=== PATIENT | male | born 1960 | race Caucasian/White ===

== ENCOUNTER → 2019-12-23 08:20 | Outpatient (BNVA) | payer MEDICARE, MEDICAID, SELFPAY | PROVIDERS: PCP Internal Medicine; Referring Provider Internal Medicine; Visit Provider Surgery | DX: R19.05 Periumbilic swelling, mass or lump (principal); Z87.19 Personal history of other diseases of the digestive system | CPT/HCPCS: 99213 ==

== ENCOUNTER 2020-01-06 08:27 | Outpatient (REF) | payer MEDICARE, MEDICAID, SELFPAY ==
--- NOTE | 2020-01-06 08:31 | CT_ITS ---
EXAMINATION: CT ABDOMEN AND PELVIS WITHOUT CONTRAST CLINICAL INFORMATION: Ventral hernia, follow-up. COMPARISON: CT abdomen and pelvis noncontrast 12/27/2018 TECHNIQUE: Multidetector volumetric imaging was performed from the superior aspect of the liver through the pubic symphysis. Sagittal and coronal reformatted images were obtained on the technologist's workstation. No oral or intravenous contrast. This CT examination was performed using dose optimization techniques as appropriate, variously including the following: *Automated exposure control *Adjustment of mA and/or kV according to patient size (this includes techniques or standardized protocols for targeted exams where dose is matched to indication/reason for exam; i.e. extremities or head) *Use of iterative reconstruction technique DLP: 667 mGy-cm FINDINGS: LUNG BASES: The visualized lung bases are unremarkable. LIVER, GALLBLADDER, AND BILIARY TREE: The liver is within normal size and smooth in contour and uniform in attenuation. There is no focal hepatic parenchymal lesion or intrahepatic ductal dilatation. The gallbladder is unremarkable with no evidence of radiopaque gallstones, gallbladder wall thickening, or obvious pericholecystic inflammatory changes. PANCREAS: Unremarkable. SPLEEN: Unremarkable. ADRENAL GLANDS: Unremarkable. KIDNEYS AND URETERS: The kidneys are normal in size, shape, and attenuation. No hydronephrosis, hydroureter, or calculi seen. No perinephric stranding. BLADDER: Unremarkable. GASTROINTESTINAL TRACT/ABDOMINAL WALL: There is a umbilical hernia containing mesenteric fat and small bowel again noted. The abdominal wall defect measures 6.4 x 6.5 cm. The hernia sac measures 5.9 x 10.6 x across by 9.7 cm vertical. There is now semisolid small bowel contents just proximal to the hernia and within the hernia sac. The bowel is within normal caliber under 3 cm and there is no bowel wall thickening and pneumatosis. The efferent loop from the hernia is collapsed. Again, there is some subtle stranding in the fat within the hernia. No fluid. The remainder of the bowel is unremarkable. The appendix is normal. There is no ascites or fluid collection. LYMPH NODES: No lymphadenopathy. VASCULAR: Unremarkable. PELVIC VISCERA: Mild prostatic enlargement again seen. Seminal vesicles unremarkable. OSSEOUS STRUCTURES: Unremarkable. CT/CT abdomen pelvis wo con IMPRESSION: Chronic umbilical hernia containing mesenteric fat and small bowel. There is now small bowel feces within and proximal to the hernia consistent with slow transit. No bowel wall thickening or proximal obstruction.
== END 2020-01-06 08:28 | disposition home or self-care (01) ==
LOC: HO.CT 08:27
PROVIDERS: PCP Physician Assistant; Visit Provider Surgery
DX: Z87.19 Personal history of other diseases of the digestive system (principal)
CPT/HCPCS: 74176

== ENCOUNTER → 2020-01-17 08:48 | Outpatient (BNVA) | payer MEDICARE, MEDICAID, SELFPAY | PROVIDERS: PCP Physician Assistant; Visit Provider Surgery | DX: K43.2 Incisional hernia without obstruction or gangrene (principal) | CPT/HCPCS: 99212 ==

== ENCOUNTER → 2020-01-31 08:32 | Outpatient (BNVA) | payer MEDICARE, MEDICAID, SELFPAY | PROVIDERS: PCP Physician Assistant; Referring Provider Physician Assistant; Visit Provider Nurse Practitioner Gerontology | DX: E11.9 Type 2 diabetes mellitus without complications (principal); Z79.84 Long term (current) use of oral hypoglycemic drugs; E66.01 Morbid (severe) obesity due to excess calories; Z68.36 Body mass index [BMI] 36.0-36.9, adult; E78.5 Hyperlipidemia, unspecified | CPT/HCPCS: 82947; 99212 ==

== ENCOUNTER 2020-02-15 12:20 | Inpatient (IN) | payer MEDICARE, MEDICAID, SELFPAY ==
[2020-02-10 11:15] VITALS: BMI 36.8
[2020-02-15] VITALS (14 sets, daily range): BP systolic 112–182; BP diastolic 53–96; PULSE 60–84; RESP 14–20; TEMP 36.3–37.2; O2SAT 92–98
--- NOTE | 2020-02-15 07:27 | P.HPSUR_ITS ---
Pre-Procedural Eval Section B Chief Complaint: Incisional hernia Details of Present Illness: for lap repair of recurrent ventral hernia, possible open Relevant Family History (Specify if Yes): No Relevant Social History: None Present Medications: see Short Stay Collaborative assessment Medical History: Significant History (DM. blindness, glaucoma, high BMI) History of Previous Operations: Relevant previous surgery/procedure and date(s) (hx of lap repair of hernia - 2018) Allergies: Allergies Allergy/AdvReac Type Severity Reaction Status Date / Time pollen/pine/sap Allergy Unknown Unknown Uncoded 01/31/20 09:08 Review of Systems Sugical H&P ROS: Negative: Constitution, Cardiovascular, Respiratory, Neurological, Psychiatric, Hem-Onc, Allergic/Immunologic, Gastrointestinal, Genitourinary, Musculoskeletal, Integumentary, Endocrine and Eyes/Ears/Nose/Thr oat Exam Surgical H&P Exam: Normal: HEENT, Normal: Heart, Normal: Lungs, Normal: Extremities, Normal: Abdomen, Normal: Skin and Normal: Neurological Plan Diagnosis/Plan: Unchanged Patient has been examined and remains a candidate for the planned procedure
[2020-02-15 07:42] LABS: Glucose, Whole Blood 147 mg/dL (60-115)
[2020-02-15] MEDS: ceFAZolin Sodium/Dextrose,Iso 2 GM/50 ML PIGGYBACK IV (07:53)
--- NOTE | 2020-02-15 07:55 | HO.ANESPROP2 ---
HPI - Anesthesia Eval Consult details Narrative: 59yo male patient here for laparoscopic incisional hernia repair, possible open. [facility] Past Medical History Medical History Blindness Controlled diabetes mellitus without complication, without long-term current use of insulin Diabetes mellitus Glaucoma High BMI History of umbilical hernia Hyperlipidemia LDL goal <100 Incisional hernia Obesity (BMI 30-39.9) Obesity due to excess calories YOLY (obstructive sleep apnea) Family History Family History Father History of bone cancer History of diabetes mellitus Mother History of pancreatic cancer Paternal Grandmother History of diabetes mellitus Paternal Uncle History of diabetes mellitus Paternal Aunt History of diabetes mellitus Family history of problems with anesthesia: No Surgical History Surgical History History of colonoscopy (~2009) History of local excision of skin lesion History of umbilical hernia repair History of Problems with Anesthesia: No Social History Social History Household Members: None Alcohol intake: never Smoking Status: Former smoker Advance Directives Information Provided: No Meds Allergies Allergy/AdvReac Type Severity Reaction Status Date / Time pollen/pine/sap Allergy Unknown Unknown Uncoded 01/31/20 09:08 Home Medications Medication Instructions Recorded Confirmed Type brimonidine 0.2 % eye drops 1 drp OPHTHALMIC (EYE) Q8H ml 12/23/19 02/10/20 History latanoprost 0.005 % eye drops 1 drp OPHTHALMIC (EYE) DAILY ml 12/23/19 02/15/20 History metformin 500 mg tablet,extended 500 mg PO BEDTIME 12/23/19 02/10/20 History release 24 hr simvastatin 10 mg tablet 10 mg PO DAILY 12/23/19 02/10/20 History Exam Exam Date and Time: February 15, 2020 8625 Height,Weight and Vital Signs: Height 5 ft 7 in Weight 106.594 kg Last Vital Signs Temp 98.9 F 02/15/20 07:35 Pulse 62 02/15/20 07:35 Resp 16 02/15/20 07:35 BP 117/58 L 02/15/20 07:35 Pulse Ox 97 02/15/20 07:35 Pertinent Lab Results Pertinent Lab Results: Laboratory Tests 02/15/20 07:33 POC Glucose 147 H Assessment and Plan Assessment Anesthesia Assessment: Anesthesia Plan Discussed and Chart Reviewed Final Anesthetic Review NPO: Yes ASA Class: III Final Preanesthetic Review: No Changes in Pt Med Stat, Meds/Allgs Chart Reviewed, Consent Obtained/Reviewed and Anes Risks/Benef Reviewed Patient Risk: Intermediate Procedure Risk: Intermediate Anesthetic Plan Anesthetic Plan: GA Disposition: Extended PACU
[2020-02-15] MEDS: Lactated Ringers 1,000 ML 100 ML IVCONT (07:59)
--- NOTE | 2020-02-15 11:44 | P.BOP_ITS ---
Brief Operative Note Date of Service: 02/15/20 Pre-op diagnosis: recurrent umbilical hernia Post-op diagnosis: same Procedure: Laparoscopic assisted repair of recurrent umbilical hernia with mesh, extensive lysis of adhesions, explantation of old mesh Implants: Phasix ST mesg [id number] Surgeon: CATIE AGUDELO MD Anesthesia: GETA Tanning Wheel Filler: Vanna Jeffries Estimated blood loss (mL): 30 Pathology: other (old mesh) Condition: stable Disposition: PACU
--- NOTE | 2020-02-15 13:50 | OP_ITS ---
SURGEON: Jason Ferguson MD INDICATIONS: The patient is a 59-year-old male, who has had previous history of recurrent hernia with laparoscopic repair in January 2019. He had noticed recurrence few months after and I had seen him in the office. A CAT scan showed what appeared to be a recurrent hernia at the level of umbilicus, measuring about 5 cm wide. In view of symptoms, he wanted to proceed with repair again. I explained the technique of the plan of repairing laparoscopically with possible conversion to open. I reviewed the risks including, but not limited to bleeding, infection, bowel injury, recurrence, as well as benefits and alternatives, and had given consent. PREOPERATIVE DIAGNOSIS: Recurrent umbilical hernia. POSTOPERATIVE DIAGNOSIS: Recurrent umbilical hernia with extensive adhesions. PROCEDURE PERFORMED: ESTIMATED BLOOD LOSS: COMPLICATIONS: ANESTHESIA: ASSISTANTS: SPECIMENS: PROCEDURES PERFORMED: Laparoscopic-assisted repair of a recurrent umbilical hernia with Phasix mesh with extensive lysis of adhesions and explantation of an old mesh. DEBURRING MACHINE OPERATOR: Vanna Jeffries PA-C. DESCRIPTION OF PROCEDURE: He was brought to the operating room, placed supine on table under general anesthesia via endotracheal tube. A Joseph catheter was inserted. Both arms were tucked on the side. The abdomen was prepped and draped in the usual sterile fashion. A surgical time-out was done and the patient received cefazolin 2 g IV preoperatively. I made an incision on the skin in the epigastric area just below the subcostal margin using a blade #15. This was carried down to full-thickness skin and subcutaneous fat down to the fascia. The fascia was incised. The peritoneum was entered through this incision, a Tami port was introduced. Pneumoperitoneum was introduced to a pressure of 15 mmHg. From here on, most of the procedure was done under vision of the laparoscope. We had used a 10 mm 30 degrees angle scope for most of the procedure. With laparoscopic visualization, we placed two 5 mm ports in the left side of the abdomen very laterally through small stab incisions. These 2 were then used as working ports. We proceeded to then examine the area of the hernia and there was note of very adherent omentum as well as bowel loops on the inferior edge of the hernia. There was extensive adherent omentum that we had to carefully lyse using the LigaSure. We made sure there were no bowel loops during the entire lysis of adhesions. Again, there were extensive adhesions in inferior aspect of the fascial defect. The fascial defect was seen and again this was wide-mouth and had a bowel loop that was markedly adherent into the lower edge. After we were able to achieve complete release of the omentum off the left edge of the fascial defect, proceeded to attempt to release the adherent small bowel loops from the inferior edge. We grasped this gently with grasper to allow counter retraction, and we used a combination of blunt dissection with the [place] dissector as well as the LigaSure itself. We were able to lyse some of the very dense adhesions. However, the bowel loops seemed to be more adherent past the fascia. In view of the high risk of injuring the bowel wall, I decided to convert to open because of the very dense and extensive adhesions. We desufflated through the port sites. I made an incision on the area of the umbilicus in the midline using blade #15. This was carried down to full-thickness skin and subcutaneous fat until we were able to enter the sac. I then extended the incision on the subcutaneous layer to optimize the length of the skin incision. We very able to see the bowel loops that were stuck on the fascia. I was able to release all of the rest of the adhesions superiorly to the right side. By doing so, we were able to clearly visualize the entire open sac with very markedly adherent bowel loops. Examination of this showed that this was also very adherent to the mesh on the middle aspect. This mesh was actually well incorporated on the left side, but the right side had been come off and was loose. We proceeded to gently next part of the procedure. Therefore required a long period of time because of the markedly adherent small bowel loops on the edge of the mesh. We had to do a prolonged dissection using the Metzenbaum scissors to carefully release the entire small bowel loop off the mesh with combination of sharp dissection, Metzenbaum scissors, and blunt dissection using countertraction and traction on the fascia itself as well as the small bowel loops. Again, in view of these extensive adhesions, this part of the procedure took a prolonged period of time, but we were eventually able to release the entire small bowel loop off the mesh. We proceeded to then explant the mesh by releasing this off the underside of the fascia. This was done using sharp dissection with Metzenbaum scissors as well as with electrocautery. We were eventually able to completely explant the mesh and was sent as specimen. We had Chuy clamps applied on the fascial edge. The north, south dimension was about 5 cm and the lateral edges seemed to come together well on the midline. Since there was a recurrence, I decided to use a wider mesh for greater overlap. I chose a 15 x 20 Phasix mesh and this was laid flat under the fascia with the fish in place to assist in positioning. I then proceeded to apply tacks on the skirt of the mesh circumferentially as wide as I could. I then proceeded to apply an inner row of tacks again using the same tacker. Once I felt that good application of the tacks was achieved, I proceeded to remove the fish part of the mesh. I then applied additional rows of tacks all around circumferentially on the skirt of the mesh. I then proceeded to close the fascia with Maxon 1 stitch incorporating the Prolene part of the mesh itself at the midline with some of the sutures. We therefore closed this with running Maxon 1 stitch in the midline. I then proceeded to inspect the placement of the mesh laparoscopically. I used the camera again in the epigastric port and examined this. The mesh actually appeared to be flat and well positioned except for an area on the left upper part of the mesh itself, which appeared to be folded and was hanging off the peritoneum. We attempted to apply additional tacks laparoscopically on this, but in view of the folding of the Prolene mesh, this did not achieve fixation as folded part was too thick for the tack be secured on the fascia. I therefore decided to use transfascial sutures on the lateral and upper part of the mesh. I used a Trey needle and was inserted through a small stab incision on the skin, passed to the fascia through the folded part of the mesh and back out again. This was then tied through a small incision on the skin. I used 2 of these transfascial sutures to flatten the mesh, which was hanging on this side. This 2 transfascial sutures using the Trey needle done laparoscopically appeared to achieve the purpose of flattening the mesh without any hanging edges. We examined the abdominal cavity laparoscopically. Again, the entire mesh appeared to be flat and was secured. I removed about 4 of the loose tacks laparoscopically as well as using the grasper. I examined the entire abdominal cavity and there was no evidence of any bowel injury. The bowel loop that had been earlier markedly adherent had been also examined well prior to closure of the mesh itself. There was good hemostasis inside the abdomen. We desufflated the port sites and removed all ports. I closed the epigastric port site with [id number] Dexon 0 stitch. I applied a RUCHI #7 drain at the large hernia sac and this was brought out through an exit site on the right side by a stab incision. This RUCHI drain was secured with a nylon 3-0 stitch to the skin. We then proceeded to close all incisions with skin lara. All incisions were infiltrated with Marcaine 0.5% for postop analgesia. Dressings were applied. The procedure was completed. The patient tolerated the procedure well. There were no complications noted. Initial and final counts of sponge and instruments were correct. Estimated blood loss was about 20 cc. The patient was extubated without difficulty and transferred to recovery room with stable vital signs. MD JUSTIN Sánchez/ABRIL / [id number] MTDJose
[2020-02-15 14:18] LABS: Glucose, Whole Blood 177 mg/dL (60-115)
--- NOTE | 2020-02-15 14:23 | PC.NURSE ---
Pt arrived to the floor, alert oriented, pt is legally blind, need to tell him an show him where things are. Has bandaids on upper stomach with slight staining, had an open choly mid abdominal dressing, no staining on dressing. Has a RUCHI drain less than 1 cc in drain. Instructed how to splint abdomen when moving. Call garcia with in reach.
[2020-02-15] MEDS: 0.9 % Sodium Chloride Flush 3 ML SYRINGE IVFLUSH ×2 (15:02→21:15)
[2020-02-15] MEDS: oxyCODONE HCl Immed Release 5 MG TABLET PO ×2 (15:55→23:36)
--- NOTE | 2020-02-15 15:58 | PM.EVENT ---
Event Note Date of Service: 02/15/20 Event Note: pt seen postop he underwent lap assisted repair of recurrent ventral hernia with mesh with extensive lysis of adhesions earlier today says he has good pain control looks well dressings dry RUCHI drain - very scanty abd soft stable VS continue pain mgt doing well postop
[2020-02-15 16:50] LABS: Glucose, Whole Blood 193 mg/dL (60-115)
[2020-02-15] MEDS: Insulin Lispro 100 UNIT/ML 3 ML VIAL SUBCUT ×2 (17:16→21:11)
[2020-02-15] MEDS: Brimonidine Tartrate 0.2% Oph 5 ML BOTTLE 1 DROP EYE-BOTH (20:08)
[2020-02-15] MEDS: Morphine Sulfate 4 MG/ML CARTRIDGE IVPUSH (20:12)
[2020-02-15 20:31] LABS: Glucose, Whole Blood 187 mg/dL (60-115)
[2020-02-15] MEDS: Latanoprost 0.005 % Ophth Sol 2.5 ML DROPS 1 DROP EYE-BOTH (21:11)
[2020-02-16] MEDS: Morphine Sulfate 4 MG/ML CARTRIDGE IVPUSH ×2 (03:16→07:23)
[2020-02-16 03:56] VITALS: BP 116/57; PULSE 69; RESP 16; TEMP 37.2; O2SAT 95
[2020-02-16] MEDS: Brimonidine Tartrate 0.2% Oph 5 ML BOTTLE 1 DROP EYE-BOTH ×2 (03:57→19:52)
[2020-02-16 07:17] VITALS: BP 123/65; PULSE 71; RESP 18; TEMP 36.9; O2SAT 93
[2020-02-16] MEDS: 0.9 % Sodium Chloride Flush 3 ML SYRINGE IVFLUSH ×3 (07:22→20:00)
[2020-02-16 08:02] LABS: Anion Gap 15 (12-20); Blood Urea Nitrogen 18 mg/dL (9-16); Carbon Dioxide 24 mmol/L (22-29); Chloride 104 mmol/L (96-108); Creatinine Clr Calc Pharmacy 90.7; Estimated Glomerular Filt Rate > 60; Glucose Fasting 144 mg/dL (60-99); Potassium 4.2 mmol/l (3.3-5.1); Sodium 139 mmol/L (135-145)
[2020-02-16 08:11] LABS: Glucose, Whole Blood 150 mg/dL (60-115)
--- NOTE | 2020-02-16 08:17 | P.PNGS_ITS ---
Subjective Subjective Date of Service: 02/16/20 Interval history: Complains of incisional pain Tolerating diet Able to get out of bed and ambulate in the room Physical Exam Vital Signs: Vital Signs: Last Vital Signs Temp 98.4 F 02/16/20 07:17 Pulse 71 02/16/20 07:17 Resp 18 02/16/20 07:17 BP 123/65 02/16/20 07:17 Pulse Ox 93 02/16/20 07:17 Body Mass Index 36.8 Chemistry 02/16/20 06:36 Sodium 139 Potassium 4.2 Carbon Dioxide 24 BUN 18 H Creatinine 1.02 Calcium 8.0 L Const: General: comfortable and no acute distress Resp: Effort & Inspection: normal respiratory effort Cardio: Rate: regular rate Rhythm: regular rhythm GI: Other: Soft, RUCHI drain in place, output scanty, dressings dry Palpation (GI): no guarding Progress Note: A&P Assessment and plan (1) History of umbilical hernia: Status: Acute Assessment and Plan: Status post laparoscopic assisted repair of recurrent umbilical hernia with mesh Looks well Abdomen soft RUCHI to the old hernia sac with minimal output He feels he is not ready to go home today - he lives alone, legally blind Will keep in the hospital for pain management Ambulate with assistance Overall, doing well Fall Risk Details Current Medications: Current Medications Generic Name Dose Route Start Last Admin Trade Name Freq PRN Reason Stop Dose Admin Acetaminophen 975 mg 02/15/20 11:54 Acetaminophen 325 Mg Tablet PO Q6H PRN Pain, Mild (Pain Scale 1-3) Atorvastatin Calcium 10 mg 02/16/20 09:00 Atorvastatin Calcium 10 Mg Tablet PO DAILY [facility] Brimonidine Tartrate 1 drop 02/15/20 12:00 02/16/20 03:57 Brimonidine Tartrate 0.2% Oph 5 Ml Bottle EYE-BOTH 1 drop Q8H [facility] Administration Docusate Sodium 100 mg 02/15/20 11:46 Docusate Sodium 100 Mg Capsule PO DAILY PRN Constipation Heparin Sodium (Porcine) 5,000 unit 02/16/20 12:00 Heparin Sodium,Porcine 5,000 Unit/Ml Vial SUBCUT Q8H [facility] Insulin Human Lispro 0 unit 02/15/20 16:30 02/16/20 07:22 Insulin Lispro 100 Unit/Ml 3 Ml Vial SUBCUT 02/16/20 11:51 Not Given QIDACHS [facility] Protocol Latanoprost 1 drop 02/15/20 21:00 02/15/20 21:11 Latanoprost 0.005 % Ophth Kaila 2.5 Ml Drops EYE-BOTH 1 drop BEDTIME TOMMY Administration Morphine Sulfate 4 mg 02/15/20 11:51 02/16/20 07:23 Morphine Sulfate 4 Mg/Ml Cartridge IVPUSH 4 mg Q4H PRN Administration Pain, Severe (Pain Scale 7-10) Ondansetron HCl 4 mg 02/15/20 11:46 Ondansetron Hcl 4 Mg/2 Ml Vial IVPUSH Q8H PRN Nausea and Vomiting Oxycodone HCl 5 mg 02/15/20 11:51 02/15/20 23:36 Oxycodone Hcl Immed Release 5 Mg Tablet PO 5 mg Q6H PRN Administration Pain, Severe (Pain Scale 7-10) Sodium Chloride 3 ml 02/15/20 16:00 02/16/20 07:22 0.9 % Sodium Chloride Flush 3 Ml Syringe IVFLUSH 3 ml QSHIFT [facility] Administration Time Spent With Patient Time: Total time spent is greater than 50% in coordination of care (as documented) at patient's floor/unit and/or counseling patient: Time with patient: 15 - 24 minutes
--- NOTE | 2020-02-16 08:22 | PM.PNGS ---
Subjective Subjective Date of Service: 02/16/20 Interval history: Very sore this morning and oxycodone not relieving pain. Morphine helping more. Having difficulty getting OOB. Nervous to go home. Tolerating diet. No flatus or BM. Physical Exam Vital Signs: Vital Signs: Last Vital Signs Temp 98.4 F 02/16/20 07:17 Pulse 71 02/16/20 07:17 Resp 18 02/16/20 07:17 BP 123/65 02/16/20 07:17 Pulse Ox 93 02/16/20 07:17 Body Mass Index 36.8 Const: General: healthy appearing, no acute distress and alert Orientation/consciousness: patient oriented x3 Resp: Effort & Inspection: normal respiratory effort GI: Other: RUCHI drain serous drainage Inspection: Yes incision (dressings C/D/I) Palpation (GI): Soft to palpation, Tenderness to palpation present (GI) (moderate, incisional), no guarding, not rigid and No Rebound tenderness present Skin: General skin exam: no rashes or lesions noted Neuro: General: patient oriented x3 Extrem: General: Yes no clubbing, cyanosis or edema Progress Note: A&P Assessment and plan (1) History of umbilical hernia: Status: Acute (2) Diabetes mellitus: Status: Acute Assessment and Plan: Diabetic diet. On ISS. Will resume home metformin. (3) YOLY (obstructive sleep apnea): Status: Acute (4) Blindness: Problem details: has 10-20% vision/walks with white cane Status: Acute (5) History of umbilical hernia repair: Status: Acute Assessment and Plan: POD #1 s/p laparoscopic assisted repair of umbilical hernia with mesh. Sore this morning with difficulty with pain control. VSS. Abd exam benign with dressings c/d/i, appropriate post op tenderness, RUCHI with serous drainage. Cont pain management- will add ofirmev. Encouraged OOB/ambulation. Home when pain controlled on PO analgesics. Fall Risk Details Current Medications: Current Medications Generic Name Dose Route Start Last Admin Trade Name Freq PRN Reason Stop Dose Admin Acetaminophen 975 mg 02/15/20 11:54 Acetaminophen 325 Mg Tablet PO Q6H PRN Pain, Mild (Pain Scale 1-3) Atorvastatin Calcium 10 mg 02/16/20 09:00 Atorvastatin Calcium 10 Mg Tablet PO DAILY TOMMY Brimonidine Tartrate 1 drop 02/15/20 12:00 02/16/20 03:57 Brimonidine Tartrate 0.2% Oph 5 Ml Bottle EYE-BOTH 1 drop Q8H TOMMY Administration Docusate Sodium 100 mg 02/15/20 11:46 Docusate Sodium 100 Mg Capsule PO DAILY PRN Constipation Heparin Sodium (Porcine) 5,000 unit 02/16/20 12:00 Heparin Sodium,Porcine 5,000 Unit/Ml Vial SUBCUT Q8H [facility] Insulin Human Lispro 0 unit 02/15/20 16:30 02/16/20 07:22 Insulin Lispro 100 Unit/Ml 3 Ml Vial SUBCUT 02/16/20 11:51 Not Given QIDACHS [facility] Protocol Latanoprost 1 drop 02/15/20 21:00 02/15/20 21:11 Latanoprost 0.005 % Ophth Kaila 2.5 Ml Drops EYE-BOTH 1 drop BEDTIME TOMMY Administration Morphine Sulfate 4 mg 02/15/20 11:51 02/16/20 07:23 Morphine Sulfate 4 Mg/Ml Cartridge IVPUSH 4 mg Q4H PRN Administration Pain, Severe (Pain Scale 7-10) Ondansetron HCl 4 mg 02/15/20 11:46 Ondansetron Hcl 4 Mg/2 Ml Vial IVPUSH Q8H PRN Nausea and Vomiting Oxycodone HCl 5 mg 02/15/20 11:51 02/15/20 23:36 Oxycodone Hcl Immed Release 5 Mg Tablet PO 5 mg Q6H PRN Administration Pain, Severe (Pain Scale 7-10) Sodium Chloride 3 ml 02/15/20 16:00 02/16/20 07:22 0.9 % Sodium Chloride Flush 3 Ml Syringe IVFLUSH 3 ml QSHIFT TOMMY Administration Time Spent With Patient Time: Total time spent is greater than 50% in coordination of care (as documented) at patient's floor/unit and/or counseling patient: Time with patient: 15 - 24 minutes No Severe Sepsis: No Severe Sepsis
[2020-02-16] MEDS: Docusate Sodium 100 MG CAPSULE PO ×2 (09:18→19:54)
[2020-02-16 11:29] VITALS: BP 113/59; PULSE 64; RESP 16; TEMP 36.1; O2SAT 96
[2020-02-16 11:46] LABS: Glucose, Whole Blood 191 mg/dL (60-115)
[2020-02-16] MEDS: Insulin Lispro 100 UNIT/ML 3 ML VIAL SUBCUT (11:58)
[2020-02-16] MEDS: Heparin Sodium,Porcine 5,000 UNIT/ML VIAL 5000 UNIT SUBCUT ×2 (11:59→19:52)
--- NOTE | 2020-02-16 12:33 | HO.POSTANES ---
Post Anesthesia Evaluation Post Anesthesia Evaluation Vital Signs: Vital Signs Temp Pulse Resp BP Pulse Ox 02/16/20 11:29 96.9 F 64 16 113/59 L 96 02/16/20 07:17 98.4 F 71 18 123/65 93 02/16/20 03:56 98.9 F 69 16 116/57 L 95 Anesthesia: General Endotracheal-GETA Mental Status: Awake Pain Control: Satisfactory Nausea/Vomiting: None Hydration: Adequate Anesthesia-Related Issues: No Anes. Related Issues
[2020-02-16] MEDS: oxyCODONE HCl Immed Release 5 MG TABLET 10 MG PO (12:47)
[2020-02-16 14:51] VITALS: BMI 36.8
[2020-02-16 15:39] VITALS: BP 117/57; PULSE 60; RESP 20; TEMP 36.1; O2SAT 95
--- NOTE | 2020-02-16 15:39 | MHC.CM.PN ---
PT ADMITTED S/P LAP UMBILICAL HERNIA REPAIR W/MESH, EMR REVIEWED, PT ALERT AND ORIENTED, PT ANXIOUS ABOUT DISCHARGE DUE TO ONGOING PAIN AND DIFFICULTY GETTING IN AND OUT OF BED, PT ALSO UNABLE TO VISUALIZE INCISION OR MEASURE DRAINAGE FROM RUCHI DRAIN D/T BLINDNESS, REFERRAL WILL BE MADE TO [facility] D/T PT NOT BEING INTERESTED IN OTHER OPTIONS, PT HAS RELATIVES HOWEVER THEY LIVE IN [place] AND REPORTS HE DOES NOT HAVE FRIENDS/FAMILY WHO CAN ASSIST HIM DAILY ONCE HE RETURNS HOME, IMM READ/REVIEWED W/PT AND COPY WAS SCANNED AND EMAILED AT HIS REQUEST D/T BLINDNESS. PT REPORTS HCP W/MYLENE TORREZ AND JOVAN YAN HIS AGENTS, COPY WAS REQUESTED SINCE IT IS NOT ON FILE. PT PREFERS [facility] ON [facility] IN [place] AND CONT'S TO SEE PCP FRANCESCA MAE. CURRENT DISCHARGE PLAN HOME W/[facility].
[2020-02-16 16:22] LABS: Glucose, Whole Blood 137 mg/dL (60-115)
[2020-02-16] MEDS: metFORMIN HCl ER 500 MG TAB.ER.24H PO (16:37)
[2020-02-16 19:23] VITALS: BP 134/72; PULSE 72; RESP 20; TEMP 37; O2SAT 95
[2020-02-16] MEDS: Latanoprost 0.005 % Ophth Sol 2.5 ML DROPS 1 DROP EYE-BOTH (20:05)
[2020-02-16 23:43] VITALS: BP 137/73; PULSE 83; RESP 20; TEMP 36.7; O2SAT 98
[2020-02-17 02:54] VITALS: BP 151/70; PULSE 79; RESP 19; TEMP 36.8; O2SAT 97
[2020-02-17] MEDS: Heparin Sodium,Porcine 5,000 UNIT/ML VIAL 5000 UNIT SUBCUT (03:28)
[2020-02-17] MEDS: Brimonidine Tartrate 0.2% Oph 5 ML BOTTLE 1 DROP EYE-BOTH (04:01)
[2020-02-17] MEDS: 0.9 % Sodium Chloride Flush 3 ML SYRINGE IVFLUSH (07:51)
[2020-02-17] MEDS: Docusate Sodium 100 MG CAPSULE PO (07:51)
[2020-02-17] MEDS: Atorvastatin Calcium 10 MG TABLET PO (07:51)
[2020-02-17 07:57] VITALS: BP 139/76; PULSE 72; RESP 20; TEMP 37; O2SAT 96
[2020-02-17 08:27] LABS: Glucose, Whole Blood 148 mg/dL (60-115)
--- NOTE | 2020-02-17 08:31 | PM.PNGS ---
Subjective Subjective Date of Service: 02/17/20 <Vanna Jeffries PA-C - Last Filed: 02/17/20 08:37> 02/17/20 <Jason Ferguson MD - Last Filed: 02/17/20 11:03> Interval history: Tolerating solid diet. Pain better but still requiring IV analgesics and was uncomfortable overnight. Reports difficulty getting OOB. Anxious about being discharge before he is ready. <Vanna Jeffries PA-C - Last Filed: 02/17/20 08:37> Physical Exam Vital Signs: Vital Signs: Last Vital Signs Temp 98.6 F 02/17/20 07:57 Pulse 72 02/17/20 07:57 Resp 20 02/17/20 07:57 BP 139/76 02/17/20 07:57 Pulse Ox 96 02/17/20 07:57 Body Mass Index 36.8 <Vanna Jeffries PA-C - Last Filed: 02/17/20 08:37> Const: General: comfortable, no acute distress and well developed <Vanna Jeffries PA-C - Last Filed: 02/17/20 08:37> Orientation/consciousness: patient oriented x3 <Vanna Jeffries PA-C - Last Filed: 02/17/20 08:37> Resp: Effort & Inspection: normal respiratory effort <Vanna Jeffries PA-C - Last Filed: 02/17/20 08:37> Cardio: Rate: regular rate <Vanna Jeffries PA-C - Last Filed: 02/17/20 08:37> GI: Inspection: Yes distended (mild) and Yes incision (clean) <Vanna Jeffries PA-C - Last Filed: 02/17/20 08:37> Palpation (GI): Soft to palpation, Tenderness to palpation present (GI) (mild incisional), no guarding, not rigid and No Rebound tenderness present <PENELOPE Altamirano Last Filed: 02/17/20 08:37> Auscultation: normal bowel sounds <PENELOPE Altamirano Last Filed: 02/17/20 08:37> Skin: General skin exam: no rashes or lesions noted <Vanna Jeffries PA-C - Last Filed: 02/17/20 08:37> Neuro: General: patient oriented x3 <Vanna Jeffries PA-C - Last Filed: 02/17/20 08:37> Extrem: General: Yes no clubbing, cyanosis or edema <Vanna Jeffries PA-C - Last Filed: 02/17/20 08:37> Progress Note: A&P Assessment and plan (1) History of umbilical hernia repair: Status: Acute <Vanna Jeffries PA-C - Last Filed: 02/17/20 08:37> Assessment and Plan: POD #2 s/p laparoscopic assisted repair of umbilical hernia with mesh. Doing well this morning but reports still having pain. VSS. Abd exam benign and incisions clean, appropriate post op tenderness, RUCHI with serous drainage. Encouraged OOB/ambulation, IS use. Anticipate home possibly later today or tomorrow. Will reassess later today. Will need VNA services for drain care- discussed with case management. <Vanna Jeffries PA-C - Last Filed: 02/17/20 08:37> Status post repair with mesh, laparoscopic assisted incisional pain appropriate to procedure He stated he may go home later on today Explained postop care to the patient RUCHI care will require VNA services Dry dressings to the wound No lifting Pain management Good GI function Seen and examined -agree with JOHN Jeffries <Jason Ferguson MD - Last Filed: 02/17/20 11:03> (2) Obesity (BMI 30-39.9): Status: Acute <Vanna Jeffries PA-C - Last Filed: 02/17/20 08:37> (3) History of umbilical hernia: Status: Acute <Vanna Jeffries PA-C - Last Filed: 02/17/20 08:37> (4) Diabetes mellitus: Status: Acute <Vanna Jeffries PA-C - Last Filed: 02/17/20 08:37> Assessment and Plan: ISS, on home Metformin. <Vanna Jeffries PA-C - Last Filed: 02/17/20 08:37> (5) YOLY (obstructive sleep apnea): Status: Acute <Vanna Jeffries PA-C - Last Filed: 02/17/20 08:37> (6) Blindness: Problem details: has 10-20% vision/walks with white cane <Vanna Jeffries PA-C - Last Filed: 02/17/20 08:37> Status: Acute <Vanna Jeffries PA-C - Last Filed: 02/17/20 08:37> Fall Risk Details Current Medications: Current Medications Generic Name Dose Route Start Last Admin Trade Name Freq PRN Reason Stop Dose Admin Atorvastatin Calcium 10 mg 02/16/20 09:00 02/17/20 07:51 Atorvastatin Calcium 10 Mg Tablet PO 10 mg DAILY TOMMY Administration Brimonidine Tartrate 1 drop 02/15/20 12:00 02/17/20 04:01 Brimonidine Tartrate 0.2% Oph 5 Ml Bottle EYE-BOTH 1 drop Q8H TOMMY Administration Docusate Sodium 100 mg 02/16/20 09:00 02/17/20 07:51 Docusate Sodium 100 Mg Capsule PO 100 mg BID TOMMY Administration Heparin Sodium (Porcine) 5,000 unit 02/16/20 12:00 02/17/20 03:28 Heparin Sodium,Porcine 5,000 Unit/Ml Vial SUBCUT 5,000 unit Q8H TOMMY Administration Latanoprost 1 drop 02/15/20 21:00 02/16/20 20:05 Latanoprost 0.005 % Ophth Kaila 2.5 Ml Drops EYE-BOTH 1 drop BEDTIME TOMMY Administration Metformin HCl 500 mg 02/16/20 17:00 02/16/20 16:37 Metformin Hcl Er 500 Mg Tab.Er.24h PO 500 mg DAILY@1700 TOMMY Administration Morphine Sulfate 4 mg 02/15/20 11:51 02/16/20 07:23 Morphine Sulfate 4 Mg/Ml Cartridge IVPUSH 4 mg Q4H PRN Administration Pain, Severe (Pain Scale 7-10) Ondansetron HCl 4 mg 02/15/20 11:46 Ondansetron Hcl 4 Mg/2 Ml Vial IVPUSH Q8H PRN Nausea and Vomiting Oxycodone HCl 5 mg 02/15/20 11:51 02/15/20 23:36 Oxycodone Hcl Immed Release 5 Mg Tablet PO 5 mg Q6H PRN Administration Pain, Severe (Pain Scale 7-10) Oxycodone HCl 10 mg 02/16/20 08:27 02/16/20 12:47 Oxycodone Hcl Immed Release 5 Mg Tablet PO 10 mg Q4H PRN Administration Pain, Severe (Pain Scale 7-10) Sodium Chloride 3 ml 02/15/20 16:00 02/17/20 07:51 0.9 % Sodium Chloride Flush 3 Ml Syringe IVFLUSH 3 ml QSHIFT TOMMY Administration <Vanna Jeffries PA-C - Last Filed: 02/17/20 08:37> Time Spent With Patient Time: Total time spent is greater than 50% in coordination of care (as documented) at patient's floor/unit and/or counseling patient: <Vanna Jeffries PA-C - Last Filed: 02/17/20 08:37> Time with patient: 15 - 24 minutes <Vanna Jeffries PA-C - Last Filed: 02/17/20 08:37>
--- NOTE | 2020-02-17 09:16 | MHC.CM.PN ---
DISCHARGE NOTE: PLAN TO DISCHARGE HOME TODAY W/[facility] FOR POST SURGICAL, RUCHI DRAIN AND MED RECONCILIATION DUE TO BLINDENESS. FRIEND TO TRANSPORT HOME, WILL PICK PT UP AT 11AM, CASE MANAGEMENT WILL MAKE FOLLOW-UP APPT W/PCP.
--- NOTE | 2020-02-17 09:45 | W.MHC.F2F ---
Service Date Service Date: 02/17/20 Encounter Date of encounter: 02/17/20 Reasons for Services Signs and symptoms assessed: Abdominal pain, tenderness, RUCHI drain output Reason for penitentiary: wound care and postoperative assessment and/or care MD Overseeing Care: Jason Ferguson Homebound: Leaving the home is medically contraindicated at this time without the asist of a device and/or another person due th the listed conditions above and below. Reason homebound: weakness related to hospital stay and unable to drive Homebound supporting statement: Mr. Alford is a 59 year old male with a PMH of diabetes, blindess, with recurrent umbilical hernia now s/p laparoscopic assisted repair with mesh. He is doing well post operatively but will need VNA upon discharge for post operative care and RUCHI drain care. Certification: Based on the above findings, I certify that this patient is confined to the home and needs intermittent penitentiary care, physical therapy and/or speech therapy, or continues to need occupational therapy. The patient is under my care, and I have initiated the establishment of the plan of care. The patient will be followed by a physician who will periodically review the plan of care.
--- NOTE | 2020-02-17 09:49 | P.DS_ITS ---
DS: Providers Provider Date of admission: 02/15/20 12:20 Primary care physician: Davion Sheth PA-C DS: Diagnosis Discharge Diagnosis (1) History of umbilical hernia repair: Status: Acute (2) Obesity (BMI 30-39.9): Status: Acute (3) History of umbilical hernia: Status: Acute (4) Diabetes mellitus: Status: Acute (5) YOLY (obstructive sleep apnea): Status: Acute (6) Blindness: Status: Acute Problem details: has 10-20% vision/walks with white cane DS: Medications Discharge Medications Home Medications: Home Medications Medication Instructions Recorded Confirmed brimonidine 0.2 % eye drops 1 drp OPHTHALMIC (EYE) Q8H ml 12/23/19 02/10/20 latanoprost 0.005 % eye drops 1 drp OPHTHALMIC (EYE) DAILY ml 12/23/19 02/15/20 simvastatin 10 mg tablet 10 mg PO DAILY 12/23/19 02/10/20 Previous Rx's Medication Instructions Recorded metformin 500 mg tablet,extended 500 mg PO BEDTIME #30 tab 02/15/20 release 24 hr dextromethorphan-guaifenesin 1 tab PO Q12H PRN #20 tab 02/17/20 [Mucinex DM] ibuprofen 600 mg PO TID PRN #30 tab 02/17/20 oxycodone-acetaminophen [Percocet] 1 - 2 tab PO Q4-6H PRN #24 tab 02/17/20 DS: Summary Hospital Course Hospital Course: Brief HPI:The patient is a 59-year-old male, who has had previous history of umbilical hernia with laparoscopic repair in January 2019. He had noticed a recurrence a few months after and he was seen in the office. A CAT scan was therefore performed which showed what appeared to be a recurrent hernia at the level of umbilicus, measuring about 5 cm wide. In view of symptoms, he wanted to proceed with repair again. Laparoscopic possible open repair technique was discussed with the patient. He now presents for repair. Hospital course: On 02/15/20, a laparoscopic assisted repair of umbilical hernia with mesh with extensive lysis of adhesions and explantation of old mesh was performed by Dr. Jason Ferguson. The patient tolerated the procedure well and was admitted post operatively for observation and pain control. The patient had an uncomplicated recovery course. On POD #1, he was doing well with some difficulty with pain control and additional analgesics were added with good effect. On POD #2 and the day of discharge, he was tolerating a solid diet, passing flatus and his pain was better controlled. He was OOB and ambulating. His abdominal exam remained benign with clean incisions. He had a RUCHI drain placed intraoperatively which was kept in place upon discharge. The patient was discharged to home on 02/17/20 in stable condition with VNA services. Status at Discharge Functional status at discharge: uses cane/walker Overall status at discharge: patient is progressing back to baseline Time Spent with Patient Time attestation: Total time spent providing and/or coordinating discharge services: Discharge coordination time: Greater than 30 minutes Physical Exam Vital Signs: Vital Signs: Last Vital Signs Temp 98.6 F 02/17/20 07:57 Pulse 72 02/17/20 07:57 Resp 20 02/17/20 07:57 BP 139/76 02/17/20 07:57 Pulse Ox 96 02/17/20 07:57 Body Mass Index 36.8 Const: General: comfortable, no acute distress and alert Orientation/consciousness: patient oriented x3 Resp: Effort & Inspection: normal respiratory effort GI: Other: RUCHI drain with serous drainage Inspection: Yes distended (mild) Palpation (GI): Soft to palpation, Tenderness to palpation present (GI) (mild, incisional), no guarding, not rigid and No Rebound tenderness present Skin: General skin exam: no rashes or lesions noted Neuro: General: patient oriented x3 Extrem: General: Yes no clubbing, cyanosis or edema DS: Data Data Completed and Pending Completed studies during hospitalization [Text1]: Pending at discharge 02/15/20 11:17 Surgical [PTH] Routine OLD MESH: Fragments of fibroadipose tissue with foreign body giant cell reaction, fibrosis and refractile material Labs on day of discharge: 02/14/20 09:23 ceFAZolin Sodium/Dextrose,Iso [Ancef] 2 gm in 50 ml IV PREOP 02/15/20 07:33 Glucose, Whole Blood Routine 02/15/20 07:49 ceFAZolin Sodium/Dextrose,Iso [Ancef] 2 gm in 50 ml .ROUTE As directed 02/15/20 08:00 Lactated Ringers [Lr] 1,000 ml IVCONT 100 mls/hr 02/15/20 08:15 Lidocaine HCl 2 % MPF [Xylocaine 2 % MPF] 5 ml .ROUTE .STK-MED ONE Midazolam HCl/PF [Versed] 2 mg .ROUTE .STK-MED ONE Rocuronium [place] [Zemuron] 100 mg IV .STK-MED ONE fentaNYL citrate/PF [Sublimaze] 50 mcg .ROUTE .STK-MED ONE propofoL [Diprivan] 200 mg IVPUSH .STK-MED ONE 02/15/20 08:16 Bupivacaine MPF 0.5 % [Sensorcaine MPF 0.5% 10 ML] 10 ml .ROUTE .STK-MED ONE Lidocaine HCl 1 % MPF [Xylocaine 1 % MPF] 5 ml .ROUTE .STK-MED ONE 02/15/20 09:08 fentaNYL citrate/PF [Sublimaze] 50 mcg .ROUTE .STK-MED ONE 02/15/20 09:16 Glycopyrrolate [Robinul] 0.2 mg .ROUTE .STK-MED ONE dexAMETHasone sod phosphate [Decadron] 4 mg .ROUTE .STK-MED ONE ondansetron HCL [Zofran] 4 mg .ROUTE .STK-MED ONE 02/15/20 09:17 Sugammadex Sodium [Bridion] 200 mg IVPUSH .STK-MED ONE 02/15/20 09:19 Acetaminophen [Tylenol] 975 mg PO ONCE PRN fentaNYL citrate/PF [Sublimaze] 25 mcg IVPUSH Q5M PRN ondansetron HCL [Zofran] 4 mg IVPUSH ONCE PRN oxyCODONE HCl Immed Release [Roxicodone] 5 mg PO ONCE PRN 02/15/20 09:34 HYDROmorphone HCl [Dilaudid] 2 mg .ROUTE .STK-MED ONE 02/15/20 10:19 Ketamine HCl/NS 50 mg IVPUSH .STK-MED ONE 02/15/20 10:59 Acetaminophen [Ofirmev] 1,000 mg in 100 ml IV As directed 02/15/20 11:17 Surgical [PTH] Routine 02/15/20 11:46 Docusate Sodium [Colace] 100 mg PO DAILY PRN 02/15/20 11:54 Acetaminophen [Tylenol] 975 mg PO Q6H PRN 02/15/20 12:06 Transfer Order Routine 02/15/20 14:10 Glucose, Whole Blood Routine 02/15/20 16:30 Insulin Lispro [Humalog] See Protocol SUBCUT QIDACHS 02/15/20 16:34 Glucose, Whole Blood Routine 02/15/20 19:56 Glucose, Whole Blood Routine 02/16/20 06:36 Basic Metabolic Panel Fasting Routine 02/16/20 07:15 Glucose, Whole Blood Routine 02/16/20 08:30 Acetaminophen [Ofirmev] 1,000 mg in 100 ml IV Q6H 02/16/20 09:00 Latanoprost 0.005 % Ophth Kaila [Xalatan 0.005 % Oph Kaila] 1 drop EYE-BOTH DAILY 02/16/20 11:28 Glucose, Whole Blood Routine 02/16/20 16:01 Glucose, Whole Blood Routine 02/17/20 07:54 Glucose, Whole Blood Routine Laboratory Last Values Sodium 139 mmol/L (135-145) 02/16/20 06:36 Potassium 4.2 mmol/l (3.3-5.1) 02/16/20 06:36 Chloride 104 mmol/L (96-108) 02/16/20 06:36 Carbon Dioxide 24 mmol/L (22-29) 02/16/20 06:36 Anion Gap 15 (12-20) 02/16/20 06:36 BUN 18 mg/dL (9-16) H 02/16/20 06:36 Creatinine 1.02 mg/dL (0.5-1.4) 02/16/20 06:36 Estim Creat Clear Calc 90.7 02/16/20 06:36 Estimated GFR > 60 02/16/20 06:36 POC Glucose 148 mg/dL (60-115) H 02/17/20 07:54 Fasting Glucose 144 mg/dL (60-99) H 02/16/20 06:36 Calcium 8.0 mg/dL (8.4-10.2) L 02/16/20 06:36 Discharge Plan Discharge Patient Disposition: Home Health Service Referrals: [facility] [Other] (New referral for [facility] for nursing. Nursing for home post surgical as sessment, RUCHI drain and medication reconciliation. PCP- Davion Sheth, case management office to make appt. Friend to transport home.) Domenic,Davion, PA-C [Primary Care Provider] - 1 Week (02/29/2020 9am. If you can't keep this appointment please call and reshedule.) Jason Ferguson MD [Physician] - 02/28/20 Discharge Medications: New oxycodone-acetaminophen [Percocet] 5-325 mg tablet 1 - 2 tab PO Q4-6H PRN (Reason: pain (scale score 7-10)) Qty: 24 RF: 0 Mucinex DM 30-600 mg tablet extended release 12 hr 1 tab PO Q12H PRN (Reason: cough) Qty: 20 RF: 0 ibuprofen 600 mg tablet 600 mg PO TID PRN (Reason: pain) Qty: 30 RF: 0 Continued metformin 500 mg tablet extended release 24 hr 500 mg PO BEDTIME Qty: 30 RF: 5 simvastatin 10 mg tablet 10 mg PO DAILY RF: 0 brimonidine 0.2 % drops 1 drp ophthalmic (eye) Q8H RF: 0 latanoprost 0.005 % drops 1 drp ophthalmic (eye) DAILY RF: 0 Discharge Orders: Discharge Order (Routine); Ordered 02/17/20 Ordered By: Vanna Jeffries Diet: diabetic diet Activity on Discharge: No heavy lifting Activity Restrictions/Additional Instructions: If the incision area is tender, you may apply an ice pack for short intervals (No more than 20 minutes on, followed by at least 20 minutes off). Do not apply heat. Do not use creams, lotions, or topical antibiotics unless instructed to do so by your surgeon. These can cause infection or allergic reaction. Ok to shower. You have lara closing your incision and these will be removed approximately 10-14 days after surgery. RUCHI drain care: change dressing q2d and PRN. Drain RUCHI bulb daily and as needed. Call Your Doctor If: -Your temperature exceeds 101.5? F -You experience excessive pain or swelling -You have an unexpected reaction to medication -You have excessive bleeding -You experience continued vomiting/nausea -Your incision begins to separate -Your incision shows signs of infection such as increased redness, swelling, excessive pain, drainage (light blood or clear fluid is normal) or heat Visit Report Forms: Patient Portal Discharge page Care Plan Goals: Return to baseline health and activity. Health Concerns: Diabetes mellitus, hyperlipidemia, recurrent umbilical hernia now s/p laparoscopic assisted repair of umbilical hernia with mesh Plan of Treatment: Pain control, observation, RUCHI drain care
[2020-02-17] MEDS: oxyCODONE HCl Immed Release 5 MG TABLET PO (09:53)
--- NOTE | 2020-02-19 08:55 | MHC.CM.PN ---
Pt called CM this morning reporting the VNA had contacted him night to schedule a time to see him Friday. He says when the nurse left his home she told him he would be contacted last night to schedule a time to be seen this morning. He reports no one contacted him last night and he has not heard from the nurse today. CM informed pt the VNA would be contacted for an ETA and then he would be called back at the number provided ([phone]).
--- NOTE | 2020-02-19 09:37 | MHC.CM.PN ---
VIKY received a return call from Phuong, clinical supervisor customer records division at [facility] who reported she would text the nurse that is seeing this pt today and ask her to call him directly with a time estimate. VIKY called pt back and informed him of above
== END 2020-02-17 11:00 | disposition home health service (06) | DRG 337 ==
LOC: HO.SSSA 12:21 → HO.S3 12:51
PROVIDERS: Physician Assistant Surgical; Admitting Provider Surgery; PCP Physician Assistant; Visit Provider Surgery
PROC: 0WUF0JZ Supplement Abdominal Wall with Synthetic Substitute, Open Approach (ICD-10-PCS; principal; 2020-02-15 08:30)
DX: K42.9 Umbilical hernia without obstruction or gangrene (principal); E11.9 Type 2 diabetes mellitus without complications; Z68.36 Body mass index [BMI] 36.0-36.9, adult; K66.0 Peritoneal adhesions (postprocedural) (postinfection); G47.33 Obstructive sleep apnea (adult) (pediatric); E66.9 Obesity, unspecified; Z79.84 Long term (current) use of oral hypoglycemic drugs; Z79.899 Other long term (current) drug therapy
CPT/HCPCS: 80048; 82947; 88300; 88304; 94660; 99024; C1781; J0131; J0690; J1100; J1170; J2250; J2270; J2405; J3010

== ENCOUNTER → 2020-02-21 13:58 | Outpatient (BNVA) | payer MEDICARE, MEDICAID, SELFPAY | PROVIDERS: PCP Physician Assistant; Visit Provider Surgery | DX: K42.9 Umbilical hernia without obstruction or gangrene (principal) | CPT/HCPCS: 99212 ==

== ENCOUNTER → 2020-02-28 08:22 | Outpatient (BNVA) | payer MEDICARE, MEDICAID, SELFPAY | PROVIDERS: PCP Physician Assistant; Visit Provider Surgery | DX: E11.9 Type 2 diabetes mellitus without complications (principal); E66.01 Morbid (severe) obesity due to excess calories; K42.9 Umbilical hernia without obstruction or gangrene; Z87.891 Personal history of nicotine dependence | CPT/HCPCS: 99212 ==

== ENCOUNTER 2020-03-20 08:38 | Outpatient (REF) | payer MEDICARE, MEDICAID, SELFPAY ==
[2020-03-20 10:47] LABS: Alanine Aminotransferase 25 U/L (0-40); Albumin Level 4.2 g/dL (3.5-5.0); Alkaline Phosphatase 52 U/L (39-117); Anion Gap 13 (12-20); Aspartate Amino Transferase 22 U/L (5-37); Bilirubin Total 0.7 mg/dL (0.0-1.0); Blood Urea Nitrogen 18 mg/dL (9-16); Calcium 8.4 mg/dL (8.4-10.2); Carbon Dioxide 26 mmol/L (22-29); Chloride 105 mmol/L (96-108); Cholesterol 221 mg/dL; Estimated Glomerular Filt Rate > 60; Glucose Fasting 130 mg/dL (60-99); HDL Cholesterol 34 mg/dL; LDL Cholesterol Calculated 153 mg/dl; Potassium 4.3 mmol/l (3.3-5.1); Sodium 140 mmol/L (135-145); Total Protein 6.6 g/dL (6.5-8.0); Triglycerides 173 mg/dL
[2020-03-20 10:54] LABS: Creatinine Urine 25.51 mg/dL; Microalbumin Urine < 5.0 mg/L
[2020-03-20 11:07] LABS: TSH reflex Free T4 3.14 mIU/mL (0.32-4.0)
== END 2020-03-20 08:39 | disposition home or self-care (01) ==
LOC: HO.10HDL 08:38
PROVIDERS: Visit Provider Physician Assistant
DX: Z09 Encounter for follow-up examination after completed treatment for conditions other than malignant neoplasm (principal); Z87.19 Personal history of other diseases of the digestive system; E11.9 Type 2 diabetes mellitus without complications; E78.5 Hyperlipidemia, unspecified; Z86.39 Personal history of other endocrine, nutritional and metabolic disease
CPT/HCPCS: 36415; 80053; 80061; 82043; 84443; 99212

== ENCOUNTER → 2020-03-21 10:24 | Outpatient (BNVA) | payer MEDICARE, MEDICAID, SELFPAY | PROVIDERS: PCP Physician Assistant; Visit Provider Dietitian, Registered | DX: Z76.89 Persons encountering health services in other specified circumstances (principal) ==

== ENCOUNTER 2020-06-14 07:54 | Day surgery (SDC) | payer MEDICARE, MEDICAID, SELFPAY ==
[2020-06-08 14:15] VITALS: BMI 36.0
--- NOTE | 2020-06-13 07:52 | HO.ANESPROP2 ---
Documented by User: Laurita Trammell 06/13/20 07:53 HPI - Anesthesia Eval Consult details Narrative: 60yo M for Colonoscopy *blind* [facility] Active Problems Active Problems: All Active Problems (Updated 06/08/20 @ 14:15 by Sierra Can) H/O: hypothyroidism (Acute) History of umbilical hernia repair (Acute) Recurrent umbilical hernia (Acute) Controlled diabetes mellitus without complication, without long-term current use of insulin (Acute) Hyperlipidemia LDL goal <100 (Acute) Obesity due to excess calories (Acute) Obesity (BMI 30-39.9) (Acute) Incisional hernia (Acute) History of umbilical hernia (Acute) Diabetes mellitus (Acute) High BMI (Acute) YOLY (obstructive sleep apnea) (Acute) Blindness (Acute) Glaucoma (Acute) Past Medical History Medical History Blindness Controlled diabetes mellitus without complication, without long-term current use of insulin Diabetes mellitus Glaucoma High BMI History of umbilical hernia Hyperlipidemia LDL goal <100 Incisional hernia Obesity (BMI 30-39.9) Obesity due to excess calories YOLY (obstructive sleep apnea) Recurrent umbilical hernia Seasonal allergies Family History Family History Father History of bone cancer History of diabetes mellitus Mother History of pancreatic cancer Paternal Grandmother History of diabetes mellitus Paternal Uncle History of diabetes mellitus Paternal Aunt History of diabetes mellitus Surgical History Surgical History History of colonoscopy (~2009) History of local excision of skin lesion History of umbilical hernia repair Social History Social History Household Members: None Are you a primary resident care provider to a significant other at home: No Do you presently have visiting nurse or other home services: No Alcohol intake: never Smoking Status: Former smoker Smoking Quit Date: 29 yrs ago Use of substances other than those prescribed or required for medical reasons: No Substance Use Type Other:: Hx ETOH and drug abuse- last 29 yrs ago Have you been hit, kicked, punched, or otherwise hurt by someone within the past year? If so, by whom?: No Advance Directives: No Advance Directives Information Provided: No Advance Directives on File: No Recently lost weight without trying: No service: No Current occupational status: disabled Meds Allergies Allergy/AdvReac Type Severity Reaction Status Date / Time pollen/pine/sap Allergy Unknown Unknown Uncoded 06/14/20 08:33 Home Medications Medication Instructions Recorded Confirmed Last Taken Type brimonidine 0.2 % eye drops 1 drp OPHTHALMIC (EYE) Q8H ml 12/23/19 06/14/20 06/14/20 07:00 History latanoprost 0.005 % eye drops 1 drp OPHTHALMIC (EYE) DAILY ml 12/23/19 06/08/20 02/15/20 History multivitamin 1 tab PO DAILY 06/08/20 06/08/20 Unknown History vitamin B complex [B Complex] 1 cap PO DAILY 06/08/20 06/08/20 Unknown History Exam Exam Date and Time: June 13, 2020 0752 Height,Weight and Vital Signs: Height 5 ft 7 in Weight 104.326 kg Assessment and Plan Assessment Anesthesia Assessment: Chart Reviewed Documented by User: Luli Mcqueen 06/14/20 09:55 [facility] Past Medical History Medical History Blindness Controlled diabetes mellitus without complication, without long-term current use of insulin Diabetes mellitus Glaucoma High BMI History of umbilical hernia Hyperlipidemia LDL goal <100 Incisional hernia Obesity (BMI 30-39.9) Obesity due to excess calories YOLY (obstructive sleep apnea) Recurrent umbilical hernia Seasonal allergies Family History Family History Father History of bone cancer History of diabetes mellitus Mother History of pancreatic cancer Paternal Grandmother History of diabetes mellitus Paternal Uncle History of diabetes mellitus Paternal Aunt History of diabetes mellitus Surgical History Surgical History History of colonoscopy (~2009) History of local excision of skin lesion History of umbilical hernia repair Social History Social History Household Members: None Are you a primary resident care provider to a significant other at home: No Do you presently have visiting nurse or other home services: No Alcohol intake: never Smoking Status: Former smoker Smoking Quit Date: 29 yrs ago Use of substances other than those prescribed or required for medical reasons: No Substance Use Type Other:: Hx ETOH and drug abuse- last 29 yrs ago Have you been hit, kicked, punched, or otherwise hurt by someone within the past year? If so, by whom?: No Advance Directives: No Advance Directives Information Provided: No Advance Directives on File: No Recently lost weight without trying: No service: No Current occupational status: disabled Meds Allergies Allergy/AdvReac Type Severity Reaction Status Date / Time pollen/pine/sap Allergy Unknown Unknown Uncoded 06/14/20 08:33 Home Medications Medication Instructions Recorded Confirmed Last Taken Type brimonidine 0.2 % eye drops 1 drp OPHTHALMIC (EYE) Q8H ml 12/23/19 06/14/20 06/14/20 07:00 History latanoprost 0.005 % eye drops 1 drp OPHTHALMIC (EYE) DAILY ml 12/23/19 06/08/20 02/15/20 History multivitamin 1 tab PO DAILY 06/08/20 06/08/20 Unknown History vitamin B complex [B Complex] 1 cap PO DAILY 06/08/20 06/08/20 Unknown History Exam Height,Weight and Vital Signs: Vital Signs Temp Pulse Resp BP Pulse Ox 06/14/20 08:27 97.4 F 67 20 137/75 97 Pertinent Lab Results Pertinent Lab Results: Lab Results 06/14/20 Range/Units 08:13 POC Glucose 139 H (60-115) mg/dL Airway Mallampati Class: III TM Dist: >3cm Neck ROM: Full Loose/Missing/Broken Teeth: No (Caps intact) Heart: RRR Lungs: CTAB Assessment and Plan Assessment Anesthesia Assessment: Anesthesia Plan Discussed and Chart Reviewed Final Anesthetic Review NPO: Yes ASA Class: III Final Preanesthetic Review: No Changes in Pt Med Stat, Meds/Allgs Chart Reviewed, Consent Obtained/Reviewed and Anes Risks/Benef Reviewed Patient Risk: Intermediate Procedure Risk: Low Assessment/Block/Sedation in : Assess/Block/Sedation- Anesthetic Plan Anesthetic Plan: MAC: Disposition: Standard PACU
[2020-06-14 08:23] LABS: Glucose, Whole Blood 139 mg/dL (60-115)
[2020-06-14 08:27] VITALS: BP 137/75; PULSE 67; RESP 20; TEMP 36.3; O2SAT 97
[2020-06-14] MEDS: Lactated Ringers 1,000 ML 100 ML IVCONT (08:50)
[2020-06-14 10:49] VITALS: BP 118/64; PULSE 70; RESP 14; TEMP 37.1; O2SAT 96
--- NOTE | 2020-06-14 10:50 | PM.OP ---
Brief Operative Note Date of Service: 06/14/20 Pre-op diagnosis: Screening Post-op diagnosis: other (Colon polyps) Procedure: Colonoscopy to cecum with snare polypectomy of cecal polyp with clipping x 3, and snare polypectomy at 60cm Surgeon: Long Jenkins Anesthesia: MAC Estimated blood loss (mL): 3.0 Pathology: other (A. Cecal polyp B. Polyp at 60cm) Condition: stable Disposition: PACU
[2020-06-14 11:03] VITALS: BP 148/87; PULSE 60; RESP 18; TEMP 37.1; O2SAT 96
--- NOTE | 2020-06-18 17:43 | OP_ITS ---
SURGEON: Long Jenkins MD INDICATIONS: The patient presents for evaluation of colorectal cancer screening. Full consent has been obtained from him for this, including risks of bleeding and perforation. PREOPERATIVE DIAGNOSIS: Colorectal cancer screening. POSTOPERATIVE DIAGNOSIS: PROCEDURE PERFORMED: Colonoscopy to the cecum and snare polypectomy of cecal polyp with placement of 3 resolution clips, and snare polypectomy at 60 cm. ESTIMATED BLOOD LOSS: COMPLICATIONS: ANESTHESIA: Monitored anesthesia care. ASSISTANTS: SPECIMENS: POSTOPERATIVE DIAGNOSES: Colorectal cancer screening, colon polyps, diverticulosis, small internal hemorrhoids. DESCRIPTION OF PROCEDURE: The patient was placed in the left lateral decubitus position. The digital rectal exam revealed no abnormalities. The Olympus video pediatric colonoscope was entered into the rectum and advanced easily to the cecum. Once in the cecum, I did identify cecal pouch with appendiceal orifice and a normal-appearing ileocecal valve. There was transillumination of light deep in the right lower quadrant. The entire cecum was well visualized. In the cecum, was a flat, but raised and somewhat lobulated 1.5 cm polyp. This was snared with a hot snare polypectomy and then recovered with the retrieval net, which was then brought out of the patient. The scope was advanced back to the polypectomy site in the cecum. There was no sign of any bleeding nor residual polyp tissue. I did place 3 resolutions clips with good deployment and hemostasis on the polypectomy site. The remainder of the cecum appeared normal. The scope was slowly withdrawn assessing all mucosal surfaces carefully. Preparation was excellent. At 60 cm, was an approximately 8 mm polyp, which was snared and recovered by suction. The polypectomy site appeared clean, without any sign of residual polyp nor bleeding. I did not visualize any other polyps, colitis, nor angiodysplasia. There was a mild amount of sigmoid diverticulosis. In the rectum, scope was retroflexed visualizing small internal hemorrhoids, but no other pathology. The rectal mucosa appeared normal. The scope was straightened out and withdrawn from the patient. He tolerated the procedure well and was returned to recovery area in stable condition. IMPRESSION: 1. Colon polyps, status post snare polypectomy, and placement of 3 resolution clips on the cecal polypectomy site. 2. Diverticulosis. 3. Internal hemorrhoids. PLAN: The results of the pathology will be checked. Given the size and appearance of the cecal polyp, I would recommend a followup colonoscopy in 1 year for further surveillance. He was advised not to use any aspirin and NSAIDs for 1 week. He will see me otherwise on a p.r.n. basis. MD KELVIN Mondragon/ABRIL / [id number] MTDD
== END 2020-06-14 11:42 | disposition home or self-care (01) ==
PROVIDERS: PCP Physician Assistant; Visit Provider Internal Medicine
PROC: 0DJD8ZZ Inspection of Lower Intestinal Tract, Via Natural or Artificial Opening Endoscopic (ICD-10-PCS; CPT 45378; principal; 2020-06-14 09:10)
DX: Z12.11 Encounter for screening for malignant neoplasm of colon (principal); D12.0 Benign neoplasm of cecum; D12.4 Benign neoplasm of descending colon; K57.30 Diverticulosis of large intestine without perforation or abscess without bleeding; K64.8 Other hemorrhoids; E11.9 Type 2 diabetes mellitus without complications; G47.33 Obstructive sleep apnea (adult) (pediatric); H47.22 Hereditary optic atrophy; Z87.891 Personal history of nicotine dependence; Z79.84 Long term (current) use of oral hypoglycemic drugs; Z79.899 Other long term (current) drug therapy
CPT/HCPCS: 45385; 82947; 88305

== ENCOUNTER → 2020-07-31 08:00 | Outpatient (BNVA) | payer MEDICARE, MEDICAID, SELFPAY | PROVIDERS: PCP Physician Assistant; Visit Provider Nurse Practitioner Gerontology | DX: E11.9 Type 2 diabetes mellitus without complications (principal); E78.5 Hyperlipidemia, unspecified; E66.01 Morbid (severe) obesity due to excess calories; Z68.36 Body mass index [BMI] 36.0-36.9, adult | CPT/HCPCS: 82947; 99212 ==

== ENCOUNTER 2020-08-29 07:55 | Outpatient (REF) | payer MEDICARE, MEDICAID, SELFPAY ==
[2020-08-29 10:03] LABS: Hematocrit 44.6 % (42-52); Hemoglobin 14.8 g/dl (14.0-18.0); Mean Corpuscular HGB Conc 33.2 g/dl (31.0-36.0); Mean Corpuscular Hemoglobin 30.3 pg (27.0-33.0); Mean Corpuscular Volume 91.4 fL (80-98); Mean Platelet Volume 10.7 fL (9.4-12.4); Platelet Count 224 X10*3/uL (160-400); Red Blood Count 4.88 X10*6/uL (4.60-5.80); Red Cell Distribution Width 12.4 % (11.0-16.0); White Blood Count 8.7 X10*3/uL (4.8-10.8)
[2020-08-29 10:33] LABS: Alanine Aminotransferase 24 U/L (0-40); Albumin Level 4.3 g/dL (3.5-5.0); Alkaline Phosphatase 56 U/L (39-117); Anion Gap 13 (12-20); Aspartate Amino Transferase 28 U/L (5-37); Blood Urea Nitrogen 21 mg/dL (9-16); Carbon Dioxide 26 mmol/L (22-29); Chloride 105 mmol/L (96-108); Cholesterol 175 mg/dL; Estimated Glomerular Filt Rate > 60; Glucose Fasting 157 mg/dL (60-99); HDL Cholesterol 33 mg/dL; LDL Cholesterol Calculated 105 mg/dl; Potassium 4.2 mmol/L (3.3-5.1); Sodium 140 mmol/L (135-145); Total Protein 6.9 g/dL (6.5-8.0); Triglycerides 187 mg/dL
[2020-08-29 10:54] LABS: TSH reflex Free T4 2.35 uIU/mL (0.32-4.0)
== END 2020-08-29 07:56 | disposition home or self-care (01) ==
LOC: HO.10HDL 07:55
PROVIDERS: Visit Provider Physician Assistant
DX: E11.9 Type 2 diabetes mellitus without complications (principal); I10 Essential (primary) hypertension; E78.5 Hyperlipidemia, unspecified; Z86.39 Personal history of other endocrine, nutritional and metabolic disease
CPT/HCPCS: 36415; 80053; 80061; 84443; 85027

== ENCOUNTER → 2020-09-19 08:41 | Outpatient (BNVA) | payer MEDICARE, MEDICAID, SELFPAY | PROVIDERS: PCP Physician Assistant; Visit Provider Dietitian, Registered | DX: E11.65 Type 2 diabetes mellitus with hyperglycemia (principal) | CPT/HCPCS: 97803 ==

== ENCOUNTER 2020-11-27 08:30 | Outpatient (REF) | payer MEDICARE, MEDICAID, SELFPAY ==
[2020-11-27 10:52] LABS: Alanine Aminotransferase 20 U/L (0-40); Albumin Level 4.2 g/dL (3.5-5.0); Alkaline Phosphatase 54 U/L (39-117); Anion Gap 13 (12-20); Aspartate Amino Transferase 21 U/L (5-37); Bilirubin Total 0.9 mg/dL (0.0-1.0); Blood Urea Nitrogen 17 mg/dL (9-16); Calcium 9.1 mg/dL (8.4-10.2); Carbon Dioxide 26 mmol/L (22-29); Chloride 104 mmol/L (96-108); Cholesterol 184 mg/dL; Estimated Glomerular Filt Rate > 60; Glucose Fasting 135 mg/dL (60-99); HDL Cholesterol 33 mg/dL; LDL Cholesterol Calculated 111 mg/dl; Potassium 4.4 mmol/L (3.3-5.1); Sodium 139 mmol/L (135-145); Total Protein 6.7 g/dL (6.5-8.0); Triglycerides 201 mg/dL
[2020-11-27 11:03] LABS: Estimated Average Glucose 143 mg/dL; Hemoglobin A1c % 6.6 %
[2020-11-27 11:32] LABS: Prostate Specific Antigen Scr 2.54 ng/mL (<0.05-4.0)
[2020-11-29 11:15] LABS: Carbohydrate Antigen 19-9 13 U/mL (<34)
[2020-12-02 14:50] LABS: Testosterone, Free 49.8 pg/mL (35.0-155.0); Testosterone, Total 258 ng/dL (250-1100)
== END 2020-11-27 08:31 | disposition home or self-care (01) ==
LOC: HO.10HDL 08:30
PROVIDERS: Visit Provider Physician Assistant
DX: Z12.5 Encounter for screening for malignant neoplasm of prostate (principal); K43.2 Incisional hernia without obstruction or gangrene; E78.5 Hyperlipidemia, unspecified; E11.9 Type 2 diabetes mellitus without complications; R68.82 Decreased libido; Z80.0 Family history of malignant neoplasm of digestive organs
CPT/HCPCS: 36415; 80053; 80061; 83036; 84153; 84402; 84403; 86301; 99212

== ENCOUNTER 2020-12-11 08:14 | Outpatient (REF) | payer MEDICARE, MEDICAID, SELFPAY ==
--- NOTE | ~2020-12-11 | CT_ITS ---
EXAMINATION: CT ABDOMEN AND PELVIS WITHOUT CONTRAST CLINICAL INFORMATION: Incisional hernia without obstruction or gangrene COMPARISON: Previous CT of the abdomen and pelvis December 2019 TECHNIQUE: Multidetector volumetric imaging was performed from the superior aspect of the liver through the pubic symphysis. Sagittal and coronal reformatted images were obtained on the technologist's workstation. This CT examination was performed using dose optimization techniques as appropriate, variously including the following: *Automated exposure control *Adjustment of mA and/or kV according to patient size (this includes techniques or standardized protocols for targeted exams where dose is matched to indication/reason for exam; i.e. extremities or head) *Use of iterative reconstruction technique DLP: 624 mGy-cm FINDINGS: LUNG BASES: The visualized lung bases are unremarkable. LIVER, GALLBLADDER, AND BILIARY TREE: The liver is enlarged and low in attenuation suggestive of fatty infiltration. No focal liver lesion or biliary duct dilatation. The gallbladder is unremarkable with no evidence of radiopaque gallstones, gallbladder wall thickening, or obvious pericholecystic inflammatory changes. PANCREAS: Unremarkable. SPLEEN: Unremarkable. ADRENAL GLANDS: Unremarkable. KIDNEYS AND URETERS: The kidneys are normal in size, shape, and attenuation. No hydronephrosis, hydroureter, or calculi seen. No perinephric stranding. BLADDER: Unremarkable. GASTROINTESTINAL TRACT: There is diverticulosis of the colon. There is a linear radiopaque density in the cecum, question representing a surgical clip from biopsy axial image 420 series 6. There is an umbilical hernia containing small bowel. The appendix is normal. The stomach is. ABDOMINAL WALL: There is an umbilical hernia containing small bowel. There is no evidence of obstruction. LYMPH NODES: Normal. VASCULAR: Unremarkable. PELVIC VISCERA: The prostate gland is enlarged measuring 4.6 x 5.2 cm in AP and transverse dimension. OSSEOUS STRUCTURES: There are mild degenerative changes of the spine. CT/CT abdomen pelvis wo con IMPRESSION: Umbilical hernia containing small bowel. No evidence of obstruction. Diverticulosis of the colon. Enlarged fatty liver. Enlarged prostate gland.
== END 2020-12-11 08:15 | disposition home or self-care (01) ==
LOC: HO.CT 08:14
PROVIDERS: PCP Physician Assistant; Visit Provider Surgery
DX: K43.2 Incisional hernia without obstruction or gangrene (principal); E11.9 Type 2 diabetes mellitus without complications; H54.8 Legal blindness, as defined in USA; E78.5 Hyperlipidemia, unspecified; E66.09 Other obesity due to excess calories; Z68.36 Body mass index [BMI] 36.0-36.9, adult; Z79.899 Other long term (current) drug therapy; Z87.891 Personal history of nicotine dependence; Z79.84 Long term (current) use of oral hypoglycemic drugs
CPT/HCPCS: 74176; 82947; 99212

== ENCOUNTER → 2020-12-20 09:26 | Outpatient (BNVA) | payer MEDICARE, MEDICAID, SELFPAY | PROVIDERS: PCP Physician Assistant; Visit Provider Dietitian, Registered | DX: E11.65 Type 2 diabetes mellitus with hyperglycemia (principal) | CPT/HCPCS: 97803 ==

== ENCOUNTER 2020-12-21 08:00 | Outpatient (REF) | payer MEDICARE, MEDICAID, SELFPAY ==
--- NOTE | 2020-12-21 08:10 | EMG_ITS ---
Bilateral tibial and peroneal motor studies were performed. Bilateral superficial peroneal and sural sensory studies were performed. Tibial H-reflexes were obtained and paraspinal muscles were tested with a needle. IMPRESSION: This study revealed moderately severe sensory and motor, somewhat patchy peripheral neuropathy with features of axonal loss and demyelination. There were some also EMG abnormalities in paraspinal muscles, which could be related to neuropathy or radiculopathy. Clinical correlation was recommended. With this type of neuropathy, depending upon clinical history, further investigations are recommended to rule out treatable causes. MD MARTHA Gregg/ABRIL / [id number]
== END 2020-12-21 08:01 | disposition home or self-care (01) ==
LOC: HO.NEURO 08:00
PROVIDERS: Visit Provider Physician Assistant
DX: R20.2 Paresthesia of skin (principal)
CPT/HCPCS: 95886; 95911; 99212

== ENCOUNTER 2021-03-22 08:39 | Outpatient (REF) | payer MEDICARE, MEDICAID, SELFPAY ==
[2021-03-22 11:12] LABS: Alanine Aminotransferase 19 U/L (0-40); Alkaline Phosphatase 58 U/L (39-117); Anion Gap 11 (12-20); Aspartate Amino Transferase 19 U/L (5-37); Bilirubin Total 1.1 mg/dL (0.0-1.0); Blood Urea Nitrogen 20 mg/dL (9-16); Calcium 8.9 mg/dL (8.4-10.2); Carbon Dioxide 27 mmol/L (22-29); Chloride 105 mmol/L (96-108); Cholesterol 155 mg/dL; Estimated Glomerular Filt Rate > 60; Glucose Fasting 139 mg/dL (60-99); HDL Cholesterol 30 mg/dL; LDL Cholesterol Calculated 94 mg/dl; Potassium 4.2 mmol/L (3.3-5.1); Sodium 139 mmol/L (135-145); Total Protein 6.8 g/dL (6.5-8.0); Triglycerides 157 mg/dL
[2021-03-22 11:21] LABS: TSH reflex Free T4 2.58 uIU/mL (0.32-4.0)
[2021-03-22 11:35] LABS: Estimated Average Glucose 148 mg/dL; Hemoglobin A1c % 6.8 %
[2021-03-22 12:09] LABS: Vitamin B12 > 2000 pg/mL (200-900)
[2021-03-25 08:10] LABS: SARS COV2 IgG Negative (Negative)
== END 2021-03-22 08:40 | disposition home or self-care (01) ==
LOC: HO.10HDL 08:39
PROVIDERS: Visit Provider Physician Assistant
DX: Z20.822 Contact with and (suspected) exposure to COVID-19 (principal); R20.2 Paresthesia of skin; E11.9 Type 2 diabetes mellitus without complications; E78.5 Hyperlipidemia, unspecified; E66.01 Morbid (severe) obesity due to excess calories; Z68.36 Body mass index [BMI] 36.0-36.9, adult
CPT/HCPCS: 36415; 80053; 80061; 82607; 82746; 82947; 83036; 84443; 86769; 99212

== ENCOUNTER → 2021-04-09 12:28 | Outpatient (BNVA) | payer MEDICARE, MEDICAID, SELFPAY | PROVIDERS: PCP Physician Assistant; Visit Provider Registered Nurse Diabetes Educator | DX: E11.9 Type 2 diabetes mellitus without complications (principal); Z71.89 Other specified counseling | CPT/HCPCS: 99211 ==

== ENCOUNTER → 2021-04-23 10:11 | Outpatient (BNVA) | payer MEDICARE, MEDICAID, SELFPAY | PROVIDERS: PCP Physician Assistant; Visit Provider Registered Nurse Diabetes Educator | DX: E11.65 Type 2 diabetes mellitus with hyperglycemia (principal) | CPT/HCPCS: 99211 ==

== ENCOUNTER → 2021-05-07 09:34 | Outpatient (BNVA) | payer MEDICARE, MEDICAID, SELFPAY | PROVIDERS: PCP Physician Assistant; Visit Provider Dietitian, Registered | DX: E11.65 Type 2 diabetes mellitus with hyperglycemia (principal); Z71.3 Dietary counseling and surveillance | CPT/HCPCS: 97803 ==

== ENCOUNTER → 2021-06-28 08:08 | Outpatient (BNVA) | payer MEDICARE, MEDICAID, SELFPAY | PROVIDERS: PCP Physician Assistant; Visit Provider Nurse Practitioner Gerontology | DX: E11.9 Type 2 diabetes mellitus without complications (principal); E78.5 Hyperlipidemia, unspecified; E66.01 Morbid (severe) obesity due to excess calories; Z68.35 Body mass index [BMI] 35.0-35.9, adult; Z79.84 Long term (current) use of oral hypoglycemic drugs | CPT/HCPCS: 82947; 99212 ==

== ENCOUNTER 2021-07-06 07:58 | Day surgery (SDC) | payer MEDICARE, MEDICAID, SELFPAY ==
[2021-07-02 14:55] VITALS: BMI 34.2
--- NOTE | 2021-07-05 12:24 | HO.ANESPROP2 ---
Documented by User: Laurita Trammell NP 07/05/21 12:25 HPI - Anesthesia Eval Consult details Narrative: 61yo M for Colonoscopy PMF Active Problems Active Problems: All Active Problems (Updated 07/02/21 @ 14:54 by Mildred Drummond, [place]) H/O: hypothyroidism (Acute) History of umbilical hernia repair (Acute) Annual physical exam (Acute) Family history of pancreatic cancer (Acute) Low libido (Acute) Paresthesia of lower extremity (Acute) Exposure to COVID-19 virus (Acute) BPPV (benign paroxysmal positional vertigo) (Acute) Recurrent ventral hernia (Acute) Recurrent umbilical hernia (Acute) Controlled diabetes mellitus without complication, without long-term current use of insulin (Acute) Hyperlipidemia LDL goal <100 (Acute) Obesity due to excess calories (Acute) Obesity (BMI 30-39.9) (Acute) Incisional hernia (Acute) History of umbilical hernia (Acute) Diabetes mellitus (Acute) High BMI (Acute) YOLY (obstructive sleep apnea) (Acute) Blindness (Acute) Glaucoma (Acute) Past Medical History Medical History Blindness Controlled diabetes mellitus without complication, without long-term current use of insulin Diabetes mellitus Glaucoma High BMI History of umbilical hernia Hyperlipidemia LDL goal <100 Incisional hernia Obesity (BMI 30-39.9) Obesity due to excess calories YOLY (obstructive sleep apnea) YOLY on CPAP Recurrent umbilical hernia Recurrent ventral hernia Seasonal allergies Family History Family History Father History of bone cancer History of diabetes mellitus Mother History of pancreatic cancer Paternal Grandmother History of diabetes mellitus Paternal Uncle History of diabetes mellitus Paternal Aunt History of diabetes mellitus Family history of problems with anesthesia: No Surgical History Surgical History History of colonoscopy (~2009) History of local excision of skin lesion History of umbilical hernia repair History of Problems with Anesthesia: No Social History Social History Household Members: None Housing: House Are you a primary career based intervention coordinator to a significant other at home: No Do you presently have visiting nurse or other home services: No Alcohol intake: former Patient Tobacco Use Status: Former Tobacco user Quit Date: 1991 Tobacco use type: Cigarette Years Smoked: quit 29 years ago e-Cigarette/Vaping Use: Never Used Second Hand Smoke Exposure: No Use of substances other than those prescribed or required for medical reasons: No Have you been hit, kicked, punched, or otherwise hurt by someone within the past year? If so, by whom?: No Are you DNR?: No Advance Directives: No (will bring copy dos) Advance Directives Information Provided: Yes Advance Directives on File: No Recently lost weight without trying: No Poor oral hygiene: No service: No Current occupational status: disabled Cognitive needs: No Hearing needs: No Vision needs: No Meds Allergies Allergy/AdvReac Type Severity Reaction Status Date / Time pollen/pine/sap Allergy Intermediate Watery Uncoded 07/02/21 14:53 Eyes, sneezing Home Medications Medication Instructions Recorded Confirmed Last Taken Type brimonidine 0.2 % eye drops 1 drp OPHTHALMIC (EYE) Q8H ml 12/23/19 07/02/21 06/14/20 07:00 History latanoprost 0.005 % eye drops 1 drp OPHTHALMIC (EYE) DAILY ml 12/23/19 07/02/21 02/15/20 History multivitamin 1 tab PO DAILY 06/08/20 07/02/21 Unknown History vitamin B complex 1 cap PO DAILY 06/08/20 07/02/21 Unknown History Exam Exam Date and Time: July 05, 2021 1224 Height,Weight and Vital Signs: Height 5 ft 8 in Weight 102.058 kg Pertinent Lab Results Pertinent Lab Results: Laboratory Tests 08/29/20 03/22/21 07:57 08:45 WBC 8.7 Hgb 14.8 Hct 44.6 Plt Count 224 Sodium 139 Potassium 4.2 Chloride 105 Carbon Dioxide 27 BUN 20 H Creatinine 0.95 Assessment and Plan Assessment Anesthesia Assessment: Chart Reviewed Final Anesthetic Review Family History of Problems with Anesthesia: No History of Problems with Anesthesia: No Documented by User: Luli Mcqueen MD 07/06/21 10:00 HPI - Anesthesia Eval Consult details Narrative: 61yo M for Colonoscopy. Colonoscopy 06/14/20. # clips + snare polypectomy. Propofol 900mg + lidocaine 100mg PMFSH Active Problems Active Problems: All Active Problems (Updated 07/02/21 @ 14:54 by Mildred Drummond, [place]) H/O: hypothyroidism (Acute) History of umbilical hernia repair (Acute) Annual physical exam (Acute) Family history of pancreatic cancer (Acute) Low libido (Acute) Paresthesia of lower extremity (Acute) Exposure to COVID-19 virus (Acute) BPPV (benign paroxysmal positional vertigo) (Acute) Recurrent ventral hernia (Acute) Recurrent umbilical hernia (Acute) Controlled diabetes mellitus without complication, without long-term current use of insulin (Acute) Hyperlipidemia LDL goal <100 (Acute) Obesity due to excess calories (Acute) Obesity (BMI 30-39.9) (Acute) Incisional hernia (Acute) History of umbilical hernia (Acute) Diabetes mellitus (Acute) High BMI (Acute) YOLY (obstructive sleep apnea) (Acute). Using CPAP Blindness (Acute) Glaucoma (Acute) Past Medical History Medical History Blindness Controlled diabetes mellitus without complication, without long-term current use of insulin Diabetes mellitus Glaucoma High BMI History of umbilical hernia Hyperlipidemia LDL goal <100 Incisional hernia Obesity (BMI 30-39.9) Obesity due to excess calories YOLY (obstructive sleep apnea) YOLY on CPAP Recurrent umbilical hernia Recurrent ventral hernia Seasonal allergies Family History Family History Father History of bone cancer History of diabetes mellitus Mother History of pancreatic cancer Paternal Grandmother History of diabetes mellitus Paternal Uncle History of diabetes mellitus Paternal Aunt History of diabetes mellitus Surgical History Surgical History History of colonoscopy (~2009) History of local excision of skin lesion History of umbilical hernia repair Social History Social History Household Members: None Housing: House Are you a primary career based intervention coordinator to a significant other at home: No Do you presently have visiting nurse or other home services: No Alcohol intake: former Patient Tobacco Use Status: Former Tobacco user Quit Date: 1991 Tobacco use type: Cigarette Years Smoked: quit 29 years ago e-Cigarette/Vaping Use: Never Used Second Hand Smoke Exposure: No Use of substances other than those prescribed or required for medical reasons: No Have you been hit, kicked, punched, or otherwise hurt by someone within the past year? If so, by whom?: No Are you DNR?: No Advance Directives: No (will bring copy dos) Advance Directives Information Provided: Yes Advance Directives on File: No Recently lost weight without trying: No Poor oral hygiene: No service: No Current occupational status: disabled Cognitive needs: No Hearing needs: No Vision needs: No Meds Allergies Allergy/AdvReac Type Severity Reaction Status Date / Time pollen/pine/sap Allergy Intermediate Watery Uncoded 07/02/21 14:53 Eyes, sneezing Home Medications Medication Instructions Recorded Confirmed Last Taken Type brimonidine 0.2 % eye drops 1 drp OPHTHALMIC (EYE) Q8H ml 12/23/19 07/02/21 06/14/20 07:00 History latanoprost 0.005 % eye drops 1 drp OPHTHALMIC (EYE) DAILY ml 12/23/19 07/02/21 02/15/20 History multivitamin 1 tab PO DAILY 06/08/20 07/02/21 Unknown History vitamin B complex 1 cap PO DAILY 06/08/20 07/02/21 Unknown History Exam Height,Weight and Vital Signs: Height 5 ft 8 in Weight 102.058 kg Vital Signs Temp Pulse Resp BP Pulse Ox 07/06/21 09:08 97.0 F 60 16 129/69 97 Pertinent Lab Results Pertinent Lab Results: Laboratory Tests 08/29/20 03/22/21 07:57 08:45 WBC 8.7 Hgb 14.8 Hct 44.6 Plt Count 224 Sodium 139 Potassium 4.2 Chloride 105 Carbon Dioxide 27 BUN 20 H Creatinine 0.95 Lab Results 07/06/21 Range/Units 09:20 POC Glucose 155 H (60-115) mg/dL Airway Mallampati Class: III TM Dist: >3cm Neck ROM: Full Loose/Missing/Broken Teeth: No (Caps intact) Heart: RRR Lungs: CTAB Assessment and Plan Assessment Anesthesia Assessment: Anesthesia Plan Discussed Final Anesthetic Review NPO: Yes ASA Class: III Final Preanesthetic Review: No Changes in Pt Med Stat, Meds/Allgs Chart Reviewed, Consent Obtained/Reviewed and Anes Risks/Benef Reviewed Patient Risk: Intermediate Procedure Risk: Low Assessment/Block/Sedation in SS: Assess/Block/Sedation-SS Anesthetic Plan Anesthetic Plan: MAC: Disposition: Standard PACU
[2021-07-06 09:08] VITALS: BP 129/69; PULSE 60; RESP 16; TEMP 36.1; O2SAT 97; BMI 33.7
[2021-07-06 09:32] LABS: Glucose, Whole Blood 155 mg/dL (60-115)
[2021-07-06] MEDS: Lactated Ringers 1,000 ML 100 ML IVCONT (09:32)
[2021-07-06 10:55] VITALS: BP 110/77; PULSE 71; RESP 12; TEMP 36.3; O2SAT 95
--- NOTE | 2021-07-06 10:55 | P.BOP_ITS ---
Brief Operative Note Date of Service: 07/06/21 Pre-op diagnosis: Screening Post-op diagnosis: other (Colon polyps) Procedure: Colonoscopy to the cecum with biopsies, and hot snare polypectomy Surgeon: Long Jenkins Anesthesia: MAC Was an [employer] Sales used for this Procedure?: No Estimated blood loss (mL): 2.0 Pathology: other (A. Site of cecal polypectomy B. Proximal ascending colon polyp) Condition: stable Disposition: PACU
[2021-07-06 11:10] VITALS: BP 106/60; PULSE 52; RESP 14; O2SAT 98
[2021-07-06 11:25] VITALS: BP 106/59; RESP 16; TEMP 36.2; O2SAT 97
--- NOTE | 2021-07-06 22:02 | OP_ITS ---
SURGEON: Lnog Jenkins MD INDICATIONS: The patient presents for evaluation of colorectal cancer screening and personal history of colon polyps. Full consent was obtained from him for this, including risks of bleeding and perforation. PREOPERATIVE DIAGNOSIS: POSTOPERATIVE DIAGNOSIS: PROCEDURE PERFORMED: Colonoscopy to the cecum with biopsies, and hot snare polypectomy. ESTIMATED BLOOD LOSS: COMPLICATIONS: ANESTHESIA: Monitored anesthesia care. ASSISTANTS: SPECIMENS: PREOPERATIVE DIAGNOSES: Colorectal cancer screening and personal history of colon polyps. POSTOPERATIVE DIAGNOSES: Colorectal cancer screening and personal history of colon polyps, colon polyps, diverticulosis, and internal hemorrhoids. DESCRIPTION OF PROCEDURE: The patient was placed in the left lateral decubitus position. The digital rectal exam revealed no abnormalities. The Olympus video pediatric colonoscope was entered into the rectum and advanced easily to the cecum. Once in the cecum, I did identify cecal pouch with appendiceal orifice and a normal-appearing ileocecal valve. There was transillumination of light deep in the right lower quadrant. In the cecum was an area of some scarring consistent with his previous polypectomy. There was some questionable areas of possible residual polyp tissue and these were biopsied and completely removed with cold biopsy forceps. The remainder of the cecum appeared normal. There was transillumination of light deep in the right lower quadrant. The ileocecal valve appeared normal. The scope was slowly withdrawn assessing all mucosal surfaces carefully. Preparation was excellent. In the proximal ascending colon was an approximately 8 mm polyp on a fold, which was removed by hot snare polypectomy and recovered by suction. The polypectomy site appeared clean, without any sign of residual polyp nor bleeding. I did not visualize any other polyps, colitis, nor angiodysplasia. There was a mild amount of sigmoid diverticulosis. In the rectum, scope was retroflexed visualizing internal hemorrhoids, but no other pathology. The rectal mucosa appeared normal. The scope was straightened and withdrawn from the patient. He tolerated the procedure well and was returned to the recovery area in stable condition. IMPRESSION: 1. Colon polyps, status post hot snare polypectomy, and biopsy removal. 2. Diverticulosis. 3. Internal hemorrhoids. PLAN: The results of biopsy will be checked. I would recommend a repeat colonoscopy in 3 years for further surveillance. He was advised not to use any aspirin or NSAIDs for 1 week. MD KELVIN Mondragon/ABRIL / [id number]
== END 2021-07-06 13:06 | disposition home or self-care (01) ==
PROVIDERS: PCP Physician Assistant; Visit Provider Internal Medicine
PROC: 0DJD8ZZ Inspection of Lower Intestinal Tract, Via Natural or Artificial Opening Endoscopic (ICD-10-PCS; CPT 45378; principal; 2021-07-06 08:20)
DX: Z12.11 Encounter for screening for malignant neoplasm of colon (principal); Z86.010 Personal history of colon polyps; D12.2 Benign neoplasm of ascending colon; K63.5 Polyp of colon; K57.30 Diverticulosis of large intestine without perforation or abscess without bleeding; K64.8 Other hemorrhoids; E78.5 Hyperlipidemia, unspecified; G47.33 Obstructive sleep apnea (adult) (pediatric); H54.8 Legal blindness, as defined in USA; H47.22 Hereditary optic atrophy; J30.2 Other seasonal allergic rhinitis; E11.9 Type 2 diabetes mellitus without complications; Z79.84 Long term (current) use of oral hypoglycemic drugs; Z79.899 Other long term (current) drug therapy; Z99.89 Dependence on other enabling machines and devices; Z87.891 Personal history of nicotine dependence
CPT/HCPCS: 45385; 45380; 82947; 88305

== ENCOUNTER → 2021-07-09 09:42 | Outpatient (BNVA) | payer MEDICARE, MEDICAID, SELFPAY | PROVIDERS: PCP Physician Assistant; Visit Provider Registered Nurse Diabetes Educator | DX: E11.9 Type 2 diabetes mellitus without complications (principal); Z79.84 Long term (current) use of oral hypoglycemic drugs | CPT/HCPCS: 99211 ==

== ENCOUNTER 2021-08-27 08:26 | Outpatient (REF) | payer MEDICARE, MEDICAID, SELFPAY ==
[2021-08-27 10:43] LABS: Hematocrit 44.1 % (42.0-52.0); Hemoglobin 14.5 g/dl (14.0-18.0); Mean Corpuscular HGB Conc 32.9 g/dl (31.0-36.0); Mean Corpuscular Hemoglobin 30.4 pg (27.0-33.0); Mean Corpuscular Volume 92.5 fL (80.0-98.0); Mean Platelet Volume 10.3 fL (9.4-12.4); Platelet Count 192 X10*3/uL (160-400); Red Blood Count 4.77 X10*6/uL (4.60-5.80); Red Cell Distribution Width 12.6 % (11.0-16.0); White Blood Count 6.1 X10*3/uL (4.8-10.8)
[2021-08-27 10:54] LABS: Alanine Aminotransferase 17 U/L (0-40); Albumin Level 4.1 g/dL (3.5-5.0); Alkaline Phosphatase 60 U/L (39-117); Anion Gap 12 (12-20); Aspartate Amino Transferase 17 U/L (5-37); Bilirubin Total 0.7 mg/dL (0.0-1.0); Blood Urea Nitrogen 19 mg/dL (9-16); Calcium 8.6 mg/dL (8.4-10.2); Carbon Dioxide 26 mmol/L (22-29); Chloride 104 mmol/L (96-108); Cholesterol 125 mg/dL; Estimated Glomerular Filt Rate > 60; Glucose Fasting 141 mg/dL (60-99); HDL Cholesterol 27 mg/dL; LDL Cholesterol Calculated 77 mg/dl; Potassium 4.3 mmol/L (3.3-5.1); Sodium 138 mmol/L (135-145); Total Protein 6.6 g/dL (6.5-8.0); Triglycerides 107 mg/dL
[2021-08-27 11:15] LABS: TSH reflex Free T4 3.19 uIU/mL (0.32-4.0)
== END 2021-08-27 08:27 | disposition home or self-care (01) ==
LOC: HO.10HDL 08:26
PROVIDERS: Visit Provider Physician Assistant
DX: E11.65 Type 2 diabetes mellitus with hyperglycemia (principal); E78.5 Hyperlipidemia, unspecified
CPT/HCPCS: 36415; 80053; 80061; 84443; 85027

== ENCOUNTER → 2021-10-08 08:14 | Outpatient (BNVA) | payer MEDICARE, MEDICAID, SELFPAY | PROVIDERS: PCP Physician Assistant; Visit Provider Registered Nurse Diabetes Educator | DX: E11.9 Type 2 diabetes mellitus without complications (principal) | CPT/HCPCS: 99211 ==

== ENCOUNTER → 2021-11-05 09:28 | Outpatient (BNVA) | payer MEDICARE, MEDICAID, SELFPAY | PROVIDERS: PCP Physician Assistant; Visit Provider Dietitian, Registered | DX: E11.9 Type 2 diabetes mellitus without complications (principal); E66.9 Obesity, unspecified; Z71.3 Dietary counseling and surveillance; Z68.34 Body mass index [BMI] 34.0-34.9, adult | CPT/HCPCS: 97803 ==

== ENCOUNTER 2022-04-01 08:38 | Outpatient (REF) | payer MEDICARE, MEDICAID, SELFPAY ==
[2022-04-01 11:17] LABS: Hematocrit 44.2 % (42.0-52.0); Hemoglobin 14.7 g/dl (14.0-18.0); Mean Corpuscular HGB Conc 33.3 g/dl (31.0-36.0); Mean Corpuscular Hemoglobin 30.4 pg (27.0-33.0); Mean Corpuscular Volume 91.5 fL (80.0-98.0); Mean Platelet Volume 10.6 fL (9.4-12.4); Platelet Count 213 X10*3/uL (160-400); Red Blood Count 4.83 X10*6/uL (4.60-5.80); Red Cell Distribution Width 12.2 % (11.0-16.0); White Blood Count 8.7 X10*3/uL (4.8-10.8)
[2022-04-01 12:47] LABS: Alanine Aminotransferase 19 U/L (0-40); Albumin Level 4.1 g/dL (3.5-5.0); Alkaline Phosphatase 52 U/L (39-117); Anion Gap 13 (12-20); Aspartate Amino Transferase 21 U/L (5-37); Bilirubin Total 1.1 mg/dL (0.0-1.0); Blood Urea Nitrogen 20 mg/dL (9-16); Calcium 8.9 mg/dL (8.4-10.2); Carbon Dioxide 26 mmol/L (22-29); Chloride 105 mmol/L (96-108); Cholesterol 133 mg/dL; Estimated Glomerular Filt Rate > 60; Glucose Fasting 132 mg/dL (60-99); HDL Cholesterol 31 mg/dL; LDL Cholesterol Calculated 77 mg/dl; Potassium 4.3 mmol/L (3.3-5.1); Sodium 140 mmol/L (135-145); Total Protein 6.5 g/dL (6.5-8.0); Triglycerides 127 mg/dL
[2022-04-01 13:08] LABS: Prostate Specific Antigen Scr 2.19 ng/mL (<0.05-4.0); TSH reflex Free T4 4.11 uIU/mL (0.32-4.0)
[2022-04-01 13:24] LABS: Creatinine Urine 26.63 mg/dL; Microalbumin Urine < 5.0 mg/L
[2022-04-01 14:43] LABS: Free T4 (Free Thyroxine) 0.92 ng/dL (0.71-1.85)
== END 2022-04-01 08:39 | disposition home or self-care (01) ==
LOC: HO.10HDL 08:38
PROVIDERS: Visit Provider Physician Assistant
DX: Z12.5 Encounter for screening for malignant neoplasm of prostate (principal); E11.65 Type 2 diabetes mellitus with hyperglycemia; E78.5 Hyperlipidemia, unspecified
CPT/HCPCS: 36415; 80053; 80061; 82043; 84153; 84439; 84443; 85027

== ENCOUNTER → 2022-05-06 09:07 | Outpatient (BNVA) | payer MEDICARE, MEDICAID, SELFPAY | PROVIDERS: PCP Physician Assistant; Visit Provider Dietitian, Registered | DX: E11.9 Type 2 diabetes mellitus without complications (principal); H54.8 Legal blindness, as defined in USA; Z87.891 Personal history of nicotine dependence; Z71.3 Dietary counseling and surveillance | CPT/HCPCS: 97803 ==

== ENCOUNTER → 2022-06-21 10:24 | Outpatient (BNVA) | payer MEDICARE, MEDICAID, SELFPAY | PROVIDERS: PCP Physician Assistant; Visit Provider Urology | DX: N40.1 Benign prostatic hyperplasia with lower urinary tract symptoms (principal); N13.8 Other obstructive and reflux uropathy; E11.69 Type 2 diabetes mellitus with other specified complication; N52.1 Erectile dysfunction due to diseases classified elsewhere; Z79.84 Long term (current) use of oral hypoglycemic drugs | CPT/HCPCS: 99202 ==

== ENCOUNTER 2022-06-24 08:21 | Outpatient (REF) | payer MEDICARE, MEDICAID, SELFPAY ==
[2022-06-24 10:38] LABS: Hematocrit 43.2 % (42.0-52.0); Hemoglobin 14.3 g/dl (14.0-18.0); Mean Corpuscular HGB Conc 33.1 g/dl (31.0-36.0); Mean Corpuscular Hemoglobin 30.6 pg (27.0-33.0); Mean Corpuscular Volume 92.5 fL (80.0-98.0); Mean Platelet Volume 11.1 fL (9.4-12.4); Platelet Count 199 X10*3/uL (160-400); Red Blood Count 4.67 X10*6/uL (4.60-5.80); Red Cell Distribution Width 12.3 % (11.0-16.0); White Blood Count 8.2 X10*3/uL (4.8-10.8)
[2022-06-24 10:46] LABS: Estimated Average Glucose 146 mg/dL; Hemoglobin A1c % 6.7 %
[2022-06-24 11:03] LABS: Alanine Aminotransferase 20 U/L (0-40); Albumin Level 4.1 g/dL (3.5-5.0); Alkaline Phosphatase 47 U/L (39-117); Anion Gap 12 (12-20); Aspartate Amino Transferase 20 U/L (5-37); Bilirubin Total 1.2 mg/dL (0.0-1.0); Blood Urea Nitrogen 20 mg/dL (9-16); Calcium 8.9 mg/dL (8.4-10.2); Carbon Dioxide 28 mmol/L (22-29); Chloride 103 mmol/L (96-108); Estimated Glomerular Filt Rate > 60; Glucose Fasting 141 mg/dL (60-99); Potassium 4.3 mmol/L (3.3-5.1); Sodium 139 mmol/L (135-145); Total Protein 6.3 g/dL (6.5-8.0)
[2022-06-24 11:19] LABS: TSH reflex Free T4 4.61 uIU/mL (0.32-4.0)
[2022-06-24 11:53] LABS: Free T4 (Free Thyroxine) 0.89 ng/dL (0.71-1.85)
[2022-06-26 09:04] LABS: Carbohydrate Antigen 19-9 19 U/mL (<34)
== END 2022-06-24 08:22 | disposition home or self-care (01) ==
LOC: HO.10HDL 08:21
PROVIDERS: Visit Provider Physician Assistant
DX: E11.65 Type 2 diabetes mellitus with hyperglycemia (principal); Z80.0 Family history of malignant neoplasm of digestive organs
CPT/HCPCS: 36415; 80053; 83036; 84439; 84443; 85027; 86301

== ENCOUNTER 2022-08-08 08:05 | Outpatient (REF) | payer MEDICARE, MEDICAID, SELFPAY ==
[2022-08-08 11:33] LABS: TSH reflex Free T4 3.01 uIU/mL (0.32-4.0)
== END 2022-08-08 08:06 | disposition home or self-care (01) ==
LOC: HO.10HDL 08:05
PROVIDERS: Visit Provider Physician Assistant
DX: E03.9 Hypothyroidism, unspecified (principal)
CPT/HCPCS: 36415; 84443

== ENCOUNTER → 2022-08-23 08:48 | Outpatient (BNVA) | payer MEDICARE, MEDICAID, SELFPAY | PROVIDERS: PCP Physician Assistant; Visit Provider Urology | DX: E11.69 Type 2 diabetes mellitus with other specified complication (principal); N52.1 Erectile dysfunction due to diseases classified elsewhere | CPT/HCPCS: Q3014 ==

== ENCOUNTER 2022-09-02 08:31 | Outpatient (REF) | payer MEDICARE, MEDICAID, SELFPAY ==
[2022-09-02 10:33] LABS: Hematocrit 42.6 % (42.0-52.0); Mean Corpuscular HGB Conc 32.9 g/dl (31.0-36.0); Mean Corpuscular Hemoglobin 30.3 pg (27.0-33.0); Mean Corpuscular Volume 92.2 fL (80.0-98.0); Mean Platelet Volume 10.7 fL (9.4-12.4); Platelet Count 205 X10*3/uL (160-400); Red Blood Count 4.62 X10*6/uL (4.60-5.80); Red Cell Distribution Width 12.7 % (11.0-16.0); White Blood Count 8.3 X10*3/uL (4.8-10.8)
[2022-09-02 10:51] LABS: Alanine Aminotransferase 16 U/L (0-40); Albumin Level 3.9 g/dL (3.5-5.0); Alkaline Phosphatase 44 U/L (39-117); Anion Gap 10 (12-20); Aspartate Amino Transferase 20 U/L (5-37); Bilirubin Total 0.8 mg/dL (0.0-1.0); Blood Urea Nitrogen 19 mg/dL (9-16); Calcium 8.9 mg/dL (8.4-10.2); Carbon Dioxide 28 mmol/L (22-29); Chloride 105 mmol/L (96-108); Cholesterol 128 mg/dL; Estimated Glomerular Filt Rate > 60; Glucose Fasting 134 mg/dL (60-99); HDL Cholesterol 33 mg/dL; LDL Cholesterol Calculated 81 mg/dl; Potassium 4.2 mmol/L (3.3-5.1); Sodium 139 mmol/L (135-145); Total Protein 6.5 g/dL (6.5-8.0); Triglycerides 71 mg/dL
[2022-09-02 11:06] LABS: TSH reflex Free T4 3.22 uIU/mL (0.32-4.0)
== END 2022-09-02 08:32 | disposition home or self-care (01) ==
LOC: HO.10HDL 08:31
PROVIDERS: Visit Provider Physician Assistant
DX: E03.9 Hypothyroidism, unspecified (principal); E11.9 Type 2 diabetes mellitus without complications; E78.5 Hyperlipidemia, unspecified
CPT/HCPCS: 36415; 80053; 80061; 84443; 85027

== ENCOUNTER 2022-09-30 08:07 | Outpatient (AMB) | payer OTHER, SELFPAY ==
--- NOTE | 2022-09-30 08:08 | MHC.PC.OV ---
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: No Accompanied by: Self / Same As Patient Allergies pollen extracts Allergy (Intermediate, Verified 09/30/22 08:22) Watery eyes, sneezing pine sap Allergy (Intermediate, Uncoded 08/23/22 08:49) Watery eyes, sneezing Medication List - Last Reconciled 09/30/22 by Davion Sheth PA-C atorvastatin 20 mg PO BEDTIME 90 days blood sugar diagnostic ([employer] No Coding strips) Patient testing 4 times per day blood-glucose meter ([employer] Voice Glucose Meter kit) As directed brimonidine 0.2% 1 drp ophthalmic (eye) Q8H CPAP (CPAP Machine/Device) CPAP, mask and supplies flash glucose scanning reader ([employer]Style Reginaldo 2 [place]) As directed flash glucose sensor ([employer]Style Reginaldo 2 Sensor kit) As directed every 2 weeks lancets ([place] Twist Top Lancet) twice a day latanoprost 0.005% 1 drp ophthalmic (eye) DAILY levothyroxine 25 mcg PO DAILY 30 days metformin ER 750 mg PO BID 90 days naftifine 1% 1 appl topical BID 4 weeks pioglitazone (Actos) 15 mg PO DAILY 30 days tadalafil 5 mg PO DAILY 90 days tadalafil 10 mg PO ONCE PRN 30 days terbinafine HCl 1% 1 appl topical BID 30 days vitamin B complex 1 cap PO DAILY Tobacco use date assessed: 05/27/22 Dental Screening Dental Screen Date: 09/30/22 Did you have a dental visit in the last 12 months?: Yes Did you have a dental problem in the last 6 months where you did not have access to dental care?: No Was dental information given to patient?: Patient has dentist HPI Annual Exam HPI Details Patient is a 62 year-old male? here today for annual physical. Patient has a past medical history of type 2 diabetes, Legally blind, hyperlipidemia, recent history of incisional hernia with Dr Ferguson . .. Type 2 diabetes:? Continues to monitor his blood sugars with freestyle Reginaldo, most recent fasting blood sugar 132. , most recent blood sugar log showing average blood sugar 130 and A1c of 6.4. ? Patient has been diagnosed with diabetes over the 4 years ago and has been on metformin 500 mg.? Continues to be very physically active and reports walking thousands of steps a day. Does go to the gym twice a week. Unfortunately has not lost any significant amount of weight over the last few months. .. Hyperlipidemia:? Continues on statin therapy without any side effect.? Most recent LDL acceptable below 100. .. Hypothyroidism: Has been continuing levothyroxine 25 mcg. Most recent TSH stable. Will continue current dose of levothyroxine . ?colonoscopy:? was done by Dr. Jenkins 2021 polyp found which was fragments of tubular adenoma repeat 3 years. .. ? Vaccines: UTD with COVID? ( [employer]) , UTD Tdap?, up-to-date with pneumonia and shingles vacc Laboratory Tests 09/27/21 04/01/22 04/01/22 08:15 08:42 08:42 RBC Hgb 14.7 Creatinine 0.96 Fasting Glucose 132 H Hgb A1c (Clinic) 6.5 H Cholesterol 133 LDL Cholesterol, C alc TSH 4.11 H Urine Microalbumin 04/01/22 09/02/22 09/02/22 08:42 08:34 08:34 RBC 4.62 Hgb 14.0 Creatinine 0.91 Fasting Glucose 134 H Hgb A1c (Clinic) Cholesterol 128 LDL Cholesterol, C alc 81 TSH 3.22 Urine Microalbumin < 5.0 x PFSH Medical History Blindness Controlled diabetes mellitus without complication, without long-term current use of insulin Diabetes mellitus Glaucoma High BMI History of umbilical hernia Hyperlipidemia LDL goal <100 Incisional hernia Obesity (BMI 30-39.9) Obesity due to excess calories YOLY (obstructive sleep apnea) YOLY on CPAP Recurrent umbilical hernia Recurrent ventral hernia Seasonal allergies Surgical History History of colonoscopy (~2009) History of local excision of skin lesion History of umbilical hernia repair Family History Father History of bone cancer History of diabetes mellitus Mother History of pancreatic cancer Paternal Grandmother History of diabetes mellitus Paternal Uncle History of diabetes mellitus Paternal Aunt History of diabetes mellitus Social History (Updated 09/30/22 @ 08:26 by Davion Sheth PA-C) Household Members: None Housing: House Are you a primary health care recruiter to a significant other at home: No Do you presently have visiting nurse or other home services: No Alcohol intake: former Year quit: 1990 Patient Tobacco Use Status: Former Tobacco user Quit Date: 1991 Tobacco use type: Cigarette Years Smoked: quit 29 years ago e-Cigarette/Vaping Use: Never Used Second Hand Smoke Exposure: No service: No Current occupational status: employed 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 1. Little interest or pleasure in doing things: not at all 2. Feeling down, depressed, or hopeless: not at all 3. Trouble falling or staying asleep, or sleeping too much: not at all 4. Feeling tired or having little energy: not at all 5. Poor appetite or overeating: not at all 6. Feeling bad about yourself - or that you are a failure or have let yourself or your family down: not at all 7. Trouble concentrating on things, such as reading the newspaper or watching television: not at all 8. Moving or speaking so slowly that other people could have noticed. Or the opposite - being so fidgety or restless that you have been moving around a lot more than usual: not at all 9. Thoughts that you would be better off or of hurting yourself in some way: not at all Total score: 0 Source: Developed by Drs. Long Beaulieu, Audra Rios, Juan Rizo and colleagues, with an educational leah from [employer]. Thrive Questionnaire Date Thrive assessed: 05/27/22 AUDIT C Alcohol Use Questionnaire (AUDIT-C) 1. How often do you have a drink containing alcohol?: Never Total Score: 0 DHARMESH-7 AMB Questionnaire DHARMESH-7 Date DHARMESH - 7 assessed: 09/30/22 Feeling nervous, anxious, or on edge: 0 = Not at all Not being able to stop or control worryin = Not at all Worrying too much about different things: 0 = Not at all Trouble relaxin = Not at all Being so restless that it is hard to sit still: 0 = Not at all Becoming easily annoyed or irritable: 0 = Not at all Feeling afraid as if something awful might happen: 0 = Not at all Total DHARMESH-7 score (0-4 normal; 5-9 mild; 10-14 moderate; 15-21 severe): 0 Source: Developed by Drs. Long Beaulieu, Audra Rios, Juan Rizo and colleagues, with an educational leah from [employer]. Review of Systems Const Denies body aches, Denies chills, Denies excessive sweating, Denies fatigue, Denies fever(s) and Denies headache(s) Eyes Denies blurry vision ENT Denies dysphagia, Denies vertigo, Denies dizziness, Denies headache(s), Denies hearing loss and Denies tinnitus Card Denies chest pain, Denies chest pain with activity, Denies syncope, Denies irregular heart rhythm and Denies dyspnea Resp Denies chest congestion, Denies cough, Denies hemoptysis, Denies dyspnea and Denies wheezing GI Denies abdominal pain, Denies melena, Denies hematochezia, Denies coffee ground emesis, Denies dysphagia, Denies diarrhea, Denies nausea and Denies vomiting Denies difficulty urinating, Denies dysuria, Denies urinary frequency, Denies urinary hesitancy and Denies urinary urgency Musc Denies arthralgias, Denies limited range of motion, Denies muscle cramps and Denies muscle weakness Skin/Breast Denies rash and Denies skin ulcer Neuro Denies Abnormal speech present, Denies confusion, Denies vertigo, Denies dizziness, Denies syncope, Denies headache(s), Denies memory loss and Denies seizure-like activity Psych Denies anxiety, Denies confusion, Denies depression, Denies memory loss, Denies panic attacks and Denies paranoia Endo Denies excessive sweating, Denies fatigue, Denies flushing, Denies polydipsia and Denies polyuria Aller/Immun Denies wheezing Physical exam (Primary Care) Vital Signs: Last Vital Signs BP 130/70 09/30/22 08:09 BMI result Body Mass Index 35.3 BMI Assessment/Plan discussion: High Tobacco/Smoking Status: Tobacco use Status Tobacco use date assessed 05/27/22 09/30/22 08:14 Patient Tobacco Use Status Former Tobacco user 09/30/22 08:26 Tobacco use type Cigarette 09/30/22 08:26 e-Cigarette/Vaping Use Never Used 09/30/22 08:26 PHQ-9: PHQ-9 Score PHQ-9: Total score 0 09/30/22 08:28 Thrive Assessment: Date of Thrive Assessment Date Thrive assessed 05/27/22 09/30/22 08:14 Const Other: OBESE General: cooperative, comfortable, no acute distress, alert and awake; No confusion Orientation/consciousness: oriented to person, oriented to place, patient oriented x3 and No confusion HENMT Head: Yes normocephalic Ears: external ears normal and TM's normal bilaterally Face and sinus: No sinus tenderness Mouth: Normal oral and palatal mucosa present and tongue normal Teeth and gingiva: dentition normal and gingiva normal Throat: Yes posterior oropharynx normal, Yes tonsils normal and Yes uvula midline Eyes Conjunctivae: conjunctivae normal Sclerae: sclerae normal Pupils: Equal, round and reactive pupils present EOM: EOMs intact bilaterally Direct Ophthalmoscopy: No no photophobia Neck Neck: Yes no lymphadenopathy, No tender and Yes no JVD Thyroid: Thyroid normal Carotids: no bruits Chest Chest palpation & inspection: no tenderness Resp Effort & Inspection: normal respiratory effort, no audible wheezes, not labored and no stridor Auscultation: no crackles, no rales, no rhonchi and no wheezes Cardio Jugular venous distension: no JVD Rate: regular rate, not bradycardic and not tachycardic Rhythm: regular rhythm Bruits: no carotid bruits Peripheral pulses: Peripheral pulses 2+ throughout GI Inspection: Yes normal to inspection, No abdominal wall ecchymosis and No visible herniation Palpation (GI): Soft to palpation, nontender, no guarding, not rigid and No hepatosplenomegaly present Auscultation: normoactive bowel sounds General: Yes no CVA tenderness Back/Spine/Pelvis Back: no CVA tenderness and No back tenderness Cervical Spine: cervical ROM normal Thoracic/Lumbar Spine: thoracic and lumbar spine normal to inspection, straight leg raise negative bilaterally, No thoraco-lumbar ROM limited and No lumbar spinal tenderness Skin Lesions: no lesions Rashes: no rashes Wounds: no wounds Neuro General: oriented to person, oriented to place, patient oriented x3, CN's II-XI intact bilaterally and No confusion Cranial nerves: Yes Equal, round and reactive pupils present and Yes Normal accommodation reflex present Cognition (Neuro): normal cognition Speech: No Abnormal speech present Gait exam (Neuro): Normal gait present Motor exam (neuro): 5/5 motor strength present throughout Extrem Right upper extremity: full ROM; no cyanosis Left upper extremity: full ROM; no cyanosis Right lower extremity: no edema Left lower extremity: no edema Psych Appearance: grossly normal Mental Status: mental status grossly normal Affect: normal affect Attitude: cooperative Thought process: Normal thought process present Assessment and Plan Assessment & Plan (1) Annual physical exam: Code(s): Z00.00 - Encounter for general adult medical examination without abnormal findings (2) Hyperlipidemia LDL goal <100: Code(s): E78.5 - Hyperlipidemia, unspecified Plan: Patient's most recent lipid panel showing appropriate total cholesterol and LDL. Goal LDL to remain below 100 (3) Hypothyroid: Code(s): E03.9 - Hypothyroidism, unspecified Qualifiers: Hypothyroidism type: unspecified Qualified Code(s): E03.9 - Hypothyroidism, unspecified Plan: Patient most recent TSH has been stable, will continue levothyroxine 25 mcg and continue to follow TSH to assure normal (4) Controlled diabetes mellitus without complication, without long-term current use of insulin: Code(s): E11.9 - Type 2 diabetes mellitus without complications Qualifiers: Diabetes mellitus type: type 2 Qualified Code(s): E11.9 - Type 2 diabetes mellitus without complications Plan: Patient's type 2 diabetes well controlled. Continues to use continues glucose monitor or freestyle. Most recent fasting blood sugar 132. Continue current dose of metformin and Actos. Goal A1c is to remain below 7.0 (5) Obesity due to excess calories: Code(s): E66.09 - Other obesity due to excess calories Qualifiers: Obesity classification: adult class 2 (BMI 35 - 39.9) Serious obesity comorbidity presence: with serious comorbidity Body mass index: BMI 36.0-36.9 Qualified Code(s): E66.01 - Morbid (severe) obesity due to excess calories; Z68.36 - Body mass index [BMI] 36.0-36.9, adult Plan: Patient does understand his BMI is over 30 will continue working on being more physically active and adapting to better eating habits to reduce his weight. (6) Blindness: Comment: has 10-20% vision/walks with white cane Code(s): H54.7 - Unspecified visual loss Qualifiers: Right eye visual impairment category: right - unspecified blindness Left eye visual impairment category: left - unspecified impairment Qualified Code(s): H54.40 - Blindness, one eye, unspecified eye Plan: Continues to walk with a cane only has 10 to 20% vision. Continues to manage with devices Orders: Orders TSH reflex Free T4 6 Months E03.9 - Hypothyroidism, unspecified Lipid Panel 6 Months E78.5 - Hyperlipidemia, unspecified Comprehensive [place]. Panel Fast 6 Months E11.65 - Type 2 diabetes mellitus with hyperglycemia Complete Blood Count no Diff 6 Months E11.65 - Type 2 diabetes mellitus with hyperglycemia Medications: Changed From levothyroxine 25 mcg PO DAILY 30 days 30 tabs 3RF E03.9 - Hypothyroidism, unspecified To levothyroxine 25 mcg PO DAILY 90 days 90 tabs 1RF E03.9 - Hypothyroidism, unspecified Refilled atorvastatin 20 mg PO BEDTIME 90 days 90 tabs 1RF E78.5 - Hyperlipidemia, unspecified Coding Level of Care Code Est Pt Level 4 (30551) Diagnoses Annual physical exam Z00.00 Hyperlipidemia LDL goal <100 E78.5 Hypothyroid E03.9 Hypothyroidism type: unspecified Controlled diabetes mellitus without complication, without long-term current use of insulin E11.9 Diabetes mellitus type: type 2 Obesity due to excess calories E66.01; Z68.36 Obesity classification: adult class 2 (BMI 35 - 39.9) Serious obesity comorbidity presence: with serious comorbidity Body mass index: BMI 36.0-36.9 Blindness H54.40 Right eye visual impairment category: right - unspecified blindness Left eye visual impairment category: left - unspecified impairment
[2022-09-30 08:09] VITALS: BP 130/70; BMI 35.3
== END 2022-09-30 08:46 | disposition home or self-care (01) ==
PROVIDERS: PCP Physician Assistant; Visit Provider Physician Assistant
DX: Z00.00 Encounter for general adult medical examination without abnormal findings (principal); E78.5 Hyperlipidemia, unspecified; E03.9 Hypothyroidism, unspecified; E11.9 Type 2 diabetes mellitus without complications; E66.01 Morbid (severe) obesity due to excess calories; Z68.36 Body mass index [BMI] 36.0-36.9, adult; H54.40 Blindness, one eye, unspecified eye
CPT/HCPCS: 99214

== ENCOUNTER → 2022-10-07 08:55 | Outpatient (BNVA) | payer OTHER, SELFPAY | PROVIDERS: PCP Physician Assistant; Visit Provider Dietitian, Registered | DX: E11.9 Type 2 diabetes mellitus without complications (principal) | CPT/HCPCS: 97803 ==

== ENCOUNTER 2022-10-07 08:56 | Outpatient (AMB) | payer OTHER, SELFPAY ==
[2022-10-07 09:03] VITALS: BMI 35.1
--- NOTE | 2022-10-07 09:03 | A.OFFVIS_ITS ---
Intake VS Expanded 10/07/22 09:03 Height 5 ft 8 in Weight 231 lb 0.711 oz BMI 35.1 Intake Visit Reasons: DM Allergies pollen extracts Allergy (Intermediate, Verified 09/30/22 08:22) Watery eyes, sneezing pine sap Allergy (Intermediate, Uncoded 08/23/22 08:49) Watery eyes, sneezing HPI Nutrition Presentation Details Pt presents for MNT follow up for T2DM. Pt is illegally blind. Pt reports doing well. Reports physical activity has lessened lately but planning to restart. Pt reports utilizing [employer]ia tool which helps him to keep track of his physical activity and reminders. Reports this helps him keep motivated. Per BG report his 14 d bg average is at 138 +/- 14.1% , 98 % within target, 2% above 180 and no hypoglycemia. Pt reports having 3 meals per day following healthy plate method. Reports keeping hydrated by having water with meals. Pt reports having assistance from a friend with reading food labels and verbalizes understanding label concepts. Most Recent Diabetes Results: Microalb/Creat Ratio TNP 04/01/22 Cholesterol 128 mg/dL 09/02/22 HDL Cholesterol 33 mg/dL 09/02/22 Triglycerides 71 mg/dL 09/02/22 Creatinine 0.91 mg/dL (0.5-1.4) 09/02/22 Blood Urea Nitrogen 19 mg/dL (9-16) H 09/02/22 Sodium 139 mmol/L (135-145) 09/02/22 Potassium 4.2 mmol/L (3.3-5.1) 09/02/22 Chloride 105 mmol/L (96-108) 09/02/22 Carbon Dioxide 28 mmol/L (22-29) 09/02/22 Calcium 8.9 mg/dL (8.4-10.2) 09/02/22 AST 20 U/L (5-37) 09/02/22 ALT 16 U/L (0-40) 09/02/22 Total Protein 6.5 g/dL (6.5-8.0) 09/02/22 Albumin 3.9 g/dL (3.5-5.0) 09/02/22 [facility] Medical History Blindness Controlled diabetes mellitus without complication, without long-term current use of insulin Diabetes mellitus Glaucoma High BMI History of umbilical hernia Hyperlipidemia LDL goal <100 Incisional hernia Obesity (BMI 30-39.9) Obesity due to excess calories YOLY (obstructive sleep apnea) YOLY on CPAP Recurrent umbilical hernia Recurrent ventral hernia Seasonal allergies Surgical History History of colonoscopy (~2009) History of local excision of skin lesion History of umbilical hernia repair Family History Father History of bone cancer History of diabetes mellitus Mother History of pancreatic cancer Paternal Grandmother History of diabetes mellitus Paternal Uncle History of diabetes mellitus Paternal Aunt History of diabetes mellitus Social History (Updated 09/30/22 @ 08:26 by Davion Sheth PA-C) Household Members: None Housing: House Are you a primary primary care nurse practitioner to a significant other at home: No Do you presently have visiting nurse or other home services: No Alcohol intake: former Year quit: 1990 Patient Tobacco Use Status: Former Tobacco user Quit Date: 1991 Tobacco use type: Cigarette Years Smoked: quit 29 years ago e-Cigarette/Vaping Use: Never Used Second Hand Smoke Exposure: No service: No Current occupational status: employed 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 Used wt : 105 kg Est kcal as per MSJ: 2175-250 = 1925 (40% carb, 30% fat/prot) Est fluid needs: 2579 ml/d (25 ml/kg bw) Rec fiber: increase to 8-10 g per day and gradually increase to 35 g or as tolerated Rec Na: < 2000 mg /d Educate patient on: (R= Reviewed, V = verbalizes understanding N/R= Needs review N/A= not applicable) * Food sources of carbohydrates and serving adequate serving sizes : R V * Difference between complex carbohydrates and simple carbohydrates, role of fiber: R V * Differences between fats (MUFA/PUFA/saturated fats, trans fats) and food sources of various fats: R V * Food sources of sodium and salt and healthy modifications for heart health and kidney health: R V * Vitamins and minerals: R V * How to interpret food labels: R V * Healthy Plate method concept: R V * Physical activity: benefits and precaution: R V Patient Instructions: Continue following healthy plate method. Drink water with meals. Have a fruit as snack 1-2 a day Be cautions with hidden fats , reduce amount of fat added to the foods/meals. Coding Level of Care Code Nutr Indiv Subseq (22269) Diagnoses Controlled diabetes mellitus without complication, without long-term current use of insulin E11.9 Diabetes mellitus type: type 2 Time Spent (min) 30
== END 2022-10-07 11:09 | disposition home or self-care (01) ==
PROVIDERS: PCP Physician Assistant; Visit Provider Dietitian, Registered
DX: E11.9 Type 2 diabetes mellitus without complications (principal)

== ENCOUNTER → 2023-01-27 08:34 | Outpatient (REF) | payer OTHER, SELFPAY | LOC: HO.SL 08:34 | PROVIDERS: Visit Provider Physician Assistant | DX: G47.33 Obstructive sleep apnea (adult) (pediatric) (principal) | CPT/HCPCS: 95806 ==

== ENCOUNTER → 2023-01-27 08:55 | Outpatient (BNV) | payer OTHER, SELFPAY | PROVIDERS: Visit Provider Psychiatry & Neurology Neurology | DX: G47.33 Obstructive sleep apnea (adult) (pediatric) (principal) | CPT/HCPCS: 95806 ==

== ENCOUNTER 2023-03-17 08:53 | Outpatient (REF) | payer OTHER, SELFPAY ==
[2023-03-17 15:07] LABS: Estimated Average Glucose 134 mg/dL; Hemoglobin A1c % 6.3 % (<6.0)
== END 2023-03-17 08:54 | disposition home or self-care (01) ==
LOC: HO.10HDL 08:53
PROVIDERS: Visit Provider Physician Assistant
DX: E03.9 Hypothyroidism, unspecified (principal); E78.5 Hyperlipidemia, unspecified; E11.65 Type 2 diabetes mellitus with hyperglycemia
CPT/HCPCS: 36415; 80053; 80061; 83036; 84443; 85027

== ENCOUNTER 2023-04-02 08:51 | Outpatient (AMB) | payer OTHER, SELFPAY ==
--- NOTE | 2023-04-02 08:51 | MHC.PC.OV ---
Vital Signs 04/02/23 08:52 Weight 225 lb 0.6 oz Intake Visit Reasons: 6mth f/u Rand Tacker Required: No Allergies pollen extracts Allergy (Intermediate, Verified 04/02/23 09:11) Watery eyes, sneezing pine sap Allergy (Intermediate, Uncoded 04/02/23 08:51) Watery eyes, sneezing Medication List - Last Reconciled 04/02/23 by Davion Sheth PA-C atorvastatin 20 mg PO BEDTIME 90 days blood sugar diagnostic ([employer] No Coding strips) Patient testing 4 times per day blood-glucose meter ([employer] Voice Glucose Meter kit) As directed brimonidine 0.2% 1 drp ophthalmic (eye) Q8H CPAP (CPAP Machine/Device) CPAP, mask and supplies flash glucose scanning reader ([employer] Reginaldo 2 [place]) As directed flash glucose sensor ([employer] Reginaldo 2 Sensor kit) As directed every 2 weeks glucose 4 grams PO Q15M PRN 5 days lancets ([employer] Twist Top Lancet) twice a day latanoprost 0.005% 1 drp ophthalmic (eye) DAILY levothyroxine 25 mcg PO DAILY 90 days metformin ER 750 mg PO BID 90 days naftifine 1% 1 appl topical BID 4 weeks pioglitazone (Actos) 15 mg PO DAILY 30 days tadalafil 5 mg PO DAILY 90 days tadalafil 10 mg PO ONCE PRN 30 days terbinafine HCl 1% 1 appl topical BID 30 days vitamin B complex 1 cap PO DAILY Tobacco use date assessed: 04/02/23 Dental Screening Dental Screen Date: 04/02/23 HPI 6mth f/u HPI Details Patient is a 62 year-old male? being evaluated today via telephone follow-up visit. Patient has a past medical history of type 2 diabetes, Legally blind, hyperlipidemia, recent history of incisional hernia with Dr Ferguson . .. Type 2 diabetes:? Continues to monitor his blood sugars with freestyle Reginaldo, most recent fasting blood sugar in the 130s. Most recent A1c is 6.3 from 6.7 ? Patient has been diagnosed with diabetes over the 4 years ago and has been on metformin 500 mg.? Continues to be very physically active and reports walking thousands of steps a day. Does go to the gym twice a week. .. Hyperlipidemia:? Continues on statin therapy without any side effect.? Most recent LDL acceptable below 100. .. Hypothyroidism: Has been continuing levothyroxine 25 mcg. Most recent TSH stable. Will continue current dose of levothyroxine Laboratory Tests 04/01/22 06/24/22 09/02/22 08:42 08:23 08:34 RBC Creatinine Fasting Glucose 134 H Hemoglobin A1c % 6.7 Cholesterol LDL Cholesterol, C alc PSA Screen 2.19 TSH 09/02/22 03/17/23 03/17/23 08:34 09:00 09:00 RBC 4.60 Creatinine 0.98 Fasting Glucose 136 H Hemoglobin A1c % 6.3 H Cholesterol LDL Cholesterol, C alc 81 PSA Screen TSH 03/17/23 03/17/23 09:00 09:00 RBC Creatinine Fasting Glucose Hemoglobin A1c % Cholesterol 141 LDL Cholesterol, C alc 85 PSA Screen TSH 1.93 [facility] Medical History YOLY on CPAP Recurrent ventral hernia Seasonal allergies Recurrent umbilical hernia Controlled diabetes mellitus without complication, without long-term current use of insulin Hyperlipidemia LDL goal <100 Obesity (BMI 30-39.9) Obesity due to excess calories Incisional hernia History of umbilical hernia Diabetes mellitus High BMI YOLY (obstructive sleep apnea) Blindness Glaucoma Surgical History History of local excision of skin lesion History of colonoscopy (~2009) History of umbilical hernia repair Family History Father History of bone cancer History of diabetes mellitus Mother History of pancreatic cancer Paternal Grandmother History of diabetes mellitus Paternal Uncle History of diabetes mellitus Paternal Aunt History of diabetes mellitus Social History Household Members: None Housing: House Are you a primary laboratory animal care veterinarian to a significant other at home: No Do you presently have visiting nurse or other home services: No Alcohol intake: former Year quit: 1990 Comment: legally blind Patient Tobacco Use Status: Former Tobacco user Quit Date: 1991 Tobacco use type: Cigarette Years Smoked: quit 29 years ago e-Cigarette/Vaping Use: Never Used Second Hand Smoke Exposure: No service: No Current occupational status: employed 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 1. Little interest or pleasure in doing things: not at all 2. Feeling down, depressed, or hopeless: not at all 3. Trouble falling or staying asleep, or sleeping too much: not at all 4. Feeling tired or having little energy: not at all 5. Poor appetite or overeating: not at all 6. Feeling bad about yourself - or that you are a failure or have let yourself or your family down: not at all 7. Trouble concentrating on things, such as reading the newspaper or watching television: not at all 8. Moving or speaking so slowly that other people could have noticed. Or the opposite - being so fidgety or restless that you have been moving around a lot more than usual: not at all 9. Thoughts that you would be better off or of hurting yourself in some way: not at all Total score: 0 Depression Screening Interpretation: Negative Depression Screening Done: Yes 80673 - PHQ-9 Billing: Yes Source: Developed by Drs. Long Beaulieu, Audra Rios, Juan Rizo and colleagues, with an educational leah from [employer]. Thrive Questionnaire Date Thrive assessed: 04/02/23 AUDIT C Alcohol Use Questionnaire (AUDIT-C) 1. How often do you have a drink containing alcohol?: Never 3. How often do you have six or more drinks on one occasion?: Never Total Score: 0 DHARMESH-7 AMB Questionnaire DHARMESH-7 Date DHARMESH - 7 assessed: 04/02/23 Source: Developed by Drs. Long Beaulieu, Audra Rios, Juan Rizo and colleagues, with an educational leah from [employer]. Review of Systems Const Denies headache(s) Eyes Denies loss of vision ENT Denies vertigo, Denies dizziness, Denies headache(s) and Denies sore throat Card Denies chest pain, Denies leg edema and Denies lightheadedness Resp Denies cough, Denies hemoptysis and Denies wheezing GI Denies abdominal pain, Denies melena, Denies constipation, Denies diarrhea and Denies vomiting Denies dysuria, Denies urinary frequency and Denies urinary urgency Musc Denies arthralgias, Denies joint swelling, Denies numbness and Denies tingling Neuro Denies behavioral changes, Denies vertigo, Denies dizziness, Denies headache(s), Denies loss of vision, Denies memory loss, Denies numbness and Denies tingling Psych Denies anxiety, Denies behavioral changes, Denies depression, Denies memory loss and Denies panic attacks Jeremy/Lymph Denies easy bleeding and Denies easy bruising Aller/Immun Denies wheezing Physical exam (Primary Care) Tobacco/Smoking Status: Tobacco use Status Tobacco use date assessed 04/02/23 04/02/23 08:54 Patient Tobacco Use Status Former Tobacco user 04/02/23 08:54 Tobacco use type Cigarette 04/02/23 08:54 e-Cigarette/Vaping Use Never Used 04/02/23 08:54 PHQ-9: PHQ-9 Score PHQ-9: Total score 0 04/02/23 08:54 Depression Screening Interpretation: Negative Thrive Assessment: Date of Thrive Assessment Date Thrive assessed 04/02/23 04/02/23 08:54 Telehealth Telehealth Location of provider rendering services: practice address Location of patient: address on file Patient Identification confirmed using: Name, : No Telehealth method: voice only (iphone ) Patient verbally consented to treatment: Yes Patient verbally consented to billing insurance company: Yes Patient informed of any privacy concerns related to visit: Yes Minutes spent on Phone/Video with Pt.: 11 Assessment and Plan Assessment & Plan (1) Controlled diabetes mellitus without complication, without long-term current use of insulin: Code(s): E11.9 - Type 2 diabetes mellitus without complications Qualifiers: Diabetes mellitus type: type 2 Qualified Code(s): E11.9 - Type 2 diabetes mellitus without complications Plan: Patient's type 2 diabetes well controlled. Continues to use continues glucose monitor or freestyle. Most recent fasting blood sugar 132. Continue current dose of metformin and Actos. Goal A1c is to remain below 7.0 (2) Hyperlipidemia LDL goal <100: Code(s): E78.5 - Hyperlipidemia, unspecified Plan: Patient's most recent lipid panel showing appropriate total cholesterol and LDL. Goal LDL to remain below 100 (3) Hypothyroid: Code(s): E03.9 - Hypothyroidism, unspecified Qualifiers: Hypothyroidism type: unspecified Qualified Code(s): E03.9 - Hypothyroidism, unspecified Plan: Patient most recent TSH has been stable, will continue levothyroxine 25 mcg and continue to follow TSH to assure normal (4) Blindness: Comment: has 10-20% vision/walks with white cane Code(s): H54.7 - Unspecified visual loss Qualifiers: Right eye visual impairment category: right - unspecified blindness Left eye visual impairment category: left - unspecified impairment Qualified Code(s): H54.40 - Blindness, one eye, unspecified eye Plan: Continues to walk with a cane only has 10 to 20% vision. Continues to manage with devices (5) YOLY (obstructive sleep apnea): Code(s): G47.33 - Obstructive sleep apnea (adult) (pediatric) Plan: Continues with the use of his CPAP machine on a nightly basis. Does use it more than 4 hours per night for more than 21 days out of the month. According to patient he gets good sleep with his CPAP machine Orders: Orders TSH reflex Free T4 Today E03.9 - Hypothyroidism, unspecified Lipid Panel Today E78.5 - Hyperlipidemia, unspecified Hemoglobin A1c Today E11.9 - Type 2 diabetes mellitus without complications Comprehensive [place]. Panel Fast Today E11.9 - Type 2 diabetes mellitus without complications Prostate Specific Antigen Scr Today E11.9 - Type 2 diabetes mellitus without complications, Z12.5 - Encounter for screening for malignant neoplasm of prostate Medications: Changed From pioglitazone (Actos) 15 mg PO DAILY 30 days 30 tabs 3RF E11.65 - Type 2 diabetes mellitus with hyperglycemia To pioglitazone (Actos) 15 mg PO DAILY 90 days 90 tabs 1RF E11.65 - Type 2 diabetes mellitus with hyperglycemia Refilled atorvastatin 20 mg PO BEDTIME 90 days 90 tabs 1RF E78.5 - Hyperlipidemia, unspecified terbinafine HCl 1% 1 appl topical BID 30 days 30 grams 1RF B35.3 - Tinea pedis metformin ER 750 mg PO BID 90 days 180 tabs 1RF E11.9 - Type 2 diabetes mellitus without complications levothyroxine 25 mcg PO DAILY 90 days 90 tabs 1RF E03.9 - Hypothyroidism, unspecified glucose until symptoms of low blood sugar are controlled 4 grams PO Q15M 5 days PRN 14 tabs 0RF hypoglycemia E11.9 - Type 2 diabetes mellitus without complications Coding Level of Care Code Tele Est Pt Level 4 (23561) Diagnoses Controlled type 2 diabetes mellitus without complication, without long-term current use of insulin E11.9 Diabetes mellitus type: type 2 Hyperlipidemia LDL goal <100 E78.5 Hypothyroidism, unspecified type E03.9 Hypothyroidism type: unspecified Blindness of right eye, unspecified left eye visual impairment category H54.40 Right eye visual impairment category: right - unspecified blindness Left eye visual impairment category: left - unspecified impairment YOLY (obstructive sleep apnea) G47.33
== END 2023-04-02 10:02 | disposition home or self-care (01) ==
LOC: HO.HMGH 08:51
PROVIDERS: PCP Physician Assistant; Visit Provider Physician Assistant
DX: E11.9 Type 2 diabetes mellitus without complications (principal); E78.5 Hyperlipidemia, unspecified; E03.9 Hypothyroidism, unspecified; H54.40 Blindness, one eye, unspecified eye; G47.33 Obstructive sleep apnea (adult) (pediatric)
CPT/HCPCS: 99442

== ENCOUNTER 2023-04-15 12:55 | Outpatient (AMB) | payer OTHER, SELFPAY ==
--- NOTE | 2023-04-15 12:56 | A.OFFPC_ITS ---
Intake Visit Reasons: CPAP compliance dialogue Special Tester Required: No Accompanied by: Self / Same As Patient Allergies pollen extracts Allergy (Intermediate, Verified 04/15/23 13:01) Watery eyes, sneezing pine sap Allergy (Intermediate, Uncoded 04/15/23 12:57) Watery eyes, sneezing Medication List - Last Reconciled 04/15/23 by Davion Sheth PA-C atorvastatin 20 mg PO BEDTIME 90 days blood sugar diagnostic ([employer] No Coding strips) Patient testing 4 times per day blood-glucose meter ([employer] Voice Glucose Meter kit) As directed brimonidine 0.2% 1 drp ophthalmic (eye) Q8H CPAP (CPAP Machine/Device) CPAP, mask and supplies flash glucose scanning reader ([employer] Reginaldo 2 [place]) As directed flash glucose sensor ([employer] Reginaldo 2 Sensor kit) As directed every 2 weeks glucose 4 grams PO Q15M PRN 5 days lancets ([employer] Twist Top Lancet) twice a day latanoprost 0.005% 1 drp ophthalmic (eye) DAILY levothyroxine 25 mcg PO DAILY 90 days metformin ER 750 mg PO BID 90 days naftifine 1% 1 appl topical BID 4 weeks pioglitazone (Actos) 15 mg PO DAILY 90 days tadalafil 5 mg PO DAILY 90 days tadalafil 10 mg PO ONCE PRN 30 days terbinafine HCl 1% 1 appl topical BID 30 days vitamin B complex 1 cap PO DAILY Tobacco use date assessed: 04/02/23 HPI CPAP compliance dialogue HPI Details Patient is a 62 year-old male? being evaluated today via telephone follow-up visit. Patient has a past medical history of type 2 diabetes, obstructive sleep apnea, Legally blind, hyperlipidemia, recent history of incisional hernia with Dr Ferguson . OBSTRUCTIVE SLEEP APNEA: Has been diagnosed with obstructive sleep apnea over the last 15 years.. Patient does inform me he uses his CPAP machine nightly basis. He admits to using the CPAP machine more than 4 hours per night for more than 21 days out of each month. According to patient he gets good sleep with his CPAP machine. He does understand the benefits of using nightly CPAP including better sleep, reducing cardiovascular event risk ect . .. [facility] Medical History YOLY on CPAP Recurrent ventral hernia Seasonal allergies Recurrent umbilical hernia Controlled diabetes mellitus without complication, without long-term current use of insulin Hyperlipidemia LDL goal <100 Obesity (BMI 30-39.9) Obesity due to excess calories Incisional hernia History of umbilical hernia Diabetes mellitus High BMI YOLY (obstructive sleep apnea) Blindness Glaucoma Surgical History History of local excision of skin lesion History of colonoscopy (~2009) History of umbilical hernia repair Family History Father History of bone cancer History of diabetes mellitus Mother History of pancreatic cancer Paternal Grandmother History of diabetes mellitus Paternal Uncle History of diabetes mellitus Paternal Aunt History of diabetes mellitus Social History Household Members: None Housing: House Are you a primary lawn care specialist to a significant other at home: No Do you presently have visiting nurse or other home services: No Alcohol intake: former Year quit: 1990 Comment: legally blind Patient Tobacco Use Status: Former Tobacco user Quit Date: 1991 Tobacco use type: Cigarette Years Smoked: quit 29 years ago e-Cigarette/Vaping Use: Never Used Second Hand Smoke Exposure: No service: No Current occupational status: employed 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 Long Beaulieu, Audra Rios, Juan Rizo and colleagues, with an educational leah from [employer]. Review of Systems Const Denies headache(s) Eyes Denies loss of vision ENT Denies vertigo, Denies dizziness, Denies headache(s) and Denies sore throat Card Denies chest pain, Denies leg edema and Denies lightheadedness Resp Denies cough, Denies hemoptysis and Denies wheezing GI Denies abdominal pain, Denies melena, Denies constipation, Denies diarrhea and Denies vomiting Denies dysuria, Denies urinary frequency and Denies urinary urgency Musc Denies arthralgias, Denies joint swelling, Denies numbness and Denies tingling Neuro Denies behavioral changes, Denies vertigo, Denies dizziness, Denies headache(s), Denies loss of vision, Denies memory loss, Denies numbness and Denies tingling Psych Denies anxiety, Denies behavioral changes, Denies depression, Denies memory loss and Denies panic attacks Jeremy/Lymph Denies easy bleeding and Denies easy bruising Aller/Immun Denies wheezing Physical exam (Primary Care) Tobacco/Smoking Status: Tobacco use Status Tobacco use date assessed 04/02/23 04/15/23 12:57 Patient Tobacco Use Status Former Tobacco user 04/15/23 12:57 Tobacco use type Cigarette 04/15/23 12:57 e-Cigarette/Vaping Use Never Used 04/15/23 12:57 Thrive Assessment: Date of Thrive Assessment Date Thrive assessed 04/02/23 04/15/23 12:57 Telehealth Telehealth Location of provider rendering services: practice address Location of patient: address on file Patient Identification confirmed using: Name, : Yes Telehealth method: voice only Patient verbally consented to treatment: Yes Patient verbally consented to billing insurance company: Yes Patient informed of any privacy concerns related to visit: Yes Minutes spent on Phone/Video with Pt.: 9 Assessment and Plan Assessment & Plan (1) YOLY (obstructive sleep apnea): Code(s): G47.33 - Obstructive sleep apnea (adult) (pediatric) Plan: Has been diagnosed with obstructive sleep apnea over last 15 years. Continues with the use of his CPAP machine on a nightly basis. Does use it more than 4 hours per night for more than 21 days out of the month. According to patient he gets good sleep with his CPAP machine He does understand the cardiovascular benefits of using his CPAP on a nightly basis. He agrees to continue using his CPAP machine on a nightly basis. Amount of time spent talking about benefits of CPAP use was 8 minutes. Coding Level of Care Code Tele Est Pt Level 3 (46646) Diagnoses YOLY (obstructive sleep apnea) G47.33
== END 2023-04-15 13:40 | disposition home or self-care (01) ==
LOC: HO.HMGH 12:55
PROVIDERS: PCP Physician Assistant; Visit Provider Physician Assistant
DX: G47.33 Obstructive sleep apnea (adult) (pediatric) (principal); Z99.89 Dependence on other enabling machines and devices
CPT/HCPCS: 99441

== ENCOUNTER 2023-06-18 09:24 | Outpatient (AMB) | payer OTHER, SELFPAY ==
--- NOTE | 2023-06-18 09:42 | MHC.OFFVIS ---
Intake Intake Visit Reasons: 6M Med Review(Tadalafil)Confirmed Intake Note: Patient presents today for a follow up on: Tadalafil Review Meds- Tadalafil Allergies to Antibiotic- No Known Allergies Blood Thinner- None Doorperson Or Luggage Porter Required: No Accompanied by: Self / Same As Patient Allergies pollen extracts Allergy (Intermediate, Verified 06/18/23 09:44) Watery eyes, sneezing pine sap Allergy (Intermediate, Uncoded 06/18/23 09:44) Watery eyes, sneezing Medication List - Last Reconciled 06/18/23 by Alessandro Fortune MD atorvastatin 20 mg PO BEDTIME 90 days blood sugar diagnostic ([employer] No Coding strips) Patient testing 4 times per day blood-glucose meter ([employer] Voice Glucose Meter kit) As directed brimonidine 0.2% 1 drp ophthalmic (eye) Q8H CPAP (CPAP Machine/Device) CPAP, mask and supplies flash glucose scanning reader ([employer] Reginaldo 2 [place]) As directed flash glucose sensor ([employer] Reginaldo 2 Sensor kit) As directed every 2 weeks glucose 4 grams PO Q15M PRN 5 days lancets ([employer] Twist Top Lancet) twice a day latanoprost 0.005% 1 drp ophthalmic (eye) DAILY levothyroxine 25 mcg PO DAILY 90 days metformin ER 750 mg PO BID 90 days naftifine 1% 1 appl topical BID 4 weeks pioglitazone (Actos) 15 mg PO DAILY 90 days tadalafil 5 mg PO DAILY 90 days tadalafil 10 mg PO ONCE PRN 30 days terbinafine HCl 1% 1 appl topical BID 30 days vitamin B complex 1 cap PO DAILY HPI HPI Comments History of Present Illness Details Long is a pleasant male. He is a patient of Dr. Sheth. He is seen for following urologic conditions - lower urinary tract symptoms - erectile dysfunction in setting of diabetes Yearly follow-up Legally blind Improved erectile response Add 10 mg on demand to improve rigidity Has noticed improvement in bladder control and bowel control since starting medication Lower urinary tract symptoms Progressive Weakness of stream with incomplete bladder emptying Also reports retrograde ejaculation PSA 04/01 2.2 Erectile dysfunction in setting of diabetes Prior success with on demand sildenafil Current therapy daily tadalafil with on demand if necessary CPAP HbA1c 06/30 6.7,TG 127 PFSH Medical History YOLY on CPAP Recurrent ventral hernia Seasonal allergies Recurrent umbilical hernia Controlled diabetes mellitus without complication, without long-term current use of insulin Hyperlipidemia LDL goal <100 Obesity (BMI 30-39.9) Obesity due to excess calories Incisional hernia History of umbilical hernia Diabetes mellitus High BMI YOLY (obstructive sleep apnea) Blindness Glaucoma Surgical History History of local excision of skin lesion History of colonoscopy (~2009) History of umbilical hernia repair Family History Father History of bone cancer History of diabetes mellitus Mother History of pancreatic cancer Paternal Grandmother History of diabetes mellitus Paternal Uncle History of diabetes mellitus Paternal Aunt History of diabetes mellitus Social History Household Members: None Housing: House Are you a primary healthcare recruiter to a significant other at home: No Do you presently have visiting nurse or other home services: No Alcohol intake: former Year quit: 1990 Comment: legally blind Patient Tobacco Use Status: Former Tobacco user Quit Date: 1991 Tobacco use type: Cigarette Years Smoked: quit 29 years ago e-Cigarette/Vaping Use: Never Used Second Hand Smoke Exposure: No service: No Current occupational status: employed 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 needs: Yes Hearing needs: No Vision needs: Yes Review of Systems Const Denies chills and Denies fever(s) Card Reports no additional complaints and Denies syncope Resp Denies cough GI Denies abdominal pain and Denies heartburn Reports as per HPI and Denies change in libido Neuro Denies syncope Psych Denies change in libido Endo Denies change in libido Physical Exam Const General: cooperative, healthy appearing, comfortable and no acute distress Orientation/consciousness: patient oriented x3 HEENT Face and sinus: Yes normal facial exam Mouth: moist mucous membranes Neck Neck: Yes normal visual inspection, Yes full ROM and Yes trachea midline Chest Chest palpation & inspection: normal inspection of the chest Resp Effort & Inspection: normal respiratory effort, able to speak in complete sentences and no respiratory distress GI Inspection: Yes normal to inspection Back/Spine/Pelvis Cervical Spine: normal cervical lordosis Thoracic/Lumbar Spine: thoracic and lumbar spine normal to inspection Skin General skin exam: no rashes or lesions noted Neuro General: patient oriented x3, gait normal, tone normal and moves all extremities Extrem General: Yes normal to inspection and Yes capillary refill normal Assessment & Plan Assessment & Plan (1) Erectile dysfunction associated with type 2 diabetes mellitus: Code(s): E11.69 - Type 2 diabetes mellitus with other specified complication; N52.1 - Erectile dysfunction due to diseases classified elsewhere (2) Bladder instability: Code(s): N32.89 - Other specified disorders of bladder Plan Six-month follow-up tele Patient Instructions: Imaging studies, laboratory and physical exam results were discussed and reviewed in detail. No major barriers to patient understanding were identified. An opportunity to ask questions regarding the treatment plan was provided. All questions were answered. The patient expressed understanding and agreement with the above treatment plan. The patient is aware they should contact our office by phone for worsening of their current condition or the appearance of new urologic symptoms. Compliance is encouraged with any medications and followup testing that is ordered. It is a privilege to participate in the urologic care of your patient. If you have any questions or concerns regarding treatment for the above conditions, or other urologic issues, please do not hesitate to contact me. The office telephone contact is [phone]. This note is constructed using voice recognition software. While every effort has been made to ensure accuracy staff nuclear medicine technologist errors may have been included. Yours sincerely, Dr Alessandro Fortune MD, [facility] - Urology Providers of Expert, Compassionate Care for the Genitourinary System Coding Level of Care Code Est Pt Level 3 (34271) Diagnoses Erectile dysfunction associated with type 2 diabetes mellitus E11.69; N52.1 Bladder instability N32.89
== END 2023-06-18 10:40 | disposition home or self-care (01) ==
LOC: HO.HUSH 09:24
PROVIDERS: PCP Physician Assistant; Visit Provider Urology
DX: E11.69 Type 2 diabetes mellitus with other specified complication (principal); N52.1 Erectile dysfunction due to diseases classified elsewhere; N32.89 Other specified disorders of bladder
CPT/HCPCS: 99213

== ENCOUNTER → 2023-06-18 09:24 | Outpatient (BNVA) | payer OTHER, SELFPAY | PROVIDERS: PCP Physician Assistant; Visit Provider Urology | DX: E11.69 Type 2 diabetes mellitus with other specified complication (principal); N52.1 Erectile dysfunction due to diseases classified elsewhere; N32.89 Other specified disorders of bladder | CPT/HCPCS: 99212 ==

== ENCOUNTER 2023-07-07 08:06 | Outpatient (REF) | payer OTHER, SELFPAY ==
--- NOTE | ~2023-07-07 | XR_ITS ---
EXAMINATION: XR KNEE, RIGHT CLINICAL INFORMATION: Pain CLINICAL INFORMATION: Reason for Exam M25.569 - Pain in unspecified knee COMPARISON: None TECHNIQUE: 2 views of the knee and one view of the bilateral knees standing. FINDINGS: No acute fracture or dislocation. Mild degenerative changes of the right knee with small patellofemoral compartment osteophytes.. No right joint effusion. Soft tissues are unremarkable. Sclerotic lesion in the left medial femoral condyle in the absence of any underlying malignancy may reflect a bone island. Well-corticated osseous fragment adjacent to the left lateral femoral condyle may reflect sequelae of remote lateral collateral ligament avulsion injury. XR/XR knee RT 3V IMPRESSION: 1. Mild degenerative changes of the right knee with small patellofemoral compartment osteophytes. 2. Well-corticated osseous fragment adjacent to the left lateral femoral condyle may reflect sequelae of remote lateral collateral ligament avulsion injury. 3. Sclerotic lesion in the left medial femoral condyle in the absence of any underlying malignancy may reflect a bone island.
== END 2023-07-07 08:07 | disposition home or self-care (01) ==
LOC: HO.HOSX 08:06
PROVIDERS: Visit Provider Orthopaedic Surgery
DX: M17.11 Unilateral primary osteoarthritis, right knee (principal)
CPT/HCPCS: 73562; 99202

== ENCOUNTER 2023-07-07 09:04 | Outpatient (AMB) | payer OTHER, SELFPAY ==
--- NOTE | 2023-07-07 09:17 | A.OFFVIS_ITS ---
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 Patient reports that he has had increased pain in the right knee. He has pain that will wake him up at night. He is diabetic so he tried to remain active with walking and spinning. 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 Patient reports that he has had increased pain in the right knee. He has pain that will wake him up at night. He is diabetic so he tried to remain active with walking and spinning. He has 2-3/ 10 discomfort occasionally at night. Mild discomfort with stairs, standing from a seated position. [facility] Medical History YOLY on CPAP Recurrent ventral hernia Seasonal allergies Recurrent umbilical hernia Controlled diabetes mellitus without complication, without long-term current use of insulin Hyperlipidemia LDL goal <100 Obesity (BMI 30-39.9) Obesity due to excess calories Incisional hernia History of umbilical hernia Diabetes mellitus High BMI YOLY (obstructive sleep apnea) Blindness Glaucoma Surgical History History of local excision of skin lesion History of colonoscopy (~2009) History of umbilical hernia repair Family History Father History of bone cancer History of diabetes mellitus Mother History of pancreatic cancer Paternal Grandmother History of diabetes mellitus Paternal Uncle History of diabetes mellitus Paternal Aunt History of diabetes mellitus Social History (Updated 07/07/23 @ 09:21 by Scarlet Nice CMA) Household Members: None Housing: House Are you a primary home health aide caregiver to a significant other at home: No Do you presently have visiting nurse or other home services: No Alcohol intake: former Year quit: 1990 Comment: legally blind Patient Tobacco Use Status: Former Tobacco user Quit Date: 1991 Tobacco use type: Cigarette Years Smoked: quit 29 years ago e-Cigarette/Vaping Use: Never Used Second Hand Smoke Exposure: No service: No Current occupational status: employed and disabled 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 needs: Yes Hearing needs: No Vision needs: Yes Physical Exam Const General: cooperative, healthy appearing, comfortable and no acute distress Orientation/consciousness: patient oriented x3 HEENT Face and sinus: Yes normal facial exam Mouth: moist mucous membranes Neck Neck: Yes normal visual inspection, Yes full ROM and Yes trachea midline Chest Chest palpation & inspection: normal inspection of the chest Resp Effort & Inspection: normal respiratory effort, able to speak in complete sentences and no respiratory distress GI Inspection: Yes normal to inspection Back/Spine/Pelvis Cervical Spine: normal cervical lordosis Thoracic/Lumbar Spine: thoracic and lumbar spine normal to inspection Skin General skin exam: no rashes or lesions noted Neuro General: patient oriented x3, gait normal, tone normal and moves all extremities Extrem Other: normal knee exam Mild lateral retropatellar ttp General: Yes normal to inspection and Yes capillary refill normal Results Reviewed Results Reviewed: Mild PF OA. Otherwise unremarkable radiographs. Assessment & Plan Assessment & Plan (1) Osteoarthritis of right patellofemoral joint: Code(s): M17.11 - Unilateral primary osteoarthritis, right knee Category: Medical Plan: Mild and minimally symptomatic. Discussed activity modification, NSAIDs, bracing and injections. May follow up prn. Orders: Orders XR knee standing BI Today M25.569 - Pain in unspecified knee Coding Level of Care Code New Pt Level 3 (02948) Diagnoses Osteoarthritis of right patellofemoral joint M17.11
== END 2023-07-07 09:32 | disposition home or self-care (01) ==
PROVIDERS: PCP Physician Assistant; Visit Provider Orthopaedic Surgery
DX: M17.11 Unilateral primary osteoarthritis, right knee (principal)
CPT/HCPCS: 99203

== ENCOUNTER 2023-09-25 08:16 | Outpatient (REF) | payer OTHER, SELFPAY ==
[2023-09-25 11:00] LABS: Estimated Average Glucose 131 mg/dL; Hemoglobin A1c % 6.2 % (<6.0)
[2023-09-25 11:17] LABS: Alanine Aminotransferase 16 U/L (0-40); Albumin Level 4.2 g/dL (3.5-5.0); Alkaline Phosphatase 46 U/L (39-117); Anion Gap 14 (12-20); Aspartate Amino Transferase 21 U/L (5-37); Bilirubin Total 0.9 mg/dL (0.0-1.0); Blood Urea Nitrogen 19 mg/dL (9-16); Calcium 8.9 mg/dL (8.4-10.2); Carbon Dioxide 27 mmol/L (22-29); Chloride 103 mmol/L (96-108); Cholesterol 138 mg/dL (<200); Estimated Glomerular Filt Rate > 60; Glucose Fasting 132 mg/dL (60-99); HDL Cholesterol 33 mg/dL (>40); LDL Cholesterol Calculated 80 mg/dL (<100); Potassium 4.4 mmol/L (3.3-5.1); Sodium 140 mmol/L (135-145); Total Protein 6.8 g/dL (6.5-8.0); Triglycerides 129 mg/dL (<150)
[2023-09-25 11:25] LABS: Prostate Specific Antigen Scr 2.85 ng/mL (<0.05-4.0)
[2023-09-25 11:32] LABS: TSH reflex Free T4 2.88 uIU/mL (0.32-4.0)
== END 2023-09-25 08:17 | disposition home or self-care (01) ==
LOC: HO.10HDL 08:16
PROVIDERS: Visit Provider Physician Assistant
DX: E11.9 Type 2 diabetes mellitus without complications (principal); E78.5 Hyperlipidemia, unspecified; E03.9 Hypothyroidism, unspecified; Z12.5 Encounter for screening for malignant neoplasm of prostate
CPT/HCPCS: 36415; 80053; 80061; 83036; 84153; 84443

== ENCOUNTER 2023-10-06 08:08 | Outpatient (AMB) | payer OTHER, SELFPAY ==
[2023-10-06 08:24] VITALS: BP 114/68; PULSE 73; O2SAT 97; BMI 36.4
--- NOTE | 2023-10-06 08:24 | MHC.PC.OV ---
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 Accompanied by: Self / Same As Patient Allergies pollen extracts Allergy (Intermediate, Verified 10/06/23 08:34) Watery eyes, sneezing pine sap Allergy (Intermediate, Uncoded 10/06/23 08:34) Watery eyes, sneezing Medication List - Last Reconciled 10/06/23 by Davion Sheth PA-C atorvastatin 20 mg PO BEDTIME 90 days blood sugar diagnostic ([employer] No Coding strips) Patient testing 4 times per day blood-glucose meter ([employer] Voice Glucose Meter kit) As directed blood-glucose meter,continuous (FreeStyle Reginaldo 3 [place]) As directed blood-glucose sensor (FreeStyle Reginaldo 3 Sensor device) As directed brimonidine 0.2% 1 drp ophthalmic (eye) Q8H CPAP (CPAP Machine/Device) CPAP, mask and supplies glucose 4 grams PO Q15M PRN 5 days lancets ([employer] Twist Top Lancet) twice a day latanoprost 0.005% 1 drp ophthalmic (eye) DAILY levothyroxine 25 mcg PO DAILY 90 days metformin ER 750 mg PO BID 90 days miscellaneous medical supply 1 ea miscellaneous DAILY 99 days naftifine 1% 1 appl topical BID 4 weeks pioglitazone (Actos) 15 mg PO DAILY 90 days tadalafil 10 mg PO ONCE PRN 30 days tadalafil 5 mg PO DAILY 90 days terbinafine HCl 1% 1 appl topical BID 30 days vitamin B complex 1 cap PO DAILY Tobacco use date assessed: 04/02/23 Dental Screening Dental Screen Date: 04/02/23 HPI Annual PE HPI Details Patient is a 63 year-old male? Patient has a past medical history of type 2 diabetes, Legally blind, hyperlipidemia, recent history of incisional hernia with Dr Ferguson . .. Type 2 diabetes:? Continues to monitor his blood sugars with freestyle Regnialdo, most recent fasting blood sugar in the 130s. most recent A1c is 6.2 ? Patient has been diagnosed with diabetes over the 4 years ago and has been on metformin 500 mg.? Continues to be very physically active and reports walking thousands of steps a day. Does go to the gym twice a week. .. Hyperlipidemia:? Continues on statin therapy without any side effect.? Most recent LDL acceptable below 100. .. Hypothyroidism: Has been continuing levothyroxine 25 mcg. Most recent TSH stable. Will continue current dose of levothyroxine. .. ?colonoscopy:? was done by Dr. Jenkins 2021 polyp found which was fragments of tubular adenoma repeat 3 years. .. ? Vaccines: UTD with COVID? ( [employer]) , UTD Tdap?, up-to-date with pneumonia and shingles vacc Laboratory Tests 04/01/22 03/17/23 09/25/23 08:42 09:00 08:22 RBC 4.60 Creatinine 1.00 Fasting Glucose 132 H Hemoglobin A1c % 6.3 H 6.2 H LDL Cholesterol, C alc 80 PSA Screen 2.85 TSH 2.88 Urine Microalbumin < 5.0 PFSH Medical History (Updated 10/06/23 @ 13:10 by Davion Sheth PA-C) YOLY on CPAP Recurrent ventral hernia Seasonal allergies Recurrent umbilical hernia Controlled diabetes mellitus without complication, without long-term current use of insulin Hyperlipidemia LDL goal <100 Obesity (BMI 30-39.9) Obesity due to excess calories History of umbilical hernia High BMI YOLY (obstructive sleep apnea) Blindness Glaucoma Surgical History History of local excision of skin lesion History of colonoscopy (~2009) History of umbilical hernia repair Family History Father History of bone cancer History of diabetes mellitus Mother History of pancreatic cancer Paternal Grandmother History of diabetes mellitus Paternal Uncle History of diabetes mellitus Paternal Aunt History of diabetes mellitus Social History (Updated 10/06/23 @ 08:39 by Davion Sheth PA-C) Household Members: None Housing: House Are you a primary lawn care specialist to a significant other at home: No Do you presently have visiting nurse or other home services: No Alcohol intake: former Year quit: 1990 Comment: legally blind Patient Tobacco Use Status: Former Tobacco user Tobacco use type: Cigarette Years Smoked: quit 29 years ago e-Cigarette/Vaping Use: Never Used Second Hand Smoke Exposure: No service: No Current occupational status: employed 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 Long Beaulieu, Audra Rios, Juan Rizo and colleagues, with an educational leah from [employer]. Review of Systems Const Denies body aches, Denies chills, Denies excessive sweating, Denies fatigue, Denies fever(s) and Denies headache(s) Eyes Denies blurry vision ENT Denies dysphagia, Denies vertigo, Denies dizziness, Denies headache(s), Denies hearing loss and Denies tinnitus Card Denies chest pain, Denies chest pain with activity, Denies syncope, Denies irregular heart rhythm and Denies dyspnea Resp Denies chest congestion, Denies cough, Denies hemoptysis, Denies dyspnea and Denies wheezing GI Denies abdominal pain, Denies melena, Denies hematochezia, Denies coffee ground emesis, Denies dysphagia, Denies diarrhea, Denies nausea and Denies vomiting Denies difficulty urinating, Denies dysuria, Denies urinary frequency, Denies urinary hesitancy and Denies urinary urgency Musc Denies arthralgias, Denies limited range of motion, Denies muscle cramps and Denies muscle weakness Skin/Breast Denies rash and Denies skin ulcer Neuro Denies Abnormal speech present, Denies confusion, Denies vertigo, Denies dizziness, Denies syncope, Denies headache(s), Denies memory loss and Denies seizure-like activity Psych Denies anxiety, Denies confusion, Denies depression, Denies memory loss, Denies panic attacks and Denies paranoia Endo Denies excessive sweating, Denies fatigue, Denies flushing, Denies polydipsia and Denies polyuria Aller/Immun Denies wheezing Physical exam (Primary Care) Vital Signs: Last Vital Signs Pulse 73 10/06/23 08:24 BP 114/68 10/06/23 08:24 Pulse Ox 97 10/06/23 08:24 Oxygen Delivery Method Room Air 10/06/23 08:24 BMI result Body Mass Index 36.4 Tobacco/Smoking Status: Tobacco use Status Tobacco use date assessed 04/02/23 10/06/23 08:32 Patient Tobacco Use Status Former Tobacco user 10/06/23 08:39 Tobacco use type Cigarette 10/06/23 08:39 e-Cigarette/Vaping Use Never Used 10/06/23 08:39 Thrive Assessment: Date of Thrive Assessment Date Thrive assessed 04/02/23 10/06/23 08:32 Const General: cooperative, comfortable, no acute distress, alert and awake; No confusion Orientation/consciousness: oriented to person, oriented to place, patient oriented x3 and No confusion HENMT Head: Yes normocephalic Ears: external ears normal and TM's normal bilaterally Face and sinus: No sinus tenderness Mouth: Normal oral and palatal mucosa present and tongue normal Teeth and gingiva: dentition normal and gingiva normal Throat: Yes posterior oropharynx normal, Yes tonsils normal and Yes uvula midline Eyes Conjunctivae: conjunctivae normal Sclerae: sclerae normal Pupils: Equal, round and reactive pupils present EOM: EOMs intact bilaterally Direct Ophthalmoscopy: No no photophobia Neck Neck: Yes no lymphadenopathy, No tender and Yes no JVD Thyroid: Thyroid normal Carotids: no bruits Chest Chest palpation & inspection: no tenderness Resp Effort & Inspection: normal respiratory effort, no audible wheezes, not labored and no stridor Auscultation: no crackles, no rales, no rhonchi and no wheezes Cardio Jugular venous distension: no JVD Rate: regular rate, not bradycardic and not tachycardic Rhythm: regular rhythm Bruits: no carotid bruits Peripheral pulses: Peripheral pulses 2+ throughout GI Inspection: Yes normal to inspection, No abdominal wall ecchymosis and No visible herniation Palpation (GI): Soft to palpation, nontender, no guarding, not rigid and No hepatosplenomegaly present Auscultation: normoactive bowel sounds General: Yes no CVA tenderness Back/Spine/Pelvis Back: no CVA tenderness and No back tenderness Cervical Spine: cervical ROM normal Thoracic/Lumbar Spine: thoracic and lumbar spine normal to inspection, straight leg raise negative bilaterally, No thoraco-lumbar ROM limited and No lumbar spinal tenderness Skin Lesions: no lesions Rashes: no rashes Wounds: no wounds Neuro General: oriented to person, oriented to place, patient oriented x3, CN's II-XI intact bilaterally and No confusion Cranial nerves: Yes Equal, round and reactive pupils present and Yes Normal accommodation reflex present Cognition (Neuro): normal cognition Speech: No Abnormal speech present Gait exam (Neuro): Normal gait present Motor exam (neuro): 5/5 motor strength present throughout Extrem Right upper extremity: full ROM; no cyanosis Left upper extremity: full ROM; no cyanosis Right lower extremity: no edema Left lower extremity: no edema Psych Appearance: grossly normal Mental Status: mental status grossly normal Affect: normal affect Attitude: cooperative Thought process: Normal thought process present Assessment and Plan Assessment & Plan (1) Annual physical exam: Code(s): Z00.00 - Encounter for general adult medical examination without abnormal findings (2) Controlled diabetes mellitus without complication, without long-term current use of insulin: Code(s): E11.9 - Type 2 diabetes mellitus without complications Qualifiers: Diabetes mellitus type: type 2 Qualified Code(s): E11.9 - Type 2 diabetes mellitus without complications Plan: Patient's type 2 diabetes well controlled. Continues to use continues glucose monitor or freestyle. Most recent fasting blood sugar 132. Continue current dose of metformin and Actos. Goal A1c is to remain below 7.0 (3) Hyperlipidemia LDL goal <100: Code(s): E78.5 - Hyperlipidemia, unspecified Plan: Patient's most recent lipid panel showing appropriate total cholesterol and LDL. Goal LDL to remain below 100 (4) Hypothyroid: Code(s): E03.9 - Hypothyroidism, unspecified Qualifiers: Hypothyroidism type: unspecified Qualified Code(s): E03.9 - Hypothyroidism, unspecified Plan: Patient most recent TSH has been stable, will continue levothyroxine 25 mcg and continue to follow TSH to assure normal (5) Blindness: Comment: has 10-20% vision/walks with white cane Code(s): H54.7 - Unspecified visual loss Qualifiers: Left eye visual impairment category: left - unspecified impairment Right eye visual impairment category: right - unspecified blindness Qualified Code(s): H54.40 - Blindness, one eye, unspecified eye Plan: Continues to walk with a cane only has 10 to 20% vision. Continues to manage with devices (6) YOLY (obstructive sleep apnea): Code(s): G47.33 - Obstructive sleep apnea (adult) (pediatric) Plan: Continues with the use of his CPAP machine on a nightly basis. Does use it more than 4 hours per night for more than 21 days out of the month. According to patient he gets good sleep with his CPAP machine Orders: Orders Comprehensive [place]. Panel Fast Today E11.65 - Type 2 diabetes mellitus with hyperglycemia Complete Blood Count no Diff Today E11.65 - Type 2 diabetes mellitus with hyperglycemia TSH reflex Free T4 Today E03.9 - Hypothyroidism, unspecified Carbohydrate Antigen 19-9 Today Z80.0 - Family history of malignant neoplasm of digestive organs Lipid Panel Today E78.5 - Hyperlipidemia, unspecified Medications: Refilled terbinafine HCl 1% 1 appl topical BID 30 grams 1RF 30 days B35.3 - Tinea pedis pioglitazone (Actos) 15 mg PO DAILY 90 tabs 1RF 90 days E11.65 - Type 2 diabetes mellitus with hyperglycemia blood-glucose sensor ([employer] Reginaldo 3 Sensor device) As directed 2 ea 6RF E11.65 - Type 2 diabetes mellitus with hyperglycemia, H54.40 - Blindness, one eye, unspecified eye levothyroxine 25 mcg PO DAILY 90 tabs 1RF 90 days E03.9 - Hypothyroidism, unspecified Discontinued blood-glucose meter ([employer] Voice Glucose Meter kit) Discontinued Reason: Doctor's Order As directed 1 ea 0RF E11.65 - Type 2 diabetes mellitus with hyperglycemia blood sugar diagnostic ([employer] No Coding strips) Discontinued Reason: Doctor's Order Patient testing 4 times per day 150 ea 11RF E11.65 - Type 2 diabetes mellitus with hyperglycemia Patient Instructions: Goal: A1c to remain below 7.0, LDL to remain below 100 Barriers: Blind, adherence to physical activity and healthy eating habits Coding Level of Care Code Est Pt Prev Care 40-64y(98554) Diagnoses Annual physical exam Z00.00 Controlled type 2 diabetes mellitus without complication, without long-term current use of insulin E11.9 Diabetes mellitus type: type 2 Hyperlipidemia LDL goal <100 E78.5 Hypothyroidism, unspecified type E03.9 Hypothyroidism type: unspecified Blindness of right eye, unspecified left eye visual impairment category H54.40 Left eye visual impairment category: left - unspecified impairment Right eye visual impairment category: right - unspecified blindness YOLY (obstructive sleep apnea) G47.33
== END 2023-10-06 08:55 | disposition home or self-care (01) ==
PROVIDERS: PCP Physician Assistant; Visit Provider Physician Assistant
DX: Z00.00 Encounter for general adult medical examination without abnormal findings (principal); E11.9 Type 2 diabetes mellitus without complications; E78.5 Hyperlipidemia, unspecified; E03.9 Hypothyroidism, unspecified; H54.40 Blindness, one eye, unspecified eye; G47.33 Obstructive sleep apnea (adult) (pediatric)
CPT/HCPCS: 99396

== ENCOUNTER 2023-11-17 08:21 | Outpatient (AMB) | payer OTHER, SELFPAY ==
--- NOTE | 2023-11-17 08:24 | A.OFFVIS_ITS ---
Vital Signs 11/17/23 08:25 Height 5 ft 8 in Weight 236 lb 1.841 oz BMI 35.9 BP 122/58 L Blood Pressure Location Lt brachial Position Sitting Pulse 60 Pulse Source Pulse Oximeter Intake Visit Reasons: T2DM/CONFIRMED Intake Note: Patient presents today for D2MT follow up visit. Last Diabetic Eye exam: 09/2023 Last Podiatry Visit: Doesn't have one Random Glucose: 123 mg/dl HgA1c: 6.2% 09/25/23 Relay Associate Required: No Accompanied by: Self / Same As Patient Allergies pollen extracts Allergy (Intermediate, Verified 11/17/23 08:29) Watery eyes, sneezing pine sap Allergy (Intermediate, Uncoded 11/17/23 08:29) Watery eyes, sneezing Medication List - Last Reconciled 11/17/23 by Gini Pascual PA-C atorvastatin 20 mg PO BEDTIME 90 days blood-glucose meter,continuous (Watson BrownStyle Reginaldo 3 [place]) As directed blood-glucose sensor (Watson BrownStyle Reginaldo 3 Sensor device) As directed brimonidine 0.2% 1 drp ophthalmic (eye) Q8H CPAP (CPAP Machine/Device) CPAP, mask and supplies glucose 4 grams PO Q15M PRN 5 days lancets (Prodigy Twist Top Lancet) twice a day latanoprost 0.005% 1 drp ophthalmic (eye) DAILY levothyroxine 25 mcg PO DAILY 90 days metformin ER 750 mg PO BID 90 days miscellaneous medical supply 1 ea miscellaneous DAILY 99 days naftifine 1% 1 appl topical BID 4 weeks pioglitazone (Actos) 15 mg PO DAILY 90 days tadalafil 10 mg PO ONCE PRN 30 days tadalafil 5 mg PO DAILY 90 days terbinafine HCl 1% 1 appl topical BID 30 days vitamin B complex 1 cap PO DAILY HPI HPI T2DM/CONFIRMED: Details: Patient is a 63-year-old male with a significant past medical history of obstructive sleep apnea on CPAP, obesity, 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 Endo: DM-diagnosed with diabetes 6 years ago. He did have dm education at the time. Last followed in endocrinology 2 years ago his last A1c was 6.2. He is on metformin 750 mg twice a day and Actos 15 mg daily. Monitors his blood sugars with this freestyle Reginaldo.. cgm- usage 95%, avg glucose 143, GMI 6.9%. very high 0, high 12%, in range 88%, 0% low spikes are around meal times. He states he has been hypoglycemic in the past but only at the gym while doing an exercise spin class. He corrects this with glucose tabs if needed. He states that this has not happened in quite some time. He is very frustrated with his weight and states that since 2007 he has had a very hard time losing weight and he has seen a corporate treasury analyst and did not have any improvement of his weight. He does not think it is the foods that he is eating but thinks it is more his metabolism. He also does not always feel full while eating. He exercises and walks about 20,000 steps a day. He goes to the gym and does spinning and the treadmill. family hx t2dm CV: bp today in office 122/58. He controls lipids with atorvastatin 20 mg. [facility] Medical History (Updated 10/06/23 @ 13:10 by Davion Sheth PA-C) YOLY on CPAP Recurrent ventral hernia Seasonal allergies Recurrent umbilical hernia Controlled diabetes mellitus without complication, without long-term current use of insulin Hyperlipidemia LDL goal <100 Obesity (BMI 30-39.9) Obesity due to excess calories History of umbilical hernia High BMI YOLY (obstructive sleep apnea) Blindness Glaucoma Surgical History History of local excision of skin lesion History of colonoscopy (~2009) History of umbilical hernia repair Family History Father History of bone cancer History of diabetes mellitus Mother History of pancreatic cancer Paternal Grandmother History of diabetes mellitus Paternal Uncle History of diabetes mellitus Paternal Aunt History of diabetes mellitus Social History (Updated 10/06/23 @ 08:39 by Davion Sheth PA-C) Household Members: None Housing: House Are you a primary manager managed care to a significant other at home: No Do you presently have visiting nurse or other home services: No Alcohol intake: former Year quit: 1990 Comment: legally blind Patient Tobacco Use Status: Former Tobacco user Tobacco use type: Cigarette Years Smoked: quit 29 years ago e-Cigarette/Vaping Use: Never Used Second Hand Smoke Exposure: No service: No Current occupational status: employed 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 Vibratory sensation intact bilaterally. Skin intact. General: Yes normal to inspection Results Reviewed Results Reviewed: Laboratory Tests 04/01/22 09/25/23 08:42 08:22 Sodium 140 Potassium 4.4 Chloride 103 Carbon Dioxide 27 Anion Gap 14 Creatinine 1.00 Estimated GFR > 60 Fasting Glucose 132 H Estimat Average Glucose 131 Hemoglobin A1c % 6.2 H AST 21 ALT 16 Triglycerides 129 Cholesterol 138 LDL Cholesterol, Calc 80 HDL Cholesterol 33 L Urine Creatinine 26.63 Urine Microalbumin < 5.0 Assessment & Plan Assessment & Plan (1) Erectile dysfunction associated with type 2 diabetes mellitus: Code(s): E11.69 - Type 2 diabetes mellitus with other specified complication; N52.1 - Erectile dysfunction due to diseases classified elsewhere Category: Medical Plan: Plan to stop Actos, continue metformin and start Ozempic. We discussed risks and benefits and adverse effects of this medication including nausea, vomiting and increased risk of pancreatitis. Advised patient to follow up in 1 month or sooner prn. I have offered referral again to nutrition but patient declines. I advised patient to keep a journal of his food so I may try to help him at his follow up with some dietary modifications. Patient understands and agrees with this plan. (2) Hyperlipidemia LDL goal <100: Code(s): E78.5 - Hyperlipidemia, unspecified Category: Medical Plan: continue atorvastatin. lipids and lfts wnl. Medications: New semaglutide (Ozempic) for 4 weeks; then increase to 0.5 mg every week 0.25 mg (0.368 mL) subcut QWEEK 3 mL 2RF Coding Level of Care Code Est Pt Level 4 (01604) Diagnoses Erectile dysfunction associated with type 2 diabetes mellitus E11.69; N52.1 Hyperlipidemia LDL goal <100 E78.5
[2023-11-17 08:25] VITALS: BP 122/58; PULSE 60; BMI 35.9
[2023-11-17 08:37] LABS: Glucose, Whole Blood 123 mg/dL (60-115)
== END 2023-11-17 09:06 | disposition home or self-care (01) ==
PROVIDERS: PCP Physician Assistant; Visit Provider Physician Assistant
DX: E11.69 Type 2 diabetes mellitus with other specified complication (principal); N52.1 Erectile dysfunction due to diseases classified elsewhere; E78.5 Hyperlipidemia, unspecified
CPT/HCPCS: 99214

== ENCOUNTER → 2023-11-17 08:21 | Outpatient (BNVA) | payer OTHER, SELFPAY | PROVIDERS: PCP Physician Assistant; Visit Provider Physician Assistant | DX: E11.69 Type 2 diabetes mellitus with other specified complication (principal); N52.1 Erectile dysfunction due to diseases classified elsewhere; E78.5 Hyperlipidemia, unspecified; Z79.84 Long term (current) use of oral hypoglycemic drugs; Z79.85 Long-term (current) use of injectable non-insulin antidiabetic drugs | CPT/HCPCS: 82947; 99212 ==

== ENCOUNTER 2023-12-15 07:52 | Outpatient (AMB) | payer OTHER, SELFPAY ==
[2023-12-15 08:23] VITALS: BP 108/62; PULSE 62; BMI 35.7
--- NOTE | 2023-12-15 08:23 | A.OFFVIS_ITS ---
Vital Signs 12/15/23 08:23 Height 5 ft 8 in Weight 235 lb 0.204 oz BMI 35.7 BP 108/62 Blood Pressure Location Lt brachial Position Sitting Pulse 62 Pulse Source Pulse Oximeter Intake Visit Reasons: T2DM/CONFIRMED Intake Note: Patient presents today for D2MT follow up visit. Last Diabetic Eye exam: September Last Podiatry Visit: Doesn't have one Random Glucose: 110 mg/dl HgA1c: 6.7% Install Technician Required: No Accompanied by: Self / Same As Patient Allergies pollen extracts Allergy (Intermediate, Verified 12/15/23 08:28) Watery eyes, sneezing pine sap Allergy (Intermediate, Uncoded 12/15/23 08:28) Watery eyes, sneezing Medication List - Last Reconciled 12/15/23 by Gini Pascual PA-C atorvastatin 20 mg PO BEDTIME 90 days blood-glucose meter,continuous (Recurrent EnergyStyle Reginaldo 3 [place]) As directed blood-glucose sensor (FreeStyle Reginaldo 3 Sensor device) As directed brimonidine 0.2% 1 drp ophthalmic (eye) Q8H CPAP (CPAP Machine/Device) CPAP, mask and supplies glucose 4 grams PO Q15M PRN 5 days lancets (Prodigy Twist Top Lancet) twice a day latanoprost 0.005% 1 drp ophthalmic (eye) DAILY levothyroxine 25 mcg PO DAILY 90 days metformin ER 500 mg PO DAILY miscellaneous medical supply 1 ea miscellaneous DAILY 99 days naftifine 1% 1 appl topical BID 4 weeks tadalafil 10 mg PO ONCE PRN 30 days tadalafil 5 mg PO DAILY 90 days terbinafine HCl 1% 1 appl topical BID 30 days vitamin B complex 1 cap PO DAILY HPI HPI T2DM/CONFIRMED: Details: Patient is a 63-year-old male with a significant past medical history of obstructive sleep apnea on CPAP, obesity, 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 Endo: DM-diagnosed with diabetes 6 years ago. He did have dm education at the time. His A1c today is 6.7. He is on metformin 750 mg twice a day and trulicity 0.75 mg weekly. Monitors his blood sugars with this freestyle Reginaldo.. cgm- usage 95%, avg glucose 137, GMI 6.6%. very high 0, high 4%, in range 96%, 0% low spikes are around meal times. He states he has been hypoglycemic in the past but only at the gym while doing an exercise spin class. He corrects this with glucose tabs if needed. He states that this has not happened in quite some time. He is very frustrated with his weight and states that since 2007 he has had a very hard time losing weight and he has seen a learning disabilities specialist and did not have any improvement of his weight. He does not think it is the foods that he is eating but thinks it is more his metabolism. He also does not always feel full while eating. He exercises and walks about 20,000 steps a day. He goes to the gym and does spinning and the treadmill. family hx t2dm CV: bp today in office 108/62. He controls lipids with atorvastatin 20 mg. [facility] Medical History (Updated 10/06/23 @ 13:10 by Davion Sheth PA-C) YOLY on CPAP Recurrent ventral hernia Seasonal allergies Recurrent umbilical hernia Controlled diabetes mellitus without complication, without long-term current use of insulin Hyperlipidemia LDL goal <100 Obesity (BMI 30-39.9) Obesity due to excess calories History of umbilical hernia High BMI YOLY (obstructive sleep apnea) Blindness Glaucoma Surgical History History of local excision of skin lesion History of colonoscopy (~2009) History of umbilical hernia repair Family History Father History of bone cancer History of diabetes mellitus Mother History of pancreatic cancer Paternal Grandmother History of diabetes mellitus Paternal Uncle History of diabetes mellitus Paternal Aunt History of diabetes mellitus Social History Household Members: None Housing: House Are you a primary skin care technician to a significant other at home: No Do you presently have visiting nurse or other home services: No Alcohol intake: former Year quit: 1990 Comment: legally blind Patient Tobacco Use Status: Former Tobacco user Tobacco use type: Cigarette Years Smoked: quit 29 years ago e-Cigarette/Vaping Use: Never Used Second Hand Smoke Exposure: No service: No Current occupational status: employed 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 needs: Yes Hearing needs: No Vision needs: Yes Physical Exam Vital Signs: Last Vital Signs Pulse 62 12/15/23 08:23 BP 108/62 12/15/23 08:23 BMI result Body Mass Index 35.7 Const Orientation/consciousness: patient oriented x3 Neck Neck: Yes no lymphadenopathy Thyroid: Thyroid normal Carotids: no bruits Resp Auscultation: clear to auscultation bilaterally Cardio Rate: regular rate Rhythm: regular rhythm Heart sounds: S1 normal heart sound present and S2 normal heart sound present Peripheral pulses: dorsalis pedis present Neuro General: patient oriented x3, gait normal and no focal motor deficits Extrem Other: Monofilament sensation intact bilaterally. Vibratory sensation intact bilaterally. Skin intact. General: Yes normal to inspection Office Procedures Glucose Monitoring Details Details: see [facility] [id number] - Glucose monitoring, continuous-physician I&R Procedure code (CPT) selection complete Results AMB Hemoglobin A1c AMB Hemoglobin A1c 6.7 % Last Edit by HENOK Echevarria on 12/15/23 08:48 Results Reviewed Results Reviewed: Laboratory Last Values Glucose (Clinic) 110 mg/dL (60-115) 12/15/23 08:30 Laboratory Tests 04/01/22 09/25/23 11/17/23 08:42 08:22 08:32 Creatinine 1.00 Estimated GFR > 60 Glucose (Clinic) 123 H Hemoglobin A1c % 6.2 H Triglycerides 129 Cholesterol 138 LDL Cholesterol, Calc 80 HDL Cholesterol 33 L Urine Creatinine 26.63 Urine Microalbumin < 5.0 Microalb/Creat Ratio TNP Assessment & Plan Assessment & Plan (1) Controlled diabetes mellitus without complication, without long-term current use of insulin: Code(s): E11.9 - Type 2 diabetes mellitus without complications Category: Medical Qualifiers: Diabetes mellitus type: type 2 Qualified Code(s): E11.9 - Type 2 diabetes mellitus without complications Plan: We will increase Trulicity to 1.5 mg weekly. Continue metformin. He will let me know if he has any adverse effects of this. (2) Hyperlipidemia LDL goal <100: Code(s): E78.5 - Hyperlipidemia, unspecified Category: Medical Plan: Continue atorvastatin. Plan Follow up in 3 months. Labs prior to appointment. Patient understands and agrees with the plan. Orders: Orders AMB Hemoglobin A1c Today E11.9 - Type 2 diabetes mellitus without complications, Z13.9 - Encounter for screening, unspecified Medications: New metformin ER 750 mg PO BID 180 tabs 0RF dulaglutide (Trulicity) 1.5 mg (0.5 mL) subcut QWEEK 2 mL 5RF Discontinued metformin ER Discontinued Reason: Doctor's Order 500 mg PO DAILY 90 tabs 0RF Coding Level of Care Code Est Pt Level 4 (05245) Diagnoses Controlled type 2 diabetes mellitus without complication, without long-term current use of insulin E11.9 Diabetes mellitus type: type 2 Hyperlipidemia LDL goal <100 E78.5 CPT Codes Details - CPT: 26015 - Glucose monitoring, continuous-physician I&R ([id number])
[2023-12-15 08:34] LABS: Glucose, Whole Blood 110 mg/dL (60-115)
== END 2023-12-15 08:48 | disposition home or self-care (01) ==
PROVIDERS: PCP Physician Assistant; Visit Provider Physician Assistant
DX: E11.9 Type 2 diabetes mellitus without complications (principal); E78.5 Hyperlipidemia, unspecified; Z13.9 Encounter for screening, unspecified

== ENCOUNTER → 2023-12-15 07:52 | Outpatient (BNVA) | payer OTHER, SELFPAY | PROVIDERS: PCP Physician Assistant; Visit Provider Physician Assistant | DX: E11.9 Type 2 diabetes mellitus without complications (principal); E78.5 Hyperlipidemia, unspecified | CPT/HCPCS: 82947; 83036; 99212 ==

== ENCOUNTER 2023-12-19 09:02 | Outpatient (AMB) | payer OTHER, SELFPAY ==
--- NOTE | 2023-12-19 09:10 | MHC.OFFVIS ---
Intake Visit Reasons: 6m follow up Intake Note: Patient is Present for Telephone Follow Up Urology Med: Tadalafil Antibiotic Allergy: None Blood Thinner:None Recent PSA: 09/25/2023- 2.85 Peoplesoft Administrator Required: No Accompanied by: Self / Same As Patient Allergies pollen extracts Allergy (Intermediate, Verified 12/19/23 09:21) Watery eyes, sneezing pine sap Allergy (Intermediate, Uncoded 12/19/23 09:21) Watery eyes, sneezing Medication List - Last Reconciled 12/19/23 by Alessandro Fortune MD atorvastatin 20 mg PO BEDTIME 90 days blood-glucose meter,continuous (FreeStyle Reginaldo 3 [place]) As directed blood-glucose sensor (FreeStyle Reginaldo 3 Sensor device) As directed brimonidine 0.2% 1 drp ophthalmic (eye) Q8H CPAP (CPAP Machine/Device) CPAP, mask and supplies dulaglutide (Trulicity) 1.5 mg (0.5 mL) subcut QWEEK glucose 4 grams PO Q15M PRN 5 days lancets (Prodigy Twist Top Lancet) twice a day latanoprost 0.005% 1 drp ophthalmic (eye) DAILY levothyroxine 25 mcg PO DAILY 90 days metformin ER 750 mg PO BID miscellaneous medical supply 1 ea miscellaneous DAILY 99 days naftifine 1% 1 appl topical BID 4 weeks tadalafil 10 mg PO ONCE PRN 30 days tadalafil 5 mg PO DAILY 90 days terbinafine HCl 1% 1 appl topical BID 30 days vitamin B complex 1 cap PO DAILY HPI Comments Details: Long is a pleasant male. He is a patient of Dr. Sheth. He is seen for following urologic conditions - lower urinary tract symptoms - erectile dysfunction in setting of diabetes Telemedicine Evaluation 15 min Consultation Videdressing Valentine Video Yearly follow-up Continues to notice stabilization of bladder and bowel control since starting tadalafil daily Legally blind Improved erectile response Has noticed improvement in bladder control and bowel control since starting medication Lower urinary tract symptoms Progressive Weakness of stream with incomplete bladder emptying Also reports retrograde ejaculation PSA 04/01 2.2, 09/30 2.8 Erectile dysfunction in setting of diabetes Prior success with on demand sildenafil Current therapy daily tadalafil with on demand if necessary CPAP HbA1c 06/30 6.7,TG 127 PFSH Medical History YOLY on CPAP Recurrent ventral hernia Seasonal allergies Recurrent umbilical hernia Controlled diabetes mellitus without complication, without long-term current use of insulin Hyperlipidemia LDL goal <100 Obesity (BMI 30-39.9) Obesity due to excess calories History of umbilical hernia High BMI YOLY (obstructive sleep apnea) Blindness Glaucoma Surgical History History of local excision of skin lesion History of colonoscopy (~2009) History of umbilical hernia repair Family History Father History of bone cancer History of diabetes mellitus Mother History of pancreatic cancer Paternal Grandmother History of diabetes mellitus Paternal Uncle History of diabetes mellitus Paternal Aunt History of diabetes mellitus Social History Household Members: None Housing: House Are you a primary primary care coordinator to a significant other at home: No Do you presently have visiting nurse or other home services: No Alcohol intake: former Year quit: 1990 Comment: legally blind Patient Tobacco Use Status: Former Tobacco user Tobacco use type: Cigarette Years Smoked: quit 29 years ago e-Cigarette/Vaping Use: Never Used Second Hand Smoke Exposure: No service: No Current occupational status: employed 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 needs: Yes Hearing needs: No Vision needs: Yes Review of Systems Const All systems reviewed & are unremarkable except as noted in HPI and below Reports no additional complaints Resp Reports no additional complaints GI Reports no additional complaints Reports as per HPI Musc Reports no additional complaints Physical Exam Telemedicine evaluation Appropriate responses Regular breathing rate and rhythm HEENT Head: Yes normal to inspection Ears: hearing grossly normal bilaterally Eyes General: appearance normal, both eyes and all related structures Neck Neck: Yes normal visual inspection Chest Chest palpation & inspection: normal inspection of the chest Resp Effort & Inspection: normal respiratory effort and able to speak in complete sentences Telehealth Telehealth Telehealth Platform: [facility] Location of provider rendering services: practice address Location of patient: address on file Patient Identification confirmed using: Name, : Yes Telehealth method: video Patient verbally consented to treatment: Yes Patient verbally consented to billing insurance company: Yes Patient informed of any privacy concerns related to visit: Yes Minutes spent on Phone/Video with Pt.: 15 Assessment & Plan Assessment & Plan (1) Bladder instability: Code(s): N32.89 - Other specified disorders of bladder Category: Medical (2) Erectile dysfunction associated with type 2 diabetes mellitus: Code(s): E11.69 - Type 2 diabetes mellitus with other specified complication; N52.1 - Erectile dysfunction due to diseases classified elsewhere Category: Medical Plan Continue current medications Medications: Refilled tadalafil as needed 10 mg PO ONCE 30 days PRN 1 tab 0RF sexual activity E11.69 - Type 2 diabetes mellitus with other specified complication, N52.1 - Erectile dysfunction due to diseases classified elsewhere tadalafil Daily medication 5 mg PO DAILY 90 days 90 tabs 3RF sexual activity E11.69 - Type 2 diabetes mellitus with other specified complication, N52.1 - Erectile dysfunction due to diseases classified elsewhere Patient Instructions: Imaging studies, laboratory and physical exam results were discussed and reviewed in detail. No major barriers to patient understanding were identified. An opportunity to ask questions regarding the treatment plan was provided. All questions were answered. The patient expressed understanding and agreement with the above treatment plan. The patient is aware they should contact our office by phone for worsening of their current condition or the appearance of new urologic symptoms. Compliance is encouraged with any medications and followup testing that is ordered. It is a privilege to participate in the urologic care of your patient. If you have any questions or concerns regarding treatment for the above conditions, or other urologic issues, please do not hesitate to contact me. The office telephone contact is [phone]. This note is constructed using voice recognition software. While every effort has been made to ensure accuracy geochemistry teacher errors may have been included. Yours sincerely, Dr Alessandro Fortune MD, [facility] - Urology Providers of Expert, Compassionate Care for the Genitourinary System Coding Level of Care Code Tele Est Pt Level 3 (31979) Diagnoses Bladder instability N32.89 Erectile dysfunction associated with type 2 diabetes mellitus E11.69; N52.1
== END 2023-12-19 15:51 | disposition home or self-care (01) ==
LOC: HO.HUSH 09:02
PROVIDERS: PCP Physician Assistant; Visit Provider Urology
DX: N32.89 Other specified disorders of bladder (principal); E11.69 Type 2 diabetes mellitus with other specified complication; N52.1 Erectile dysfunction due to diseases classified elsewhere
CPT/HCPCS: 99213

== ENCOUNTER → 2023-12-19 09:02 | Outpatient (BNVA) | payer OTHER, SELFPAY | PROVIDERS: PCP Physician Assistant; Visit Provider Urology ==

== ENCOUNTER 2023-12-25 14:35 | Outpatient (AMB) | payer OTHER, SELFPAY ==
--- NOTE | 2023-12-25 14:54 | AM.OFFVISNUR ---
Intake Visit Reasons: Flu Vaccine Allergies pollen extracts Allergy (Intermediate, Verified 12/19/23 09:21) Watery eyes, sneezing pine sap Allergy (Intermediate, Uncoded 12/19/23 09:21) Watery eyes, sneezing Office Procedures Flu Questionnaire Does the patient have a severe egg allergy?: No Does the patient have severe life threatening allergies?: No Does the patient have a fever or illness today?: No Has the patient ever had Guillain-Midkiff Syndrome?: No Has the patient ever had any past reaction to a flu shot?: No Assessment & Plan Assessment & Plan Orders: Orders Influenza [id number] Immunization Today Z23 - Encounter for immunization Medications: New Fluarix Triv [id number] (PF) (flu vacc [id number] 6mos up(PF)) 0.5 mL IM ONCE 0.5 mL 0RF NS Z23 - Encounter for immunization
== END 2023-12-25 14:58 | disposition home or self-care (01) ==
LOC: HO.HMCH 14:35
PROVIDERS: PCP Physician Assistant; Visit Provider Physician Assistant
DX: Z23 Encounter for immunization (principal)

== ENCOUNTER → 2023-12-25 14:35 | Outpatient (BNVA) | payer OTHER, SELFPAY | PROVIDERS: PCP Physician Assistant; Visit Provider Physician Assistant | DX: Z23 Encounter for immunization (principal) | CPT/HCPCS: 90471; 90656 ==

== ENCOUNTER 2024-03-15 07:47 | Outpatient (REF) | payer OTHER, SELFPAY ==
--- OUTSIDE RECORDS SUMMARY | 2024-03-15 07:49 | XMS_ITS | Patient Health Record ---
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 Electrical And Radio Name Role Phone Davion Sheth Primary Care Provider Unavailab Cira Gonzalez Unavailable [phone] ALLERGIES No Known Allergies REASON FOR REFERRAL No Information MEDICATIONS Medication SIG (Take, Route, Frequency, Duration) Notes Start Date End Date Status Brimonidine Tartrate 0.2 % INSTILL 1 DROP IN BOTH EYES TWICE DAILY 12 HOURS APART Ophthalmic for 30 Active Vitamin B 12 Active Co Q 10 Active Vitamin B Complex Ac tive Tylenol Active Multi Vitamin for diabetics Ac tive Atorvastatin Calcium 20 MG 1 tablet Orally Once a day Active metFORMIN HCl ER 750 MG 1 tablet with ev ening meal Orally bid Active Latanoprost 0.005 % INSTILL 1 DROP IN BOTH EYES AT BEDTIME Ophthalmic for 50 Active IMMUNIZATIONS Vaccine Route Administration Date Status Comme nts Influenza Unknown 11/24/2019 Administered Influenza Unknown 11/08/2020 Administered SOCIAL HISTORY Tobacco Use: Social History Observation Description Date Details (start date - stop date) Former Smoker NA - NA Sex Assigned At : Social History Observation Description Sex Assigned At Unknown Tobacco Use/Smoking Question Answer Notes Patient is a former smoker When did you stop smoking? 1991 How long has it been since you last smoked? > 10 years Alcohol Screen Question Answer Notes Did you have a drink containing alcohol in the p ast year? No Points 0 Interpretation Negative PROBLEMS Problem Type ICD Code Onset Dates Problem Status W/U Status Risk SNOMED Code Notes Problem Encounter for screening for malignant neoplasm of colon (Z12.11) Active confirmed Screening for malignant neoplasm of colon (858450855) Problem Preprocedural examination (Z01.818) Active confirmed Preprocedural examination (598537616911139) Problem senior living (current) use of oral hypoglycemic drugs (Z79.84) Active confirmed Long-term cur rent use of drug therapy (532778632) Problem Diverticulosis of colon (K57.30) Active confirmed Diverticulosi s of colon (351356365) Problem 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 [id number] PLAN OF TREATMENT Pending Test Test Name Order Date Pathology 07/06/2021 Future Test Test Name Order Date COLONOSCOPY 04/27/2020 COLONOSCOPY 05/29/2021 Next Appt Details Provider Name:Cira Jenkins , 06/01/2024 01:40:00 PM, [address], [address], [place], [address], Insurance Providers Payer Name Payer Address Payer Phone Subscriber Number Group Number Insured Name Patient Relationship to Insured Coverage Start Date Coverage End Date [facility] [address] Attn Claims JOHN Atkinson [id number] CIRA MERAZ Self - patient is the insured MEDICAL (GENERAL) HISTORY Medical History History ICD Code Legally blind Hyperlipidemia Glaucoma 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 Calero Denies [place],CVA,Lung disease,renal disease Seasonal allergies Screening colonoscopy in Jun with an approximately 1.5 cm relatively flat tubulovillous adenoma removed from the cecum, as well as a smaller tubular adenoma removed from the colon. Surgical History Surgery Date(Month/Year) Umbilical hernia surgery x 4 --three of them with Dr. Ferguson, most recently as of 02/2020 Umbilical hernia surgery - Dr. Sheikh 01/08
[2024-03-15 10:28] LABS: Hemoglobin 14.7 g/dl (14.0-18.0); Mean Corpuscular HGB Conc 33.4 g/dl (31.0-36.0); Mean Corpuscular Hemoglobin 30.8 pg (27.0-33.0); Mean Corpuscular Volume 92.1 fL (80.0-98.0); Mean Platelet Volume 9.8 fL (9.4-12.4); Platelet Count 214 X10*3/uL (160-400); Red Blood Count 4.78 X10*6/uL (4.60-5.80); Red Cell Distribution Width 12.2 % (11.0-16.0); White Blood Count 8.8 X10*3/uL (4.8-10.8)
[2024-03-15 12:07] LABS: Alanine Aminotransferase 27 U/L (0-40); Albumin Level 4.2 g/dL (3.5-5.0); Alkaline Phosphatase 48 U/L (39-117); Anion Gap 11 (12-20); Aspartate Amino Transferase 26 U/L (5-37); Bilirubin Total 0.7 mg/dL (0.0-1.0); Blood Urea Nitrogen 20 mg/dL (9-16); Calcium 8.8 mg/dL (8.4-10.2); Carbon Dioxide 29 mmol/L (22-29); Chloride 107 mmol/L (96-108); Cholesterol 132 mg/dL (<200); Estimated Glomerular Filt Rate > 60; Glucose Fasting 143 mg/dL (60-99); HDL Cholesterol 30 mg/dL (>40); LDL Cholesterol Calculated 86 mg/dL (<100); Potassium 4.8 mmol/L (3.3-5.1); Sodium 142 mmol/L (135-145); Total Protein 6.9 g/dL (6.5-8.0); Triglycerides 82 mg/dL (<150)
[2024-03-15 13:22] LABS: TSH reflex Free T4 3.05 uIU/mL (0.32-4.0)
[2024-03-16 10:08] LABS: Carbohydrate Antigen 19-9 15 U/mL (<34)
== END 2024-03-15 07:48 | disposition home or self-care (01) ==
LOC: HO.10HDL 07:47
PROVIDERS: Visit Provider Physician Assistant
DX: E78.5 Hyperlipidemia, unspecified (principal); E11.65 Type 2 diabetes mellitus with hyperglycemia; Z80.0 Family history of malignant neoplasm of digestive organs; E03.9 Hypothyroidism, unspecified
CPT/HCPCS: 36415; 80053; 80061; 82947; 83036; 84443; 85027; 86301; 99212

== ENCOUNTER 2024-03-15 07:52 | Outpatient (AMB) | payer OTHER, SELFPAY ==
--- NOTE | 2024-03-15 08:15 | A.OFFVIS_ITS ---
Vital Signs 03/15/24 08:18 Height 5 ft 8 in Weight 235 lb 14.314 oz BMI 35.9 BP 116/76 Blood Pressure Location Rt brachial Position Sitting Pulse 64 Pulse Source Pulse Oximeter Intake Visit Reasons: T2DM/Confirmed Intake Note: Patient presents today for D2NH follow up visit. 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 Required: No Accompanied by: Self / Same As Patient Allergies pollen extracts Allergy (Intermediate, Verified 03/15/24 08:21) Watery eyes, sneezing pine sap Allergy (Intermediate, Uncoded 03/15/24 08:21) Watery eyes, sneezing Medication List - Last Reconciled 03/15/24 by Gini Pascual PA-C atorvastatin 20 mg PO BEDTIME 90 days blood-glucose meter,continuous (FreeStyle Reginaldo 3 [place]) As directed blood-glucose sensor (FreeStyle Reginaldo 3 Sensor device) As directed blood-glucose sensor (FreeStyle Reginaldo 3 Plus Sensor device) Use daily As directed to monitor glucose brimonidine 0.2% 1 drp ophthalmic (eye) Q8H CPAP (CPAP Machine/Device) CPAP, mask and supplies dulaglutide (Trulicity) 1.5 mg (0.5 mL) subcut QWEEK glucose 4 grams PO Q15M PRN 5 days lancets (Prodigy Twist Top Lancet) twice a day latanoprost 0.005% 1 drp ophthalmic (eye) DAILY levothyroxine 25 mcg PO DAILY 90 days metformin ER 750 mg PO BID miscellaneous medical supply 1 ea miscellaneous DAILY 99 days naftifine 1% 1 appl topical BID 4 weeks tadalafil 10 mg PO ONCE PRN 30 days tadalafil 5 mg PO DAILY 90 days terbinafine HCl 1% 1 appl topical BID 30 days vitamin B complex 1 cap PO DAILY HPI HPI T2DM/Confirmed: Details: Patient is a 63-year-old male with a significant past medical history of obstructive sleep apnea on CPAP, obesity, 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 Endo: DM-diagnosed with diabetes around 2019. He did have dm education at the time. His A1c today is 6.5. He is on metformin 750 mg twice a day and trulicity 1.5 mg weekly. Monitors his blood sugars with this freestyle Reginaldo.. Tolerating medicines well withouth difficulty. cgm- usage 96%, avg glucose 145, GMI 6.8%. very high 0, high 7%, in range 93%, 0% low spikes are around meal times. He states he has been hypoglycemic in the past but only at the gym while doing an exercise spin class. He corrects this with glucose tabs if needed. He states that this has not happened in quite some time. He is very frustrated with his weight and states that since 2007 he has had a very hard time losing weight and he has seen a sawyer helper and did not have any improvement of his weight. He does not think it is the foods that he is eating but thinks it is more his metabolism. He also does not always feel full while eating. He exercises and walks about 20,000 steps a day. He goes to the gym and does spinning and the treadmill. family hx t2dm CV: bp today in office 116/76. He controls lipids with atorvastatin 20 mg. PFSH Medical History YOLY on CPAP Recurrent ventral hernia Seasonal allergies Recurrent umbilical hernia Controlled diabetes mellitus without complication, without long-term current use of insulin Hyperlipidemia LDL goal <100 Obesity (BMI 30-39.9) Obesity due to excess calories History of umbilical hernia High BMI YOLY (obstructive sleep apnea) Blindness Glaucoma Surgical History History of local excision of skin lesion History of colonoscopy (~2009) History of umbilical hernia repair Family History Father History of bone cancer History of diabetes mellitus Mother History of pancreatic cancer Paternal Grandmother History of diabetes mellitus Paternal Uncle History of diabetes mellitus Paternal Aunt History of diabetes mellitus Social History Household Members: None Housing: House Are you a primary point of care specialist to a significant other at home: No Do you presently have visiting nurse or other home services: No Alcohol intake: former Year quit: 1990 Comment: legally blind Patient Tobacco Use Status: Former Tobacco user Tobacco use type: Cigarette Years Smoked: quit 29 years ago e-Cigarette/Vaping Use: Never Used Second Hand Smoke Exposure: No service: No Current occupational status: employed 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 Vibratory sensation intact bilaterally. Skin intact. General: Yes normal to inspection Office Procedures Glucose Monitoring Details Details: See [facility] [address] - Glucose monitoring, continuous-physician I&R Procedure code (CPT) selection complete Results AMB Hemoglobin A1c AMB Hemoglobin A1c 6.5 % Last Edit by HENOK Verdugo on 03/15/24 08:31 Results Reviewed Results Reviewed: Laboratory Tests 09/25/23 12/15/23 08:22 08:33 Creatinine 1.00 Estimated GFR > 60 Hgb A1c (Clinic) 6.7 H Triglycerides 129 Cholesterol 138 LDL Cholesterol, Calc 80 HDL Cholesterol 33 L Assessment & Plan Assessment & Plan (1) Controlled diabetes mellitus without complication, without long-term current use of insulin: Code(s): E11.9 - Type 2 diabetes mellitus without complications Category: Medical Qualifiers: Diabetes mellitus type: type 2 Qualified Code(s): E11.9 - Type 2 diabetes mellitus without complications Plan: increase trulicity to 3 mg weekly continue metformin 750 twice a day return in 3 months . Labs ordered to complete prior to next appointment. (2) Hyperlipidemia LDL goal <100: Code(s): E78.5 - Hyperlipidemia, unspecified Category: Medical Plan: Continue current regimen. Orders: Orders AMB Hemoglobin A1c Today E11.9 - Type 2 diabetes mellitus without complications Hemoglobin A1c 3 Months E11.9 - Type 2 diabetes mellitus without complications, E78.5 - Hyperlipidemia, unspecified, R73.01 - Impaired fasting glucose B Type Natriuretic Peptide 3 Months E11.9 - Type 2 diabetes mellitus without complications, E78.5 - Hyperlipidemia, unspecified Microalbumin, Random (w Creat) 3 Months E11.9 - Type 2 diabetes mellitus without complications, E78.5 - Hyperlipidemia, unspecified Comprehensive [place]. Panel Fast 3 Months E11.9 - Type 2 diabetes mellitus without complications, E78.5 - Hyperlipidemia, unspecified Medications: New dulaglutide (Trulicity) 3 mg (0.5 mL) subcut QWEEK 2 mL 11RF Refilled metformin ER 750 mg PO BID 180 tabs 1RF Discontinued dulaglutide (Trulicity) Discontinued Reason: Duplicate 1.5 mg (0.5 mL) subcut QWEEK 2 mL 5RF Coding Level of Care Code Est Pt Level 4 (10764) Diagnoses Controlled type 2 diabetes mellitus without complication, without long-term current use of insulin E11.9 Diabetes mellitus type: type 2 Hyperlipidemia LDL goal <100 E78.5 CPT Codes Details - CPT: 25422 - Glucose monitoring, continuous-physician I&R ([id number])
[2024-03-15 08:18] VITALS: BP 116/76; PULSE 64; BMI 35.9
[2024-03-15 08:23] LABS: Glucose, Whole Blood 138 mg/dL (60-115)
== END 2024-03-15 08:35 | disposition home or self-care (01) ==
PROVIDERS: PCP Physician Assistant; Visit Provider Physician Assistant
DX: E11.9 Type 2 diabetes mellitus without complications (principal); E78.5 Hyperlipidemia, unspecified

== ENCOUNTER 2024-04-07 13:24 | Outpatient (AMB) | payer OTHER, SELFPAY ==
--- NOTE | 2024-04-07 13:21 | MHC.PC.OV ---
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 Accompanied by: Self / Same As Patient Allergies pollen extracts Allergy (Intermediate, Verified 04/07/24 13:35) Watery eyes, sneezing pine sap Allergy (Intermediate, Uncoded 04/07/24 13:35) Watery eyes, sneezing Medication List - Last Reconciled 04/07/24 by Davion Sheth PA-C atorvastatin 20 mg PO BEDTIME 90 days blood-glucose meter,continuous (FreeStyle Reginaldo 3 [place]) As directed blood-glucose sensor (FreeStyle Reginaldo 3 Sensor device) As directed blood-glucose sensor (FreeStyle Reginaldo 3 Plus Sensor device) Use daily As directed to monitor glucose brimonidine 0.2% 1 drp ophthalmic (eye) Q8H CPAP (CPAP Machine/Device) CPAP, mask and supplies dulaglutide (Trulicity) 3 mg (0.5 mL) subcut QWEEK glucose 4 grams PO Q15M PRN 5 days lancets (Prodigy Twist Top Lancet) twice a day latanoprost 0.005% 1 drp ophthalmic (eye) DAILY levothyroxine 25 mcg PO DAILY 90 days metformin ER 750 mg PO BID miscellaneous medical supply 1 ea miscellaneous DAILY 99 days naftifine 1% 1 appl topical BID 4 weeks tadalafil 10 mg PO ONCE PRN 30 days tadalafil 5 mg PO DAILY 90 days terbinafine HCl 1% 1 appl topical BID 30 days vitamin B complex 1 cap PO DAILY Tobacco use date assessed: 04/02/23 Dental Screening Dental Screen Date: 04/02/23 HPI 6 Month F/U [phone] HPI Details Patient is a 63 year-old male being evaluated today via telephone? Patient has a past medical history of type 2 diabetes, Legally blind, hyperlipidemia, recent history of incisional hernia with Dr Ferguson . .. Type 2 diabetes:? Continues to monitor his blood sugars with freestyle Reginaldo, most recent fasting blood sugar in the 130s. most recent A1c is 6.2 ? Patient has been diagnosed with diabetes over the 4 years ago and has been on metformin 500 mg.? Continues to be very physically active and reports walking thousands of steps a day. Does go to the gym twice a week. .. Hyperlipidemia:? Continues on statin therapy without any side effect.? Most recent LDL acceptable below 100. .. Hypothyroidism: Has been continuing levothyroxine 25 mcg. Most recent TSH stable. Will continue current dose of levothyroxine Laboratory Tests 12/15/23 03/15/24 03/15/24 08:33 07:50 08:30 RBC 4.78 Hgb A1c (Clinic) 6.7 H 6.5 H PFSH Medical History YOLY on CPAP Recurrent ventral hernia Seasonal allergies Recurrent umbilical hernia Controlled diabetes mellitus without complication, without long-term current use of insulin Hyperlipidemia LDL goal <100 Obesity (BMI 30-39.9) Obesity due to excess calories History of umbilical hernia High BMI YOLY (obstructive sleep apnea) Blindness Glaucoma Surgical History History of local excision of skin lesion History of colonoscopy (~2009) History of umbilical hernia repair Family History Father History of bone cancer History of diabetes mellitus Mother History of pancreatic cancer Paternal Grandmother History of diabetes mellitus Paternal Uncle History of diabetes mellitus Paternal Aunt History of diabetes mellitus Social History Household Members: None Housing: House Are you a primary manager intensive care to a significant other at home: No Do you presently have visiting nurse or other home services: No Alcohol intake: former Year quit: 1990 Comment: legally blind Patient Tobacco Use Status: Former Tobacco user Tobacco use type: Cigarette Years Smoked: quit 29 years ago e-Cigarette/Vaping Use: Never Used Second Hand Smoke Exposure: No service: No Current occupational status: employed 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 1. Little interest or pleasure in doing things: not at all 2. Feeling down, depressed, or hopeless: not at all 3. Trouble falling or staying asleep, or sleeping too much: not at all 4. Feeling tired or having little energy: not at all 5. Poor appetite or overeating: not at all 6. Feeling bad about yourself - or that you are a failure or have let yourself or your family down: not at all 7. Trouble concentrating on things, such as reading the newspaper or watching television: not at all 8. Moving or speaking so slowly that other people could have noticed. Or the opposite - being so fidgety or restless that you have been moving around a lot more than usual: not at all 9. Thoughts that you would be better off or of hurting yourself in some way: not at all Total score: 0 Depression Screening Interpretation: Negative Depression Screening Done: Yes [id number] - PHQ-9 Billing: Yes Source: Developed by Drs. Long Beaulieu, Audra Rios, uJan Rizo and colleagues, with an educational leah from [employer]. Thrive Questionnaire Date Thrive assessed: 04/07/24 I am a: Patient What is your living situation today?: I have a steady place to live Within the past 12 months, did the food you bought not last and you didn't have the money to get more?: Never true Within the past 12 months, did you worry whether your food would run out before you got money to buy more?: Never true Do you have trouble paying for medicines?: No Do you have trouble getting transportation to medical appointments?: No Do you have trouble paying your heating and electricity bill?: No Do you have trouble taking care of your child, family member or friend?: No Do you have trouble with day-to-day activities such as bathing, preparing meals, shopping, managing finances, etc.?: No Are you currently unemployed and looking for a job?: No Are you interested in more education?: No Please select the resources that you would like help with: None Currently or been in a relationship where the following occur: No concerns reported THRIVE Score: 0 AUDIT C Alcohol Use Questionnaire (AUDIT-C) 1. How often do you have a drink containing alcohol?: Never 3. How often do you have six or more drinks on one occasion?: Never Total Score: 0 DHARMESH-7 AMB Questionnaire DHARMESH-7 Date DHARMESH - 7 assessed: 04/07/24 Feeling nervous, anxious, or on edge: 0 = Not at all Not being able to stop or control worryin = Not at all Worrying too much about different things: 0 = Not at all Trouble relaxin = Not at all Being so restless that it is hard to sit still: 0 = Not at all Becoming easily annoyed or irritable: 0 = Not at all Feeling afraid as if something awful might happen: 0 = Not at all Total DHARMESH-7 score (0-4 normal; 5-9 mild; 10-14 moderate; 15-21 severe): 0 Source: Developed by Drs. Long Beaulieu, Audra Rios, Juan Rizo and colleagues, with an educational leah from [employer]. DHARMESH-7 Assessment Billing DHARMESH-7 Assessment Tool: DHARMESH-7 Assessment 91766 Review of Systems Const Denies headache(s) Eyes Denies loss of vision ENT Denies vertigo, Denies dizziness, Denies headache(s) and Denies sore throat Card Denies chest pain, Denies leg edema and Denies lightheadedness Resp Denies cough, Denies hemoptysis and Denies wheezing GI Denies abdominal pain, Denies melena, Denies constipation, Denies diarrhea and Denies vomiting Denies dysuria, Denies urinary frequency and Denies urinary urgency Musc Denies arthralgias, Denies joint swelling, Denies numbness and Denies tingling Neuro Denies behavioral changes, Denies vertigo, Denies dizziness, Denies headache(s), Denies loss of vision, Denies memory loss, Denies numbness and Denies tingling Psych Denies anxiety, Denies behavioral changes, Denies depression, Denies memory loss and Denies panic attacks Jeremy/Lymph Denies easy bleeding and Denies easy bruising Aller/Immun Denies wheezing Physical exam (Primary Care) Tobacco/Smoking Status: Tobacco use Status Tobacco use date assessed 04/02/23 04/07/24 13:23 Patient Tobacco Use Status Former Tobacco user 04/07/24 13:23 Tobacco use type Cigarette 04/07/24 13:23 e-Cigarette/Vaping Use Never Used 04/07/24 13:23 PHQ-9: PHQ-9 Score PHQ-9: Total score 0 04/07/24 13:37 Depression Screening Interpretation: Negative Thrive Assessment: Date of Thrive Assessment Date Thrive assessed 04/07/24 04/07/24 13:23 Currently or been in a relationship where the following occur: No concerns reported Telehealth Telehealth Telehealth Platform: Telephone Location of provider rendering services: practice address Location of patient: address on file Patient Identification confirmed using: Name, : Yes Telehealth method: voice only Patient verbally consented to treatment: Yes Patient verbally consented to billing insurance company: Yes Patient informed of any privacy concerns related to visit: Yes Minutes spent on Phone/Video with Pt.: 11 Coding Level of Care Code Tele Est Pt Level 4 (99201) Diagnoses Controlled type 2 diabetes mellitus without complication, without long-term current use of insulin E11.9 Diabetes mellitus type: type 2 Hypothyroidism, unspecified type E03.9 Hypothyroidism type: unspecified Hyperlipidemia LDL goal <100 E78.5 Additional Codes DHARMESH-7 Assessment Billing - DHARMESH-7 Assessment Tool: DHARMESH-7 Assessment 42908 ([id number]) PHQ-9 - 99741 - PHQ-9 Billing: Yes ([id number]) Assessment & Plan Assessment & Plan (1) Controlled diabetes mellitus without complication, without long-term current use of insulin: Code(s): E11.9 - Type 2 diabetes mellitus without complications Category: Medical Qualifiers: Diabetes mellitus type: type 2 Qualified Code(s): E11.9 - Type 2 diabetes mellitus without complications Plan: Patient's type 2 diabetes well controlled with current dose of metformin and now on 3 mg Trulicity weekly. Patient was followed by endocrinology. Goal A1c is to remain below 7.0 (2) Hypothyroid: Code(s): E03.9 - Hypothyroidism, unspecified Category: Medical Qualifiers: Hypothyroidism type: unspecified Qualified Code(s): E03.9 - Hypothyroidism, unspecified Plan: Patient's most recent TSH stable. Will continue current dose of levothyroxine. (3) Hyperlipidemia LDL goal <100: Code(s): E78.5 - Hyperlipidemia, unspecified Category: Medical Plan: Patient's most recent lipid panel showing excellent control of his total cholesterol and LDL. Will continue current dose of statin therapy with goal LDL to remain below 100 Orders: Orders Comprehensive [place]. Panel Fast 6 Months E11.9 - Type 2 diabetes mellitus without complications Lipid Panel 6 Months E78.5 - Hyperlipidemia, unspecified TSH reflex Free T4 6 Months E03.9 - Hypothyroidism, unspecified Complete Blood Count no Diff 6 Months E11.9 - Type 2 diabetes mellitus without complications Medications: Refilled glucose until symptoms of low blood sugar are controlled 4 grams PO Q15M PRN 14 tabs 0RF hypoglycemia 5 days E11.9 - Type 2 diabetes mellitus without complications
--- OUTSIDE RECORDS SUMMARY | 2024-04-07 15:32 | XMS_ITS | Encounter Summary ---
Author Organization [employer] [facility] Address [address] [place] [address] [address] [place] [address] Care Team Providers Care Nitroglycerin Neutralizer Name Role Phone Unavailable Primary Care Provider Unavailabl e Encounter Details Date Type Department Care Team (Late st Contact Info) Description 03/04/2023 Abstract [facility] ADULT DENTAL [address], [place] [id number] Kenny Oliveira, GILDA [address], [place] [id number] Social History Tobacco Use Types Packs/Day Years Used Date Smoking Tobacco: Former Cigarettes Smokeless Tobacco: Never Sex and Gender Information Value Date Recorded Sex Assigned at Male 01/07/2022 10:23 AM EDT Legal Sex Male 10:23 AM EDT Gender Identity Male 01/07/2022 10:23 AM EDT Sexual Orientation Choose not to disclose 2021 10:23 AM EDT documented as of this encounter Plan of Treatment Not on file documented as of this encounter Visit Diagnoses Not on filedocumented in this encounter
--- OUTSIDE RECORDS SUMMARY | 2024-04-07 15:32 | XMS_ITS | Encounter Summary ---
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 Technologist Name Role Phone Unavailable Primary Care Provider Unavailabl e Reason for Visit * Reason Onset Date Comments Appointment 05/10/2022 Encounter Details Date Type Department Care Team ([facility] st Contact Info) Description 05/10/2022 Telephone [facility] ADULT [facility]AL [address] [place] [address] Darren Elise, GILDA [address] [place] [address] Appointment Social History Tobacco Use Types Packs/Day Years Used Date Smoking Tobacco: Never Assessed Sex and Gender Information Value Date Recorded Sex Assigned at Male 01/07/2022 10:23 AM EDT Legal Sex Male 10:23 AM EDT Gender Identity Male 01/07/2022 10:23 AM EDT Sexual Orientation Choose not to disclose 2021 10:23 AM EDT documented as of this encounter Miscellaneous Notes * Telephone Encounter - Dixie Allen - 05/10/2022 11:00 AM EST Appt scheduled on 05/06 chely Elise was cancelled due to provider not being in office. The patient is waiting for a call back to oskar BENITEZ documented in this encounter Plan of Treatment Not on file documented as of this encounter Visit Diagnoses Not on filedocumented in this encounter
--- OUTSIDE RECORDS SUMMARY | 2024-04-07 15:32 | XMS_ITS | Encounter Summary ---
Author Organization [employer] [facility] Address [address] [place] [address] [address] [place] [address] Care Team Providers Care Wooden Tank Erector Name Role Phone Unavailable Primary Care Provider Unavailabl e Reason for Visit * Reason Comments Med Refill Encounter Details Date Type Department Care Team (Late st Contact Info) Description 07/30/2023 Refill [facility] ADULT DENTAL [address] [place] [address] Kenny Oliveira DMD [address] [place] [address] Social History Tobacco Use Types Packs/Day Years [...] encounter Miscellaneous Notes * Telephone Encounter - Kenny Oliveira DMD - 07/30/2023 11:42 AM EDT Approving, but needs appt for additional refills. documented in this encounter Plan of Treatment Not on file documented as of this encounter Visit Diagnoses Not on filedocumented in this encounter
--- OUTSIDE RECORDS SUMMARY | 2024-04-07 15:32 | XMS_ITS | Encounter Summary ---
Author Organization [employer] [facility] Address [address] [place] [address] 7 [place] [address] Care Team Providers Care Label Coder Name Role Phone Unavailable Primary Care Provider Unavailabl e Reason for Visit * Reason Comments Med Refill Encounter Details Date Type Department Care Team (Late st Contact Info) Description 05/06/2023 Refill [facility]ULT [facility] [address] [place] [address] Kenny Oliveira DMD [address] [place] [address] Social History Tobacco Use Types Packs/Day Years [...] Telephone Encounter - Kenny Oliveira DMD - 05/06/2023 12:55 PM EST Approving, but needs appt for additional refills. documented in this encounter Plan of Treatment Not on file documented as of this encounter Visit Diagnoses Not on filedocumented in this encounter
--- OUTSIDE RECORDS SUMMARY | 2024-04-07 15:32 | XMS_ITS | Encounter Summary ---
Author Organization [employer] Address [address] [place] [address] 7 [place] [address] Care Team Providers Care Intake Counselor Name Role Phone Unavailable Primary Care Provider Unavailabl e Encounter Details Date Type Department Care Team (Late st Contact Info) Description 12/06/2022 Abstract [facility] ADULT D[facility]AL [address] [place] [address] GosiaDarren, DMD [address] [place] [address] Social History Tobacco Use Types Packs/Day Years [...]
--- OUTSIDE RECORDS SUMMARY | 2024-04-07 15:32 | XMS_ITS | Encounter Summary ---
Author Organization [employer] [facility] Address [address] [place] [address] [address] [place] [address] Care Team Providers Care Bander And Cellophaner Machine Name Role Phone Unavailable Primary Care Provider Unavailabl e Reason for Visit * Reason Comments Med Refill Encounter Details Date Type Department Care Team (Late st Contact Info) Description 02/05/2023 Refill [facility] ADULT DENTAL [address] [place] [address] Kenny Oliveira DMD [address] [place] [address] Social History Tobacco Use Types Packs/Day Years [...] Telephone Encounter - Kenny Oliveira DMD - 02/05/2023 1:56 PM EST Approving, but needs appt for additional refills. documented in this encounter Plan of Treatment Not on file documented as of this encounter Visit Diagnoses Not on filedocumented in this encounter
--- OUTSIDE RECORDS SUMMARY | 2024-04-07 15:32 | XMS_ITS | Encounter Summary ---
Author Organization [employer] [facility] Address [address] [place] [address] [address] [address] Care Team Providers Care Booking Agent Name Role Phone Unavailable Primary Care Provider Unavailabl e Reason for Visit * Reason Comments Med Refill Encounter Details Date Type Department Care Team (Late st Contact Info) Description 01/10/2023 Refill [facility] ADULT DENTAL [address] [place] [address] Kenny Oliveira DMD [address] [place] [address] Social History Tobacco Use Types Packs/Day Years [...] Telephone Encounter - Kenny Oliveira DMD - 01/10/2023 2:47 PM EDT Approving, but needs appt for additional refills. documented in this encounter Plan of Treatment Not on file documented as of this encounter Visit Diagnoses Not on filedocumented in this encounter
--- OUTSIDE RECORDS SUMMARY | 2024-04-07 15:32 | XMS_ITS | Encounter Summary ---
Author Organization [employer] [facility] Address [address] [place] [address] [address] [place] [address] Care Team Providers Care Charge Account Clerk Name Role Phone Unavailable Primary Care Provider Unavailabl e Reason for Visit * Reason Comments Med Refill Encounter Details Date Type Department Care Team (Late st Contact Info) Description 03/04/2023 Refill [facility] ADULT DENTAL [address] [place] [address] Kenny Oliveira, DMD [address] [place] [address] Social History Tobacco Use Types Packs/Day Years [...] encounter Miscellaneous Notes * Telephone Encounter - Elizabeth Magana DDS - 03/04/2023 3:04 PM EST Approving, but needs appt for additional refills. documented in this encounter Plan of Treatment Not on file documented as of this encounter Visit Diagnoses Not on filedocumented in this encounter
--- OUTSIDE RECORDS SUMMARY | 2024-04-07 15:32 | XMS_ITS | Encounter Summary ---
Author Organization [employer] [facility] Address [address] [place] [address] 7 [place] [address] Care Team Providers Care Career Development Consultant Name Role Phone Unavailable Primary Care Provider Unavailabl e Encounter Details Date Type Department Care Team (Late st Contact Info) Description 03/31/2023 Abstract [facility] ADULT DENTAL [address] [place], [place] [phone] Kenny Oliveira, GILDA [address] [place], [place] [phone] Social History Tobacco Use Types Packs/Day Years [...]
--- OUTSIDE RECORDS SUMMARY | 2024-04-07 15:32 | XMS_ITS | Encounter Summary ---
Author Organization [employer] [facility] Address [address] [place] [address] [address] [place] [address] Care Team Providers Care Geothermal System Installer Name Role Phone Unavailable Primary Care Provider Unavailabl e Reason for Visit * Reason Comments Med Refill Encounter Details Date Type Department Care Team (Late st Contact Info) Description 07/04/2023 Refill [facility] ADULT D[facility] [address] [place] [address] Elizabeth Magana, DDS [address] [place] [address] Social History Tobacco Use Types Packs/Day Years [...] Telephone Encounter - Kenny Oliveira DMD - 07/04/2023 3:45 PM EDT Approving, but needs appt for additional refills. documented in this encounter Plan of Treatment Not on file documented as of this encounter Visit Diagnoses Not on filedocumented in this encounter
--- OUTSIDE RECORDS SUMMARY | 2024-04-07 15:32 | XMS_ITS | Encounter Summary ---
Author Organization [employer] [facility] Address [address] [place] [address] [address] [place] [address] Care Team Providers Care Financial Adviser Name Role Phone Unavailable Primary Care Provider Unavailabl e Reason for Visit * Reason Comments Med Refill Encounter Details Date Type Department Care Team (Late st Contact Info) Description 06/07/2023 Refill [facility] ADULT DENTAL [address] [place] [address] Kenny Oliveira, GILDA [address] [place] [address] Social History Tobacco Use Types Packs/Day Years [...] Telephone Encounter - Elizabeth Magana DDS - 06/09/2023 12:11 PM EDT Approving, but needs appt for additional refills. documented in this encounter Plan of Treatment Not on file documented as of this encounter Visit Diagnoses Not on filedocumented in this encounter
--- OUTSIDE RECORDS SUMMARY | 2024-04-07 15:32 | XMS_ITS | Encounter Summary ---
Author Organization [email or web address] [facility] Address [address] [place] [address] [address] [place] [address] Care Team Providers Care Vaccine Customer Representative Name Role Phone Unavailable Primary Care Provider Unavailabl e Reason for Visit * Reason Comments Med Refill Encounter Details Date Type Department Care Team (Late st Contact Info) Description 12/16/2022 Refill [facility] ADULT DENTAL [address] [place] [address] Kenny Oliveira DMD [address] [place] [address] Social History Tobacco Use Types Packs/Day Years [...] Telephone Encounter - Kenny Oliveira DMD - 12/17/2022 8:08 AM EDT Approving, but needs appt for additional refills. documented in this encounter Plan of Treatment Not on file documented as of this encounter Visit Diagnoses Not on filedocumented in this encounter
--- OUTSIDE RECORDS SUMMARY | 2024-04-07 15:32 | XMS_ITS | Patient Health Record ---
Author Organization [facility] Address [address] [place] [address] Care Team Providers Care Chief Operator Hydroformer Name Role Phone Davion Sheth Primary Care Provider Unavailab Cira Gonzalez Unavailable [phone] ALLERGIES No Known Allergies REASON FOR REFERRAL [...] confirmed Screening for malignant neoplasm of colon (591088837) Problem Preprocedural examination (Z01.818) Active confirmed Preprocedural examination (955399394513325) Problem long-term (current) use of oral hypoglycemic drugs (Z79.84) Active confirmed Long-term cur rent use of drug therapy (135185801) Problem Diverticulosis of colon (K57.30) Active confirmed Diverticulosi s of colon (335048581) Problem 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 Calero Denies [place],CVA,Lung disease,renal disease Seasonal allergies Screening colonoscopy in [...]
--- OUTSIDE RECORDS SUMMARY | 2024-04-07 15:32 | XMS_ITS | Encounter Summary ---
Author Organization [employer] [facility] Address [address] [place] [address] [address] [place] [address] Care Team Providers Care Busboy Name Role Phone Unavailable Primary Care Provider Unavailabl e Reason for Visit * Reason Comments Med Refill Encounter Details Date Type Department Care Team (Late st Contact Info) Description 04/05/2023 Refill [facility] ADULT DENTAL [address] [place] [address] Elizabeth Magana, DDS [address] [place] [address] Social History Tobacco Use Types Packs/Day Years [...] Telephone Encounter - Kenny Oliveira DMD - 04/07/2023 8:01 AM EST Approving, but needs appt for additional refills. documented in this encounter Plan of Treatment Not on file documented as of this encounter Visit Diagnoses Not on filedocumented in this encounter
--- OUTSIDE RECORDS SUMMARY | 2024-04-07 15:32 | XMS_ITS | Encounter Summary ---
Author Organization [employer] [facility] Address [address] [place] [address] [address] [place] [address] Care Team Providers Care Certified Scrub Tech Name Role Phone Unavailable Primary Care Provider Unavailabl e Encounter Details Date Type Department Care Team (Late st Contact Info) Description 03/06/2023 Abstract [facility] ADULT DENTAL [address] [place], [place] [phone] Kenny Oliveira, GILDA [address] [place], [place] [phone] Social History Tobacco Use Types Packs/Day Years [...]
--- OUTSIDE RECORDS SUMMARY | 2024-04-07 15:33 | XMS_ITS | Encounter Summary ---
Author Organization [employer] [facility] Address [address] [place] [address] [address] [place] [address] Care Team Providers Care Aquaculturist Name Role Phone Unavailable Primary Care Provider Unavailabl e Reason for Visit * Reason Comments Med Refill Encounter Details Date Type Department Care Team (Late st Contact Info) Description 10/13/2023 Refill [facility] ADULT DENTAL [address] [place] [address] Elizabeth Magana, DDS [address] [place] [address] Social History Tobacco Use Types Packs/Day Years [...] Telephone Encounter - Kenny Oliveira DMD - 10/13/2023 11:26 AM EDT Approving, but needs appt for additional refills. documented in this encounter Plan of Treatment Not on file documented as of this encounter Visit Diagnoses Not on filedocumented in this encounter
--- OUTSIDE RECORDS SUMMARY | 2024-04-07 15:33 | XMS_ITS | Encounter Summary ---
Author Organization [employer] [facility] Address [address] [place] [address] [address] [place] [address] Care Team Providers Care Ballistics Professor Name Role Phone Unavailable Primary Care Provider Unavailabl e Encounter Details Date Type Department Care Team (Latest Contact Info) Description 10/15/2021 Abstract [facility] Dental, Provider, DDS Social History Tobacco Use Types Packs/Day Years [...]
--- OUTSIDE RECORDS SUMMARY | 2024-04-07 15:33 | XMS_ITS | Encounter Summary ---
Author Organization [employer] [facility] Address [address] [place] [address] [address] [place] [address] Care Team Providers Care Nut Chopper Name Role Phone Unavailable Primary Care Provider Unavailabl e Reason for Visit * Reason Comments Med Refill Encounter Details Date Type Department Care Team (Late st Contact Info) Description 11/20/2022 Refill [facility] ADULT DENTAL [address] [place] [address] Kenny Oliveira DMD [address] [place] [address] Social History Tobacco Use Types Packs/Day Years [...] Telephone Encounter - Kenny Oliveira DMD - 11/20/2022 11:35 AM EDT Approving, but needs appt for additional refills. documented in this encounter Plan of Treatment Not on file documented as of this encounter Visit Diagnoses Not on filedocumented in this encounter
--- OUTSIDE RECORDS SUMMARY | 2024-04-07 15:33 | XMS_ITS | Encounter Summary ---
Author Organization [employer] [facility] Address [address] [place] [address] 7 [place] [address] Care Team Providers Care Bobbin Winder Name Role Phone Unavailable Primary Care Provider Unavailabl e Encounter Details Date Type Department Care Team (Latest Contact Info) Description 07/18/2020 Abstract [facility] Dental, Provider, DDS Social History Tobacco [...]
--- OUTSIDE RECORDS SUMMARY | 2024-04-07 15:33 | XMS_ITS | Encounter Summary ---
Author Organization [employer] [facility] Address [address] [place] [address] [address] [place] [address] Care Team Providers Care Ocular Care Technician Name Role Phone Unavailable Primary Care Provider Unavailabl e Reason for Visit * Reason Comments Med Refill Encounter Details Date Type Department Care Team (Late st Contact Info) Description 12/02/2023 Refill [facility] ADULT DENTAL [address] [place] [address] Kenny Oliveira DMD [address] [place] [address] Social History Tobacco Use Types Packs/Day Years [...] Telephone Encounter - Kenny Oliveira DMD - 12/03/2023 7:59 AM EDT Approving, but needs appt for additional refills. documented in this encounter Plan of Treatment Not on file documented as of this encounter Visit Diagnoses Not on filedocumented in this encounter
--- OUTSIDE RECORDS SUMMARY | 2024-04-07 15:33 | XMS_ITS | Encounter Summary ---
Author Organization [employer] [facility] Address [address] [place] [address] 7 [place] [address] Care Team Providers Care Figure Clerk Name Role Phone Unavailable Primary Care Provider Unavailabl e Reason for Visit * Reason Comments Med Refill Encounter Details Date Type Department Care Team (Late st Contact Info) Description 09/17/2023 Refill [facility] ADULT DENTAL [address] [place] [address] Kenny Oliveira, GILDA [address] [place] [address] Social History Tobacco Use Types Packs/Day Years [...] Telephone Encounter - Elizabeth Magana DDS - 09/17/2023 11:39 AM EDT Approving, but needs appt for additional refills. documented in this encounter Plan of Treatment Not on file documented as of this encounter Visit Diagnoses Not on filedocumented in this encounter
--- OUTSIDE RECORDS SUMMARY | 2024-04-07 15:33 | XMS_ITS | Clinical Summary ---
Author Organization [email or web address] Address [address] [place] [address] [address] [address] Care Team Providers Care Adjudication Specialist Name Role Phone Unavailable Primary Care Provider Unavailabl e Allergies Active Allergy Reactions Criticality Noted Date Comments Gramineae Pollens 02/15/2022 Other reaction(s): congestion Medications amoxicillin-cla vulanate (Augmentin) 500-125 MG tablet Take 1 tablet by mouth every 12 (twelve) hours. 1 Active ibuprofen 800 MG tablet Take 1 tablet by mouth every 8 (eight) hours. 8 Active metFORMIN (Glucophage) 500 MG tablet Take 1 tablet by mouth every 12 (twelve) hours. Active metFORMIN XR (Glucophage-XR) 750 MG 24 hr tablet Take 1 tablet by mouth at bed time. Active atorvastatin (Lipitor) 20 MG tablet Take 20 mg by mouth. 1 Active brimonidine (AlphaGAN P) 0.2 % ophthalmic solution INSTILL 1 DROP IN BOTH EYES TWICE DAILY 12 HOURS APART 3 Active glucose 4 g chewable tablet CHEW 1 TABLET BY MOUTH EVERY 15 MINUTES NEEDED FOR HYPOGLYCEMIA 3 Active latanoprost (Xalatan) 0.005 % ophthalmic solution INSTILL 1 DROP IN BOTH EYES AT BEDTIME 3 Active levothyroxine (Synthroid, Levoxyl) 25 MCG tablet Take 25 mcg by mouth in the morning. 3 Active pioglitazone (Actos) 15 MG tablet Take 15 mg by mouth in the morning. 3 Active terbinafine (LamISIL) 1 % cream APPLY TOPICALLY TO THE AFFECTED AREA TWICE DAILY 3 Active Sodium Fluoride 1.1 % gel USE DIRECTED EVERY MORNING AND EVERY EVENING TO BRUSH TEETH 56 g 4 Active Active Problems Problem Noted Date Diagnosed Date Dental calculus 06/28/2022 Immunizations Name Administration Dates Next Due Influenza, IIV3, injectable 11/08/2020, 0 Social History Tobacco Use Types Packs/Day Years Used Date Smoking Tobacco: Former Cigarettes Smokeless Tobacco: Never Tobacco Cessation:Counseling Given: Not Answered Sex and Gender Information Value Date Recorded Sex Assigned at Male 01/07/2022 10:23 AM EDT Legal Sex Male 10:23 AM EDT Gender Identity Male 01/07/2022 10:23 AM EDT Sexual Orientation Choose not to disclose 2021 10:23 AM EDT Last Filed Vital Signs Vital Sign Reading Time Taken Comments Blood Pressure 130/70 04/07/2023 9:06 AM EST Pulse 70 01/10/2023 11:56 AM EDT Temperature - - Respiratory Rate - - Oxygen Saturation - - Inhaled Oxygen Concentration - - Weight - - Height - - Body Mass Index - - Plan of Treatment Health Maintenance Due Date Last Done Comments CT Colonography 1960 Colonoscopy 1960 Colorectal Cancer Screening 1960 Dental Oral Exam 1960 Depression Screening 1960 FIT DNA/Cologuard 1960 FIT 1960 FOBT 1960 HIV Screening 1960 Lipid Panel 1960 SDOH Screening 1960 Sigmoidoscopy 1960 Alcohol/Substance Use Screening 1972 Hepatitis C Screening 1978 Zoster Vaccines (2 of 2) 01/02/2020 11/07/2019 Dental Prophylaxis 07/12/2023 01/10/2023, 06/28/2022 COVID-19 Vaccine ( season) 2023 12/05/2022, 12/18/2021, 06/21/2021, Additional history exists Influenza Vaccine (#1) 2023 , 01/09/2022, 12/12/2020, Additional history exists Dental X-Ray: Bitewings 01/12/2024 01/10/2023 Tobacco Screening 05/02/2024 05/02/2023 Dental X-Ray: Full Mouth 01/11/2026 01/10/2023 DTaP/Tdap/Td Vaccines (2 - Td or Tdap) 09/07/2030 09/07/2020 RSV Patients and Patients Aged 60 years or older (1 - 1-dose 75+ series) 06/04/2035 Pneumococcal Vaccine: Pediatrics (0 to 5 Years) and At-Risk Patients (6 to 49) Years) Aged Out 09/07/2020 No longer eligible based on patient's age to complete this topic HIB Vaccines Aged Out No longer eligi ble based on patient's age to complete this topic HPV Vaccines Aged Out No longer eligi ble based on patient's age to complete this topic Hepatitis A Vaccines Aged Out No long er eligible based on patient's age to complete this topic Hepatitis B Vaccines Aged Out No long er eligible based on patient's age to complete this topic IPV Vaccines Aged Out No longer eligi ble based on patient's age to complete this topic Meningococcal Vaccine Aged Out No myke nevin eligible based on patient's age to complete this topic RSV under 20 months Aged Out No longe r eligible based on patient's age to complete this topic Rotavirus Vaccines Aged Out No longer eligible based on patient's age to complete this topic Procedures Procedure Name Priority Date/Time Associated Diagnosis Comments PROPHYLAXIS - ADULT Routine 01/10/2023 1 0:00 AM EDT DIAGNOSTIC - DIAGNOSTIC IMAGING - INTRAORAL - COMPREHENSIVE SERIES OF RADIOGRAPHIC IMAGES Routine 01/10/2023 10:00 AM EDT from Last 3 Months or Most Recently Relevant to Health Maintenance Insurance DENTAL - [facility]
--- OUTSIDE RECORDS SUMMARY | 2024-04-07 15:33 | XMS_ITS | Encounter Summary ---
Author Organization [employer] [facility] Address [address] [place] [address] [address] [place] [address] Care Team Providers Care Paper Mill Supervisor Name Role Phone Unavailable Primary Care Provider Unavailabl e Reason for Visit * Reason Comments Med Change Request Encounter Details Date Type Department Care Team (Late st Contact Info) Description 08/22/2022 Refill [facility] ADULT DENTAL [address] [place] [address] Kenny Oliveira DMD [address] [place] [address] Social History Tobacco Use Types Packs/Day Years Used Date Smoking Tobacco: Former Cigarettes Smokeless Tobacco: Never Sex and Gender Information Value Date Recorded Sex Assigned at Male 01/07/2022 10:23 AM EDT Legal Sex Male 10:23 AM EDT Gender Identity Male 01/07/2022 10:23 AM EDT Sexual Orientation Choose not to disclose 2021 10:23 AM EDT COVID-19 Exposure Response Date Recorded In the last 10 days, have yo u been in contact with someone who was confirmed or suspected to have Coronavirus/COVID-19? No / Unsure 08/22/2022 7:48 AM EDT documented as of this encounter Miscellaneous Notes * Telephone Encounter - Kenny Oliveira DMD - 08/23/2022 8:09 AM EDT Approving, but needs appt for additional refills. documented in this encounter Plan of Treatment Not on file documented as of this encounter Visit Diagnoses Not on filedocumented in this encounter
--- OUTSIDE RECORDS SUMMARY | 2024-04-07 15:33 | XMS_ITS | Encounter Summary ---
Author Organization [employer] [facility] Address [address] [place] [address] [address] [place] [address] Care Team Providers Care Services Coordinator Name Role Phone Unavailable Primary Care Provider Unavailabl e Reason for Visit * Reason Comments Med Change Request Encounter Details Date Type Department Care Team (Late st Contact Info) Description 09/05/2022 Refill [facility] ADULT DENTAL [address] [place] [address] Kenny Oliveira DMD [address] [place] [address] Social History Tobacco Use Types Packs/Day Years [...] suspected to have Coronavirus/COVID-19? No / Unsure 09/04/2022 1:45 PM EDT documented as of this encounter Miscellaneous Notes * Telephone Encounter - Kenny Oliveira DMD - 09/06/2022 12:12 PM EDT Approving, but needs appt for additional refills. documented in this encounter Plan of Treatment Not on file documented as of this encounter Visit Diagnoses Not on filedocumented in this encounter
--- OUTSIDE RECORDS SUMMARY | 2024-04-07 15:33 | XMS_ITS | Encounter Summary ---
Author Organization [employer] [facility] Address [address] [place] [address] [address] [place] [address] Care Team Providers Care Box Toe Cutter Name Role Phone Unavailable Primary Care Provider Unavailabl e Reason for Visit * Reason Comments Med Refill Encounter Details Date Type Department Care Team (Late st Contact Info) Description 12/23/2023 Refill [facility] ADULT DENTAL [address] [place] [address] Kenny Oliveira DMD 230 [place] [address] Social History Tobacco Use Types Packs/Day Years [...] Telephone Encounter - Kenny Oliveira DMD - 12/23/2023 9:49 AM EDT Approving, but needs appt for additional refills. documented in this encounter Plan of Treatment Not on file documented as of this encounter Visit Diagnoses Not on filedocumented in this encounter
--- OUTSIDE RECORDS SUMMARY | 2024-04-07 15:33 | XMS_ITS | Encounter Summary ---
Author Organization [employer] Address [address] [place] [address] 7 [place] [address] Care Team Providers Care Assistant Head Cashier Name Role Phone Unavailable Primary Care Provider Unavailabl e Reason for Visit * Reason Onset Date Comments appt insurance approval 12/02/2022 Encounter Details Date Type Department Care Team ([facility] st Contact Info) Description 12/02/2022 Telephone [facility] [address] [place] [address] Darren Elise, GILDA 505 [place] [address] appt insurance approval Social History Tobacco Use Types Packs/Day Years [...] * Telephone Encounter - Dixie Allen - 12/02/2022 1:53 PM EDT Patient called in that he came in to get RCT done and insurance had changed. He called to state that his approval has now come in for new insurance and would like appt to rescheduled with Gosia BENITEZ documented in this encounter Plan of Treatment Not on file documented as of this encounter Visit Diagnoses Not on filedocumented in this encounter
--- OUTSIDE RECORDS SUMMARY | 2024-04-07 15:33 | XMS_ITS | Encounter Summary ---
Author Organization [employer] [facility] Address [address] [place] [address] [address] [address] Care Team Providers Care Research Food Technologist Name Role Phone Unavailable Primary Care Provider Unavailabl e Reason for Visit * Reason Comments Med Refill Encounter Details Date Type Department Care Team (Late st Contact Info) Description 08/24/2023 Refill [facility] ADULT DENTAL 230 [place] [address] Kenny Oliveira DMD 230 [place] [address] Social History Tobacco Use Types Packs/Day Years [...] Telephone Encounter - Kenny Oliveira DMD - 08/25/2023 7:59 AM EDT Approving, but needs appt for additional refills. documented in this encounter Plan of Treatment Not on file documented as of this encounter Visit Diagnoses Not on filedocumented in this encounter
== END 2024-04-07 14:23 | disposition home or self-care (01) ==
LOC: HO.HMCH 13:24
PROVIDERS: PCP Physician Assistant; Visit Provider Physician Assistant
DX: E11.69 Type 2 diabetes mellitus with other specified complication (principal); E03.9 Hypothyroidism, unspecified; E78.5 Hyperlipidemia, unspecified

== ENCOUNTER → 2024-04-07 13:24 | Outpatient (BNVA) | payer OTHER, SELFPAY | PROVIDERS: PCP Physician Assistant; Visit Provider Physician Assistant | DX: E11.9 Type 2 diabetes mellitus without complications (principal); E03.9 Hypothyroidism, unspecified; E78.5 Hyperlipidemia, unspecified | CPT/HCPCS: 96127 ==

== ENCOUNTER 2024-06-07 08:13 | Outpatient (REF) | payer OTHER, SELFPAY ==
[2024-06-07 10:31] LABS: Estimated Average Glucose 131 mg/dL; Hemoglobin A1c % 6.2 % (<6.0); Total Hemoglobin (HGBA1C) 3908.3893 umol/L
[2024-06-07 10:32] LABS: Creatinine Urine 23.77 mg/dL; Microalbumin Urine < 5.0 mg/L
[2024-06-07 10:35] LABS: B Type Natriuretic Peptide 11 pg/mL (<100)
[2024-06-07 10:46] LABS: Alanine Aminotransferase 21 U/L (0-40); Albumin Level 4.1 g/dL (3.5-5.0); Alkaline Phosphatase 46 U/L (39-117); Anion Gap 13 (12-20); Aspartate Amino Transferase 23 U/L (5-37); Blood Urea Nitrogen 22 mg/dL (9-16); Calcium 8.9 mg/dL (8.4-10.2); Carbon Dioxide 27 mmol/L (22-29); Chloride 105 mmol/L (96-108); Estimated Glomerular Filt Rate > 60; Glucose Fasting 135 mg/dL (60-99); Potassium 4.6 mmol/L (3.3-5.1); Sodium 140 mmol/L (135-145); Total Protein 6.7 g/dL (6.5-8.0)
== END 2024-06-07 08:14 | disposition home or self-care (01) ==
LOC: HO.LAB 08:13
PROVIDERS: PCP Physician Assistant; Visit Provider Physician Assistant
DX: E11.9 Type 2 diabetes mellitus without complications (principal); E78.5 Hyperlipidemia, unspecified
CPT/HCPCS: 36415; 80053; 82043; 82570; 83036; 83880

== ENCOUNTER 2024-06-14 08:53 | Outpatient (AMB) | payer OTHER, SELFPAY ==
[2024-06-14 08:56] VITALS: BP 124/78; PULSE 60; O2SAT 96; BMI 34.5
--- NOTE | 2024-06-14 08:56 | A.OFFVIS_ITS ---
Vital Signs 06/14/24 08:56 Height 5 ft 8 in Weight 227 lb 1.218 oz BMI 34.5 BP 124/78 Blood Pressure Location Rt brachial Position Sitting Pulse 60 Pulse Source Pulse Oximeter Pulse Oximetry (%) 96 Oxygen Delivery Method Room Air Intake Visit Reasons: DM f/u Intake Note: Patient present today to follow up on Type 2 Diabetes Mellitus. Last Diabetic Eye exam: September 25, 2023 Last Podiatry Visit: Does not see a Shorthand Teacher Most Recent HgA1C: 6.2%, 06/07/24 Random Glucose: 110 mg/dL, Today Environmental Solutions Engineer Required: No Accompanied by: Self / Same As Patient Allergies pollen extracts Allergy (Intermediate, Verified 06/14/24 08:57) Watery eyes, sneezing pine sap Allergy (Intermediate, Uncoded 06/14/24 08:57) Watery eyes, sneezing Medication List - Last Reconciled 06/14/24 by Gini Pascual PA-C atorvastatin 20 mg PO BEDTIME 90 days blood-glucose sensor (FreeStyle Reginaldo 3 Sensor device) As directed blood-glucose sensor (FreeStyle Reginaldo 3 Plus Sensor device) Use daily As directed to monitor glucose blood-glucose,child welfare consultant,cont (FreeStyle Reginaldo 3 Dwarf) As directed brimonidine 0.2% 1 drp ophthalmic (eye) Q8H CPAP (CPAP Machine/Device) CPAP, mask and supplies dulaglutide (Trulicity) 3 mg (0.5 mL) subcut QWEEK glucose 4 grams PO Q15M PRN 5 days lancets (Prodigy Twist Top Lancet) twice a day latanoprost 0.005% 1 drp ophthalmic (eye) DAILY levothyroxine 25 mcg PO DAILY 90 days metformin ER 750 mg PO BID miscellaneous medical supply 1 ea miscellaneous DAILY 99 days naftifine 1% 1 appl topical BID 4 weeks tadalafil 10 mg PO ONCE PRN 30 days tadalafil 5 mg PO DAILY 90 days terbinafine HCl 1% 1 appl topical BID 30 days vitamin B complex 1 cap PO DAILY HPI HPI DM f/u: Details: Patient is a 64-year-old male with a significant past medical history of obstructive sleep apnea on CPAP, obesity, 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 Endo: DM-diagnosed with diabetes around 2019. He did have dm education at the time. His A1c today was 6.2. He is on metformin 750 mg twice a day and trulicity 3 mg weekly. Monitors his blood sugars with this freestyle Reginaldo.. Tolerating medicines well without difficulty. He has lost 8 lb since our last visit. cgm- usage 96%, avg glucose 130, GMI 6.4%. very high 0, high 2%, in range 98%, 0% low He states he has been hypoglycemic in the past but only at the gym while doing an exercise spin class. He corrects this with glucose tabs if needed. He states that this has not happened in quite some time. He is very frustrated with his weight and states that since 2007 he has had a very hard time losing weight and he has seen a overlay plastician and did not have any improvement of his weight. He does not think it is the foods that he is eating but thinks it is more his metabolism. He also does not always feel full while eating. He exercises and walks about 20,000 steps a day. He goes to the gym and does spinning and the treadmill. family hx t2dm CV: bp today in office 124/78. He controls lipids with atorvastatin 20 mg [facility] Medical History YOLY on CPAP Recurrent ventral hernia Seasonal allergies Recurrent umbilical hernia Controlled diabetes mellitus without complication, without long-term current use of insulin Hyperlipidemia LDL goal <100 Obesity (BMI 30-39.9) Obesity due to excess calories History of umbilical hernia High BMI YOLY (obstructive sleep apnea) Blindness Glaucoma Surgical History History of local excision of skin lesion History of colonoscopy (~2009) History of umbilical hernia repair Family History Father History of bone cancer History of diabetes mellitus Mother History of pancreatic cancer Paternal Grandmother History of diabetes mellitus Paternal Uncle History of diabetes mellitus Paternal Aunt History of diabetes mellitus Social History Household Members: None Housing: House Are you a primary healthcare management to a significant other at home: No Do you presently have visiting nurse or other home services: No Alcohol intake: former Year quit: 1990 Comment: legally blind Patient Tobacco Use Status: Former Tobacco user Tobacco use type: Cigarette Years Smoked: quit 29 years ago e-Cigarette/Vaping Use: Never Used Second Hand Smoke Exposure: No service: No Current occupational status: employed 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 needs: Yes Hearing needs: No Vision needs: Yes Physical Exam Vital Signs: BMI result Body Mass Index 34.5 Const Orientation/consciousness: patient oriented x3 Neck Neck: Yes no lymphadenopathy Thyroid: Thyroid normal Carotids: no bruits Resp Auscultation: clear to auscultation bilaterally Cardio Rate: regular rate Rhythm: regular rhythm Heart sounds: S1 normal heart sound present and S2 normal heart sound present Peripheral pulses: dorsalis pedis present Neuro General: patient oriented x3, gait normal and no focal motor deficits Extrem Other: Monofilament sensation intact bilaterally. Vibratory sensation intact bilaterally. Skin intact. General: Yes normal to inspection Results Reviewed Results Reviewed: Laboratory Tests 03/15/24 03/15/24 06/07/24 07:50 08:30 08:30 Sodium Potassium Chloride Carbon Dioxide Anion Gap BUN Creatinine Estimated GFR Hgb A1c (Clinic) 6.5 H Hemoglobin A1c % AST ALT Alkaline Phosphatase Triglycerides 82 Cholesterol 132 LDL Cholesterol, Calc 86 HDL Cholesterol 30 L Urine Creatinine 23.77 Urine Microalbumin < 5.0 Microalb/Creat Ratio TNP 06/07/24 08:35 Sodium 140 Potassium 4.6 Chloride 105 Carbon Dioxide 27 Anion Gap 13 BUN 22 H Creatinine 0.93 Estimated GFR > 60 Hgb A1c (Clinic) Hemoglobin A1c % 6.2 H AST 23 ALT 21 Alkaline Phosphatase 46 Triglycerides Cholesterol LDL Cholesterol, Calc HDL Cholesterol Urine Creatinine Urine Microalbumin Microalb/Creat Ratio Assessment & Plan Assessment & Plan (1) Controlled diabetes mellitus without complication, without long-term current use of insulin: Code(s): E11.9 - Type 2 diabetes mellitus without complications Category: Medical Qualifiers: Diabetes mellitus type: type 2 Qualified Code(s): E11.9 - Type 2 diabetes mellitus without complications Plan: currently well controlled continue with lifestyle modifications continue current medications trulicity 3 mg weekly and metformin 750 mg bid 3 months f/u (2) Hyperlipidemia LDL goal <100: Code(s): E78.5 - Hyperlipidemia, unspecified Category: Medical Plan: continue lipitor lfts and lipids ordered (3) Obesity (BMI 30-39.9): Code(s): E66.9 - Obesity, unspecified Category: Medical Plan: losing weight continue with modifications (4) Fatty liver: Code(s): K76.0 - Fatty (change of) liver, not elsewhere classified Category: Medical Plan: reviewed ct with pt from 2020 will recheck Orders: Orders US abdomen comp w elastography Today E11.9 - Type 2 diabetes mellitus without complications, E78.5 - Hyperlipidemia, unspecified, K76.0 - Fatty (change of) liver, not elsewhere classified Coding Level of Care Code Est Pt Level 4 (03539) Complex EM visit Add On G2211 Diagnoses Controlled type 2 diabetes mellitus without complication, without long-term current use of insulin E11.9 Diabetes mellitus type: type 2 Hyperlipidemia LDL goal <100 E78.5 Obesity (BMI 30-39.9) E66.9 Fatty liver K76.0
[2024-06-14 09:10] LABS: Glucose, Whole Blood 110 mg/dL (60-115)
--- OUTSIDE RECORDS SUMMARY | 2024-06-14 09:42 | XMS_ITS | Encounter Summary ---
Author Organization [employer] [facility] Address [address] [place] [address] [address] [address] Care Team Providers Care Home Office Claim Specialist Name Role Phone Unavailable Primary Care Provider Unavailabl e Reason for Visit * Reason Comments Med Refill Encounter Details Date Type Department Care Team (Late st Contact Info) Description 09/17/2023 Refill [facility] ADULT DENTAL [address] [place] [address] Kenny Oliveira, GILDA [address] [place] [address] Social History Tobacco Use Types Packs/Day Years [...]
--- OUTSIDE RECORDS SUMMARY | 2024-06-14 09:42 | XMS_ITS ---
Author Organization [facility] Address [address] [place] [phone] Care Team Providers Care Windows 7 Deployment Lead Name Role Phone Davion Sheth Primary Care Provider Unavailab Cira Gonzalez Unavailable [phone] Encounters Encounter Location Date Provider Diagnosis [facility] [address] [place] [phone] 06/02/2024 Cira Jenkins Plan Of Treatment Next Appt Details Provider Name:Cira Jenkins , 07/30/2024 11:30:00 AM, [address] [place] [address] , [place], [place], [phone], Progress Notes * CIRA MERAZ RDOB: (63 yo F)Acc No.[id number]:06/02/2024 Patient:?CIRA MERAZ :1960???Age:63 Y???Sex:Female Address:[address] [place] [phone] * true * Date:? Generated for Printi ng/Faching/eTransmitting on:?06/14/2024 09:42 AM EDT
--- OUTSIDE RECORDS SUMMARY | 2024-06-14 09:42 | XMS_ITS | Encounter Summary ---
Author Organization [employer] Address [address] [place] [address] [address] [place] [address] Care Team Providers Care Hay Chopper Name Role Phone Unavailable Primary Care Provider Unavailabl e Encounter Details Date Type Department Care Team (Late st Contact Info) Description 12/06/2022 Abstract [facility] ADULT DENTAL [address] [place] [address] GosiaDarren, DMD [address] [place] [address] Social History Tobacco Use Types Packs/Day Years [...]
--- OUTSIDE RECORDS SUMMARY | 2024-06-14 09:42 | XMS_ITS | Encounter Summary ---
Author Organization [employer] [facility] Address [address] [place] [address] [address] [place] [address] Care Team Providers Care Tube Tester Name Role Phone Unavailable Primary Care Provider [...]
--- OUTSIDE RECORDS SUMMARY | 2024-06-14 09:42 | XMS_ITS | Encounter Summary ---
Author Organization [employer] [facility] Address [address] [place] [address] [address] [place] [address] Care Team Providers Care And Taxi Instructor Bus Trolley Name Role Phone Unavailable Primary Care Provider Unavailabl e Reason for Visit * Reason Comments Med Refill Encounter Details Date Type Department Care Team (Late st Contact Info) Description 02/05/2023 Refill [facility] ADULT DENTAL [address] [place] [address] Kenny Oliveira DMD [address] [place] [address] Social History Tobacco Use Types Packs/Day Years [...]
--- OUTSIDE RECORDS SUMMARY | 2024-06-14 09:42 | XMS_ITS | Encounter Summary ---
Author Organization [employer] [facility] Address [address] [place] [address] [address] [address] Care Team Providers Care Records Officer Name Role Phone Unavailable Primary Care Provider Unavailabl e Reason for Visit * Reason Comments Med Refill Encounter Details Date Type Department Care Team (Late st Contact Info) Description 07/04/2023 Refill [facility] ADULT DENTAL [address] [place] [address] DanyMcclureElizabeth deutsch, DDS [address] [place] [address] Social History Tobacco Use Types Packs/Day Years [...]
--- OUTSIDE RECORDS SUMMARY | 2024-06-14 09:42 | XMS_ITS | Encounter Summary ---
Author Organization [employer] [facility] Address [address] [place] [address] [address] [address] Care Team Providers Care Production Potter Name Role Phone Unavailable Primary Care Provider Unavailabl e Reason for Visit * Reason Comments Med Refill Encounter Details Date Type Department Care Team (Late st Contact Info) Description 06/07/2023 Refill [facility] ADULT DENTAL [address] [place] [address] Kenny Oliveira, GILDA [address] [place] [address] Social History Tobacco Use Types Packs/Day Years [...]
--- OUTSIDE RECORDS SUMMARY | 2024-06-14 09:42 | XMS_ITS | Encounter Summary ---
Author Organization [employer] [facility] Address [address] [place] [address] [address] [address] Care Team Providers Care Wad Printing Machine Operator Name Role Phone Unavailable Primary Care Provider Unavailabl e Reason for Visit * Reason Comments Med Refill Encounter Details Date Type Department Care Team (Late st Contact Info) Description 04/05/2023 Refill [facility] ADULT DENTAL [address] [place] [address] Elizabeth Magana, DDS [address] [place] [address] Social History Tobacco Use Types Packs/Day Years [...]
--- OUTSIDE RECORDS SUMMARY | 2024-06-14 09:42 | XMS_ITS | Encounter Summary ---
Author Organization [employer] [facility] Address [address] [place] [address] [address] [place] [address] Care Team Providers Care Farm Service Adviser Name Role Phone Unavailable Primary Care Provider Unavailabl e Reason for Visit * Reason Comments Med Change Request Encounter Details Date Type Department Care Team (Late st Contact Info) Description 09/05/2022 Refill [facility] ADULT DENTAL [address] [place] [address] Kenny Oliveira DMD [address] [place] [address] Social History Tobacco Use Types Packs/Day Years [...]
--- OUTSIDE RECORDS SUMMARY | 2024-06-14 09:42 | XMS_ITS | Encounter Summary ---
Author Organization [employer] Address [address] [place] [address] [address] [place] [address] Care Team Providers Care Lacrosse Coach Name Role Phone Unavailable Primary Care Provider Unavailabl e Reason for Visit * Reason Onset Date Comments Appointment 05/10/2022 Encounter Details Date Type Department Care Team ([facility] st Contact Info) Description 05/10/2022 Telephone [facility] ADULT [facility]AL [address] [place] [address] Darren Elise, GILDA [address] [place] [address] Appointment Social History Tobacco Use Types Packs/Day [...]
--- OUTSIDE RECORDS SUMMARY | 2024-06-14 09:42 | XMS_ITS | Patient Health Record ---
Author Organization [facility] Address [address] [place] [phone] Care Team Providers Care Post Form Remover Name Role Phone Davion Shteh Primary Care Provider Unavailab Cira Gonzalez Unavailable [phone] Allergies No Known Allergies Reason For Referral [...] Problem Screening for malignant neoplasm of colon (338525822) Encounter for screening for malignant neoplasm of colon (Z12.11) Active confirmed Problem Preprocedural examination (491951384456590) Preprocedural examination (Z01.818) Active confirmed Problem Long-term current use of drug therapy (343152364) custodial (current) use of oral hypoglycemic drugs (Z79.84) Active confirmed Problem Diverticulosis of colon (716208819) Diverticulosis of colon (K57.30) Active confirmed Problem 541018627 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 Vital Signs Blood pressure diastolic 111 mm Hg 06/01/2024 Height 67 in 06/01/2024 Blood pressure systolic 111 mm Hg 06/01/2024 Weight 228 lbs 06/01/2024 BMI 35.71 kg/m2 06/01/2024 Procedures Procedure Date Ordered Date Performed Result Body Sit e COLONOSCOPY 06/01/2024 N/A Encounters Encounter Location Date Provider Diagnosis [facility] [address] [place] [phone] 06/01/2024 Cira Jenkins Encounter for screen ing for malignant neoplasm of colon Z12.11 ; 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 Calero Denies IA,CVA,Lung disease,renal disease Seasonal allergies Screening colonoscopy in [...]
--- OUTSIDE RECORDS SUMMARY | 2024-06-14 09:42 | XMS_ITS | Encounter Summary ---
Author Organization [employer] [facility] Address [address] [place] [address] [address] [place] [address] Care Team Providers Care Lead Ruby On Rails Developer Name Role Phone Unavailable Primary Care Provider Unavailabl e Reason for Visit * Reason Comments Med Refill Encounter Details Date Type Department Care Team (Late st Contact Info) Description 12/16/2022 Refill [facility] ADULT DENTAL [address] [place] [address] Kenny Oliveira DMD [address] [place] [address] Social History Tobacco Use Types Packs/Day Years [...]
--- OUTSIDE RECORDS SUMMARY | 2024-06-14 09:42 | XMS_ITS | Clinical Summary ---
Author Organization [employer] Address [address] [place] [address] [address] [address] Care Team Providers Care Neurology Nurse Name Role Phone Unavailable Primary Care Provider [...] topic Meningococcal Vaccine Aged Out No myke neivn eligible based on patient's age to complete [...] Relevant to Health Maintenance Insurance [facility]AL [facility]
--- OUTSIDE RECORDS SUMMARY | 2024-06-14 09:42 | XMS_ITS | Encounter Summary ---
Author Organization [employer] [facility] Address [address] [place] [address] [address] [address] Care Team Providers Care Optimization Analyst Name Role Phone Unavailable Primary Care Provider Unavailabl e Reason for Visit * Reason Comments Med Refill Encounter Details Date Type Department Care Team (Late st Contact Info) Description 08/24/2023 Refill [facility] ADULT DENTAL [address] [place] [address] Kenny Oliveira DMD [address] [place] [address] Social History Tobacco Use Types Packs/Day Years [...]
--- OUTSIDE RECORDS SUMMARY | 2024-06-14 09:42 | XMS_ITS | Encounter Summary ---
Author Organization [employer] [facility] Address [address] [place] [address] [address] [address] Care Team Providers Care Client Development Manager Name Role Phone Unavailable Primary Care Provider Unavailabl e Reason for Visit * Reason Comments Med Refill Encounter Details Date Type Department Care Team (Late st Contact Info) Description 07/30/2023 Refill [facility] ADULT DENTAL [address] [place] [address] Kenny Oliveira DMD [address] [place] [address] Social History Tobacco Use Types Packs/Day Years [...]
--- OUTSIDE RECORDS SUMMARY | 2024-06-14 09:42 | XMS_ITS | Encounter Summary ---
Author Organization [employer] [facility] Address [address] [place] [address] [address] [address] Care Team Providers Care Wine Cellar Stock Clerk Name Role Phone Unavailable Primary Care Provider Unavailabl e Encounter Details Date Type Department Care Team (Late st Contact Info) Description 03/04/2023 Abstract [facility] ADULT DENTAL [address] [place], [place] [phone] Kenny Oliveira, GILDA [address] [place], [place] [phone] Social History Tobacco Use Types Packs/Day Years [...]
--- OUTSIDE RECORDS SUMMARY | 2024-06-14 09:42 | XMS_ITS | Encounter Summary ---
Author Organization [employer] [facility] Address [address] [place] [address] [address] [address] Care Team Providers Care Director Of Labor And Delivery Name Role Phone Unavailable Primary Care Provider Unavailabl e Encounter Details Date Type Department Care Team (Late st Contact Info) Description 03/31/2023 Abstract [facility] ADULT DENTAL [address] [place], [place] [phone] Kenny Oliveira, GILDA [address] [place], [place] [phone] Social History Tobacco Use Types Packs/Day Years [...]
--- OUTSIDE RECORDS SUMMARY | 2024-06-14 09:42 | XMS_ITS | Encounter Summary ---
Author Organization [employer] [facility] Address [address] [place] [address] [address] [address] Care Team Providers Care Technical Services Analyst Name Role Phone Unavailable Primary Care Provider Unavailabl e Reason for Visit * Reason Comments Med Refill Encounter Details Date Type Department Care Team (Late st Contact Info) Description 01/10/2023 Refill [facility] ADULT DENTAL [address] [place] [address] Kenny Oliveira DMD [address] [place] [address] Social History Tobacco Use Types Packs/Day Years [...]
--- OUTSIDE RECORDS SUMMARY | 2024-06-14 09:42 | XMS_ITS | Encounter Summary ---
Author Organization [employer] [facility] Address [address] [place] [address] [address] [address] Care Team Providers Care Environmental Health Safety Engineer Name Role Phone Unavailable Primary Care Provider Unavailabl e Reason for Visit * Reason Comments Med Refill Encounter Details Date Type Department Care Team (Late st Contact Info) Description 11/20/2022 Refill [facility] ADULT DENTAL [address] [place] [address] Kenny Oliveira DMD [address] [place] [address] Social History Tobacco Use Types Packs/Day Years [...]
--- OUTSIDE RECORDS SUMMARY | 2024-06-14 09:42 | XMS_ITS | Encounter Summary ---
Author Organization [employer] Address [address] [place] [address] [address] [place] [address] Care Team Providers Care Beader Name Role Phone Unavailable Primary Care Provider Unavailabl e Reason for Visit * Reason Onset Date Comments appt insurance approval 12/02/2022 Encounter Details Date Type Department Care Team ([facility] st Contact Info) Description 12/02/2022 Telephone [facility] [address] [place] [address] Darren Elise, GILDA [address] [place] [address] appt insurance approval Social History Tobacco Use [...]
--- OUTSIDE RECORDS SUMMARY | 2024-06-14 09:42 | XMS_ITS ---
Author Organization [facility] Address [address] [place] [phone] Care Team Providers Care Fish Bait Processing Supervisor Name Role Phone Davion Sheth Primary Care Provider Unavailab Cira Gonzalez Unavailable [phone] Allergies No Known Allergies REASON FOR VISIT [...] N/A Encounters Encounter Location Date Provider Diagnosis [facility] [address] [place] [address] 06/01/2024 Cira Jenkins Encounter for screen ing for malignant neoplasm of colon Z12.11 ; retirement (current) use of oral hypoglycemic drugs Z79.84 [...] keep you advised of his progress. 06/01/2024 retirement (current) use of oral hypoglycemic drugs (ICD-10 [...] Provider Name:Cira Jenkins , 07/30/2024 11:30:00 AM, [address] [place] [address] , [place], [place], [phone], Progress Notes * CIRA MERAZ RDOB: (64 yo F)Acc No.[id number]:06/01/2024 Progress Notes Patient:?CIRA MERAZ Provider:?Cira Jenkins MD :1960???Age:63 Y???Sex:Female D ate:06/01/2024 Address:[address] [place] [phone] Pcp:Davion Sheth Subjective: * Chief Complaints: * [...] at age [address] 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 ??Counseling:?Care goal follow-up plan:?Above Normal BMI Follow-up?Giving encouragement to exercise,?BMI management provided?Yes.? * * The named appointment provid er may or may not be the originator of this progress note, and it is not deemed complete until electronically signed by the appointment provider. Sign off status: Pending * Provider:?Cira Jenkins MD Date:? 025 Generated for Brannon rodriguez/Megan/Fritzsmitting on:?06/14/2024 09:42 AM EDT
--- OUTSIDE RECORDS SUMMARY | 2024-06-14 09:42 | XMS_ITS | Encounter Summary ---
Author Organization [employer] [facility] Address [address] [place] [address] [address] [place] [address] Care Team Providers Care Emergency Medical Dispatcher Name Role Phone Unavailable Primary Care Provider Unavailabl e Reason for Visit * Reason Comments Med Refill Encounter Details Date Type Department Care Team (Late st Contact Info) Description 05/06/2023 Refill [facility] ADULT DENTAL [address] [place] [address] Kenny Oliveira DMD 230 [place] [address] Social History Tobacco Use Types Packs/Day Years [...]
--- OUTSIDE RECORDS SUMMARY | 2024-06-14 09:42 | XMS_ITS | Encounter Summary ---
Author Organization [employer] [facility] Address [address] [place] [address] [address] [place] [address] Care Team Providers Care Glass Wool Blanket Machine Feeder Name Role Phone Unavailable Primary Care Provider Unavailabl e Reason for Visit * Reason Comments Med Refill Encounter Details Date Type Department Care Team (Late st Contact Info) Description 03/04/2023 Refill [facility] ADULT DENTAL 230 [place] [address] Kenny Oliveira, DMD [address] [place] [address] Social History Tobacco Use Types Packs/Day Years [...]
--- OUTSIDE RECORDS SUMMARY | 2024-06-14 09:42 | XMS_ITS | Encounter Summary ---
Author Organization [employer] [facility] Address [address] [place] [address] [address] [address] Care Team Providers Care Bolt Header Name Role Phone Unavailable Primary Care Provider Unavailabl e Encounter Details Date Type Department Care Team (Late st Contact Info) Description 03/06/2023 Abstract [facility] ADULT DENTAL 230 [place], [place] [id number] Kenny Oliveira, GILDA 230 [place], [place] [phone] Social History Tobacco Use Types Packs/Day Years [...]
--- OUTSIDE RECORDS SUMMARY | 2024-06-14 09:42 | XMS_ITS | Encounter Summary ---
Author Organization [employer] [facility] Address [address] [place] [address] 7 [place] [address] Care Team Providers Care Painting Technician Name Role Phone Unavailable Primary Care Provider Unavailabl e Encounter Details Date Type Department Care Team (Latest Contact Info) Description 10/15/2021 Abstract [facility] CONVERSIONS Dental, Provider, DDS Social History [...]
--- OUTSIDE RECORDS SUMMARY | 2024-06-14 09:43 | XMS_ITS | Encounter Summary ---
Author Organization [employer] [facility] Address [address] [place] [address] [address] [address] Care Team Providers Care Pet Technologist Name Role Phone Unavailable Primary Care Provider Unavailabl e Reason for Visit * Reason Comments Med Refill Encounter Details Date Type Department Care Team (Late st Contact Info) Description 10/13/2023 Refill [facility] ADULT DENTAL 230 [place] [address] Elizabeth Magana, DDS 230 [place] [address] Social History Tobacco Use Types Packs/Day Years [...]
--- OUTSIDE RECORDS SUMMARY | 2024-06-14 09:43 | XMS_ITS | Encounter Summary ---
Author Organization [employer] [facility] Address [address] [place] [address] [address] [address] Care Team Providers Care Bin Piler Name Role Phone Unavailable Primary Care Provider Unavailabl e Reason for Visit * Reason Comments Med Refill Encounter Details Date Type Department Care Team (Late st Contact Info) Description 12/23/2023 Refill [facility] ADULT DENTAL 230 [place] [address] Kenny Oliveira DMD [address] [place] [address] Social History Tobacco Use Types Packs/Day Years [...]
--- OUTSIDE RECORDS SUMMARY | 2024-06-14 09:43 | XMS_ITS | Encounter Summary ---
Author Organization [employer] [facility] Address [address] [place] [address] 7[address] [place] [address] Care Team Providers Care Data Entry Clerk Name Role Phone Unavailable Primary Care Provider Unavailabl e Reason for Visit * Reason Comments Med Refill Encounter Details Date Type Department Care Team (Late st Contact Info) Description 12/02/2023 Refill [facility] ADULT DENTAL 230 [place] [address] Kenny Oliveira DMD 230 [place] [address] Social History Tobacco Use Types Packs/Day Years [...]
--- OUTSIDE RECORDS SUMMARY | 2024-06-14 09:43 | XMS_ITS | Encounter Summary ---
Author Organization [employer] [facility] Address [address] [place] [address] 7 [place] [address] Care Team Providers Care Welding Operator Name Role Phone Unavailable Primary Care Provider Unavailabl e Reason for Visit * Reason Comments Med Change Request Encounter Details Date Type Department Care Team (Late st Contact Info) Description 08/22/2022 Refill [facility] ADULT DENTAL 230 [place] [address] Kenny Oliveira DMD [address] [place] [address] Social History Tobacco Use Types Packs/Day Years [...]
== END 2024-06-14 09:28 | disposition home or self-care (01) ==
LOC: HO.ENCR 08:54
PROVIDERS: PCP Physician Assistant; Visit Provider Physician Assistant
DX: E11.9 Type 2 diabetes mellitus without complications (principal); E78.5 Hyperlipidemia, unspecified; E66.9 Obesity, unspecified; K76.0 Fatty (change of) liver, not elsewhere classified

== ENCOUNTER → 2024-06-14 08:53 | Outpatient (BNVA) | payer OTHER, SELFPAY | PROVIDERS: PCP Physician Assistant; Visit Provider Physician Assistant | DX: E11.9 Type 2 diabetes mellitus without complications (principal); E66.9 Obesity, unspecified; G47.33 Obstructive sleep apnea (adult) (pediatric); E78.5 Hyperlipidemia, unspecified; E03.9 Hypothyroidism, unspecified; K76.0 Fatty (change of) liver, not elsewhere classified; Z68.34 Body mass index [BMI] 34.0-34.9, adult; Z99.89 Dependence on other enabling machines and devices | CPT/HCPCS: 82947; 99212 ==

== ENCOUNTER 2024-07-26 08:09 | Outpatient (REF) | payer OTHER, SELFPAY ==
--- NOTE | ~2024-07-26 | US_ITS ---
EXAMINATION: US ABDOMEN COMPLETE WITH LIVER ELASTOGRAPHY HISTORY: E78.5 - Hyperlipidemia, unspecified TECHNIQUE: Real-time grayscale ultrasound imaging of the abdomen was performed and images were reviewed. COMPARISON: Correlation is made with an unenhanced CT of the abdomen dated 12/11/2020. FINDINGS: Liver: The right lobe of the liver measures 15.8 cm in size. The left lobe of the liver measures 11.1 cm in size. The liver demonstrates increased echotexture, consistent with steatosis. No focal mass or intrahepatic biliary ductal dilatation is identified. There is normal hepatopedal flow in the portal vein. Ultrasound elastography of the liver was performed with 10 separate measurements of the liver parenchyma with the patient in the supine position. Measurements were obtained approximately 2 cm below Mathew's capsule and perpendicular to the capsule. Images are of satisfactory quality. The median shear wave velocity is 1.37 m/s. The interquartile range/median (IQR/median) is 0.10. Gallbladder and biliary tree: The gallbladder is unremarkable, without evidence of calculi, wall thickening, or pericholecystic fluid. There is no sonographic Cazares sign. The common bile duct is normal in caliber measuring 5 mm. Kidneys: The right kidney measures 12.1 cm in length. The left kidney measures 12.2 cm in length. The kidneys are unremarkable, without evidence of masses, hydronephrosis, or calculi. Pancreas: Pancreas is obscured by bowel gas. Spleen: The spleen is normal in size and contour, measuring 11.4 cm in length. Abdominal aorta and inferior vena cava: The visualized portions of the abdominal aorta and inferior vena cava are normal in caliber. There is no free fluid in the abdomen. US/US abdomen comp w elastography IMPRESSION: Hepatic steatosis. The median shear wave velocity in the liver is 1.37 m/s, corresponding to a median liver stiffness of 5.78 kPa. The IQR/median value is 0.10. This is indicative of a quality data set. Findings are indicative of a low elastography value which rules out advanced chronic liver disease in asymptomatic patients. REFERENCE: Society of Radiologists in Ultrasound Liver Stiffness Thresholds (2020): LIVER STIFFNESS THRESHOLDS: *Shear wave velocity less than 1.3 m/s (Liver Stiffness equal or less than 5 kPa): High probability of being normal. *Shear wave velocity less than 1.7 m/s (Liver Stiffness less than 9 kPa): In the absence of other known clinical signs, rules out compensated advanced chronic liver disease. *Shear wave velocity between 1.7-2.1 m/s (Liver Stiffness 9-13 kPa): Suggestive of compensated advanced chronic liver disease but need further test for confirmation. *Shear wave velocity between 2.1-2.4 m/s (Liver Stiffness 13-17 kPa): Rules in compensated advanced chronic liver disease. *Shear wave velocity greater than 2.4 m/s (Liver Stiffness over 17 kPa): Suggestive of clinically significant portal hypertension. QUALITY OF DATA SET: *IQR/Median value equal or less than 0.15 implies a quality data set. *IQR/Median value over 0.15 implies a poor quality data set. SIGNIFICANT CHANGE FROM PRIOR EXAM: Significant change if liver stiffness measurement is 10% or greater from prior exam. OTHER CONSIDERATIONS: The stage of liver fibrosis may be overestimated in the setting of acute hepatitis, liver inflammation, elevated liver function tests, hepatic vascular congestion, obstructive cholestasis, non-fasting state, and infiltrative diseases such as amyloidosis and lymphoma. In some patients with NAFLD, the liver stiffness thresholds for compensated advanced chronic liver disease may be lower. In causes other than viral hepatitis and NAFLD, liver stiffness thresholds are not well established. Electronically signed by: Long Navas MD 07/26/2024 09:52 AM EDT
--- OUTSIDE RECORDS SUMMARY | 2024-07-26 08:12 | XMS_ITS | Patient Health Record ---
Author Organization [facility] Address [address] [place] [phone] Care Team Providers Care Classified Advertising Supervisor Name Role Phone Davion Sheth Primary Care Provider Unavailab Cira Gonzalez Unavailable [phone] Allergies No Known Allergies Reason For Referral [...] since 1990 Nonbsmoker; no alcohol since 1990 Nonsmoker; no alcohol since 1990 Problems Problem Type SNOMED Code ICD Code Onset Dates Problem Status W/U Status Risk Notes Problem Screening for malignant neoplasm of colon (038501903) Encounter for screening for malignant neoplasm of colon (Z12.11) Active confirmed Problem Preprocedural examination (326137243405151) Preprocedural examination (Z01.818) Active confirmed Problem Long-term current use of drug therapy (277848216) 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 (Z79.84) Active confirmed Problem Diverticulosis of colon (429937089) Diverticulosis of colon (K57.30) Active confirmed Problem [id number] 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 Vital Signs Blood pressure diastolic 111 mm Hg 06/01/2024 Height 67 in 06/01/2024 Blood pressure systolic 111 mm Hg 06/01/2024 Weight 228 lbs 06/01/2024 BMI 35.71 kg/m2 06/01/2024 Procedures Procedure Date Ordered Date Performed Result Body Sit e COLONOSCOPY 06/01/2024 N/A Encounters Encounter Location Date Provider Diagnosis [facility] [address] [place] [phone] 06/01/2024 Cira Jenkins prison (current) use of oral hypoglycemic drugs Z79.84 ; Preprocedural examination Z01.818 ; Encounter for screening for malignant neoplasm of colon Z12.11 and Tubulovillous adenoma of colon D12.6 [facility] [address] [place] [phone] 06/02/2024 Cira Jenkins Assessments Encounter Date Diagnosis (ICD Code) Assessment Notes Treatment Notes Treatment Clinical Notes Section Notes 06/01/2024 Preprocedural examination (ICD-10 - Z01.818) Overall, [...] keep you advised of his progress. 06/01/2024 prison (current) use of oral hypoglycemic drugs (ICD-10 [...] keep you advised of his progress. 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 Calero Denies [place],CVA,Lung disease,renal disease Seasonal allergies Screening colonoscopy in [...]
--- OUTSIDE RECORDS SUMMARY | 2024-07-26 08:12 | XMS_ITS | Encounter Summary ---
Author Organization [employer] [facility] Address [address] [place] [address] [address] [place] [address] Care Team Providers Care Academic Department Chair Name Role Phone Unavailable Primary Care Provider Unavailabl e Reason for Visit * Reason Comments Med Refill Encounter Details Date Type Department Care Team (Late st Contact Info) Description 07/30/2023 Refill [facility] ADULT DENTAL 230 [place] [address] Kenny Oliveira DMD 230 [place] [address] Social History Tobacco Use Types Packs/Day Years [...]
--- OUTSIDE RECORDS SUMMARY | 2024-07-26 08:12 | XMS_ITS | Encounter Summary ---
Author Organization [employer] [facility] Address [address] [place] [address] [address] [address] Care Team Providers Care Director Independent Name Role Phone Unavailable Primary Care Provider Unavailabl e Reason for Visit * Reason Comments Med Refill Encounter Details Date Type Department Care Team (Late st Contact Info) Description 06/07/2023 Refill [facility] ADULT DENTAL 230 [place] [address] Kenny Oliveira, GILDA 230 [place] [address] Social History Tobacco Use Types Packs/Day Years [...]
--- OUTSIDE RECORDS SUMMARY | 2024-07-26 08:12 | XMS_ITS | Encounter Summary ---
Author Organization [employer] [facility] Address [address] [facility] [address] [place] [address] Care Team Providers Care Principal Systems Architect Name Role Phone Unavailable Primary Care Provider Unavailabl e Reason for Visit * Reason Comments Med Refill Encounter Details Date Type Department Care Team (Late st Contact Info) Description 04/05/2023 Refill [facility] ADULT DENTAL 230 [place] [address] Mendoza-McclureIssaElizabeth, DDS 230 [place] [address] Social History Tobacco Use Types Packs/Day Years [...]
--- OUTSIDE RECORDS SUMMARY | 2024-07-26 08:12 | XMS_ITS | Encounter Summary ---
Author Organization [employer] Address [address] [facility] [address] [place] [address] Care Team Providers Care Android Framework Developer Name Role Phone Unavailable Primary Care Provider Unavailabl e Encounter Details Date Type Department Care Team (Late st Contact Info) Description 03/31/2023 Abstract [facility] ADULT DENTAL 230 [place] [address] Kenny Oliveira, GILDA 230 [place] [address] Social History Tobacco Use Types Packs/Day Years [...]
--- OUTSIDE RECORDS SUMMARY | 2024-07-26 08:12 | XMS_ITS | Encounter Summary ---
Author Organization [facility] Address [address] [facility] [address] [address] Care Team Providers Care Install And Repair Technician Name Role Phone Unavailable Primary Care Provider Unavailabl e Reason for Visit * Reason Comments Med Refill Encounter Details Date Type Department Care Team (Late st Contact Info) Description 07/04/2023 Refill [facility] ADULT DENTAL 230 [place] [address] Mendoza-McclureIssaElizabeth, DDS 230 [place] [address] Social History Tobacco Use Types Packs/Day Years [...]
--- OUTSIDE RECORDS SUMMARY | 2024-07-26 08:12 | XMS_ITS | Encounter Summary ---
Author Organization [employer] [facility] Address [address] [facility] [address] [address] Care Team Providers Care Machine Trimmer Name Role Phone Unavailable Primary Care Provider Unavailabl e Reason for Visit * Reason Comments Med Refill Encounter Details Date Type Department Care Team (Late st Contact Info) Description 05/06/2023 Refill [facility]ULT [facility] 230 [place] [address] Kenny Oliveira DMD [address] [place] [address] Social History Tobacco Use Types Packs/Day Years [...]
--- OUTSIDE RECORDS SUMMARY | 2024-07-26 08:13 | XMS_ITS | Encounter Summary ---
Author Organization [employer] [facility] Address [address] [place] [address] [address] [place] [address] Care Team Providers Care Supply Chain Associate Name Role Phone Unavailable Primary Care Provider Unavailabl e Reason for Visit * Reason Comments Med Refill Encounter Details Date Type Department Care Team (Late st Contact Info) Description 01/10/2023 Refill [facility] ADULT DENTAL 230 [place] [address] Kenny Oliveira DMD [address] [place] [address] Social History Tobacco Use Types Packs/Day Years [...]
--- OUTSIDE RECORDS SUMMARY | 2024-07-26 08:13 | XMS_ITS | Encounter Summary ---
Author Organization [employer] [facility] Address [address] [facility] [address] [address] Care Team Providers Care Goodyear Welter Name Role Phone Unavailable Primary Care Provider Unavailabl e Reason for Visit * Reason Comments Med Refill Encounter Details Date Type Department Care Team (Late st Contact Info) Description 02/05/2023 Refill [facility] ADULT DENTAL [address] [place] [address] Kenny Oliveira DMD [address] [place] [address] Social History Tobacco Use Types Packs/Day Years [...]
--- OUTSIDE RECORDS SUMMARY | 2024-07-26 08:13 | XMS_ITS | Encounter Summary ---
Author Organization [employer] Address [address] [place] [address] 7 [place] [address] Care Team Providers Care Drop Worker Name Role Phone Unavailable Primary Care Provider Unavailabl e Reason for Visit * Reason Onset Date Comments Appointment 05/10/2022 Encounter Details Date Type Department Care Team ([facility] st Contact Info) Description 05/10/2022 Telephone [facility] ADULT DENTAL [address] [place] [address] Darren Elise DDS [address] [place] [address] Appointment Social History Tobacco Use Types Packs/Day [...] 11:00 AM EST Appt scheduled on 05/06 chley Elise was cancelled due to provider not being in office. The patient is waiting for a call back to oskar BENITEZ documented in this encounter Plan of Treatment Not on file documented as of this encounter Visit Diagnoses Not on filedocumented in this encounter
--- OUTSIDE RECORDS SUMMARY | 2024-07-26 08:13 | XMS_ITS | Encounter Summary ---
Author Organization [employer] Address [address] [facility] 7t [place] [address] Care Team Providers Care Manager Of Security Name Role Phone Unavailable Primary Care Provider Unavailabl e Reason for Visit * Reason Onset Date Comments appt insurance approval 12/02/2022 Encounter Details Date Type Department Care Team (Late st Contact Info) Description 12/02/2022 Telephone [facility] ADULT DENTAL [address] [place] [address] Darren Elise DDS [address] [place] [address] appt insurance approval Social History Tobacco Use [...]
--- OUTSIDE RECORDS SUMMARY | 2024-07-26 08:13 | XMS_ITS | Encounter Summary ---
Author Organization [employer] Address [address] [facility] [address] [address] Care Team Providers Care Emergency Department Director Name Role Phone Unavailable Primary Care Provider Unavailabl e Encounter Details Date Type Department Care Team (Late st Contact Info) Description 03/04/2023 Abstract [facility] ADULT DENTAL [address] [place] [address] Kenny Oliveira, GILDA 230 [place] [address] Social History Tobacco Use Types Packs/Day Years [...]
--- OUTSIDE RECORDS SUMMARY | 2024-07-26 08:13 | XMS_ITS | Encounter Summary ---
Author Organization [employer] Address [address] [facility] [address] [address] Care Team Providers Care Round Boner Name Role Phone Unavailable Primary Care Provider Unavailabl e Encounter Details Date Type Department Care Team (Late st Contact Info) Description 03/06/2023 Abstract [facility] ADULT DENT[facility] 230 [place] [address] Kenny Oliveira, GILDA [address] [place] [address] Social History Tobacco Use Types Packs/Day Years [...]
--- OUTSIDE RECORDS SUMMARY | 2024-07-26 08:13 | XMS_ITS | Encounter Summary ---
Author Organization [employer] Address [address] [facility] [address] [address] Care Team Providers Care Dry Clipper Tender Name Role Phone Unavailable Primary Care Provider Unavailabl e Encounter Details Date Type Department Care Team (Late st Contact Info) Description 12/06/2022 Abstract [facility] ADULT DENTAL 505 [place] [address] Darren Elise, DDS 505 [place] [address] Social History Tobacco Use Types Packs/Day Years [...]
--- OUTSIDE RECORDS SUMMARY | 2024-07-26 08:13 | XMS_ITS ---
Author Organization [facility] Address [address] [place] [phone] Care Team Providers Care Litharge Mill Operator Name Role Phone Davion Sheth Primary Care Provider Unavailab Cira Gonzalez Unavailable [phone] Encounters Encounter Location Date Provider Diagnosis [facility] [address] [place] [phone] 06/02/2024 Cira Jenkins Plan Of Treatment Next Appt Details Provider Name:Cira Jenkins , 07/30/2024 11:30:00 AM, [address] [place] [address] , [place], [place], [phone], Progress Notes * CIRA MERAZ RDOB: (63 yo F)Acc No.[id number]:06/02/2024 Patient:?CIRA MERAZ :1960???Age:63 Y???Sex:Female Address:[address] [place] [phone] * true * Date:? Generated for Printi ng/Faching/eTransmitting on:?07/26/2024 08:13 AM EDT
--- OUTSIDE RECORDS SUMMARY | 2024-07-26 08:13 | XMS_ITS | Encounter Summary ---
Author Organization [employer] [facility] Address [address] [facility] 7t [place] [address] Care Team Providers Care Grants Director Name Role Phone Unavailable Primary Care Provider Unavailabl e Encounter Details Date Type Department Care Team (Latest Contact Info) Description 10/15/2021 Abstract [facility] CONVERSIONS Dental, Provider, DDS Social History [...]
--- OUTSIDE RECORDS SUMMARY | 2024-07-26 08:13 | XMS_ITS | Encounter Summary ---
Author Organization [employer] [facility] Address [address] [facility] 7t [place] [address] Care Team Providers Care Head Men'S Tennis Coach Name Role Phone Unavailable Primary Care Provider Unavailabl e Encounter Details Date Type Department Care Team (Latest Contact Info) Description 07/18/2020 Abstract [facility] CONVERSIONS Dental, Provider, DDS Social History Tobacco [...]
--- OUTSIDE RECORDS SUMMARY | 2024-07-26 08:13 | XMS_ITS | Encounter Summary ---
Author Organization [employer] [facility] Address [address] [place] [address] 7 [place] [address] Care Team Providers Care Sole Leveling Machine Operator Name Role Phone Unavailable Primary Care Provider Unavailabl e Reason for Visit * Reason Comments Med Change Request Encounter Details Date Type Department Care Team (Late st Contact Info) Description 09/05/2022 Refill [facility] ADULT DENTAL 230 [place] [address] Kenny Oliveira DMD [address] [place] [address] Social History Tobacco Use Types Packs/Day Years [...]
--- OUTSIDE RECORDS SUMMARY | 2024-07-26 08:13 | XMS_ITS | Encounter Summary ---
Author Organization [employer] [facility] Address [address] [facility] [address] [address] Care Team Providers Care Phone Representative Name Role Phone Unavailable Primary Care Provider Unavailabl e Reason for Visit * Reason Comments Med Refill Encounter Details Date Type Department Care Team (Late st Contact Info) Description 11/20/2022 Refill [facility] ADULT DENTAL 230 [place] [address] Kenny Oliveira DMD 230 [place] [address] Social History Tobacco Use Types Packs/Day Years [...]
--- OUTSIDE RECORDS SUMMARY | 2024-07-26 08:13 | XMS_ITS | Encounter Summary ---
Author Organization [employer] [facility] Address [address] [facility] [address] [address] Care Team Providers Care Director Of Special Education Name Role Phone Unavailable Primary Care Provider Unavailabl e Reason for Visit * Reason Comments Med Refill Encounter Details Date Type Department Care Team (Late st Contact Info) Description 12/16/2022 Refill [facility] ADULT DENTAL 230 [place] [address] Kenny Oliveira DMD [address] [place] [address] Social History Tobacco Use Types Packs/Day Years [...]
--- OUTSIDE RECORDS SUMMARY | 2024-07-26 08:13 | XMS_ITS | Encounter Summary ---
Author Organization [employer] [facility] Address [address] [place] [address] [address] [address] Care Team Providers Care Warp Tester Name Role Phone Unavailable Primary Care Provider Unavailabl e Reason for Visit * Reason Comments Med Refill Encounter Details Date Type Department Care Team (Late st Contact Info) Description 03/04/2023 Refill [facility] ADULT DENTAL [address] [place] [address] Kenny Oliveira, GILDA [address] [place] [address] Social History Tobacco Use Types Packs/Day Years [...]
--- OUTSIDE RECORDS SUMMARY | 2024-07-26 08:14 | XMS_ITS | Encounter Summary ---
Author Organization [employer] [facility] Address [address] [facility] [address] [place] [address] Care Team Providers Care Welder Production Line Gas Name Role Phone Unavailable Primary Care Provider Unavailabl e Reason for Visit * Reason Comments Med Refill Encounter Details Date Type Department Care Team (Late st Contact Info) Description 12/02/2023 Refill [facility] ADULT DENTAL 230 [place] [address] Kenny Oliveira DMD 230 [place] [address] Social History Tobacco Use Types Packs/Day Years [...]
--- OUTSIDE RECORDS SUMMARY | 2024-07-26 08:14 | XMS_ITS | Encounter Summary ---
Author Organization [employer] [facility] Address [address] [place] [address] [address] [address] Care Team Providers Care Community Theater Actor Name Role Phone Unavailable Primary Care Provider Unavailabl e Reason for Visit * Reason Comments Med Refill Encounter Details Date Type Department Care Team (Late st Contact Info) Description 09/17/2023 Refill [facility] ADULT DENTAL 230 [place] [address] Kenny Oliveira, GILDA [address] [place] [address] Social History Tobacco Use Types Packs/Day Years [...]
--- OUTSIDE RECORDS SUMMARY | 2024-07-26 08:14 | XMS_ITS | Encounter Summary ---
Author Organization [employer] [facility] Address [address] [place] [address] 7 [place] [address] Care Team Providers Care Category Manager Name Role Phone Unavailable Primary Care Provider Unavailabl e Reason for Visit * Reason Comments Med Change Request Encounter Details Date Type Department Care Team (Late st Contact Info) Description 08/22/2022 Refill [facility] ADULT DENTAL 230 [place] [address] Kenny Oliveira DMD [address] [place] [address] Social History Tobacco Use Types Packs/Day Years [...]
--- OUTSIDE RECORDS SUMMARY | 2024-07-26 08:14 | XMS_ITS ---
Author Organization [facility] Address [address] [place] [address] Care Team Providers Care Procedure Tech Name Role Phone Davion Sheth Primary Care Provider Unavailab Cira Gonzalez Unavailable [phone] Allergies No Known Allergies REASON FOR VISIT [...] No Points 0 Interpretation Negative Section Notes: Nonsmoker; no alcohol since 1990 Vital Signs Blood pressure systolic 111 mm Hg 06/02/19 25 Blood pressure diastolic 111 mm Hg 025 Height 67 in 06/01/2024 Weight 228 lbs 06/01/2024 BMI 35.71 kg/m2 06/01/2024 Procedures Procedure Date Ordered Date Performed Result Body Sit e COLONOSCOPY 06/01/2024 N/A Encounters Encounter Location Date Provider Diagnosis [facility] [address] [place] [address] 06/01/2024 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 ; Preprocedural examination Z01.818 ; Encounter for screening for malignant neoplasm of colon Z12.11 and Tubulovillous adenoma of colon D12.6 Assessments Encounter Date Diagnosis (ICD Code) Assessment Notes Treatment Notes Treatment Clinical Notes Section Notes 06/01/2024 retirement (current) use of oral hypoglycemic [...] Order Date COLONOSCOPY 06/01/2024 Next Appt Details Follow Up: prn, Reason: Provider Name:Cira Jenkins , 07/30/2024 11:30:00 AM, [address] [place] [address] , [place], [place], [phone], Progress Notes * CIRA MERAZ RDOB: (64 yo F)Acc No.[id number]:06/01/2024 Progress Notes Patient:?CIRA MERAZ Provider:?Cira Jenkins MD :1960???Age:63 Y???Sex:Female D ate:06/01/2024 Address:[address] [place], [place] [phone] Pcp:Davion Sheth Subjective: * Chief Complaints: * ???Patient presents today fo r a screening colonoscopy * HPI: ???incontinence:? I saw Cira in [...] CBC in March of this year. * ROS:?General/Constitutional:?Change in appetite?denies.?Chills?denies.?Fatigue?denies.?Ophthalmologic:?Comments?all negative.?ENT:?Comments?all negative.?Respiratory:?hemoptysis?denies.?Cough?denies.?Cardiovascular:?Chest pain?denies.?Orthopnea?denies.?Gastrointestinal:?Comments?See HPI for details.?Genitourinary:?Hematuria?denies.?Dysuria?denies.?Musculoskeletal:?Painful joints?denies.?Weakness?denies.?Skin:?Itching?denies.?Rash?denies.?Neurologic:?Headache?denies.?Seizures?denies.?Psychiatric:?Comments?all negative.? * Medical History:? * Surgical History:?Umbilical hernia surgery x 4--three of them with Dr. Ferguson, most recently as of 02/2020 Umbilical hernia surgery - Dr. Sheikh 01/23/2021 * Hospitalization/Major Diagno stic Procedure:?No Hospitalization History. * Family History:?Father: dece ased, diagnosed with HTN (hypertension).?Mother: .? Denies family hx of colon cancer, colon polyps or liver disease Mother of pancreatic cancer. * Social History:?Tobacco Use:?Tobacco Use/Smoking?Patient is a?former smoker,?When did you stop smoking??1991,?How long has it been since you last smoked??> 10 years.?Drugs/Alcohol:?Alcohol Screen?Did you have a drink containing alcohol in the past year??No,?Points?0,?Interpretation?Negative.?Miscellaneous:?Marital status: Single. Occupation: Unemployed. ???Nonsmoker; no alcohol since 1990. * Medications:?TakingAtorvasta tin Calcium 20 MG Tablet 1 tablet Orally Once a day Latanoprost 0.005 % Solution INSTILL 1 DROP IN BOTH EYES AT BEDTIME Ophthalmic metFORMIN HCl ER 750 MG Tablet Extended Release 24 Hour 1 tablet with evening meal Orally bid Brimonidine Tartrate 0.2 % Solution INSTILL 1 DROP IN BOTH EYES TWICE DAILY 12 HOURS APART Ophthalmic Vitamin B 12 Vitamin B Complex Co Q 10 Multi Vitamin , Notes to Pharmacist: for diabeticsTylenol Trulicity 3 MG/0.5ML Solution Auto-injector ADMINISTER 3 MG UNDER THE SKIN EVERY WEEK Subcutaneous Taking Atorvastatin Calcium 20 MG Tablet 1 tablet Orally Once a day Taking Latanoprost 0.005 % Solution INSTILL 1 DROP IN BOTH EYES AT BEDTIME Ophthalmic Taking metFORMIN HCl ER 750 MG Tablet Extended Release 24 Hour 1 tablet with evening meal Orally bid Taking Brimonidine Tartrate 0.2 % Solution INSTILL 1 DROP IN BOTH EYES TWICE DAILY 12 HOURS APART Ophthalmic Taking Vitamin B 12 Taking Vitamin B Complex Taking Co Q 10 Taking Multi Vitamin , Notes to Pharmacist: for diabeticsTaking Tylenol Taking Trulicity 3 MG/0.5ML Solution Auto-injector ADMINISTER 3 MG UNDER THE SKIN EVERY WEEK Subcutaneous * Allergies:?N.K.D.A.yes[Aller gies Verified] Objective: * Vitals:?Wt: 228 lbs, Ht: 67 in, BMI:35.71Index, BP: 111/111 mm Hg, Wt-k.42. * Examination: ???General Examination: ?GENERAL APPEARANCE:?pleasant, well nourished, well developed, in no acute distress.?EYES:?sclera non-icteric.?ORAL CAVITY:?mucosa moist.?NECK/THYROID:?no cervical lymphadenopathy, neck supple.?SKIN:?nonjaundiced, no spider angiomata.?HEART:?S1, S2 normal.?LUNGS:?clear to auscultation bilaterally.?ABDOMEN:?normal bowel sounds, no guarding or rigidity, no guarding or rigidity, no masses palpable, soft, nontender, nondistended.?EXTREMITIES:?no edema.?NEUROLOGIC:?alert and oriented.? 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 Overall, Cira [...] for 07/30/24 at 11:30 ammiralax * Procedure Codes:?56482 DIAGN OSTIC [id number] RCMND FLW-UP 10 YRS [id number] COLORECTAL CA SCREEN DOC [id number] TOBACCO [id number] BP SCR NOT PRFRM REC REASON NOS * Preventive Medicine:? ??Counseling:?Care goal follow-up plan:?Above Normal BMI Follow-up?Giving encouragement to exercise,?BMI management provided?Yes.? * Follow Up:?prn * * Sign off status: Completed true * Provider:?Cira Jenkins MD Date:? 025 Generated for Brannon rodriguez/Megan/Quentin on:?07/26/2024 08:13 AM EDT History and Physical Notes * Examination Category Sub-Category Detail Notes Category Not es General Examination GENERAL APPEARANCE: pleasant , well nourished, well developed, in no acute distress HEAD: EYES: sclera non-icteric EARS: NOSE: THROAT: NECK/THYROID: no cervical lymphade nopathy, neck supple HEART: S1, S2 normal CHEST: LUNGS: clear to auscultatio n bilaterally ABDOMEN: normal bowel sounds, no guarding or rigidity, no guarding or rigidity, no masses palpable, soft, nontender, nondistended NEUROLOGIC: alert and oriented SKIN: nonjaundiced, no spi maria de jesus angiomata EXTREMITIES: no edema PERIPHERAL PULSES: BACK: BREASTS: MUSCULOSKELETAL: MALE GENITOURINARY: LYMPH NODES: RECTAL EXAM: FEMALE GENITOURINARY: ORAL CAVITY: mucosa moist
--- OUTSIDE RECORDS SUMMARY | 2024-07-26 08:14 | XMS_ITS | Encounter Summary ---
Author Organization [facility] Address [address] [facility] [address] [place] [address] Care Team Providers Care Ice Cream Vendor Name Role Phone Unavailable Primary Care Provider Unavailabl e Reason for Visit * Reason Comments Med Refill Encounter Details Date Type Department Care Team (Late st Contact Info) Description 10/13/2023 Refill [facility] [address] [place] [address] Mendoza-McclureIssaElizabeth, DDS [address] [place] [address] Social History Tobacco Use Types Packs/Day Years [...]
--- OUTSIDE RECORDS SUMMARY | 2024-07-26 08:14 | XMS_ITS | Encounter Summary ---
Author Organization [facility] Address [address] [place] [address] [address] [place] [address] Care Team Providers Care Flame Cutting Machine Operator Name Role Phone Unavailable Primary Care Provider Unavailabl e Reason for Visit * Reason Comments Med Refill Encounter Details Date Type Department Care Team (Late st Contact Info) Description 08/24/2023 Refill [facility] [address] [place] [address] Kenny Oliveira DMD [address] [place] [address] Social History Tobacco Use Types Packs/Day Years [...]
--- OUTSIDE RECORDS SUMMARY | 2024-07-26 08:14 | XMS_ITS | Clinical Summary ---
Author Organization [employer] Address [address] [facility] [address] [place] [address] Care Team Providers Care Ride Assembly Supervisor Name Role Phone Unavailable Primary Care [...] Date Diagnosed Date Dental calculus 06/28/2022 Immunizations Immunization Administration Dates Next Due Influenza, IIV3, injectable [...] Dental Prophylaxis 07/12/2023 01/10/2023, 06/28/2022 COVID-19 Vaccine (2023- season) 2023 12/05/2022, 12/18/2021, 06/21/2021, Additional history [...] patient's age to complete this topic Meningococcal B Vaccine Aged Out No l onger eligible based on patient's age to complete [...] Recently Relevant to Health Maintenance Insurance DENTAL [facility]
--- OUTSIDE RECORDS SUMMARY | 2024-07-26 08:14 | XMS_ITS | Encounter Summary ---
Author Organization [facility] Address [address] [facility] [address] [place] [address] Care Team Providers Care Mold Inspector Name Role Phone Unavailable Primary Care Provider Unavailabl e Reason for Visit * Reason Comments Med Refill Encounter Details Date Type Department Care Team (Late st Contact Info) Description 12/23/2023 Refill [facility] [address] [place] [address] Kenny Oliveira DMD [address] [place] [address] Social History Tobacco Use Types Packs/Day Years [...]
== END 2024-07-26 08:10 | disposition home or self-care (01) ==
LOC: HO.US 08:09
PROVIDERS: PCP Physician Assistant; Visit Provider Physician Assistant
DX: E78.5 Hyperlipidemia, unspecified (principal); E11.9 Type 2 diabetes mellitus without complications; K76.0 Fatty (change of) liver, not elsewhere classified
CPT/HCPCS: 76700; 76981

== ENCOUNTER → 2024-07-26 08:13 | Outpatient (BNV) | payer OTHER, SELFPAY | PROVIDERS: PCP Physician Assistant; Visit Provider Radiology Diagnostic Radiology | DX: K76.0 Fatty (change of) liver, not elsewhere classified (principal) | CPT/HCPCS: 76700; 76981 ==

== ENCOUNTER 2024-07-30 09:38 | Day surgery (SDC) | payer OTHER, SELFPAY ==
--- OUTSIDE RECORDS SUMMARY | 2024-06-11 07:43 | XMS_ITS | Encounter Summary ---
Author Organization [employer] [facility] Address [address] [place] [address] 7 [place] [address] Care Team Providers Care Well Flow Operator Name Role Phone Unavailable Primary Care Provider Unavailabl e Reason for Visit * Reason Comments Med Refill Encounter Details Date Type Department Care Team (Late st Contact Info) Description 05/06/2023 Refill [facility] ADULT DENTAL [address] [place] [address] Kenny Oliveira DMD [address] [place] [address] Social History Tobacco Use Types Packs/Day Years [...]
--- OUTSIDE RECORDS SUMMARY | 2024-06-11 07:43 | XMS_ITS | Encounter Summary ---
Author Organization [employer] [facility] Address [address] [place] [address] 7 [place] [address] Care Team Providers Care Date Night Caregiver Name Role Phone Unavailable Primary Care Provider Unavailabl e Reason for Visit * Reason Comments Med Refill Encounter Details Date Type Department Care Team (Late st Contact Info) Description 06/07/2023 Refill [facility] ADULT DENTAL [address] [place] [address] Kenny Oliveira, GILDA 230 [place] [address] Social History Tobacco Use Types Packs/Day Years [...]
--- OUTSIDE RECORDS SUMMARY | 2024-06-11 07:43 | XMS_ITS | Encounter Summary ---
Author Organization [employer] [facility] Address [address] [place] [address] [address] [place] [address] Care Team Providers Care Developer Designer Name Role Phone Unavailable Primary Care Provider Unavailabl e Reason for Visit * Reason Comments Med Refill Encounter Details Date Type Department Care Team (Late st Contact Info) Description 07/30/2023 Refill [facility] ADULT DENTAL 230 [place] [address] Kenny Oliveira DMD 230 [place] [address] Social History Tobacco Use Types Packs/Day Years [...]
--- OUTSIDE RECORDS SUMMARY | 2024-06-11 07:43 | XMS_ITS | Encounter Summary ---
Author Organization [employer] [facility] Address [address] [place] [address] 7 [place] [address] Care Team Providers Care Appliquer Zigzag Name Role Phone Unavailable Primary Care Provider Unavailabl e Reason for Visit * Reason Comments Med Refill Encounter Details Date Type Department Care Team (Late st Contact Info) Description 07/04/2023 Refill [facility] ADULT DENTAL 230 [place] [address] DanyMcclureElizabeth deutsch, DDS 230 [place] [address] Social History Tobacco Use Types Packs/Day Years [...]
--- OUTSIDE RECORDS SUMMARY | 2024-06-11 07:44 | XMS_ITS | Encounter Summary ---
Author Organization [employer] [facility] Address [address] [place] [address] [address] [place] [address] Care Team Providers Care Dry Cleaning Supervisor Name Role Phone Unavailable Primary Care Provider Unavailabl e Reason for Visit * Reason Comments Med Refill Encounter Details Date Type Department Care Team (Late st Contact Info) Description 12/02/2023 Refill [facility] ADULT DENTAL 230 [place] [address] Kenny Oliveira DMD [address] [place] [address] Social History Tobacco Use Types Packs/Day Years [...]
--- OUTSIDE RECORDS SUMMARY | 2024-06-11 07:44 | XMS_ITS | Encounter Summary ---
Author Organization [employer] Address [address] [place] [address] 7 [place] [address] Care Team Providers Care Athletics Teacher Name Role Phone Unavailable Primary Care Provider Unavailabl e Reason for Visit * Reason Onset Date Comments appt insurance approval 12/02/2022 Encounter Details Date Type Department Care Team ([facility] st Contact Info) Description 12/02/2022 Telephone [facility] [address] [place] [address] Darren Elise, GILDA 505 [place] [address] appt insurance approval Social History Tobacco Use [...]
--- OUTSIDE RECORDS SUMMARY | 2024-06-11 07:44 | XMS_ITS | Encounter Summary ---
Author Organization [employer] [facility] Address [address] [place] [address] 7 [place] [address] Care Team Providers Care Diesel Engine Pipe Fitter Name Role Phone Unavailable Primary Care Provider Unavailabl e Encounter Details Date Type Department Care Team (Late st Contact Info) Description 03/04/2023 Abstract [facility] ADULT DENTAL 230 [place], [place] [phone] Kenny Oliveira, GILDA 230 [place], [place] [phone] Social History Tobacco Use Types Packs/Day Years [...]
--- OUTSIDE RECORDS SUMMARY | 2024-06-11 07:44 | XMS_ITS | Encounter Summary ---
Author Organization [employer] [facility] Address [address] [place] [address] [address] [place] [address] Care Team Providers Care Skidder Lever Operator Name Role Phone Unavailable Primary Care Provider Unavailabl e Reason for Visit * Reason Comments Med Refill Encounter Details Date Type Department Care Team (Late st Contact Info) Description 12/23/2023 Refill [facility] ADULT DENTAL 230 [place] [address] Kenny Oliveira DMD [address] [place] [address] Social History Tobacco Use Types Packs/Day Years [...]
--- OUTSIDE RECORDS SUMMARY | 2024-06-11 07:44 | XMS_ITS | Encounter Summary ---
Author Organization [employer] Address [address] [place] [address] 7 [place] [address] Care Team Providers Care Cylinder Press Operator Name Role Phone Unavailable Primary Care Provider Unavailabl e Encounter Details Date Type Department Care Team (Late st Contact Info) Description 12/06/2022 Abstract [facility] ADULT DENTAL [address] [place] [address] GosiaDarren, DMD [address] [place] [address] Social History Tobacco Use Types Packs/Day Years [...]
--- OUTSIDE RECORDS SUMMARY | 2024-06-11 07:44 | XMS_ITS | Encounter Summary ---
Author Organization [employer] [facility] Address [address] [place] [address] [address] [place] [address] Care Team Providers Care Automation Application Engineer Name Role Phone Unavailable Primary Care Provider Unavailabl e Reason for Visit * Reason Comments Med Refill Encounter Details Date Type Department Care Team (Late st Contact Info) Description 04/05/2023 Refill [facility] ADULT DENTAL [address] [place] [address] Elizabeth Magana, DDS [address] [place] [address] Social History Tobacco Use Types Packs/Day Years [...]
--- OUTSIDE RECORDS SUMMARY | 2024-06-11 07:44 | XMS_ITS | Encounter Summary ---
Author Organization [employer] Address [address] [place] [address] Care Team Providers Care Licensed Loan Officer Name Role Phone Unavailable Primary Care Provider Unavailabl e Reason for Visit * Reason Onset Date Comments Appointment 05/10/2022 Encounter Details Date Type Department Care Team ([facility] st Contact Info) Description 05/10/2022 Telephone [facility] [address] [place] [address] Darren Elise, GILDA [address] [place] [address] Appointment Social History Tobacco Use Types Packs/Day [...]
--- OUTSIDE RECORDS SUMMARY | 2024-06-11 07:44 | XMS_ITS | Encounter Summary ---
Author Organization [employer] [facility] Address [address] [place] [address] [address] [place] [address] Care Team Providers Care Account Specialist Name Role Phone Unavailable Primary Care Provider Unavailabl e Reason for Visit * Reason Comments Med Refill Encounter Details Date Type Department Care Team (Late st Contact Info) Description 08/24/2023 Refill [facility] ADULT DENTAL 230 [place] [address] Kenny Oliveira DMD 230 [place] [address] Social History Tobacco Use Types Packs/Day Years [...]
--- OUTSIDE RECORDS SUMMARY | 2024-06-11 07:44 | XMS_ITS | Encounter Summary ---
Author Organization [employer] [facility] Address [address] [place] [address] 7 [place] [address] Care Team Providers Care Plastics Spreading Machine Operator Name Role Phone Unavailable Primary Care Provider Unavailabl e Reason for Visit * Reason Comments Med Refill Encounter Details Date Type Department Care Team (Late st Contact Info) Description 09/17/2023 Refill [facility] ADULT DENTAL [address] [place] [address] Kenny Oliveira, GILDA 230 [place] [address] Social History Tobacco Use Types Packs/Day Years [...]
--- OUTSIDE RECORDS SUMMARY | 2024-06-11 07:44 | XMS_ITS | Encounter Summary ---
Author Organization [employer] [facility] Address [address] [place] [address] [address] [place] [address] Care Team Providers Care Tutoring Manager Name Role Phone Unavailable Primary Care Provider Unavailabl e Reason for Visit * Reason Comments Med Refill Encounter Details Date Type Department Care Team (Late st Contact Info) Description 12/16/2022 Refill [facility] ADULT DENTAL [address] [place] [address] Kenny Oliveira DMD [address] [place] [address] Social History Tobacco Use Types Packs/Day Years [...]
--- OUTSIDE RECORDS SUMMARY | 2024-06-11 07:44 | XMS_ITS | Encounter Summary ---
Author Organization [employer] [facility] Address [address] [place] [address] 7 [place] [address] Care Team Providers Care Seo Assistant Name Role Phone Unavailable Primary Care Provider Unavailabl e Encounter Details Date Type Department Care Team (Late st Contact Info) Description 03/31/2023 Abstract [facility] ADULT DENTAL 230 [place], [place] [phone] Kenny Oliveira, GILDA [address] [place], [place] [phone] Social History Tobacco Use Types Packs/Day Years [...]
--- OUTSIDE RECORDS SUMMARY | 2024-06-11 07:44 | XMS_ITS ---
Author Organization [facility] Address [address] [place] [phone] Care Team Providers Care Printing Press Machine Operator Name Role Phone Davion Sheth Primary Care Provider Unavailab Cira Gonzalez Unavailable [phone] Encounters Encounter Location Date Provider Diagnosis [facility] [address] [place] [phone] 06/02/2024 Cira Jenkins Plan Of Treatment Next Appt Details Provider Name:Cira Jenkins , 07/30/2024 11:30:00 AM, [address] [place] [address] , [place], [place], [phone], Progress Notes * CIRA MERAZ RDOB: (63 yo F)Acc No.[id number]:06/02/2024 Patient:?CIRA MERAZ :1960???Age:63 Y???Sex:Female Address:[address] [place] [phone] * true * Date:? Generated for Printi ng/Faching/eTransmitting on:?06/11/2024 07:43 AM EDT
--- OUTSIDE RECORDS SUMMARY | 2024-06-11 07:44 | XMS_ITS | Encounter Summary ---
Author Organization [employer] [facility] Address [address] [place] [address] [address] [place] [address] Care Team Providers Care Systems Management Consultant Name Role Phone Unavailable Primary Care Provider Unavailabl e Reason for Visit * Reason Comments Med Refill Encounter Details Date Type Department Care Team (Late st Contact Info) Description 01/10/2023 Refill [facility] ADULT DENTAL [address] [place] [address] Kenny Oliveira DMD [address] [place] [address] Social History Tobacco Use Types Packs/Day Years [...]
--- OUTSIDE RECORDS SUMMARY | 2024-06-11 07:44 | XMS_ITS | Encounter Summary ---
Author Organization [employer] [facility] Address [address] [place] [address] 7 [place] [address] Care Team Providers Care Gold Marker Name Role Phone Unavailable Primary Care Provider Unavailabl e Reason for Visit * Reason Comments Med Refill Encounter Details Date Type Department Care Team (Late st Contact Info) Description 02/05/2023 Refill [facility] ADULT DENTAL [address] [place] [address] Kenny Oliveira DMD [address] [place] [address] Social History Tobacco Use Types Packs/Day Years [...]
--- OUTSIDE RECORDS SUMMARY | 2024-06-11 07:44 | XMS_ITS | Encounter Summary ---
Author Organization [employer] [facility] Address [address] [place] [address] 7 [place] [address] Care Team Providers Care International Manager Name Role Phone Unavailable Primary Care Provider Unavailabl e Encounter Details Date Type Department Care Team (Latest Contact Info) Description 07/18/2020 Abstract [facility] CONVERSIONS Dental, Provider, DDS Social History Tobacco [...]
--- OUTSIDE RECORDS SUMMARY | 2024-06-11 07:44 | XMS_ITS | Encounter Summary ---
Author Organization [employer] [facility] Address [address] [place] [address] 7 [place] [address] Care Team Providers Care Bomb Technician Name Role Phone Unavailable Primary Care Provider Unavailabl e Encounter Details Date Type Department Care Team (Latest Contact Info) Description 10/15/2021 Abstract [facility] CONVERSIONS Dental, Provider, DDS Social History Tobacco [...]
--- OUTSIDE RECORDS SUMMARY | 2024-06-11 07:44 | XMS_ITS | Encounter Summary ---
Author Organization [employer] [facility] Address [address] [place] [address] 7 [place] [address] Care Team Providers Care Clinical Molecular Geneticist Name Role Phone Unavailable Primary Care Provider Unavailabl e Reason for Visit * Reason Comments Med Refill Encounter Details Date Type Department Care Team (Late st Contact Info) Description 03/04/2023 Refill [facility] ADULT DENTAL [address] [place] [address] Kenny Oliveira, DMD [address] [place] [address] Social History Tobacco Use Types Packs/Day Years [...]
--- OUTSIDE RECORDS SUMMARY | 2024-06-11 07:44 | XMS_ITS | Encounter Summary ---
Author Organization [employer] [facility] Address [address] [place] [address] [address] [place] [address] Care Team Providers Care Extracting Machine Operator Name Role Phone Unavailable Primary Care Provider Unavailabl e Reason for Visit * Reason Comments Med Refill Encounter Details Date Type Department Care Team (Late st Contact Info) Description 11/20/2022 Refill [facility] ADULT DENTAL [address] [place] [address] Kenny Oliveira DMD [address] [place] [address] Social History Tobacco Use Types Packs/Day Years [...]
--- OUTSIDE RECORDS SUMMARY | 2024-06-11 07:44 | XMS_ITS | Patient Health Record ---
Author Organization [facility] Address [address] [place] [phone] Care Team Providers Care Rubber Worker Name Role Phone Davion Sheth Primary Care Provider Unavailab Cira Gonzalez Unavailable [phone] Allergies No Known Allergies Reason For Referral No Information Medications Medication SIG (Take, Route, Frequency, Duration) Notes Start Date End Date Status Atorvastatin Calcium 20 MG 1 tablet Orally Once a day Active Latanoprost 0.005 % INSTILL 1 DROP IN KAEL TH EYES AT BEDTIME Ophthalmic for 50 Active metFORMIN HCl ER 750 MG 1 tablet with evening meal Orally bid Active Brimonidine Tartrate 0.2 % INSTILL 1 DROP IN BOTH EYES TWICE DAILY 12 HOURS APART Ophthalmic for 30 Active Vitamin B 12 Active Vitamin B Complex Ac tive Co Q 10 Active Multi Vitamin for diabetics Ac tive Tylenol Active Trulicity 3 MG/0.5ML ADMINISTER 3 MG UND ER THE SKIN EVERY WEEK Subcutaneous for 28 Days Active Immunizations Vaccine Route Administration Date Status Comme nts Influenza Unknown 11/24/2019 Administered Influenza Unknown 11/08/2020 Administered Social History Tobacco Use: Social History Observation Description Date Details (start date - stop date) Former Smoker NA - NA Tobacco Use/Smoking Question Answer Notes Patient is a former smoker When did you stop smoking? 1991 How long has it been since you last smoked? > 10 years Alcohol Screen Question Answer Notes Did you have a drink containing alcohol in the p ast year? No Points 0 Interpretation Negative Section Notes: Nonbsmoker; no alcohol since 1990 Nonbsmoker; no alcohol since 1990 Nonbsmoker; no alcohol since 1990 Problems Problem Type SNOMED Code ICD Code Onset Dates Problem Status W/U Status Risk Notes Problem Screening for malignant neoplasm of colon (739711745) Encounter for screening for malignant neoplasm of colon (Z12.11) Active confirmed Problem Preprocedural examination (617117435158907) Preprocedural examination (Z01.818) Active confirmed Problem Long-term current use of drug therapy (136166368) group home (current) use of oral hypoglycemic drugs (Z79.84) Active confirmed Problem Diverticulosis of colon (638410413) Diverticulosis of colon (K57.30) Active confirmed Problem 233693807 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 Vital Signs Blood pressure diastolic 111 mm Hg 06/01/2024 Height 67 in 06/01/2024 Blood pressure systolic 111 mm Hg 06/01/2024 Weight 228 lbs 06/01/2024 BMI 35.71 kg/m2 06/01/2024 Procedures Procedure Date Ordered Date Performed Result Body Sit e COLONOSCOPY 06/01/2024 N/A Encounters Encounter Location Date Provider Diagnosis [facility] [address] [place] [phone] 06/01/2024 Cira Jenkins Encounter for screen ing for malignant neoplasm of colon Z12.11 ; terminal operator (current) use of oral hypoglycemic drugs Z79.84 ; Preprocedural examination Z01.818 and Tubulovillous adenoma of colon D12.6 [facility] [address] [place] [phone] 06/02/2024 Cira Jenkins Assessments Encounter Date Diagnosis (ICD Code) Assessment Notes Treatment Notes Treatment Clinical Notes Section Notes 06/01/2024 Encounter for screening for malignant neoplasm of colon (ICD-10 - Z12.11) Overall, Cira appears well. He is not having any new nor worrisome GI complaints at this time. Given the previous history of a sizable villous adenoma removed from the cecum, his age, his good clinical appearance, and his last colonoscopy being just about 3 years ago, I did recommend a follow-up colonoscopy for further screening purposes. We did review the rationale for this in regard to colon cancer prevention. Full consent has been obtained for this, including risks of bleeding and perforation. The procedure will be done with monitored anesthesia care. He was given the below instructions regarding adjustment of his medications for the procedure. Cira was comfortable with this plan. Thank you again for allowing me to participate in Cira's care. I shall continue to keep you advised of his progress. 06/01/2024 group home (current) use of oral hypoglycemic drugs (ICD-10 - Z79.84) Overall, Cira appears well. He is not having any new nor worrisome GI complaints at this time. Given the previous history of a sizable villous adenoma removed from the cecum, his age, his good clinical appearance, and his last colonoscopy being just about 3 years ago, I did recommend a follow-up colonoscopy for further screening purposes. We did review the rationale for this in regard to colon cancer prevention. Full consent has been obtained for this, including risks of bleeding and perforation. The procedure will be done with monitored anesthesia care. He was given the below instructions regarding adjustment of his medications for the procedure. Cira was comfortable with this plan. Thank you again for allowing me to participate in Cira's care. I shall continue to keep you advised of his progress. 06/01/2024 Preprocedural examination (ICD-10 - Z01.818) Overall, Cira appears well. He is not having any new nor worrisome GI complaints at this time. Given the previous history of a sizable villous adenoma removed from the cecum, his age, his good clinical appearance, and his last colonoscopy being just about 3 years ago, I did recommend a follow-up colonoscopy for further screening purposes. We did review the rationale for this in regard to colon cancer prevention. Full consent has been obtained for this, including risks of bleeding and perforation. The procedure will be done with monitored anesthesia care. He was given the below instructions regarding adjustment of his medications for the procedure. Cira was comfortable with this plan. Thank you again for allowing me to participate in Cira's care. I shall continue to keep you advised of his progress. 06/01/2024 Tubulovillous adenoma of colon (ICD-10 - D12.6) Overall, Cira appears well. He is not having any new nor worrisome GI complaints at this time. Given the previous history of a sizable villous adenoma removed from the cecum, his age, his good clinical appearance, and his last colonoscopy being just about 3 years ago, I did recommend a follow-up colonoscopy for further screening purposes. We did review the rationale for this in regard to colon cancer prevention. Full consent has been obtained for this, including risks of bleeding and perforation. The procedure will be done with monitored anesthesia care. He was given the below instructions regarding adjustment of his medications for the procedure. Cira was comfortable with this plan. Thank you again for allowing me to participate in Cira's care. I shall continue to keep you advised of his progress. Plan Of Treatment Pending Test Test Name Order Date COLONOSCOPY 06/01/2024 Pathology 07/06/2021 Future Test Test Name Order Date COLONOSCOPY 04/27/2020 COLONOSCOPY 05/29/2021 Next Appt Details Provider Name:Cira Jenkins , 07/30/2024 11:30:00 AM, [address] [place] [address] , [place], [place], [phone], Insurance Providers Payer Name Payer Address Payer Phone Subscriber Number Group Number Insured Name Patient Relationship to Insured Coverage Start Date Coverage End Date [facility] [address] Attn Claims JOHN Atkinson [id number] CIRA MERAZ Self - patient is the insured Medical (General) History Medical History History ICD Code Legally blind Hyperlipidemia Glaucoma 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 Calero Denies [place],CVA,Lung disease,renal disease Seasonal allergies Screening colonoscopy in Jun with an approximately 1.5 cm relatively flat tubulovillous adenoma removed from the cecum, as well as a smaller tubular adenoma removed from the colon. Colonoscopy in June 2021 re vealed scarring in the cecum at the site of the previous polypectomy with biopsies negative for any type of villous or adenomatous tissue. A small tubular adenoma was removed from the ascending colon. Surgical History Surgery Date(Month/Year) Umbilical hernia surgery - Dr. Sheikh 01/08 Umbilical hernia surgery x 4 --three of them with Dr. Ferguson, most recently as of 02/2020
--- OUTSIDE RECORDS SUMMARY | 2024-06-11 07:44 | XMS_ITS | Encounter Summary ---
Author Organization [employer] [facility] Address [address] [place] [address] [address] [place] [address] Care Team Providers Care Partition Assembler Name Role Phone Unavailable Primary Care Provider Unavailabl e Reason for Visit * Reason Comments Med Change Request Encounter Details Date Type Department Care Team (Late st Contact Info) Description 08/22/[address] [facility] [address] [place] [address] Kenny Oliveira DMD [address] [place] [address] Social History Tobacco Use Types Packs/Day Years [...]
--- OUTSIDE RECORDS SUMMARY | 2024-06-11 07:44 | XMS_ITS | Clinical Summary ---
Author Organization [employer] Address [address] [place] [address] [address] [place] [address] Care Team Providers Care Upholsterer Assembly Line Name Role Phone Unavailable Primary Care Provider [...] Zoster Vaccines (2 of 2) 01/02/2020 11/07/2019 Pneumococcal Vaccine: 50+ Years (2 of 2 - PCV) 09/07/2021 09/07/2020 Dental Prophylaxis 07/12/2023 01/10/2023, 06/28/2022 COVID-19 Vaccine ( season) 2023 12/05/2022, 12/18/2021, 06/21/2021, Additional history exists Influenza Vaccine (#1) 2023 3, 01/09/2022, 12/12/2020, Additional history exists Dental X-Ray: Bitewings 01/12/2024 01/10/2023 Tobacco Screening 05/02/2024 05/02/2023 Dental X-Ray: Full Mouth 01/11/2026 01/10/2023 DTaP/Tdap/Td Vaccines (2 - Td or Tdap) 09/07/2030 09/07/2020 RSV Patients and Patients Aged 60 years or older (1 - 1-dose 75+ series) 06/04/2035 HIB Vaccines Aged Out No longer eligi [...] ADULT Routine 01/10/2023 1 0:00 AM EDT INTRAORAL - COMPLETE SERIES OF RADIOGRAPHIC IMAGES Routine 01/10/2023 10:00 AM EDT from Last 3 Months or Most Recently Relevant to Health Maintenance [facility]
--- OUTSIDE RECORDS SUMMARY | 2024-06-11 07:44 | XMS_ITS | Encounter Summary ---
Author Organization [employer] [facility] Address [address] [place] [address] [address] [place] [address] Care Team Providers Care Bean Viner Name Role Phone Unavailable Primary Care Provider Unavailabl e Reason for Visit * Reason Comments Med Refill Encounter Details Date Type Department Care Team (Late st Contact Info) Description 10/13/2023 Refill [facility] [address] [place] [address] Elizabeth Magana, DDS [address] [place] [address] Social History Tobacco Use Types Packs/Day Years [...]
--- OUTSIDE RECORDS SUMMARY | 2024-06-11 07:44 | XMS_ITS ---
Author Organization [facility] Address [address] [place] [phone] Care Team Providers Care Accounting Tutor Name Role Phone Davion Sheth Primary Care Provider Unavailab Cira Gonzalez Unavailable [phone] Allergies No Known Allergies REASON FOR VISIT Patient presents today for a screening colonoscopy Medications Medication SIG (Take, Route, Frequency, Duration) Notes Start Date End Date Status Atorvastatin Calcium 20 MG 1 tablet Orally Once a day Active Latanoprost 0.005 % INSTILL 1 DROP IN KAEL TH EYES AT BEDTIME Ophthalmic for 50 Active Multi Vitamin for diabetics Ac tive Tylenol Active Trulicity 3 MG/0.5ML ADMINISTER 3 MG UND ER THE SKIN EVERY WEEK Subcutaneous for 28 Days Active metFORMIN HCl ER 750 MG 1 tablet with evening meal Orally bid Active Brimonidine Tartrate 0.2 % INSTILL 1 DROP IN BOTH EYES TWICE DAILY 12 HOURS APART Ophthalmic for 30 Active Vitamin B 12 Active Vitamin B Complex Ac tive Co Q 10 Active Social History Tobacco Use: Social History Observation [...] Section Notes: Nonbsmoker; no alcohol since 1990 Vital Signs Blood pressure systolic 111 mm Hg 06/02/19 25 Blood pressure diastolic 111 mm Hg 025 Height 67 in 06/01/2024 Weight 228 lbs 06/01/2024 BMI 35.71 kg/m2 06/01/2024 Procedures Procedure Date Ordered Date Performed Result Body Sit e COLONOSCOPY 06/01/2024 N/A Encounters Encounter Location Date Provider Diagnosis [facility] [address] [place] [address] 06/01/2024 Cira Jenkins Encounter for screen ing for malignant neoplasm of colon Z12.11 ; half-way (current) use of oral hypoglycemic drugs Z79.84 ; Preprocedural examination Z01.818 and Tubulovillous adenoma of colon D12.6 Assessments Encounter Date Diagnosis (ICD Code) Assessment [...] keep you advised of his progress. 06/01/2024 half-way (current) use of oral hypoglycemic drugs (ICD-10 [...] Test Test Name Order Date COLONOSCOPY 06/01/2024 Next Appt Details Provider Name:Cira Jenkins , 07/30/2024 11:30:00 AM, [address] [place] [address] , [place], [place], [phone], Progress Notes * CIRA MERAZ RDOB: (64 yo F)Acc No.[id number]:06/01/2024 Progress Notes Patient:?CIRA MERAZ Provider:?Cira Jenkins MD :1960???Age:63 Y???Sex:Female D ate:06/01/2024 Address:[address] [place] [id number] Pcp:Davion Sheth Subjective: * Chief Complaints: * ???1. Patient presents today for a screening colonoscopy. * HPI: ???incontinence:? I saw Cira in the office today for evaluation of his personal history of colon polyps and need for colorectal cancer screening. I last saw Cira in June 2021, at which time he underwent a follow-up colonoscopy in regard to an exam a year earlier in which a large tubulovillous adenoma was removed from the cecum. His follow-up colonoscopy in June 2021 revealed only some scarring in the cecum with biopsies from that area negative for any type of adenomatous or villous adenomatous tissue. He did have a small tubular adenoma removed from the ascending colon at that time. He presently feels well. He enjoys a good appetite, without any significant heartburn or dysphagia. His bowel movements have been regular and without any signs of bleeding. He denies abdominal pain, jaundice, nor unintentional weight loss. He denies any known family history of colorectal cancer. He did have a negative fecal occult blood test in January 2024 and had a normal CBC in March of this year. 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 Calero, Denies MD,CVA,Lung disease,renal disease, Seasonal allergies, Screening colonoscopy in June 2020 with an approximately 1.5 cm relatively flat tubulovillous adenoma removed from the cecum, as well as a smaller tubular adenoma removed from the colon., Colonoscopy in June 2021 revealed scarring in the cecum at the site of the previous polypectomy with biopsies negative for any type of villous or adenomatous tissue. A small tubular adenoma was removed from the ascending colon.. * Surgical History:?Umbilical hernia surgery x 4--three of them with Dr. Ferguson, most recently as of 02/2020 , Umbilical hernia surgery - Dr. Sheikh 01/23/2021. * Family History:?Father: dece ased, diagnosed with HTN (hypertension).?Mother: .? Denies family hx of colon cancer, colon polyps or liver disease Mother of pancreatic cancer. * Social History:?Tobacco Use:?Tobacco Use/Smoking?Patient is a?former smoker,?When did you stop smoking??1991,?How long has it been since you last smoked??> 10 years.?Drugs/Alcohol:?Alcohol Screen?Did you have a drink containing alcohol in the past year??No,?Points?0,?Interpretation?Negative.?Miscellaneous:?Marital status: Single. Occupation: Unemployed. ???Nonbsmoker; no alcohol since 1990. * Medications:?Taking Atorvast atin Calcium 20 MG Tablet 1 tablet Orally Once a day , Taking Latanoprost 0.005 % Solution INSTILL 1 DROP IN BOTH EYES AT BEDTIME Ophthalmic , Taking metFORMIN HCl ER 750 MG Tablet Extended Release 24 Hour 1 tablet with evening meal Orally bid , Taking Brimonidine Tartrate 0.2 % Solution INSTILL 1 DROP IN BOTH EYES TWICE DAILY 12 HOURS APART Ophthalmic , Taking Vitamin B 12 , Taking Vitamin B Complex , Taking Co Q 10 , Taking Multi Vitamin , Notes to Pharmacist: for diabetics, Taking Tylenol , Taking Trulicity 3 MG/0.5ML Solution Auto-injector ADMINISTER 3 MG UNDER THE SKIN EVERY WEEK Subcutaneous * Allergies:?N.K.D.A. Objective: * Vitals:?Wt: 228 lbs, Ht: 67 in, BMI:35.71Index, BP: 111/111 mm Hg, Wt-k.42. 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 Overall, Cira appears well . He is not having any new nor [...] to keep you advised of his progress. Plan: * Treatment: 2.?Tubulovillous adenoma of colon?Procedure: COLONOSCOPY* With MAC.DO NOT TAKE THE ARMINDA LICITY FOR AT LEAST 7 DAYS BEFORE THE COLONOSCOPY.DO NOT THE THE METFORMIN THE NIGHT BEFORE NOR ON THE MORNING OF THE COLONOSCOPY.STOP THE FISH OIL FOR 1 WEEK BEFORE THE COLONOSCOPY.sched for 07/30/24 at 11:30 ammiralax * Procedure Codes:?03930 DIAGN OSTIC COLONOSCOPY * Preventive Medicine:? ??Counseling:?Care goal follow-up plan:?Above Normal BMI Follow-up?Giving encouragement to exercise,?BMI management provided?Yes.? * * The named appointment provid er may or may not be the originator of this progress note, and it is not deemed complete until electronically signed by the appointment provider. Sign off status: Pending * Provider:?Cira Jenkins MD Date:? 025 Generated for Brannon rodriguez/Megan/Firtzsmitting on:?06/11/2024 07:43 AM EDT
--- OUTSIDE RECORDS SUMMARY | 2024-06-11 07:44 | XMS_ITS | Encounter Summary ---
Author Organization [employer] [facility] Address [address] [place] [address] [address] [place] [address] Care Team Providers Care Web Press Operator Apprentice Name Role Phone Unavailable Primary Care Provider Unavailabl e Encounter Details Date Type Department Care Team (Late st Contact Info) Description 03/06/[address] [facility] [address] [place], [place] [phone] Kenny Oliveira, GILDA [address] [place], [place] [phone] Social History Tobacco Use Types Packs/Day Years [...]
--- OUTSIDE RECORDS SUMMARY | 2024-06-11 07:44 | XMS_ITS | Encounter Summary ---
Author Organization [employer] [facility] Address [address] [place] [address] [address] [place] [address] Care Team Providers Care Marketing Operations Manager Name Role Phone Unavailable Primary Care Provider Unavailabl e Reason for Visit * Reason Comments Med Change Request Encounter Details Date Type Department Care Team (Late st Contact Info) Description 09/05/2022 Refill [facility] [address] [place] [address] Kenny Oliveira DMD [address] [place] [address] Social History Tobacco Use Types Packs/Day Years [...]
[2024-07-28 16:24] VITALS: BMI 35.7
--- NOTE | 2024-07-29 10:02 | P.CONAN_ITS ---
Documented by User: Laurita Trammell NP 07/29/24 10:03 HPI - Anesthesia Eval Consult details Narrative: 64yo M for Colonoscopy Anesthesia Pre-Procedure Meds Is the patient on any of the following meds?: GLP1/DPP4 PMFSH Active Problems Active Problems: All Active Problems Fatty liver (Acute) YOLY on CPAP (Acute) Osteoarthritis of right patellofemoral joint (Acute) Osteoarthritis of left patellofemoral joint (Acute) Bladder instability (Acute) Hypothyroid (Acute) Tinea pedis (Acute) H/O: hypothyroidism (Acute) History of umbilical hernia repair (Acute) Annual physical exam (Acute) Family history of pancreatic cancer (Acute) Low libido (Acute) Paresthesia of lower extremity (Acute) Exposure to COVID-19 virus (Acute) BPPV (benign paroxysmal positional vertigo) (Acute) Recurrent ventral hernia (Acute) Recurrent umbilical hernia (Acute) Controlled diabetes mellitus without complication, without long-term current use of insulin (Acute) Hyperlipidemia LDL goal <100 (Acute) Obesity due to excess calories (Acute) Obesity (BMI 30-39.9) (Acute) History of umbilical hernia (Acute) High BMI (Acute) YOLY (obstructive sleep apnea) (Acute) Blindness (Acute) Glaucoma (Acute) Past Medical History Medical History YOLY on CPAP Recurrent ventral hernia Seasonal allergies Recurrent umbilical hernia Controlled diabetes mellitus without complication, without long-term current use of insulin Hyperlipidemia LDL goal <100 Obesity (BMI 30-39.9) Obesity due to excess calories History of umbilical hernia High BMI YOLY (obstructive sleep apnea) Blindness Glaucoma Family History Family History Father History of bone cancer History of diabetes mellitus Mother History of pancreatic cancer Paternal Grandmother History of diabetes mellitus Paternal Uncle History of diabetes mellitus Paternal Aunt History of diabetes mellitus Family history of problems with anesthesia: No Surgical History Surgical History History of local excision of skin lesion History of colonoscopy (~2009) History of umbilical hernia repair History of Problems with Anesthesia: No Social History Social History Household Members: None Housing: House Are you a primary respiratory care specialist to a significant other at home: No Do you presently have visiting nurse or other home services: No Alcohol intake: former Year quit: 1990 Comment: walking stick Patient Tobacco Use Status: Former Tobacco user Tobacco use type: Cigarette Years Smoked: quit 30 years ago e-Cigarette/Vaping Use: Never Used Second Hand Smoke Exposure: No Use of substances other than those prescribed or required for medical reasons: No Have you been hit, kicked, punched, or otherwise hurt by someone within the past year? 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 Hearing needs: No Vision needs: Yes Meds Allergies Allergy/AdvReac Type Severity Reaction Status Date / Time pollen extracts Allergy Intermediate Watery Verified 07/30/24 10:18 eyes, sneezing pine sap Allergy Intermediate Watery Uncoded 07/30/24 10:18 eyes, sneezing Home Medications ?Medication ?Instructions ?Recorded ?Confirmed ?Last Taken ?Type brimonidine 0.2 % eye drops 1 drp ophthalmic (eye) Q8H 12/23/19 07/30/24 06/14/20 07:00 History latanoprost 0.005 % eye drops 1 drp ophthalmic (eye) DAILY 12/23/19 07/30/24 02/15/20 History vitamin B complex 1 cap PO DAILY 06/08/20 07/30/24 Unknown History CoQ-10 07/29/24 Unknown History multivitamin 1 tab PO DAILY 07/29/24 07/30/24 Unknown History Fish Oil 07/30/24 07/22/24 History Exam Height,Weight and Vital Signs: Height 5 ft 7 in Weight 103.419 kg Assessment and Plan Assessment Anesthesia Assessment: Chart Reviewed Final Anesthetic Review Family History of Problems with Anesthesia: No History of Problems with Anesthesia: No Documented by User: Deborah Longoria MD 07/30/24 11:34 [facility] Past Medical History Medical History YOLY on CPAP Recurrent ventral hernia Seasonal allergies Recurrent umbilical hernia Controlled diabetes mellitus without complication, without long-term current use of insulin Hyperlipidemia LDL goal <100 Obesity (BMI 30-39.9) Obesity due to excess calories History of umbilical hernia High BMI YOLY (obstructive sleep apnea) Blindness Glaucoma Family History Family History Father History of bone cancer History of diabetes mellitus Mother History of pancreatic cancer Paternal Grandmother History of diabetes mellitus Paternal Uncle History of diabetes mellitus Paternal Aunt History of diabetes mellitus Surgical History Surgical History History of local excision of skin lesion History of colonoscopy (~2009) History of umbilical hernia repair Social History Social History Household Members: None Housing: House Are you a primary respiratory care specialist to a significant other at home: No Do you presently have visiting nurse or other home services: No Alcohol intake: former Year quit: 1990 Comment: walking stick Patient Tobacco Use Status: Former Tobacco user Tobacco use type: Cigarette Years Smoked: quit 30 years ago e-Cigarette/Vaping Use: Never Used Second Hand Smoke Exposure: No Use of substances other than those prescribed or required for medical reasons: No Have you been hit, kicked, punched, or otherwise hurt by someone within the past year? 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 Hearing needs: No Vision needs: Yes Meds Allergies Allergy/AdvReac Type Severity Reaction Status Date / Time pollen extracts Allergy Intermediate Watery Verified 07/30/24 10:18 eyes, sneezing pine sap Allergy Intermediate Watery Uncoded 07/30/24 10:18 eyes, sneezing Home Medications ?Medication ?Instructions ?Recorded ?Confirmed ?Last Taken ?Type brimonidine 0.2 % eye drops 1 drp ophthalmic (eye) Q8H 12/23/19 07/30/24 06/14/20 07:00 History latanoprost 0.005 % eye drops 1 drp ophthalmic (eye) DAILY 12/23/19 07/30/24 02/15/20 History vitamin B complex 1 cap PO DAILY 06/08/20 07/30/24 Unknown History CoQ-10 07/29/24 Unknown History multivitamin 1 tab PO DAILY 07/29/24 07/30/24 Unknown History Fish Oil 07/30/24 07/22/24 History Exam Airway Mallampati Class: III TM Dist: <=3cm Neck ROM: Limited Heart: rrr Lungs: cta Assessment and Plan Assessment Anesthesia Assessment: Anesthesia Plan Discussed Final Anesthetic Review NPO: Yes ASA Class: III Final Preanesthetic Review: No Changes in Pt Med Stat, Meds/Allgs Chart Reviewed, Consent Obtained/Reviewed and Anes Risks/Benef Reviewed Patient Risk: Intermediate Procedure Risk: Low Anesthetic Plan Anesthetic Plan: MAC: Disposition: Standard PACU
[2024-07-30 10:18] VITALS: BMI 34.6
[2024-07-30 10:27] VITALS: BP 136/70; PULSE 60; RESP 16; TEMP 36.4; O2SAT 96
[2024-07-30 10:31] LABS: Glucose, Whole Blood 133 mg/dL (60-115)
[2024-07-30] MEDS: Lactated Ringers 1,000 ML 100 ML IVCONT (10:35)
[2024-07-30 12:36] VITALS: BP 108/59; PULSE 58; RESP 12; TEMP 36.9; O2SAT 98
--- NOTE | 2024-07-30 12:36 | P.BOP_ITS ---
Brief Operative Note Date of Service: 07/30/24 Pre-op diagnosis: Screening Post-op diagnosis: other (Colon polyp) Procedure: Colonoscopy to the cecum with cold snare polypectomy Surgeon: Long Jenkins MD Anesthesia: MAC Was an Radiology Special Procedure Tech used for this Procedure?: No Estimated blood loss (mL): 2.0 Pathology: other (A. Transverse colon polyp) Condition: stable Disposition: PACU
[2024-07-30 12:49] VITALS: BP 120/83; PULSE 57; RESP 16; TEMP 36.9; O2SAT 98
--- NOTE | 2024-07-30 23:21 | OP_ITS ---
DATE OF SERVICE: 07/30/2024 SURGEON: Long Jenkins MD INDICATIONS: The patient presents for evaluation of colorectal cancer screening and personal history of tubular adenomas of the colon Full consent was obtained from him for this, including risks of bleeding and perforation. PREOPERATIVE DIAGNOSIS: POSTOPERATIVE DIAGNOSIS: PROCEDURE PERFORMED: Colonoscopy to the cecum with cold snare polypectomy x 1. ESTIMATED BLOOD LOSS: COMPLICATIONS: ANESTHESIA: Medication used, monitored anesthesia care. ASSISTANTS: SPECIMENS: PREOPERATIVE DIAGNOSES: Colorectal cancer screening and personal history of colon polyps. POSTOPERATIVE DIAGNOSES: Colorectal cancer screening and personal history of colon polyps, colon polyp, diverticulosis, and internal hemorrhoids. DESCRIPTION OF PROCEDURE: The patient was placed in the left lateral decubitus position. The digital rectal exam revealed no abnormalities. The Olympus video pediatric colonoscope was entered into the rectum and advanced easily to the cecum. Once in the cecum, after a lot of irrigation and suctioning, I was able to achieve a good visualization of the cecum including the appendiceal orifice. I did not visualize any sign of polyp nor inflammation. There was transillumination of light deep in the right lower quadrant. The ileocecal valve appeared normal. The scope was then slowly withdrawn assessing all mucosal surfaces carefully. Preparation in various parts of the colon had some residual liquid and some stool, which had to be irrigated and suctioned away as best as possible. The ascending colon had a small polyp which was removed by cold snare polypectomy and recovered by suction. The polypectomy site appeared clean, without any sign of residual polyp nor significant bleeding. I did not visualize any other polyps, colitis, nor angiodysplasia. There was a mild amount of sigmoid diverticulosis. In the rectum, scope was retroflexed visualizing internal hemorrhoids, but no other pathology. The rectal mucosa appeared normal. The scope was straightened and withdrawn from the patient. He tolerated the procedure well and was returned to the recovery area in stable condition. IMPRESSION: 1. Colon polyp. 2. Diverticulosis 3. Internal hemorrhoids. PLAN: The results of the pathology will be checked. I would recommend a repeat colonoscopy in 3 years given his history of polyps and the somewhat limited prep today. I would recommend a 2-day prep for his next colonoscopy. He will otherwise see me on a p.r.n. basis. He was advised not to use any aspirin nor NSAIDs for 1 week. MD KELVIN Mondragon/ABRIL / [id number] EMEKA
== END 2024-07-30 13:15 | disposition home or self-care (01) ==
PROVIDERS: PCP Physician Assistant; Visit Provider Internal Medicine
PROC: 0DJD8ZZ Inspection of Lower Intestinal Tract, Via Natural or Artificial Opening Endoscopic (ICD-10-PCS; CPT 45378; principal; 2024-07-30 11:30)
DX: Z12.11 Encounter for screening for malignant neoplasm of colon (principal); Z86.0101 Personal history of adenomatous and serrated colon polyps; D12.3 Benign neoplasm of transverse colon; K57.30 Diverticulosis of large intestine without perforation or abscess without bleeding; K64.8 Other hemorrhoids; E78.5 Hyperlipidemia, unspecified; E11.9 Type 2 diabetes mellitus without complications; H47.22 Hereditary optic atrophy; Z80.0 Family history of malignant neoplasm of digestive organs; H40.9 Unspecified glaucoma; H54.8 Legal blindness, as defined in USA; J30.2 Other seasonal allergic rhinitis; G47.33 Obstructive sleep apnea (adult) (pediatric); Z79.84 Long term (current) use of oral hypoglycemic drugs; Z79.85 Long-term (current) use of injectable non-insulin antidiabetic drugs; Z79.899 Other long term (current) drug therapy; Z99.89 Dependence on other enabling machines and devices; Z98.890 Other specified postprocedural states; Z87.891 Personal history of nicotine dependence
CPT/HCPCS: 45385; 82947; 88305; J2003; J2704

== ENCOUNTER 2024-08-23 08:12 | Outpatient (REF) | payer OTHER, SELFPAY ==
--- OUTSIDE RECORDS SUMMARY | 2024-08-23 08:22 | XMS_ITS | Encounter Summary ---
Author Organization [employer] [facility] Address [address] [place] [address] [address] [address] Care Team Providers Care Salsa Dance Instructor Name Role Phone Unavailable Primary Care Provider Unavailabl e Reason for Visit * Reason Comments Med Refill Encounter Details Date Type Department Care Team (Late st Contact Info) Description 07/04/2023 Refill [facility] ADULT DENTAL [address] [place] [address] Mendoza-McclureIssaElizabeth, DDS [address] [place] [address] Social History Tobacco Use Types Packs/Day Years [...]
[2024-08-23 10:04] LABS: Hematocrit 43.8 % (42.0-52.0); Hemoglobin 14.5 g/dl (14.0-18.0); Mean Corpuscular HGB Conc 33.1 g/dl (31.0-36.0); Mean Corpuscular Hemoglobin 30.7 pg (27.0-33.0); Mean Corpuscular Volume 92.6 fL (80.0-98.0); Platelet Count 217 X10*3/uL (160-400); Red Blood Count 4.73 X10*6/uL (4.60-5.80); Red Cell Distribution Width 12.5 % (11.0-16.0); White Blood Count 8.2 X10*3/uL (4.8-10.8)
[2024-08-23 10:27] LABS: Alanine Aminotransferase 24 U/L (0-40); Albumin Level 4.3 g/dL (3.5-5.0); Alkaline Phosphatase 44 U/L (39-117); Anion Gap 11 (12-20); Aspartate Amino Transferase 27 U/L (5-37); Blood Urea Nitrogen 18 mg/dL (9-16); Calcium 9.2 mg/dL (8.4-10.2); Carbon Dioxide 27 mmol/L (22-29); Chloride 105 mmol/L (96-108); Cholesterol 116 mg/dL (<200); Estimated Glomerular Filt Rate > 60; Glucose Fasting 128 mg/dL (60-99); HDL Cholesterol 29 mg/dL (>40); LDL Cholesterol Calculated 66 mg/dL (<100); Potassium 4.4 mmol/L (3.3-5.1); Sodium 139 mmol/L (135-145); Total Protein 6.6 g/dL (6.5-8.0); Triglycerides 106 mg/dL (<150)
[2024-08-23 10:45] LABS: TSH reflex Free T4 2.11 uIU/mL (0.32-4.0)
== END 2024-08-23 08:13 | disposition home or self-care (01) ==
LOC: HO.10HDL 08:12
PROVIDERS: Visit Provider Physician Assistant
DX: E78.5 Hyperlipidemia, unspecified (principal); E11.9 Type 2 diabetes mellitus without complications; E03.9 Hypothyroidism, unspecified
CPT/HCPCS: 36415; 80053; 80061; 84443; 85027

== ENCOUNTER 2024-09-20 08:22 | Outpatient (AMB) | payer OTHER, SELFPAY ==
--- OUTSIDE RECORDS SUMMARY | 2024-09-20 08:26 | XMS_ITS | Patient Health Record ---
Author Organization [facility] Address [address] [place] [address] Care Team Providers Care Advanced Practice Nurse Name Role Phone Davion Sheth Primary Care Provider UnavailCira Evans Unavailable [phone] Allergies No Known Allergies Results Component Value Reference Range Notes Glucose, Whole Blood Reviewed date:07/30/2024 06:24:58 PM Interpretation: Performing Lab:[facility], [address] [place] [phone] Notes/Report: Glucose, Whole Blood 133 60-115 mg/dL METER # : [id number] Pathology (Not yet reviewed by provider) Interpretation: Performing Lab:[facility], [address] [place] [phone] Notes/Report: Reason For Referral No Information Medications Medication [...] Problem Screening for malignant neoplasm of colon (599385499) Encounter for screening for malignant neoplasm of colon (Z12.11) Active confirmed Problem Preprocedural examination (916906297333602) Preprocedural examination (Z01.818) Active confirmed Problem Long-term current use of drug therapy (049230672) 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 (Z79.84) Active confirmed Problem Diverticulosis of colon (922664091) Diverticulosis of colon (K57.30) Active confirmed Problem [id number] 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 Vital Signs Blood pressure diastolic 111 mm Hg 06/01/2024 Height 67 in 06/01/2024 Blood pressure systolic 111 mm Hg 06/01/2024 Weight 228 lbs 06/01/2024 BMI 35.71 kg/m2 06/01/2024 Procedures Procedure Date Ordered Date Performed Result Body Sit e COLONOSCOPY 06/01/2024 N/A Encounters Encounter Location Date Provider [place] [facility] [place] [address] [place] [id number] 07/30/2024 Cira Jenkins Colon cancer screeni ng Z12.11 ; History of adenomatous polyp of colon Z86.0101 ; Colon polyps K63.5 and Diverticulosis of large intestine without perforation or abscess without bleeding K57.30 [facility] [address] [place] [phone] 06/01/2024 Cira Jenkins 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 Z79.84 ; Preprocedural examination Z01.818 ; Encounter for screening for malignant neoplasm of colon Z12.11 and Tubulovillous adenoma of colon D12.6 [facility] [address] [place] [phone] 06/02/2024 Cira Jenkins Assessments Encounter Date Diagnosis (ICD Code) Assessment Notes Treatment Notes Treatment Clinical Notes Section Notes 07/30/2024 Colon cancer screening (ICD-10 - Z12.11) 07/30/2024 History of adenomatous polyp of colon (ICD-10 - Z86.0101) 06/01/2024 Preprocedural examination (ICD-10 - Z01.818) Overall, [...] keep you advised of his progress. 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 07/30/2024 Colon polyps (ICD-10 - K63.5) 06/01/2024 Encounter for screening for malignant neoplasm [...] to keep you advised of his progress. 07/30/2024 Diverticulosis of large intestine without perforation or abscess without bleeding (ICD-10 - K57.30) 06/01/2024 Tubulovillous adenoma of colon (ICD-10 - [...] Name Order Date COLONOSCOPY 06/01/2024 Pathology 07/06/2021 Pathology 07/30/2024 Future Test Test Name Order Date COLONOSCOPY 04/27/2020 COLONOSCOPY 05/29/2021 Insurance Providers Payer Name Payer Address Payer Phone Subscriber Number Group Number Insured Name Patient Relationship to Insured Coverage Start Date Coverage End Date [facility] [address] Attn Claims JOHN Atkinson [id number] CIRA MERAZ Self - patient is the insured Medical (General) History Medical History History ICD Code Legally blind Hyperlipidemia Glaucoma 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 Galilea Potts [place],CVA,Lung disease,renal disease Seasonal allergies Screening colonoscopy in [...]
--- OUTSIDE RECORDS SUMMARY | 2024-09-20 08:26 | XMS_ITS | Encounter Summary ---
Author Organization [facility] Address [address] [place] [address] Care Team Providers Care Cone Winder Name Role Phone Unavailable Primary Care Provider Unavailabl e Reason for Visit * Reason Comments Med Refill Encounter Details Date Type Department Care Team (Late st Contact Info) Description 07/04/2023 Refill [facility] ADULT DENTAL [address] [place] [address] Mendzoa-McclureIssaElizabeth, DDS [address] [place] [address] Social History Tobacco Use Types Packs/Day Years [...]
[2024-09-20 08:28] VITALS: BP 122/54; PULSE 64; O2SAT 97; BMI 35.2
--- NOTE | 2024-09-20 08:28 | MHC.OFFVIS ---
Vital Signs 09/20/24 08:28 Height 5 ft 7 in Weight 224 lb 13.944 oz BMI 35.2 BP 122/54 L Blood Pressure Location Lt brachial Position Sitting Pulse 64 Pulse Source Pulse Oximeter Pulse Oximetry (%) 97 Oxygen Delivery Method Room Air Intake Visit Reasons: DM f/u Intake Note: Patient present today for Type 2 Diabetes Mellitus Last Diabetic eye exam: 05/2024 and has upcoming appt next week Last Podiatry Visit: Doesn't have one Random Glucose: 114 mg/dl HgA1C: 6.5% Wildlife Conservation Professor Required: No Accompanied by: Self / Same As Patient Allergies pollen extracts Allergy (Intermediate, Verified 09/20/24 08:33) Watery eyes, sneezing pine sap Allergy (Intermediate, Uncoded 09/20/24 08:33) Watery eyes, sneezing Medication List - Last Reconciled 09/20/24 by Gini Pascual PA-C atorvastatin 20 mg PO BEDTIME 90 days blood sugar diagnostic Use 2x daily as directed to monitor blood glucose readings blood sugar diagnostic Use once a day As directed; AirXpanders voice test strips blood-glucose meter Use 2x a day as directed blood-glucose meter (Clarizen Voice Glucose Meter kit) Use once daily as directed to monitor blood glucose readings blood-glucose sensor (FreeStyle Reginaldo 3 Sensor device) As directed blood-glucose sensor (FreeStyle Reginaldo 3 Plus Sensor device) Use daily As directed to monitor glucose blood-glucose,acid tank liner,cont (FreeStyle Reginaldo 3 Russell) As directed brimonidine 0.2% 1 drp ophthalmic (eye) Q8H [CoQ-10 ] CPAP (CPAP Machine/Device) CPAP, mask and supplies dulaglutide (Trulicity) 3 mg (0.5 mL) subcut QWEEK [Fish Oil ] glucose 4 grams PO Q15M PRN 5 days lancets (Prodigy Twist Top Lancet) twice a day lancets (Prodigy Lancets) Use 2x daily As directed to monitor blood sugars lancets (Prodigy Twist Top Lancet) Use once daily as directed to monitor blood glucose readings latanoprost 0.005% 1 drp ophthalmic (eye) DAILY levothyroxine 25 mcg PO DAILY 90 days metformin ER 750 mg PO BID miscellaneous medical supply 1 ea miscellaneous DAILY 99 days multivitamin 1 tab PO DAILY naftifine 1% 1 appl topical BID 4 weeks tadalafil 10 mg PO ONCE PRN 30 days tadalafil 5 mg PO DAILY 90 days terbinafine HCl 1% 1 appl topical BID 30 days vitamin B complex 1 cap PO DAILY HPI HPI DM f/u: Details: Patient is a 64-year-old male with a significant past medical history of obstructive sleep apnea on CPAP, obesity, 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 Endo: DM-diagnosed with diabetes around 2019. His A1c today is 6.5. He is on metformin 750 mg twice a day and trulicity 3 mg weekly. Monitors his blood sugars with this freestyle Reginalod and Fun Cityigy glucometer. Tolerating medicines well without difficulty. He is disappointed that he has not had more weight loss since initially taking this. He tries to eat healthy and get in 10-20k steps a day. He is unable to use ozempic due to pen needles/dial. He cannot see this device. cgm- usage 96%, avg glucose 133, GMI 6.5%. very high 0, high 4%, in range 96%, 0% low -He had some faulty sensors with false lows causing him to eat more. He did get this sorted out with the supervisor functional testing. He states he has been hypoglycemic in the past but only at the gym while doing an exercise spin class. He corrects this with glucose tabs if needed. He states that this has not happened in quite some time. family hx t2dm He would be interested in seeing podiatry. CV: bp today in office 122/54. He controls lipids with atorvastatin 20 mg [facility] Medical History YOLY on CPAP Recurrent ventral hernia Seasonal allergies Recurrent umbilical hernia Controlled diabetes mellitus without complication, without long-term current use of insulin Hyperlipidemia LDL goal <100 Obesity (BMI 30-39.9) Obesity due to excess calories History of umbilical hernia High BMI YOLY (obstructive sleep apnea) Blindness Glaucoma Surgical History History of local excision of skin lesion History of colonoscopy (~2009) History of umbilical hernia repair Family History Father History of bone cancer History of diabetes mellitus Mother History of pancreatic cancer Paternal Grandmother History of diabetes mellitus Paternal Uncle History of diabetes mellitus Paternal Aunt History of diabetes mellitus Social History Household Members: None Housing: House Are you a primary acute care physical therapist to a significant other at home: No Do you presently have visiting nurse or other home services: No Alcohol intake: former Year quit: 1990 Comment: walking stick Patient Tobacco Use Status: Former Tobacco user Tobacco use type: Cigarette Years Smoked: quit 30 years ago e-Cigarette/Vaping Use: Never Used Second Hand Smoke Exposure: No service: No Current occupational status: employed 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 needs: Yes Hearing needs: No Vision needs: Yes Physical Exam Vital Signs: Last Vital Signs Pulse 64 09/20/24 08:28 BP 122/54 L 09/20/24 08:28 Pulse Ox 97 09/20/24 08:28 Oxygen Delivery Method Room Air 09/20/24 08:28 BMI result Body Mass Index 35.2 Const Orientation/consciousness: patient oriented x3 Neck Neck: Yes no lymphadenopathy Thyroid: Thyroid normal Carotids: no bruits Resp Auscultation: clear to auscultation bilaterally Cardio Rate: regular rate Rhythm: regular rhythm Heart sounds: S1 normal heart sound present and S2 normal heart sound present Peripheral pulses: dorsalis pedis present Neuro General: patient oriented x3, gait normal and no focal motor deficits Extrem Other: Monofilament sensation intact bilaterally. Vibratory sensation intact bilaterally. Skin intact. General: Yes normal to inspection Results AMB Hemoglobin A1c AMB Hemoglobin A1c 6.5 % Last Edit by HENOK Echevarria on 09/20/24 08:58 Results Reviewed Results Reviewed: Laboratory Last Values Glucose (Clinic) 114 mg/dL (60-115) 09/20/24 08:35 Assessment & Plan Assessment & Plan (1) Controlled diabetes mellitus without complication, without long-term current use of insulin: Code(s): E11.9 - Type 2 diabetes mellitus without complications Category: Medical Plan: increase trulicity to 4.5 mg weekly continue metformin 750 mg labs ordered f/u 3 months or sooner prn podiatry referral placed (2) Hyperlipidemia LDL goal <100: Code(s): E78.5 - Hyperlipidemia, unspecified Category: Medical Plan: will monitor lipids and lfts Orders: Orders Microalbumin, Random (w Creat) Today E11.9 - Type 2 diabetes mellitus without complications, E78.5 - Hyperlipidemia, unspecified AMB Hemoglobin A1c Today E11.9 - Type 2 diabetes mellitus without complications, Z13.9 - Encounter for screening, unspecified Comprehensive Russell. Panel Fast Today E11.9 - Type 2 diabetes mellitus without complications, E78.5 - Hyperlipidemia, unspecified Hemoglobin A1c Today E11.9 - Type 2 diabetes mellitus without complications, E78.5 - Hyperlipidemia, unspecified, R73.01 - Impaired fasting glucose B Type Natriuretic Peptide Today E11.9 - Type 2 diabetes mellitus without complications, E78.5 - Hyperlipidemia, unspecified Referrals Podiatry Referral B35.3 - Tinea pedis, E11.9 - Type 2 diabetes mellitus without complications, H54.40 - Blindness, one eye, unspecified eye Medications: New dulaglutide (Trulicity) 4.5 mg (0.5 mL) subcut QWEEK 2 mL 5RF Discontinued dulaglutide (Trulicity) Discontinued Reason: Doctor's Order 3 mg (0.5 mL) subcut QWEEK 2 mL 11RF Coding Level of Care Code Est Pt Level 4 (20014) Complex EM visit Add On G2211 Diagnoses Controlled diabetes mellitus without complication, without long-term current use of insulin E11.9 Hyperlipidemia LDL goal <100 E78.5
[2024-09-20 08:40] LABS: Glucose, Whole Blood 114 mg/dL (60-115)
== END 2024-09-20 08:57 | disposition home or self-care (01) ==
LOC: HO.ENCR 08:23
PROVIDERS: PCP Physician Assistant; Visit Provider Physician Assistant
DX: Z13.9 Encounter for screening, unspecified (principal); E11.9 Type 2 diabetes mellitus without complications; E78.5 Hyperlipidemia, unspecified

== ENCOUNTER → 2024-09-20 08:22 | Outpatient (BNVA) | payer OTHER, SELFPAY | PROVIDERS: PCP Physician Assistant; Visit Provider Physician Assistant | DX: E11.9 Type 2 diabetes mellitus without complications (principal); E78.5 Hyperlipidemia, unspecified; Z79.84 Long term (current) use of oral hypoglycemic drugs | CPT/HCPCS: 82947; 83036; 99212 ==

== ENCOUNTER 2024-11-22 08:21 | Outpatient (AMB) | payer OTHER, SELFPAY ==
--- OUTSIDE RECORDS SUMMARY | 2024-07-30 07:30 | XMS_ITS ---
Author Organization [facility] Address [address] [place] [address] Care Team Providers Care Health Services Manager Name Role Phone Davion Sheth Primary Care Provider Unavailab Cira Gonzalez [phone] REASON FOR VISIT screening, tubulovillous adenoma,colon Encounters Encounter Location Date Provider Diagnosis [facility] [place] [address] [place] [id number] 07/30/2024 Cira Jenkins Colon cancer scree bernice [...] * CIRA MERAZ RDOB: (64 yo F)Acc No.[id number]:07/30/2024 COLON WITH MAC Patient: CIRA GREEN Provider: Sabine Jenkins MD :1960 A ge:64 Y S ex:Female Date:07/30/2024 Address:[address] [place] [phone] Pcp:Davion Sheth Subjective: * Chief Complaints: * 1 . Screening, tubulovillous adenoma,colon. * Medical History: Objective: * Vitals: Assessment: * Assessment: 1. C olon cancer screening - Z12.11 (Primary) 2 . H istory of adenomatous polyp of colon - Z86.0101 3 . C olon polyps - K63.5 4 . D iverticulosis of large intestine without perforation or abscess without bleeding - K57.30 ? Plan: * Treatment: * Procedure Codes: 4 5385 LESION REMOVAL COLONOSCOPY, Modifiers: PT , 0529F INTRVL 3+YRS PTS CLNSCP DOCD, 0528F RCMND FLW-UP 10 YRS DOCD * * The named appointment provid er may or may not be the originator of this progress note, and it is not deemed complete until electronically signed by the appointment provider. Sign off status: Pending * Provider: Sabine Jenkins MD Date: 0 07/30/2024 Generated for Brannon rodriguez/Megan/Renzoitting on: 0 11/22/2024 09:24 AM EDT
--- OUTSIDE RECORDS SUMMARY | 2024-11-22 09:23 | XMS_ITS | Encounter Summary ---
Author Organization [employer] [facility] Address [address] [place] [address] [address] [address] Care Team Providers Care Jigger Crown Pouncing Machine Operator Name Role Phone Unavailable Primary Care Provider Unavailabl e Reason for Visit * Reason Comments Med Refill Encounter Details Date Type Department Care Team (Late st Contact Info) Description 05/06/2023 Refill [facility] ADULT DENTAL [address] [place] [address] Kenny Oliveira DMD [address] [place] [address] Social History Tobacco Use Types Packs/Day Years [...]
--- OUTSIDE RECORDS SUMMARY | 2024-11-22 09:23 | XMS_ITS | Encounter Summary ---
Author Organization [employer] [facility] Address [address] [address] Care Team Providers Care Pourer Buggy Ladle Name Role Phone Unavailable Primary Care Provider Unavailabl e Reason for Visit * Reason Comments Med Refill Encounter Details Date Type Department Care Team (Late st Contact Info) Description 07/04/2023 Refill [facility] ADULT DENTAL [address] [place] [address] Mendoza-McclureIssaElizabeth, DDS [address] [place] [address] Social History Tobacco Use Types Packs/Day Years [...]
--- OUTSIDE RECORDS SUMMARY | 2024-11-22 09:23 | XMS_ITS | Encounter Summary ---
Author Organization [employer] [facility] Address [address] [place] [address] [address] [address] Care Team Providers Care Hard Tile Setter Apprentice Name Role Phone Unavailable Primary Care Provider Unavailabl e Reason for Visit * Reason Comments Med Refill Encounter Details Date Type Department Care Team (Late st Contact Info) Description 07/30/2023 Refill [facility] ADULT DENTAL [address] [place] [address] Kenny Oliveira DMD [address] [place] [address] Social History Tobacco Use Types Packs/Day Years [...]
--- OUTSIDE RECORDS SUMMARY | 2024-11-22 09:23 | XMS_ITS | Encounter Summary ---
Author Organization [employer] [facility] Address [address] [place] [address] [address] [address] Care Team Providers Care Bottom Saw Operator Name Role Phone Unavailable Primary Care Provider Unavailabl e Reason for Visit * Reason Comments Med Refill Encounter Details Date Type Department Care Team (Late st Contact Info) Description 06/07/2023 Refill [facility] ADULT DENTAL [address] [place] [address] Kenny Oliveira, GILDA [address] [place] [address] Social History Tobacco Use Types Packs/Day Years [...]
--- OUTSIDE RECORDS SUMMARY | 2024-11-22 09:24 | XMS_ITS | Encounter Summary ---
Author Organization [employer] Address [address] [address] Care Team Providers Care Brazer Induction Name Role Phone Unavailable Primary Care Provider Unavailabl e Reason for Visit * Reason Onset Date Comments appt insurance approval 12/02/2022 Encounter Details Date Type Department Care Team (Late st Contact Info) Description 12/02/2022 Telephone [facility] ADULT DENTAL [address] [place] [address] Darren Elise DDS [address] [place] [address] appt insurance approval Social History Tobacco Use [...]
--- OUTSIDE RECORDS SUMMARY | 2024-11-22 09:24 | XMS_ITS | Encounter Summary ---
Author Organization [employer] [facility] Address [address] [place] [address] [address] [address] Care Team Providers Care Highway Maintenance Supervisor Name Role Phone Unavailable Primary Care Provider Unavailabl e Reason for Visit * Reason Comments Med Refill Encounter Details Date Type Department Care Team (Late st Contact Info) Description 03/04/2023 Refill [facility] ADULT DENTAL [address] [place] [address] Kenny Oliveira, GILDA [address] [place] [address] Social History Tobacco Use Types Packs/Day Years [...]
--- OUTSIDE RECORDS SUMMARY | 2024-11-22 09:24 | XMS_ITS | Encounter Summary ---
Author Organization [employer] [facility] Address [address] [place] [address] Care Team Providers Care It Systems Analyst Consultant Name Role Phone Unavailable Primary Care Provider Unavailabl e Reason for Visit * Reason Comments Med Refill Encounter Details Date Type Department Care Team (Late st Contact Info) Description 12/23/2023 Refill [facility] ADULT DENTAL [address] [place] [address] Kenny Oliveira DMD [address] [place] [address] Social History Tobacco Use Types Packs/Day Years [...]
--- OUTSIDE RECORDS SUMMARY | 2024-11-22 09:24 | XMS_ITS | Encounter Summary ---
Author Organization [employer] [facility] Address [address] [place] [address] [address] [place] [address] Care Team Providers Care Ui Software Developer Name Role Phone Unavailable Primary Care Provider Unavailabl e Reason for Visit * Reason Comments Med Change Request Encounter Details Date Type Department Care Team (Late st Contact Info) Description 09/05/2022 Refill [facility] ADULT DENTAL [address] [place] [address] Kenny Oliveira DMD [address] [place] [address] Social History Tobacco Use Types Packs/Day Years [...]
--- OUTSIDE RECORDS SUMMARY | 2024-11-22 09:24 | XMS_ITS | Encounter Summary ---
Author Organization [employer] Address [address] [facility] [address] [place] [address] Care Team Providers Care Machine Molder Squeeze Name Role Phone Unavailable Primary Care Provider Unavailabl e Encounter Details Date Type Department Care Team (Late st Contact Info) Description 03/04/2023 Abstract [facility] ADULT DENTAL [address] [place] [address] Kenny Oliveira, GILDA [address] [place] [address] Social History Tobacco Use Types Packs/Day Years [...]
--- OUTSIDE RECORDS SUMMARY | 2024-11-22 09:24 | XMS_ITS | Patient Health Record ---
Author Organization [facility] Address [address] [place] [address] Care Team Providers Care Medical Records Supervisor Name Role Phone Davion Sheth Primary Care Provider Unavailab Cira Gonzalez Unavailable [phone] Allergies No Known Allergies Results Component Value Reference Range Notes Glucose, Whole Blood Reviewed date:07/30/2024 06:24:58 PM Interpretation: Performing Lab:[facility], [address] [place] [phone] Notes/Report: Glucose, Whole Blood 133 60-115 mg/dL METER # : [id number] Pathology (Not yet reviewed by provider) Interpretation: Performing Lab:[facility], [address] [place] [phone] Notes/Report: Reason For Referral No Information Medications [...] Problem Screening for malignant neoplasm of colon (301580605) Encounter for screening for malignant neoplasm of colon (Z12.11) Active confirmed Problem Preprocedural examination (016677871647913) Preprocedural examination (Z01.818) Active confirmed Problem Long-term current use of drug therapy (024478464) senior care (current) use of oral hypoglycemic drugs (Z79.84) Active confirmed Problem Diverticulosis of colon (716230443) Diverticulosis of colon (K57.30) Active confirmed Problem 245152416 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 Vital Signs Blood pressure diastolic 111 mm Hg 06/01/2024 Height 67 in 06/01/2024 Blood pressure systolic 111 mm Hg 06/01/2024 Weight 228 lbs 06/01/2024 BMI 35.71 kg/m2 06/01/2024 Procedures Procedure Date Ordered Date Performed Result Body Sit e COLONOSCOPY 06/01/2024 N/A Encounters Encounter Location Date Provider Diagnosis [facility] Outpatient [address] [place] [id number] 07/30/2024 Cira Jenkins Colon cancer screeni ng Z12.11 ; History of adenomatous polyp of colon Z86.0101 ; Colon polyps K63.5 and Diverticulosis of large intestine without perforation or abscess without bleeding K57.30 [facility] [address] [place] [phone] 06/01/2024 Cira Jenkins chief writer (current) use of oral hypoglycemic drugs Z79.84 ; Preprocedural examination Z01.818 ; Encounter for screening for malignant neoplasm of colon Z12.11 and Tubulovillous adenoma of colon D12.6 [facility] [address] [place] [phone] 06/02/2024 Cira Jenkins Assessments Encounter Date Diagnosis [...] keep you advised of his progress. 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 Galilea Potts [place],CVA,Lung disease,renal disease Seasonal allergies Screening colonoscopy in [...]
--- OUTSIDE RECORDS SUMMARY | 2024-11-22 09:24 | XMS_ITS | Encounter Summary ---
Author Organization [employer] [facility] Address [address] [facility] [address] [address] Care Team Providers Care Online Marketing Manager Name Role Phone Unavailable Primary Care Provider Unavailabl e Reason for Visit * Reason Comments Med Refill Encounter Details Date Type Department Care Team (Late st Contact Info) Description 11/20/2022 Refill [facility] ADULT DENTAL [address] [place] [address] Kenny Oliveira DMD [address] [place] [address] Social History Tobacco Use Types Packs/Day Years [...]
--- OUTSIDE RECORDS SUMMARY | 2024-11-22 09:24 | XMS_ITS | Encounter Summary ---
Author Organization [employer] Address [address] [facility] [address] [address] Care Team Providers Care Spinneret Person Name Role Phone Unavailable Primary Care Provider Unavailabl e Encounter Details Date Type Department Care Team (Late st Contact Info) Description 03/06/[address] [facility] ADULT DENTAL [address] [place] [address] Kenny Oliveira, GILDA [address] [place] [address] Social History Tobacco Use Types Packs/Day Years [...]
--- OUTSIDE RECORDS SUMMARY | 2024-11-22 09:24 | XMS_ITS | Encounter Summary ---
Author Organization [employer] Address [address] [facility] [address] [place] [address] Care Team Providers Care Sub Master Name Role Phone Unavailable Primary Care Provider Unavailabl e Encounter Details Date Type Department Care Team (Late st Contact Info) Description 03/31/2023 Abstract [facility] ADULT DENTAL [address] [place] [address] Kenny Oliveira, GILDA [address] [place] [address] Social History Tobacco Use Types Packs/Day Years [...]
--- OUTSIDE RECORDS SUMMARY | 2024-11-22 09:24 | XMS_ITS | Encounter Summary ---
Author Organization [employer] [facility] Address [address] [facility] [address] [place] [address] Care Team Providers Care Night Coordinator Name Role Phone Unavailable Primary Care Provider Unavailabl e Encounter Details Date Type Department Care Team (Latest Contact Info) Description 10/15/2021 Abstract [facility] CONVERSIONS Dental, Provider, DDS Social History [...]
--- OUTSIDE RECORDS SUMMARY | 2024-11-22 09:24 | XMS_ITS | Encounter Summary ---
Author Organization [employer] [facility] Address [address] [facility] [address] [place] [address] Care Team Providers Care Gas Station Supervisor Name Role Phone Unavailable Primary Care Provider Unavailabl e Reason for Visit * Reason Comments Med Refill Encounter Details Date Type Department Care Team (Late st Contact Info) Description 10/13/2023 Refill [facility] ADULT DENTAL [address] [place] [address] Mendoza-McclureIssaElizabeth, DDS [address] [place] [address] Social History Tobacco Use Types Packs/Day Years [...]
--- OUTSIDE RECORDS SUMMARY | 2024-11-22 09:24 | XMS_ITS | Encounter Summary ---
Author Organization [employer] [facility] Address [address] [place] [address] [address] [address] Care Team Providers Care Automation Qa Analyst Name Role Phone Unavailable Primary Care Provider Unavailabl e Reason for Visit * Reason Comments Med Refill Encounter Details Date Type Department Care Team (Late st Contact Info) Description 08/24/[address] [facility] ADULT DENTAL [address] [place] [address] Kenny Oliveira DMD [address] [place] [address] Social History Tobacco Use Types Packs/Day Years [...]
--- OUTSIDE RECORDS SUMMARY | 2024-11-22 09:24 | XMS_ITS | Encounter Summary ---
Author Organization [employer] [facility] Address [address] [place] [address] [address] [place] [address] Care Team Providers Care Tour Operator Name Role Phone Unavailable Primary Care Provider Unavailabl e Reason for Visit * Reason Comments Med Refill Encounter Details Date Type Department Care Team (Late st Contact Info) Description 12/16/2022 Refill [facility] ADULT DENTAL [address] [place] [address] Kenny Oliveira DMD [address] [place] [address] Social History Tobacco Use Types Packs/Day Years [...]
--- OUTSIDE RECORDS SUMMARY | 2024-11-22 09:24 | XMS_ITS | Clinical Summary ---
Author Organization [employer] Address [address] [facility] [address] [place] [address] Care Team Providers Care Nitrate Operator Name Role Phone Unavailable Primary Care [...] Panel 1960 SDOH Screening 1960 Sigmoidoscopy 1960 Disability Screening 1960 Alcohol/Substance Use Screening 1972 Hepatitis C Screening 1978 Zoster Vaccines (2 of 2) 01/02/2020 11/07/2019 Pneumococcal Vaccine: 50+ Years (2 of 2 - PCV) 09/07/2021 09/07/2020 Dental Prophylaxis 07/12/2023 01/10/2023, 06/28/2022 Dental X-Ray: Bitewings 01/12/2024 01/10/2023 Tobacco Screening 05/02/2024 05/02/2023 COVID-19 Vaccine ( season) 2024 12/05/2022, 12/18/2021, 06/21/2021, Additional history exists Influenza Vaccine (#1) 2024 3, 01/09/2022, 12/12/2020, Additional history exists Dental X-Ray: Full Mouth 01/11/2026 01/10/2023 DTaP/Tdap/Td Vaccines (2 - Td or Tdap) 09/07/2030 09/07/2020 RSV Patients and Patients Aged 60 years or older Completed 02/23/2023 HIB Vaccines Aged Out No longer eligi [...] Recently Relevant to Health Maintenance Insurance [facility]
--- OUTSIDE RECORDS SUMMARY | 2024-11-22 09:24 | XMS_ITS | Encounter Summary ---
Author Organization [employer] [facility] Address [address] [place] [address] [address] [place] [address] Care Team Providers Care Genetic Coordinator Name Role Phone Unavailable Primary Care Provider Unavailabl e Reason for Visit * Reason Comments Med Refill Encounter Details Date Type Department Care Team (Late st Contact Info) Description 01/10/2023 Refill [facility] ADULT DENTAL [address] [place] [address] Kenny Oliveira DMD [address] [place] [address] Social History Tobacco Use Types Packs/Day Years [...]
--- OUTSIDE RECORDS SUMMARY | 2024-11-22 09:24 | XMS_ITS | Encounter Summary ---
Author Organization [employer] [facility] Address [address] [place] [address] [address] [address] Care Team Providers Care Manager Of Internal Audit Name Role Phone Unavailable Primary Care Provider Unavailabl e Reason for Visit * Reason Comments Med Refill Encounter Details Date Type Department Care Team (Late st Contact Info) Description 02/05/2023 Refill [facility] ADULT DENTAL [address] [place] [address] Kenny Oliveira DMD [address] [place] [address] Social History Tobacco Use Types Packs/Day Years [...]
--- OUTSIDE RECORDS SUMMARY | 2024-11-22 09:24 | XMS_ITS | Encounter Summary ---
Author Organization [employer] [facility] Address [address] [place] [address] [address] [place] [address] Care Team Providers Care Motor Mechanic Name Role Phone Unavailable Primary Care Provider Unavailabl e Reason for Visit * Reason Comments Med Refill Encounter Details Date Type Department Care Team (Late st Contact Info) Description 09/17/2023 Refill [facility] ADULT DENTAL [address] [place] [address] Kenny Oliveira, GILDA [address] [place] [address] Social History Tobacco Use Types Packs/Day Years [...]
--- OUTSIDE RECORDS SUMMARY | 2024-11-22 09:24 | XMS_ITS | Encounter Summary ---
Author Organization [employer] [facility] Address [address] [facility] [address] [place] [address] Care Team Providers Care Inorganic Chemist Name Role Phone Unavailable Primary Care Provider Unavailabl e Reason for Visit * Reason Comments Med Refill Encounter Details Date Type Department Care Team (Late st Contact Info) Description 04/05/2023 Refill [facility] ADULT DENTAL [address] [place] [address] Mendoza-McclureIssaElizabeth, DDS [address] [place] [address] Social History Tobacco Use Types Packs/Day Years [...]
--- OUTSIDE RECORDS SUMMARY | 2024-11-22 09:24 | XMS_ITS | Encounter Summary ---
Author Organization [employer] Address [address] [place] [address] [address] [address] Care Team Providers Care Tour Agent Name Role Phone Unavailable Primary Care Provider Unavailabl e Reason for Visit * Reason Onset Date Comments Appointment 05/10/2022 Encounter Details Date Type Department Care Team ([facility] st Contact Info) Description 05/10/2022 Telephone [facility] ADULT DENTAL [address] [place] [address] Darren Elise DDS [address] [place] [address] Appointment Social History Tobacco Use Types Packs/Day [...]
--- OUTSIDE RECORDS SUMMARY | 2024-11-22 09:24 | XMS_ITS | Encounter Summary ---
Author Organization [employer] [facility] Address [address] [place] [address] [address] [address] Care Team Providers Care Leather Etcher Name Role Phone Unavailable Primary Care Provider Unavailabl e Reason for Visit * Reason Comments Med Refill Encounter Details Date Type Department Care Team (Late st Contact Info) Description 12/02/2023 Refill [facility] ADULT DENTAL [address] [place] [address] Kenny Oliveira DMD [address] [place] [address] Social History Tobacco Use Types Packs/Day Years [...]
--- OUTSIDE RECORDS SUMMARY | 2024-11-22 09:24 | XMS_ITS | Encounter Summary ---
Author Organization [employer] [facility] Address [address] [place] [address] [address] [place] [address] Care Team Providers Care Dicer Operator Name Role Phone Unavailable Primary Care Provider Unavailabl e Reason for Visit * Reason Comments Med Change Request Encounter Details Date Type Department Care Team (Late st Contact Info) Description 08/22/[address] [facility] ADULT DENTAL [address] [place] [address] Kenny Oliveira DMD [address] [place] [address] Social History Tobacco Use Types Packs/Day Years [...]
--- OUTSIDE RECORDS SUMMARY | 2024-11-22 09:24 | XMS_ITS | Encounter Summary ---
Author Organization [employer] [facility] Address [address] [facility] [address] [place] [address] Care Team Providers Care Recreational Specialist Name Role Phone Unavailable Primary Care Provider Unavailabl e Encounter Details Date Type Department Care Team (Latest Contact Info) Description 07/18/2020 Abstract [facility] CONVERSIONS Dental, Provider, DDS Social [...]
--- OUTSIDE RECORDS SUMMARY | 2024-11-22 09:24 | XMS_ITS | Encounter Summary ---
Author Organization [employer] Address [address] [facility] [address] [place] [address] Care Team Providers Care Industrial Relations Representative Name Role Phone Unavailable Primary Care Provider Unavailabl e Encounter Details Date Type Department Care Team (Late st Contact Info) Description 12/06/2022 Abstract [facility] ADULT DENTAL [address] [place] [address] Darren Elise, DDS [address] [place] [address] Social History Tobacco Use Types Packs/Day Years [...]
== END 2024-11-22 08:33 | disposition home or self-care (01) ==
LOC: HO.HMGAL 08:21
PROVIDERS: PCP Physician Assistant; Visit Provider Registered Nurse Emergency
DX: J30.89 Other allergic rhinitis (principal)
CPT/HCPCS: 95117; 95165

== ENCOUNTER 2024-12-17 10:26 | Outpatient (REF) | payer OTHER, SELFPAY ==
[2024-12-24 13:58] LABS: Testosterone, Free 48.0 pg/mL (35.0-155.0)
[2025-01-01 23:19] LABS: Estradiol Free 0.49 pg/mL; Estradiol, Ultrasensitive 23 pg/mL (< OR = 29)
== END 2024-12-17 10:27 | disposition home or self-care (01) ==
LOC: HO.LAB 10:26
PROVIDERS: PCP Physician Assistant; Visit Provider Urology
DX: E11.69 Type 2 diabetes mellitus with other specified complication (principal); N52.1 Erectile dysfunction due to diseases classified elsewhere; Z79.899 Other long term (current) drug therapy
CPT/HCPCS: 36415; 51798; 81003; 82670; 82681; 83002; 84402; 84403; 99212

== ENCOUNTER 2024-12-17 10:26 | Outpatient (AMB) | payer OTHER, MEDICAID, SELFPAY ==
--- NOTE | 2024-12-17 11:03 | A.OFFVIS_ITS ---
Intake Visit Reasons: 1 yr follow up Intake Note: patient presents today for: 1yr follow up urology medications: tadalafil blood thinners: none today's PVR: 50mls Safety Net Maker Required: No Accompanied by: Self / Same As Patient Allergies pollen extracts Allergy (Intermediate, Verified 12/17/24 11:04) Watery eyes, sneezing pine sap Allergy (Intermediate, Uncoded 12/17/24 11:04) Watery eyes, sneezing HPI Comments Details: Long is a pleasant male. He is a patient of Dr. Sheth. He is seen for following urologic conditions - lower urinary tract symptoms - erectile dysfunction in setting of diabetes Yearly follow-up Continues to notice stabilization of bladder and bowel control since starting tadalafil daily Legally blind Improved erectile response Has noticed improvement in bladder control and bowel control since starting medication Check baseline testosterone since diabetic male and previously low Lower urinary tract symptoms Progressive Weakness of stream with incomplete bladder emptying Also reports retrograde ejaculation PSA 04/01 2.2, 09/30 2.8 Erectile dysfunction in setting of diabetes Prior success with on demand sildenafil Current therapy daily tadalafil with on demand if necessary CPAP HbA1c 06/30 6.7,TG 127 PFSH Medical History YOLY on CPAP Recurrent ventral hernia Seasonal allergies Recurrent umbilical hernia Controlled diabetes mellitus without complication, without long-term current use of insulin Hyperlipidemia LDL goal <100 Obesity (BMI 30-39.9) Obesity due to excess calories History of umbilical hernia High BMI YOLY (obstructive sleep apnea) Blindness Glaucoma Surgical History History of local excision of skin lesion History of colonoscopy (~2009) History of umbilical hernia repair Family History Father History of bone cancer History of diabetes mellitus Mother History of pancreatic cancer Paternal Grandmother History of diabetes mellitus Paternal Uncle History of diabetes mellitus Paternal Aunt History of diabetes mellitus Social History Household Members: None Housing: House Are you a primary family day care provider to a significant other at home: No Do you presently have visiting nurse or other home services: No Alcohol intake: former Year quit: 1990 Comment: walking stick Patient Tobacco Use Status: Former Tobacco user Tobacco use type: Cigarette Years Smoked: quit 30 years ago e-Cigarette/Vaping Use: Never Used Second Hand Smoke Exposure: No service: No Current occupational status: employed 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 needs: Yes Hearing needs: No Vision needs: Yes Review of Systems Const Denies chills and Denies fever(s) Card Reports no additional complaints and Denies syncope Resp Denies cough GI Denies abdominal pain and Denies heartburn Reports as per HPI and Denies change in libido Neuro Denies syncope Psych Denies change in libido Endo Denies change in libido Physical Exam Const General: cooperative, healthy appearing, comfortable and no acute distress Orientation/consciousness: patient oriented x3 HEENT Face and sinus: Yes normal facial exam Mouth: moist mucous membranes Neck Neck: Yes normal visual inspection, Yes full ROM and Yes trachea midline Chest Chest palpation & inspection: normal inspection of the chest Resp Effort & Inspection: normal respiratory effort, able to speak in complete sentences and no respiratory distress GI Inspection: Yes normal to inspection Back/Spine/Pelvis Cervical Spine: normal cervical lordosis Thoracic/Lumbar Spine: thoracic and lumbar spine normal to inspection Skin General skin exam: no rashes or lesions noted Neuro General: patient oriented x3, gait normal, tone normal and moves all extremities Extrem General: Yes normal to inspection and Yes capillary refill normal Assessment & Plan Assessment & Plan (1) Erectile dysfunction associated with type 2 diabetes mellitus: Code(s): - Type 2 diabetes mellitus with other specified complication; N52.1 - Erectile dysfunction due to diseases classified elsewhere Category: Medical Plan Check T Labs Refill prescriptions Orders: Orders Lutenizing Hormone Today - Type 2 diabetes mellitus with other specified complication, N52.1 - Erectile dysfunction due to diseases classified elsewhere Estrad Free (Tot Ultra + Free) Today - Type 2 diabetes mellitus with other specified complication, N52.1 - Erectile dysfunction due to diseases classified elsewhere Testosterone, Free/Total Today - Type 2 diabetes mellitus with other specified complication, N52.1 - Erectile dysfunction due to diseases classified elsewhere Medications: Refilled tadalafil Daily medication 5 mg PO DAILY 90 tabs 3RF sexual activity 90 days . - Type 2 diabetes mellitus with other specified complication, N52.1 - Erectile dysfunction due to diseases classified elsewhere tadalafil as needed 10 mg PO ONCE PRN 30 tabs 0RF sexual activity 30 days E11.69 - Type 2 diabetes mellitus with other specified complication, N52.1 - Erectile dysfunction due to diseases classified elsewhere Patient Instructions: This note is constructed using voice recognition software. While every effort has been made to ensure accuracy atmospheric technician errors may have been included. Imaging studies, laboratory and physical exam results were discussed and reviewed in detail. No major barriers to patient understanding were identified. An opportunity to ask questions regarding the treatment plan was provided. All questions were answered. The patient expressed understanding and agreement with the above treatment plan. The patient is aware they should contact our office by phone for worsening of their current condition or the appearance of new urologic symptoms. Compliance is encouraged with any medications and followup testing that is ordered. It is a privilege to participate in the urologic care of your patient. If you have any questions or concerns regarding treatment for the above conditions, or other urologic issues, please do not hesitate to contact me. The office telephone contact is [phone]. Sincerely, Dr Alessandro Fortune MD, [facility] [place] - Urology Compassionate Specialist Care for the Genitourinary System Coding Level of Care Code Est Pt Level 4 (97100) Complex EM visit Add On G2211 Diagnoses Erectile dysfunction associated with type 2 diabetes mellitus E11.69; N52.1
== END 2024-12-17 11:36 | disposition home or self-care (01) ==
PROVIDERS: PCP Physician Assistant; Visit Provider Urology
DX: E11.69 Type 2 diabetes mellitus with other specified complication (principal); N52.1 Erectile dysfunction due to diseases classified elsewhere; Z13.9 Encounter for screening, unspecified
CPT/HCPCS: 99214; G2211

== ENCOUNTER 2024-12-27 08:12 | Outpatient (AMB) | payer MEDICARE, MEDICAID, SELFPAY ==
--- OUTSIDE RECORDS SUMMARY | 2024-07-30 07:30 | XMS_ITS ---
Author Organization [facility] Address [address] [place] [address] Care Team Providers Care Paint Roller Covers Supervisor Name Role Phone Davion Sheth Primary Care Provider Unavailab Cira Gonzalez [phone] REASON FOR VISIT screening, tubulovillous adenoma,colon Encounters Encounter Location Date Provider Diagnosis [facility] [place] [address] [place] [id number] 07/30/2024 Cira Jenkins Colon cancer scree bernice [...] * CIRA MERAZ RDOB: (64 yo F)Acc No.[id number]:07/30/2024 COLON WITH MAC Patient: CIRA GREEN Provider: Sabine Jenkins MD :1960 A ge:64 Y S ex:Female Date:07/30/2024 Address:[address] [place] [phone] Pcp:Davion Sheth Subjective: * Chief Complaints: * [...] 07/30/2024 Generated for Brannon rodriguez/Megan/Renzoitting on: 1 08:26 AM EDT
[2024-12-27 08:15] VITALS: BP 112/68; PULSE 67; O2SAT 97; BMI 34.9
--- NOTE | 2024-12-27 08:15 | A.OFFVIS_ITS ---
Vital Signs 12/27/24 08:15 Height 5 ft 7 in Weight 223 lb 1.725 oz BMI 34.9 BP 112/68 Blood Pressure Location Lt brachial Position Sitting Pulse 67 Pulse Source Pulse Oximeter Pulse Oximetry (%) 97 Oxygen Delivery Method Room Air Intake Visit Reasons: A2UD-is confirmed on 12/22/24 Intake Note: Patient present today for Type 2 Diabetes Mellitus Last Diabetic eye exam: Last exam was on 09/30/24 Last Podiatry Visit: Doesn't have one Random Glucose: mg/dl HgA1C: 6.4% Mobile Health Vehicle Operator Required: No Accompanied by: Self / Same As Patient Allergies pollen extracts Allergy (Intermediate, Verified 12/27/24 08:20) Watery eyes, sneezing pine sap Allergy (Intermediate, Uncoded 12/27/24 08:20) Watery eyes, sneezing Medication List - Last Reconciled 12/27/24 by Gini Pascual PA-C atorvastatin 20 mg PO BEDTIME 90 days blood sugar diagnostic Use 2x daily as directed to monitor blood glucose readings blood sugar diagnostic Use once a day As directed; Comeks voice test strips blood-glucose meter Use 2x a day as directed blood-glucose meter ([place] Voice Glucose Meter kit) Use once daily as directed to monitor blood glucose readings blood-glucose sensor (FreeStyle Reginaldo 3 Sensor device) As directed blood-glucose sensor (FreeStyle Reginaldo 3 Plus Sensor device) Use daily As d irected to monitor glucose blood-glucose,class a regional truck driver,cont (FreeStyle Reginaldo 3 [place]) As directed brimonidine 0.2% 1 drp ophthalmic (eye) Q8H [CoQ-10 ] CPAP (CPAP Machine/Device) CPAP, mask and supplies [Fish Oil ] glucose 4 grams PO Q15M PRN 5 days lancets (Prodigy Twist Top Lancet) twice a day lancets (Prodigy Lancets) Use 2x daily As directed to monitor blood sugars lancets (Prodigy Twist Top Lancet) Use once daily as directed to monitor blood glucose readings latanoprost 0.005% 1 drp ophthalmic (eye) DAILY levothyroxine 25 mcg PO DAILY 90 days metformin ER 750 mg PO BID miscellaneous medical supply 1 ea miscellaneous DAILY 99 days multivitamin 1 tab PO DAILY naftifine 1% 1 appl topical BID 4 weeks tadalafil 5 mg PO DAILY 90 days tadalafil 10 mg PO ONCE PRN 30 days terbinafine HCl 1% 1 appl topical BID 30 days tirzepatide (Mounjaro) 2.5 mg (0.5 mL) subcut QWEEK vitamin B complex 1 cap PO DAILY HPI HPI [id number] confirmed on 12/22/24: Details: Patient is a 64-year-old male with a significant past medical history of obstructive sleep apnea on CPAP, obesity, 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 Endo: DM-diagnosed with diabetes around 2019. His A1c today is 6.4. He is on metformin 750 mg twice a day and trulicity 4.5 mg weekly. Monitors his blood sugars with this freestyle Reginaldo and prodigy glucometer. Getting mild, intermittent nausea with the higher dose of the trulicity. He is disappointed that he has not had more weight loss since higher dose of trulicity. He tries to eat healthy and get in 10-20k steps a day. He is unable to use ozempic due to pen needles/dial. He cannot see this device. cgm- usage 95%, avg glucose 131, GMI 6.4%. very high 0, high 2%, in range 98%, 0% low He states he has been hypoglycemic in the past but only at the gym while doing an exercise spin class. He corrects this with glucose tabs if needed. He states that this has not happened in quite some time. family hx t2dm He was referred to [place] pod[facility]. CV: bp today in office 112/68. He controls lipids with atorvastatin 20 mg. last LFTs WNL [facility] Medical History YOLY on CPAP Recurrent ventral hernia Seasonal allergies Recurrent umbilical hernia Controlled diabetes mellitus without complication, without long-term current use of insulin Hyperlipidemia LDL goal <100 Obesity (BMI 30-39.9) Obesity due to excess calories History of umbilical hernia High BMI YOLY (obstructive sleep apnea) Blindness Glaucoma Surgical History History of local excision of skin lesion History of colonoscopy (~2009) History of umbilical hernia repair Family History Father History of bone cancer History of diabetes mellitus Mother History of pancreatic cancer Paternal Grandmother History of diabetes mellitus Paternal Uncle History of diabetes mellitus Paternal Aunt History of diabetes mellitus Social History Household Members: None Housing: House Are you a primary pet care worker to a significant other at home: No Do you presently have visiting nurse or other home services: No Alcohol intake: former Year quit: 1990 Comment: walking stick Patient Tobacco Use Status: Former Tobacco user Tobacco use type: Cigarette Years Smoked: quit 30 years ago e-Cigarette/Vaping Use: Never Used Second Hand Smoke Exposure: No service: No Current occupational status: employed 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 needs: Yes Hearing needs: No Vision needs: Yes Physical Exam Vital Signs: Last Vital Signs Pulse 67 12/27/24 08:15 BP 112/68 12/27/24 08:15 Pulse Ox 97 12/27/24 08:15 Oxygen Delivery Method Room Air 12/27/24 08:15 BMI result Body Mass Index 34.9 Const Orientation/consciousness: patient oriented x3 Neck Neck: Yes no lymphadenopathy Thyroid: Thyroid normal Carotids: no bruits Resp Auscultation: clear to auscultation bilaterally Cardio Rate: regular rate Rhythm: regular rhythm Heart sounds: S1 normal heart sound present and S2 normal heart sound present Peripheral pulses: dorsalis pedis present Neuro General: patient oriented x3, gait normal and no focal motor deficits Extrem Other: Monofilament sensation intact bilaterally. Vibratory sensation intact bilaterally. Skin intact. General: Yes normal to inspection Results AMB Hemoglobin A1c AMB Hemoglobin A1c 6.4 % Last Edit by HENOK Echevarria on 12/27/24 08:46 Results Reviewed Results Reviewed: Laboratory Last Values Glucose (Clinic) 133 mg/dL (60-115) H 12/27/24 08:22 Laboratory Tests 08/23/24 09/20/24 08:25 08:39 Creatinine 0.91 Estimated GFR > 60 Fasting Glucose 128 H Hgb A1c (Clinic) 6.5 H AST 27 ALT 24 Alkaline Phosphatase 44 Triglycerides 106 Cholesterol 116 LDL Cholesterol, Calc 66 HDL Cholesterol 29 L Assessment & Plan Assessment & Plan (1) Controlled diabetes mellitus without complication, without long-term current use of insulin: Code(s): E11.9 - Type 2 diabetes mellitus without complications Category: Medical Plan: will switch from trulicity to mounjaro. will let me know if any side effects like n/v/d, abdominal pain, etc continue metformin (2) Hyperlipidemia LDL goal <100: Code(s): E78.5 - Hyperlipidemia, unspecified Category: Medical Plan: continue atorvastatin Orders: Orders AMB Hemoglobin A1c Today E11.9 - Type 2 diabetes mellitus without complications, Z13.9 - Encounter for screening, unspecified Medications: New tirzepatide (Mounjaro) 2.5 mg (0.5 mL) subcut QWEEK 2 mL 1RF Discontinued dulaglutide (Trulicity) Discontinued Reason: Doctor's Order 4.5 mg (0.5 mL) subcut QWEEK 2 mL 5RF Coding Level of Care Code Est Pt Level 4 (64517) Complex EM visit Add On G2211 Diagnoses Controlled diabetes mellitus without complication, without long-term current use of insulin E11.9 Hyperlipidemia LDL goal <100 E78.5
--- OUTSIDE RECORDS SUMMARY | 2024-12-27 08:22 | XMS_ITS | Encounter Summary ---
Author Organization [facility] Address [address] [place] [address] [address] [address] Care Team Providers Care Qual Research Manager Name Role Phone Unavailable Primary Care Provider Unavailabl e Reason for Visit * Reason Comments Med Refill Encounter Details Date Type Department Care Team (Late st Contact Info) Description 06/07/2023 Refill [facility] ADULT DENTAL [address] [place] [address] Kenny Oliveira, GILDA [address] [place] [address] Social History Tobacco Use Types Packs/Day Years [...]
--- OUTSIDE RECORDS SUMMARY | 2024-12-27 08:22 | XMS_ITS | Encounter Summary ---
Author Organization [facility] Address [address] [place] [address] [address] [address] Care Team Providers Care Emergency Management Coordinator Name Role Phone Unavailable Primary Care Provider Unavailabl e Reason for Visit * Reason Comments Med Refill Encounter Details Date Type Department Care Team (Late st Contact Info) Description 05/06/2023 Refill [facility] ADULT DENTAL [address] [place] [address] Kenny Oliveira DMD [address] [place] [address] Social History Tobacco Use Types Packs/Day Years [...]
--- OUTSIDE RECORDS SUMMARY | 2024-12-27 08:22 | XMS_ITS | Encounter Summary ---
Author Organization [employer] [facility] Address [address] [facility] [address] [address] Care Team Providers Care Switch Operators Supervisor Name Role Phone Unavailable Primary Care Provider Unavailabl e Reason for Visit * Reason Comments Med Refill Encounter Details Date Type Department Care Team (Late st Contact Info) Description 07/04/2023 Refill [facility] ADULT DENTAL [address] [place] [address] Mendoza-McclureIssaElizabeth, DDS [address] [place] [address] Social History Tobacco Use Types Packs/Day Years [...]
--- OUTSIDE RECORDS SUMMARY | 2024-12-27 08:23 | XMS_ITS | Encounter Summary ---
Author Organization [facility] Address [address] [facility] [address] [address] Care Team Providers Care Cable Splicer Apprentice Name Role Phone Unavailable Primary Care Provider Unavailabl e Reason for Visit * Reason Comments Med Refill Encounter Details Date Type Department Care Team (Late st Contact Info) Description 04/05/[address] [facility] ADULT DENTAL [address] [place] [address] Mendoza-McclureIssaElizabeth, DDS [address] [place] [address] Social History Tobacco Use Types Packs/Day Years [...]
--- OUTSIDE RECORDS SUMMARY | 2024-12-27 08:23 | XMS_ITS | Encounter Summary ---
Author Organization [employer] [facility] Address [address] [place] [address] [address] [address] Care Team Providers Care Receptionist Name Role Phone Unavailable Primary Care Provider Unavailabl e Reason for Visit * Reason Comments Med Refill Encounter Details Date Type Department Care Team (Late st Contact Info) Description 07/30/2023 Refill [facility] ADULT DENTAL [address] [place] [address] Kenny Oliveira DMD [address] [place] [address] Social History Tobacco Use Types Packs/Day Years [...]
--- OUTSIDE RECORDS SUMMARY | 2024-12-27 08:23 | XMS_ITS | Patient Health Record ---
Author Organization [facility] Address [address] [place] [address] Care Team Providers Care Steel Layer Name Role Phone Davion Sheth Primary Care Provider Unavailab Cira Gonzalez Unavailable [phone] Allergies No Known Allergies Results Component Value Reference Range Notes Glucose, Whole Blood Reviewed date:07/30/2024 06:24:58 PM Interpretation: Performing Lab:[facility], [address] [place] [phone] Notes/Report: Glucose, Whole Blood 133 60-115 mg/dL METER # : [id number] Pathology (Not yet reviewed by provider) Interpretation: Performing Lab:[facility], [address] [place] [phone] Notes/Report: Reason For Referral No Information Medications Medication SIG (Take, Route, Frequency, Duration) Notes Start Date End Date Status Atorvastatin Calcium 20 MG 1 tablet Orally Once a day Active Latanoprost 0.005 % INSTILL 1 DROP IN BOTH EYES AT BEDTIME Ophthalmic; Duration: 50 Active metFORMIN HCl ER 750 MG 1 tablet with ev ening meal Orally bid Active Brimonidine Tartrate 0.2 % INSTILL 1 DROP IN BOTH EYES TWICE DAILY 12 HOURS APART Ophthalmic; Duration: 30 Active Vitamin B 12 Active Vitamin B Complex Ac tive Co Q 10 Active Multi Vitamin for diabetics Ac tive Tylenol Active Trulicity 3 MG/0.5ML ADMINISTER 3 MG UND ER THE SKIN EVERY WEEK Subcutaneous; Duration: 28 Days Active Immunizations Vaccine Route Administration [...] Problem Screening for malignant neoplasm of colon (500223109) Encounter for screening for malignant neoplasm of colon (Z12.11) Active confirmed Problem Preprocedural examination (199569139262437) Preprocedural examination (Z01.818) Active confirmed Problem Long-term current use of drug therapy (414026688) terminal carman (current) use of oral hypoglycemic drugs (Z79.84) Active confirmed Problem Diverticulosis of colon (688027423) Diverticulosis of colon (K57.30) Active confirmed Problem Tubulovillous adenoma of colon (5369846642) 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 Vital Signs Blood pressure diastolic 111 mm Hg 06/01/2024 Height 67 in 06/01/2024 Blood pressure systolic 111 mm Hg 06/01/2024 Weight 228 lbs 06/01/2024 BMI 35.71 kg/m2 06/01/2024 Procedures Procedure Date Ordered Date Performed Result Body Sit e COLONOSCOPY 06/01/2024 N/A Encounters Encounter Location Date Provider Diagnosis [facility] Outpatient [address] [place] [id number] 07/30/2024 Cira Jenkins Colon cancer screeni ng Z12.11 ; History of adenomatous polyp of colon Z86.0101 ; Colon polyps K63.5 and Diverticulosis of large intestine without perforation or abscess without bleeding K57.30 [facility] [address] [facility] [address] [place] [phone] 06/01/2024 Cira Jenkins terminal carman (current) use of oral hypoglycemic drugs Z79.84 ; Preprocedural examination Z01.818 ; Encounter for screening for malignant neoplasm of colon Z12.11 and Tubulovillous adenoma of colon D12.6 [facility] [address] [place] [address] [place] [phone] 06/02/2024 Cira Jenkins Assessments Encounter Date Diagnosis [...] keep you advised of his progress. 06/01/2024 senior care (current) use of oral hypoglycemic drugs (ICD-10 [...] Test Name Order Date COLONOSCOPY 06/01/2024 Pathology 07/30/2024 Pathology 07/06/2021 Future Test Test Name Order Date COLONOSCOPY 04/27/2020 COLONOSCOPY 05/29/2021 Insurance Providers Payer Name Payer Address Payer Phone Subscriber Number Group Number Insured Name Patient Relationship to Insured Coverage Start Date Coverage End Date [facility] [address] Attn Claims JOHN Atkinson [id number] Self - patient is the insured Medical (General) History Medical History History ICD Code Legally blind Hyperlipidemia Glaucoma 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 Galilea Potts [place],CVA,Lung disease,renal disease Seasonal allergies Screening colonoscopy [...]
--- OUTSIDE RECORDS SUMMARY | 2024-12-27 08:23 | XMS_ITS | Encounter Summary ---
Author Organization [employer] Address [address] [facility] [address] [address] Care Team Providers Care Bank Vault Attendant Name Role Phone Unavailable Primary Care Provider Unavailabl e Encounter Details Date Type Department Care Team (Late st Contact Info) Description 03/31/2023 Abstract [facility] ADULT DENTAL [address] [place] [address] Kenny Oliveira, GILDA [address] [place] [address] Social History Tobacco Use Types Packs/Day Years [...]
--- OUTSIDE RECORDS SUMMARY | 2024-12-27 08:24 | XMS_ITS | Encounter Summary ---
Author Organization [employer] Address [address] [place] [address] [address] [place] [address] Care Team Providers Care Research/Program Director Name Role Phone Unavailable Primary Care Provider Unavailabl e Reason for Visit * Reason Onset Date Comments Appointment 05/10/2022 Encounter Details Date Type Department Care Team ([facility] st Contact Info) Description 05/10/2022 Telephone [facility] ADULT DENTAL [address] [place] [address] Darren Elise DDS [address] [place] [address] Appointment Social History Tobacco Use Types Packs/Day [...]
--- OUTSIDE RECORDS SUMMARY | 2024-12-27 08:24 | XMS_ITS | Encounter Summary ---
Author Organization [facility] [facility] Address [address] [place] [address] [address] [address] Care Team Providers Care Local Bulk Driver Name Role Phone Unavailable Primary Care Provider Unavailabl e Reason for Visit * Reason Comments Med Refill Encounter Details Date Type Department Care Team (Late st Contact Info) Description 02/05/2023 Refill [facility] ADULT DENTAL [address] [place] [address] Kenny Oliveira DMD [address] [place] [address] Social History Tobacco Use Types Packs/Day Years [...]
--- OUTSIDE RECORDS SUMMARY | 2024-12-27 08:24 | XMS_ITS | Encounter Summary ---
Author Organization [employer] [facility] Address [address] [place] [address] [address] [address] Care Team Providers Care Bushing And Broach Operator Name Role Phone Unavailable Primary Care Provider Unavailabl e Reason for Visit * Reason Comments Med Refill Encounter Details Date Type Department Care Team (Late st Contact Info) Description 01/10/2023 Refill [facility] ADULT DENTAL [address] [place] [address] Kenny Oliveira DMD [address] [place] [address] Social History Tobacco Use Types Packs/Day Years [...]
--- OUTSIDE RECORDS SUMMARY | 2024-12-27 08:24 | XMS_ITS | Encounter Summary ---
Author Organization [email or web address] Address [address] [facility] [address] [place] [address] Care Team Providers Care Wood Flour Miller Name Role Phone Unavailable Primary Care Provider Unavailabl e Encounter Details Date Type Department Care Team (Late st Contact Info) Description 03/06/2023 Abstract [facility] ADULT DENTAL [address] [place] [address] Kenny Oliveira, GILDA [address] [place] [address] Social History Tobacco Use Types Packs/Day Years [...]
--- OUTSIDE RECORDS SUMMARY | 2024-12-27 08:24 | XMS_ITS | Encounter Summary ---
Author Organization [employer] [facility] Address [address] [place] [address] [address] [address] Care Team Providers Care Rx Specialist Name Role Phone Unavailable Primary Care Provider Unavailabl e Reason for Visit * Reason Comments Med Refill Encounter Details Date Type Department Care Team (Late st Contact Info) Description 03/04/2023 Refill [facility] ADULT DENTAL [address] [place] [address] Kenny Oliveira, GILDA [address] [place] [address] Social History Tobacco Use Types Packs/Day Years [...]
--- OUTSIDE RECORDS SUMMARY | 2024-12-27 08:24 | XMS_ITS | Encounter Summary ---
Author Organization [employer] Address [address] [facility] [address] [address] Care Team Providers Care Copy Clerk Name Role Phone Unavailable Primary Care Provider Unavailabl e Encounter Details Date Type Department Care Team (Late st Contact Info) Description 03/04/2023 Abstract [facility] ADULT DENTAL [address] [place] [address] Kenny Oliveira, GILDA [address] [place] [address] Social History Tobacco Use Types Packs/Day Years [...]
--- OUTSIDE RECORDS SUMMARY | 2024-12-27 08:24 | XMS_ITS | Encounter Summary ---
Author Organization [employer] [facility] Address [address] [place] [address] [address] [place] [address] Care Team Providers Care Felt Pad Cutter Name Role Phone Unavailable Primary Care Provider Unavailabl e Reason for Visit * Reason Comments Med Refill Encounter Details Date Type Department Care Team (Late st Contact Info) Description 12/16/2022 Refill [facility] ADULT DENTAL [address] [place] [address] Kenny Oliveira DMD [address] [place] [address] Social History Tobacco Use Types Packs/Day Years [...]
--- OUTSIDE RECORDS SUMMARY | 2024-12-27 08:25 | XMS_ITS | Encounter Summary ---
Author Organization [employer] Address [address] [facility] [address] [address] Care Team Providers Care Jumpbasting Facing Baster Name Role Phone Unavailable Primary Care Provider Unavailabl e Reason for Visit * Reason Onset Date Comments appt insurance approval 12/02/2022 Encounter Details Date Type Department Care Team (Late st Contact Info) Description 12/02/2022 Telephone [facility] [address] [place] [address] Darren Elise DDS [address] [place] [address] appt insurance approval Social History Tobacco Use [...]
--- OUTSIDE RECORDS SUMMARY | 2024-12-27 08:25 | XMS_ITS | Encounter Summary ---
Author Organization [employer] [facility] Address [address] [place] [address] [address] [address] Care Team Providers Care Process Safety Manager Name Role Phone Unavailable Primary Care Provider Unavailabl e Reason for Visit * Reason Comments Med Refill Encounter Details Date Type Department Care Team (Late st Contact Info) Description 08/24/2023 Refill [facility] ADULT DENTAL [address] [place] [address] Kenny Oliveira DMD [address] [place] [address] Social History Tobacco Use Types Packs/Day Years [...]
--- OUTSIDE RECORDS SUMMARY | 2024-12-27 08:25 | XMS_ITS | Encounter Summary ---
Author Organization [employer] [facility] Address [address] [place] [address] [address] [address] Care Team Providers Care Fruit And Vegetable Factory Worker Name Role Phone Unavailable Primary Care Provider Unavailabl e Reason for Visit * Reason Comments Med Refill Encounter Details Date Type Department Care Team (Late st Contact Info) Description 09/17/2023 Refill [facility] ADULT DENTAL [address] [place] [address] Kenny Oliveira, GILDA [address] [place] [address] Social History Tobacco Use Types Packs/Day Years [...]
--- OUTSIDE RECORDS SUMMARY | 2024-12-27 08:25 | XMS_ITS | Encounter Summary ---
Author Organization [employer] [facility] Address [address] [place] [address] [address] [place] [address] Care Team Providers Care Photography Intern Name Role Phone Unavailable Primary Care Provider Unavailabl e Reason for Visit * Reason Comments Med Change Request Encounter Details Date Type Department Care Team (Late st Contact Info) Description 09/05/2022 Refill [facility] ADULT DENTAL [address] [place] [address] Kenny Oliveira DMD [address] [place] [address] Social History Tobacco Use Types Packs/Day Years [...]
--- OUTSIDE RECORDS SUMMARY | 2024-12-27 08:25 | XMS_ITS | Encounter Summary ---
Author Organization [employer] [facility] Address [address] [facility] [address] [place] [address] Care Team Providers Care Hadoop Admin Name Role Phone Unavailable Primary Care Provider Unavailabl e Encounter Details Date Type Department Care Team (Latest Contact Info) Description 07/18/2020 Abstract [facility] CONVERSIONS Dental, Provider, DDS Social History Tobacco [...]
--- OUTSIDE RECORDS SUMMARY | 2024-12-27 08:25 | XMS_ITS | Encounter Summary ---
Author Organization [employer] Address [address] [facility] [address] [place] [address] Care Team Providers Care Library Circulation Department Chief Name Role Phone Unavailable Primary Care Provider Unavailabl e Encounter Details Date Type Department Care Team (Late st Contact Info) Description 12/06/2022 Abstract [facility] ADULT DENTAL [address] [place] [address] Darren Elise, DDS [address] [place] [address] Social History Tobacco Use Types Packs/Day Years [...]
--- OUTSIDE RECORDS SUMMARY | 2024-12-27 08:25 | XMS_ITS | Encounter Summary ---
Author Organization [employer] Address [address] [facility] [address] [place] [address] Care Team Providers Care Semiconductor Testing Group Leader Name Role Phone Unavailable Primary Care Provider Unavailabl e Reason for Visit * Reason Comments Med Refill Encounter Details Date Type Department Care Team (Late st Contact Info) Description 11/20/2022 Refill [facility] ADULT DENTAL [address] [place] [address] Kenny Oliveira DMD [address] [place] [address] Social History Tobacco Use Types Packs/Day Years [...]
--- OUTSIDE RECORDS SUMMARY | 2024-12-27 08:25 | XMS_ITS | Encounter Summary ---
Author Organization [facility] Address [address] [facility] 7t [place] [address] Care Team Providers Care Automation And Controls Manager Name Role Phone Unavailable Primary Care Provider Unavailabl e Encounter Details Date Type Department Care Team (Latest Contact Info) Description 10/15/2021 Abstract [facility] CONVERSIONS Dental, Provider, DDS Social History [...]
[2024-12-27 08:26] LABS: Glucose, Whole Blood 133 mg/dL (60-115)
--- OUTSIDE RECORDS SUMMARY | 2024-12-27 08:26 | XMS_ITS | Encounter Summary ---
Author Organization [facility] Address [address] [place] [address] [address] [place] [address] Care Team Providers Care Machine Binding Folder Name Role Phone Unavailable Primary Care Provider Unavailabl e Reason for Visit * Reason Comments Med Change Request Encounter Details Date Type Department Care Team (Late st Contact Info) Description 08/22/2022 Refill [facility] ADULT DENTAL [address] [place] [address] Kenny Oliveira DMD [address] [place] [address] Social History Tobacco Use Types Packs/Day Years [...]
--- OUTSIDE RECORDS SUMMARY | 2024-12-27 08:26 | XMS_ITS | Encounter Summary ---
Author Organization [employer] Address [address] [place] [address] [address] [place] [address] Care Team Providers Care Physical Therapy Coordinator Name Role Phone Unavailable Primary Care Provider Unavailabl e Reason for Visit * Reason Comments Med Refill Encounter Details Date Type Department Care Team (Late st Contact Info) Description 12/02/2023 Refill [facility] ADULT DENTAL [address] [place] [address] Kenny Oliveira DMD [address] [place] [address] Social History Tobacco Use Types Packs/Day Years [...]
--- OUTSIDE RECORDS SUMMARY | 2024-12-27 08:26 | XMS_ITS | Encounter Summary ---
Author Organization [employer] Address [address] [facility] [address] [place] [address] Care Team Providers Care Landcare Officer Name Role Phone Unavailable Primary Care Provider Unavailabl e Reason for Visit * Reason Comments Med Refill Encounter Details Date Type Department Care Team (Late st Contact Info) Description 10/13/2023 Refill [facility] ADULT DENTAL [address] [place] [address] Mendoza-McclureIssa deutschfemia, DDS [address] [place] [address] Social History Tobacco Use Types Packs/Day Years [...]
--- OUTSIDE RECORDS SUMMARY | 2024-12-27 08:26 | XMS_ITS | Clinical Summary ---
Author Organization [employer] Address [address] [facility] 7t [place] [address] Care Team Providers Care Body Shop Technician Name Role Phone Unavailable Primary Care [...] Recently Relevant to Health Maintenance Insurance [facility]AL [facility]
--- OUTSIDE RECORDS SUMMARY | 2024-12-27 08:26 | XMS_ITS | Encounter Summary ---
Author Organization [facility] Address [address] [facility] [address] [place] [address] Care Team Providers Care Dredge Operator Supervisor Name Role Phone Unavailable Primary Care Provider Unavailabl e Reason for Visit * Reason Comments Med Refill Encounter Details Date Type Department Care Team (Late st Contact Info) Description 12/23/2023 Refill [facility] ADULT DENTAL [address] [place] [address] Kenny Oliveira DMD [address] [place] [address] Social History Tobacco Use Types Packs/Day Years [...]
== END 2024-12-27 08:43 | disposition home or self-care (01) ==
LOC: HO.ENCR 08:12
PROVIDERS: PCP Physician Assistant; Visit Provider Physician Assistant
DX: E11.9 Type 2 diabetes mellitus without complications (principal); E78.5 Hyperlipidemia, unspecified; Z13.9 Encounter for screening, unspecified

== ENCOUNTER → 2024-12-27 08:12 | Outpatient (BNVA) | payer OTHER, SELFPAY | PROVIDERS: PCP Physician Assistant; Visit Provider Physician Assistant | DX: E11.9 Type 2 diabetes mellitus without complications (principal); E78.5 Hyperlipidemia, unspecified; E03.9 Hypothyroidism, unspecified; Z79.84 Long term (current) use of oral hypoglycemic drugs | CPT/HCPCS: 82947; 83036; 99212 ==

== ENCOUNTER 2024-12-27 09:09 | Outpatient (AMB) | payer MEDICARE, MEDICAID, SELFPAY | END 2024-12-27 09:10 | disposition home or self-care (01) | LOC: HO.HMGAL 09:09 | PROVIDERS: PCP Physician Assistant; Visit Provider Registered Nurse Emergency | DX: J30.89 Other allergic rhinitis (principal) | CPT/HCPCS: 95117; 95165 ==

== ENCOUNTER 2025-01-24 08:12 | Outpatient (REF) | payer OTHER, SELFPAY | END 2025-01-24 08:13 | disposition home or self-care (01) | LOC: HO.10HDL 08:12 | PROVIDERS: Visit Provider Physician Assistant | DX: Z12.11 Encounter for screening for malignant neoplasm of colon (principal); Z80.0 Family history of malignant neoplasm of digestive organs | CPT/HCPCS: 36415; 86301 ==

== ENCOUNTER 2025-01-24 08:31 | Outpatient (AMB) | payer OTHER, SELFPAY | END 2025-01-24 08:31 | disposition home or self-care (01) | LOC: HO.HMGAL 08:31 | PROVIDERS: PCP Physician Assistant; Visit Provider Registered Nurse Emergency | DX: J30.89 Other allergic rhinitis (principal) | CPT/HCPCS: 95117; 95165 ==

== ENCOUNTER 2025-02-02 08:27 | Outpatient (AMB) | payer OTHER, SELFPAY ==
--- OUTSIDE RECORDS SUMMARY | 2024-07-30 06:30 | XMS_ITS ---
Author Organization [facility] Address [address] [place] [address] Care Team Providers Care Software Build Engineer Name Role Phone Davion Sheth Primary Care Provider Unavailab Cira Gonzalez [phone] REASON FOR VISIT screening, tubulovillous adenoma,colon Encounters Encounter Location Date Provider Diagnosis [facility] Outpatient [address] [place] [phone] 07/30/2024 Cira Jenkins Colon cancer scree bernice Z12.11 ; History of adenomatous polyp of colon Z86.0101 ; Colon polyps K63.5 and Diverticulosis of large intestine without perforation or abscess without bleeding K57.30 Assessments Encounter Date Diagnosis (ICD Code) Assessment Notes Treatment Notes Treatment Clinical Notes Section Notes 07/30/2024 Colon cancer screening (ICD-10 - Z12.11) 07/30/2024 History of adenomatous polyp of colon (ICD-10 - Z86.0101) 07/30/2024 Colon polyps (ICD-10 - K63.5) 07/30/2024 Diverticulosis of large intestine without perforation or abscess without bleeding (ICD-10 - K57.30) Plan Of Treatment No Information Progress Notes * CIRA MERAZ RDOB: (64 yo F)Acc No.[id number]:07/30/2024 COLON WITH MAC Patient: CIRA GREEN Provider: Sabine Jenkins MD :1960 A ge:64 Y S ex:Female Date:07/30/2024 Address:[address] [place] [phone] Pcp:Davion Sheth Subjective: * Chief Complaints: * S creening, tubulovillous adenoma,colon Assessment: * Assessment: 1. C olon cancer screening - Z12.11 (Primary) 2 . H istory of adenomatous polyp of colon - Z86.0101 3 . C olon polyps - K63.5 4 . D iverticulosis of large intestine without perforation or abscess without bleeding - K57.30 ? Plan: * Procedure Codes: 4 5385 LESION REMOVAL COLONOSCOPY, Modifiers: PT 0529F INTRVL 3+YRS PTS CLNSCP [id number] RCMND FLW-UP 10 YRS DOCD Billing Information: * Procedure Codes: 10831 LESION REMOVAL COLONOSCOPY. Modifiers: PT 0529F INTRVL 3+YRS PTS CLNSCP DOCD. 0528F RCMND FLW-UP 10 YRS DOCD. * The named appointment provid er may or may not be the originator of this progress note, and it is not deemed complete until electronically signed by the appointment provider. Sign off status: Pending * Provider: Sabine Jenkins MD Date: 0 07/30/2024 Generated for Brannon rodriguez/Megan/Fritzsmitting on: 04/04/2024 08:51 AM EST
--- NOTE | 2025-02-02 08:31 | A.OFFPC_ITS ---
Vital Signs 02/02/25 08:32 Height 5 ft 7 in Weight 223 lb 6 oz BMI 35.0 BP 124/66 Blood Pressure Location Lt brachial Position Sitting Pulse 61 Pulse Source Pulse Oximeter Temp 97.0 F Temp Source Temporal Artery Scan Pulse Oximetry (%) 96 Oxygen Delivery Method Room Air Intake Visit Reasons: CPE Allergies pollen extracts Allergy (Intermediate, Verified 02/02/25 08:49) Watery eyes, sneezing pine sap Allergy (Intermediate, Uncoded 02/02/25 08:49) Watery eyes, sneezing Medication List - Last Reconciled 02/02/25 by Davion Sheth PA-C atorvastatin 20 mg PO BEDTIME 90 days blood sugar diagnostic Use 2x daily as directed to monitor blood glucose readings blood sugar diagnostic Use once a day As directed; prodigy voice test strips blood-glucose meter Use 2x a day as directed blood-glucose meter (Platter Voice Glucose Meter kit) Use once daily as directed to monitor blood glucose readings blood-glucose sensor (FreeStyle Reginaldo 3 Sensor device) As directed blood-glucose sensor (FreeStyle Reginaldo 3 Plus Sensor device) Use daily As directed to monitor glucose blood-glucose,pig machine operator,cont (FreeStyle Reginaldo 3 Powers) As directed brimonidine 0.2% 1 drp ophthalmic (eye) Q8H [CoQ-10 ] CPAP (CPAP Machine/Device) CPAP, mask and supplies [Fish Oil ] glucose 4 grams PO Q15M PRN lancets (Prodigy Twist Top Lancet) twice a day lancets (Prodigy Lancets) Use 2x daily As directed to monitor blood sugars lancets (Prodigy Twist Top Lancet) Use once daily as directed to monitor blood glucose readings latanoprost 0.005% 1 drp ophthalmic (eye) DAILY levothyroxine 25 mcg PO DAILY 90 days metformin ER 750 mg PO BID miscellaneous medical supply 1 ea miscellaneous DAILY 99 days multivitamin 1 tab PO DAILY naftifine 1% 1 appl topical BID 4 weeks tadalafil 5 mg PO DAILY 90 days tadalafil 10 mg PO ONCE PRN 30 days terbinafine HCl 1% 1 appl topical BID 30 days tirzepatide (Mounjaro) 5 mg (0.5 mL) subcut QWEEK vitamin B complex 1 cap PO DAILY Tobacco use date assessed: 02/02/25 Fall risk assessment: No Falls in past year Last assessed Fall Risk: 02/02/25 Dental Screening Dental Screen Date: 02/02/25 Did you have a dental visit in the last 12 months?: Yes Did you have a dental problem in the last 6 months where you did not have access to dental care?: No Was dental information given to patient?: Patient has dentist HPI CPE HPI Details Patient is a 64 year-old male here today for routine annual physical Patient has a past medical history of type 2 diabetes, Legally blind, hyperlipidemia,. .. Type 2 diabetes: Patient is followed by [facility], continues on a GLP 1 and metformin at this time. A1c is has been appropriate? Continues to monitor his blood sugars with freestyle Reginaldo,.? Has been able to lose some weight since last office visit Continues to be very physically active and reports walking thousands of steps a day. Does go to the gym twice a week. .. Hyperlipidemia:? Continues on statin therapy without any side effect.? Most recent LDL acceptable below 100. .. Hypothyroidism: Has been continuing levothyroxine 25 mcg. Most recent TSH stable. Will continue current dose of levothyroxine ?colonoscopy:? was done by Dr. Jenkins 2024 has a history of tubular adenoma\ repeat 3 years. .. ? Vaccines: UTD with COVID? ( Every1Mobile) , UTD Tdap?, up-to-date with pneumonia and shingles vacc PFSH Medical History YOLY on CPAP Recurrent ventral hernia Seasonal allergies Recurrent umbilical hernia Controlled diabetes mellitus without complication, without long-term current use of insulin Hyperlipidemia LDL goal <100 Obesity (BMI 30-39.9) Obesity due to excess calories History of umbilical hernia High BMI YOLY (obstructive sleep apnea) Blindness Glaucoma Surgical History History of local excision of skin lesion History of colonoscopy (~2009) History of umbilical hernia repair Family History Father History of bone cancer History of diabetes mellitus Mother History of pancreatic cancer Paternal Grandmother History of diabetes mellitus Paternal Uncle History of diabetes mellitus Paternal Aunt History of diabetes mellitus Social History (Updated 02/02/25 @ 08:55 by Davion Sheth PA-C) Household Members: None Housing: House Are you a primary lawn care technician to a significant other at home: No Do you presently have visiting nurse or other home services: No Alcohol intake: former Year quit: 1990 Patient Tobacco Use Status: Former Tobacco user Tobacco use type: Cigarette Years Smoked: 12 e-Cigarette/Vaping Use: Never Used Second Hand Smoke Exposure: No service: No Current occupational status: employed 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 1. Little interest or pleasure in doing things: not at all 2. Feeling down, depressed, or hopeless: not at all 3. Trouble falling or staying asleep, or sleeping too much: not at all 4. Feeling tired or having little energy: not at all 5. Poor appetite or overeating: not at all 6. Feeling bad about yourself - or that you are a failure or have let yourself or your family down: not at all 7. Trouble concentrating on things, such as reading the newspaper or watching television: not at all 8. Moving or speaking so slowly that other people could have noticed. Or the opposite - being so fidgety or restless that you have been moving around a lot more than usual: not at all 9. Thoughts that you would be better off or of hurting yourself in some way: not at all Total score: 0 Depression Screening Interpretation: Negative Depression Screening Done: Yes 63471 - PHQ-9 Billing: Yes Source: Developed by Drs. Long Beaulieu, Audra Rios, Juan Rizo and colleagues, with an educational leah from [employer]. Thrive Questionnaire Date Thrive assessed: 04/07/24 I am a: Patient What is your living situation today?: I have a steady place to live Within the past 12 months, did the food you bought not last and you didn't have the money to get more?: Never true Within the past 12 months, did you worry whether your food would run out before you got money to buy more?: Never true Do you have trouble paying for medicines?: No Do you have trouble getting transportation to medical appointments?: No Do you have trouble paying your heating and electricity bill?: No Do you have trouble taking care of your child, family member or friend?: No Do you have trouble with day-to-day activities such as bathing, preparing meals, shopping, managing finances, etc.?: No Are you currently unemployed and looking for a job?: No Are you interested in more education?: No Please select the resources that you would like help with: None Currently or been in a relationship where the following occur: No concerns reported THRIVE Score: 0 AUDIT C Alcohol Use Questionnaire (AUDIT-C) 1. How often do you have a drink containing alcohol?: Never 3. How often do you have six or more drinks on one occasion?: Never Total Score: 0 DHARMESH-7 AMB Questionnaire DHARMESH-7 Date DHARMESH - 7 assessed: 04/07/24 Feeling nervous, anxious, or on edge: 0 = Not at all Not being able to stop or control worryin = Not at all Worrying too much about different things: 0 = Not at all Trouble relaxin = Not at all Being so restless that it is hard to sit still: 0 = Not at all Becoming easily annoyed or irritable: 0 = Not at all Feeling afraid as if something awful might happen: 0 = Not at all Total DHARMESH-7 score (0-4 normal; 5-9 mild; 10-14 moderate; 15-21 severe): 0 Source: Developed by Drs. Long Beaulieu, Audra Rios, Juan Rizo and colleagues, with an educational leah from [employer]. DHARMESH-7 Assessment Billing DHARMESH-7 Assessment Tool: DHARMESH-7 Assessment 97368 Review of Systems Const Denies body aches, Denies chills, Denies excessive sweating, Denies fatigue, Denies fever(s) and Denies headache(s) Eyes Denies blurry vision ENT Denies dysphagia, Denies vertigo, Denies dizziness, Denies headache(s), Denies hearing loss and Denies tinnitus Card Denies chest pain, Denies chest pain with activity, Denies syncope, Denies irregular heart rhythm and Denies dyspnea Resp Denies chest congestion, Denies cough, Denies hemoptysis, Denies dyspnea and Denies wheezing GI Denies abdominal pain, Denies melena, Denies hematochezia, Denies coffee ground emesis, Denies dysphagia, Denies diarrhea, Denies nausea and Denies vomiting Denies difficulty urinating, Denies dysuria, Denies urinary frequency, Denies urinary hesitancy and Denies urinary urgency Musc Denies arthralgias, Denies limited range of motion, Denies muscle cramps and Denies muscle weakness Skin/Breast Denies rash and Denies skin ulcer Neuro Denies Abnormal speech present, Denies confusion, Denies vertigo, Denies dizziness, Denies syncope, Denies headache(s), Denies memory loss and Denies seizure-like activity Psych Denies anxiety, Denies confusion, Denies depression, Denies memory loss, Denies panic attacks and Denies paranoia Endo Denies excessive sweating, Denies fatigue, Denies flushing, Denies polydipsia and Denies polyuria Aller/Immun Denies wheezing Physical exam (Primary Care) Vital Signs: Last Vital Signs Temp 97.0 F 02/02/25 08:32 Pulse 61 02/02/25 08:32 BP 124/66 02/02/25 08:32 Pulse Ox 96 02/02/25 08:32 Oxygen Delivery Method Room Air 02/02/25 08:32 BMI result Body Mass Index 35.0 BMI Assessment/Plan discussion: High BMI High, discussed plan: lifestyle, weight reduction, dietary and physical activity Tobacco/Smoking Status: Tobacco use Status Tobacco use date assessed 02/02/25 02/02/25 08:38 Patient Tobacco Use Status Former Tobacco user 02/02/25 08:55 Tobacco use type Cigarette 02/02/25 08:55 e-Cigarette/Vaping Use Never Used 02/02/25 08:55 PHQ-9: PHQ-9 Score PHQ-9: Total score 0 02/02/25 10:31 Depression Screening Interpretation: Negative Thrive Assessment: Date of Thrive Assessment Date Thrive assessed 04/07/24 02/02/25 08:38 Currently or been in a relationship where the following occur: No concerns reported Const General: cooperative, comfortable, no acute distress, alert and awake; No confusion Orientation/consciousness: oriented to person, oriented to place, patient oriented x3 and No confusion HENMT Head: Yes normocephalic Ears: external ears normal and TM's normal bilaterally Face and sinus: No sinus tenderness Mouth: Normal oral and palatal mucosa present and tongue normal Teeth and gingiva: dentition normal and gingiva normal Throat: Yes posterior oropharynx normal, Yes tonsils normal and Yes uvula midline Eyes Conjunctivae: conjunctivae normal Sclerae: sclerae normal Pupils: Equal, round and reactive pupils present EOM: EOMs intact bilaterally Direct Ophthalmoscopy: No no photophobia Neck Neck: Yes no lymphadenopathy, No tender and Yes no JVD Thyroid: Thyroid normal Carotids: no bruits Chest Chest palpation & inspection: no tenderness Resp Effort & Inspection: normal respiratory effort, no audible wheezes, not labored and no stridor Auscultation: no crackles, no rales, no rhonchi and no wheezes Cardio Jugular venous distension: no JVD Rate: regular rate, not bradycardic and not tachycardic Rhythm: regular rhythm Bruits: no carotid bruits Peripheral pulses: Peripheral pulses 2+ throughout GI Inspection: Yes normal to inspection, No abdominal wall ecchymosis and No visible herniation Palpation (GI): Soft to palpation, nontender, no guarding, not rigid and No hepatosplenomegaly present Auscultation: normoactive bowel sounds General: Yes no CVA tenderness Back/Spine/Pelvis Back: no CVA tenderness and No back tenderness Cervical Spine: cervical ROM normal Thoracic/Lumbar Spine: thoracic and lumbar spine normal to inspection, straight leg raise negative bilaterally, No thoraco-lumbar ROM limited and No lumbar spinal tenderness Skin Lesions: no lesions Rashes: no rashes Wounds: no wounds Neuro General: oriented to person, oriented to place, patient oriented x3, CN's II-XI intact bilaterally and No confusion Cranial nerves: Yes Equal, round and reactive pupils present and Yes Normal accommodation reflex present Cognition (Neuro): normal cognition Speech: No Abnormal speech present Gait exam (Neuro): Normal gait present Motor exam (neuro): 5/5 motor strength present throughout Extrem Right upper extremity: full ROM; no cyanosis Left upper extremity: full ROM; no cyanosis Right lower extremity: no edema Left lower extremity: no edema Psych Appearance: grossly normal Mental Status: mental status grossly normal Affect: normal affect Attitude: cooperative Thought process: Normal thought process present Coding Level of Care Code Est Pt Prev Care 40-64y(71265) Diagnoses Annual physical exam Z00.00 Controlled diabetes mellitus without complication, without long-term current use of insulin E11.9 Hypothyroidism, unspecified type E03.9 Hypothyroidism type: unspecified Hyperlipidemia LDL goal <100 E78.5 YOLY on CPAP G47.33; Z99.89 Need for MMR vaccine Z23 Additional Codes PHQ-9 - 10708 - PHQ-9 Billing: Yes ([id number]) DHARMESH-7 Assessment Billing - DHARMESH-7 Assessment Tool: DHARMESH-7 Assessment 96827 ([id number]) Assessment & Plan Assessment & Plan (1) Annual physical exam: Code(s): Z00.00 - Encounter for general adult medical examination without abnormal findings Category: Medical Plan: As per HPI (2) Controlled diabetes mellitus without complication, without long-term current use of insulin: Code(s): E11.9 - Type 2 diabetes mellitus without complications Category: Medical Plan: Patient's type 2 diabetes well controlled he continues on metformin and now on new GLP 1 Mounjaro. Has been able to lose a few lb since last office visit Patient was followed by endocrinology. Goal A1c is to remain below 7.0 (3) Hypothyroid: Code(s): E03.9 - Hypothyroidism, unspecified Category: Medical Qualifiers: Hypothyroidism type: unspecified Qualified Code(s): E03.9 - Hypothyroidism, unspecified Plan: Patient's most recent TSH stable. Will continue current dose of levothyroxine. (4) Hyperlipidemia LDL goal <100: Code(s): E78.5 - Hyperlipidemia, unspecified Category: Medical Plan: Patient's most recent lipid panel showing excellent control of his total cholesterol and LDL. Will continue current dose of statin therapy with goal LDL to remain below 100 (5) YOLY on CPAP: Code(s): G47.33 - Obstructive sleep apnea (adult) (pediatric); Z99.89 - Dependence on other enabling machines and devices Category: Medical Plan: Patient continues on CPAP therapy on a nightly basis with good effect. (6) Need for MMR vaccine: Code(s): Z23 - Encounter for immunization Category: Medical Plan: Patient would like his MMR titers evaluated to see if he needs a booster MMR vaccine. Orders: Orders Prostate Specific Antigen Scr Today E78.5 - Hyperlipidemia, unspecified, Z12.5 - Encounter for screening for malignant neoplasm of prostate Comprehensive [place]. Panel Fast Today E11.69 - Type 2 diabetes mellitus with other specified complication, N52.1 - Erectile dysfunction due to diseases classified elsewhere Complete Blood Count no Diff Today E11.69 - Type 2 diabetes mellitus with other specified complication, N52.1 - Erectile dysfunction due to diseases classified elsewhere TSH reflex Free T4 Today E03.9 - Hypothyroidism, unspecified Lipid Panel Today E78.5 - Hyperlipidemia, unspecified Carbohydrate Antigen 19-9 Today Z80.0 - Family history of malignant neoplasm of digestive organs Microalbumin, Random (w Creat) Today E11.69 - Type 2 diabetes mellitus with other specified complication, N52.1 - Erectile dysfunction due to diseases classified elsewhere MMR IgG Measles Mumps Rubella Today Z23 - Encounter for immunization Medications: Refilled atorvastatin 20 mg PO BEDTIME 90 tabs 1RF 90 days E78.5 - Hyperlipidemia, unspecified levothyroxine 25 mcg PO DAILY 90 tabs 1RF 90 days E03.9 - Hypothyroidism, unspecified Patient Instructions: Goal: A1c to remain below 7.0, blood pressure to remain below 140/90 Barriers: Vision, Adherence to physical activity and healthy eating habits
[2025-02-02 08:32] VITALS: BP 124/66; PULSE 61; TEMP 36.1; O2SAT 96; BMI 35.0
--- OUTSIDE RECORDS SUMMARY | 2025-02-02 08:51 | XMS_ITS | Clinical Summary ---
Author Organization [employer] Address [address] [facility] 7t [place] [address] Care Team Providers Care Milliner Helper Name Role Phone Unavailable Primary Care Provider [...] Recently Relevant to Health Maintenance Insurance D[facility]
--- OUTSIDE RECORDS SUMMARY | 2025-02-02 08:51 | XMS_ITS | Encounter Summary ---
Author Organization [facility] Address [address] [place] [address] [address] [place] [address] Care Team Providers Care Staff Pharmacist Hospital Name Role Phone Unavailable Primary Care Provider Unavailabl e Reason for Visit * Reason Comments Med Change Request Encounter Details Date Type Department Care Team (Late st Contact Info) Description 09/05/2022 Refill [facility] ADULT DENTAL [address] [place] [address] Kenny Oliveira DMD [address] [place] [address] Social History Tobacco Use Types Packs/Day Years [...]
--- OUTSIDE RECORDS SUMMARY | 2025-02-02 08:51 | XMS_ITS | Encounter Summary ---
Author Organization [employer] Address [address] [facility] [address] [place] [address] Care Team Providers Care Eclectic Doctor Name Role Phone Unavailable Primary Care Provider Unavailabl e Encounter Details Date Type Department Care Team (Late st Contact Info) Description 03/04/2023 Abstract [facility] ADULT DENTAL [address] [place] [address] Kenny Oliveira, GILDA [address] [place] [address] Social History Tobacco Use Types Packs/Day Years [...]
--- OUTSIDE RECORDS SUMMARY | 2025-02-02 08:51 | XMS_ITS | Encounter Summary ---
Author Organization [employer] Address [address] [facility] [address] [place] [address] Care Team Providers Care Crew Clerk Name Role Phone Unavailable Primary Care Provider Unavailabl e Encounter Details Date Type Department Care Team (Late st Contact Info) Description 03/31/[address] [facility] ADULT DENTAL [address] [place] [address] Kenny Oliveira, GILDA [address] [place] [address] Social History Tobacco Use Types Packs/Day Years [...]
--- OUTSIDE RECORDS SUMMARY | 2025-02-02 08:51 | XMS_ITS | Encounter Summary ---
Author Organization [employer] Address [address] [place] [address] [address] [place] [address] Care Team Providers Care Floor Specialist Name Role Phone Unavailable Primary Care Provider Unavailabl e Reason for Visit * Reason Onset Date Comments Appointment 05/10/2022 Encounter Details Date Type Department Care Team ([facility] st Contact Info) Description 05/10/2022 Telephone [facility] ADULT DENTAL [address] [place] [address] Darren Elise DDS [address] [place] [address] Appointment Social History Tobacco Use Types Packs/Day [...]
--- OUTSIDE RECORDS SUMMARY | 2025-02-02 08:51 | XMS_ITS | Encounter Summary ---
Author Organization [facility] [facility] Address [address] [facility] 7t [place] [address] Care Team Providers Care Secret Service Agent Name Role Phone Unavailable Primary Care Provider Unavailabl e Encounter Details Date Type Department Care Team (Latest Contact Info) Description 07/18/[address] [facility] CONVERSIONS Dental, Provider, DDS Social History [...]
--- OUTSIDE RECORDS SUMMARY | 2025-02-02 08:51 | XMS_ITS | Encounter Summary ---
Author Organization [facility] Address [address] [facility] [address] [place] [address] Care Team Providers Care Senior Animal Trainer Name Role Phone Unavailable Primary Care Provider Unavailabl e Reason for Visit * Reason Comments Med Refill Encounter Details Date Type Department Care Team (Late st Contact Info) Description 07/04/2023 Refill [facility] ADULT DENTAL [address] [place] [address] Mendoza-McclureIssaElizabeth, DDS [address] [place] [address] Social History Tobacco Use Types Packs/Day Years [...]
--- OUTSIDE RECORDS SUMMARY | 2025-02-02 08:51 | XMS_ITS | Encounter Summary ---
Author Organization [facility] Address [address] [place] [address] [address] [place] [address] Care Team Providers Care Window Systems Administrator Name Role Phone Unavailable Primary Care Provider Unavailabl e Reason for Visit * Reason Comments Med Refill Encounter Details Date Type Department Care Team (Late st Contact Info) Description 12/16/2022 Refill [facility] ADULT DENTAL [address] [place] [address] Kenny Oliveira DMD [address] [place] [address] Social History Tobacco Use Types Packs/Day Years [...]
--- OUTSIDE RECORDS SUMMARY | 2025-02-02 08:51 | XMS_ITS | Encounter Summary ---
Author Organization [facility] Address [address] [place] [address] [address] [address] Care Team Providers Care Commercial Drone Pilot Name Role Phone Unavailable Primary Care Provider Unavailabl e Reason for Visit * Reason Comments Med Refill Encounter Details Date Type Department Care Team (Late st Contact Info) Description 02/05/2023 Refill [facility] ADULT DENTAL [address] [place] [address] Kenny Oliveira DMD [address] [place] [address] Social History Tobacco Use Types Packs/Day Years [...]
--- OUTSIDE RECORDS SUMMARY | 2025-02-02 08:51 | XMS_ITS | Encounter Summary ---
Author Organization [employer] [facility] Address [address] [place] [address] [address] [place] [address] Care Team Providers Care Director [place] Sales Name Role Phone Unavailable Primary Care Provider Unavailabl e Reason for Visit * Reason Comments Med Refill Encounter Details Date Type Department Care Team (Late st Contact Info) Description 05/06/2023 Refill [facility] ADULT DENTAL 230 [place] [address] Kenny Oliveira DMD [address] [place] [address] Social History Tobacco Use Types Packs/Day Years [...]
--- OUTSIDE RECORDS SUMMARY | 2025-02-02 08:51 | XMS_ITS | Encounter Summary ---
Author Organization [employer] [facility] Address [address] [place] [address] [address] [address] Care Team Providers Care Shot Lighter Name Role Phone Unavailable Primary Care Provider Unavailabl e Reason for Visit * Reason Comments Med Refill Encounter Details Date Type Department Care Team (Late st Contact Info) Description 01/10/2023 Refill [facility] ADULT DENTAL 230 [place] [address] Kenny Oliveira DMD 230 [place] [address] Social History Tobacco Use Types Packs/Day Years [...]
--- OUTSIDE RECORDS SUMMARY | 2025-02-02 08:51 | XMS_ITS | Encounter Summary ---
Author Organization [employer] [facility] Address [address] [place] [address] [address] [address] Care Team Providers Care Quality Rep Name Role Phone Unavailable Primary Care Provider Unavailabl e Reason for Visit * Reason Comments Med Refill Encounter Details Date Type Department Care Team (Late st Contact Info) Description 06/07/2023 Refill [facility] ADULT DENTAL [address] [place] [address] Kenny Oliveira, GILDA 230 [place] [address] Social History Tobacco Use Types Packs/Day Years [...]
--- OUTSIDE RECORDS SUMMARY | 2025-02-02 08:51 | XMS_ITS | Encounter Summary ---
Author Organization [employer] [facility] Address [address] [facility] [address] [place] [address] Care Team Providers Care Lead Neurodiagnostic Technologist Name Role Phone Unavailable Primary Care Provider Unavailabl e Reason for Visit * Reason Comments Med Refill Encounter Details Date Type Department Care Team (Late st Contact Info) Description 04/05/2023 Refill [facility] ADULT DENTAL 230 [place] [address] Mendoza-McclureIssaElizabeth, DDS 230 [place] [address] Social History Tobacco Use Types Packs/Day Years [...]
--- OUTSIDE RECORDS SUMMARY | 2025-02-02 08:51 | XMS_ITS | Encounter Summary ---
Author Organization [facility] [facility] Address [address] [place] [address] [address] [address] Care Team Providers Care Business Analysis Consultant Name Role Phone Unavailable Primary Care Provider Unavailabl e Reason for Visit * Reason Comments Med Refill Encounter Details Date Type Department Care Team (Late st Contact Info) Description 03/04/2023 Refill [facility] ADULT DENTAL 230 [place] [address] Kenny Oliveira, GILDA 230 [place] [address] Social History Tobacco Use Types Packs/Day Years [...]
--- OUTSIDE RECORDS SUMMARY | 2025-02-02 08:51 | XMS_ITS | Clinical Summary ---
Author Organization [facility] Address [address] [place] [address] Phone Care Team Providers Care Fisheries Inspector Name Role Phone Davion Sheth Primary Care Provider Social History Tobacco Use Types Packs/Day Years Used Date Smoking Tobacco: Never Assessed Sex and Gender Information Value Date Recorded Sex Assigned at Not on file Legal Sex Male 7:19 AM EDT Gender Identity Not on file Sexual Orientation Not on file Plan of Treatment Upcoming Encounters Date Type Department Care Team ([facility] Contact Info) Description 02/17/2025 1:30 PM EST Consult Orthopedic Surgery - [place] [address] [phone] Alan Arboleda, DPM [address] [phone] Health Maintenance Due Date Last Done Comments Colorectal Cancer Screening: Colonoscopy 1960 DTaP,Tdap,and Td Vaccines (1 - Tdap) 06/04/1979 Pneumococcal Vaccine: 50+ Ye ars (1 of 2 - PCV) 06/04/1979 Zoster Vaccines (1 of 2) 2010 Depression Screening 03/10/2024 Cholesterol Screening (Lipid Panel) 09/22/2024 HIV Screening 09/22/2024 Hepatitis C Screening 09/22/2024 Medicare Annual Wellness Visit 09/22/2024 Social Influencers of Health Screening 09/22/2024 COVID-19 Vaccine (1 - 2024-2 6 season) 2024 Influenza Vaccine (#1) 2024 RSV Immunization Adult Patie nts (1 - 1-dose 75+ series) 06/04/2035 HIB [...] on patient's age to complete this topic MMR Vaccines Aged Out No longer eligi ble based on patient's age to complete this topic Meningococcal ACWY Vaccine Aged Out N o longer eligible based on patient's age to complete this topic Meningococcal B Vaccine Aged Out No l onger eligible based on patient's age to complete this topic RSV Immunization Patients Un maria de jesus 20 months Aged Out No longer eligible b ased on patient's age to complete this topic Varicella Vaccines Aged Out No longer eligible based on patient's age to complete this topic Insurance [employer] MEDICARE Member Subscriber Plan / Payer (Ef fective 2022-Present) Name:KTCIRA MEAD Relation to Subscriber:Self Name:Cira Alford Payer ID:[id number] Group ID:[id number] Type:Not on file Address: [facility] [address] [id number] Care Teams Fisheries Inspector Relationship Specialty Start Date End Date Davion Sheth PA [address] [place] [phone] PCP - General Physician Bottom Cager 09/22/24
--- OUTSIDE RECORDS SUMMARY | 2025-02-02 08:51 | XMS_ITS | Encounter Summary ---
Author Organization [employer] [facility] Address [address] [place] [address] [address] [address] Care Team Providers Care Shellfish Checker Name Role Phone Unavailable Primary Care Provider Unavailabl e Reason for Visit * Reason Comments Med Refill Encounter Details Date Type Department Care Team (Late st Contact Info) Description 09/17/[address] [facility] ADULT DENTAL 230 [place] [address] Kenny Oliveira, GILDA 230 [place] [address] Social History Tobacco Use Types Packs/Day Years [...]
--- OUTSIDE RECORDS SUMMARY | 2025-02-02 08:51 | XMS_ITS | Encounter Summary ---
Author Organization [employer] Address [address] [facility] 7t [place] [address] Care Team Providers Care Numerical Analysis Group Manager Name Role Phone Unavailable Primary Care Provider Unavailabl e Reason for Visit * Reason Onset Date Comments appt insurance approval 12/02/2022 Encounter Details Date Type Department Care Team (Late st Contact Info) Description 12/02/2022 Telephone [facility] [address] [place] [address] Darren Elise DDS [address] [place] [address] appt insurance approval Social History Tobacco Use [...]
--- OUTSIDE RECORDS SUMMARY | 2025-02-02 08:51 | XMS_ITS | Encounter Summary ---
Author Organization [employer] [facility] Address [address] [facility] [address] [address] Care Team Providers Care Supervisor Furnace Room Name Role Phone Unavailable Primary Care Provider Unavailabl e Reason for Visit * Reason Comments Med Refill Encounter Details Date Type Department Care Team (Late st Contact Info) Description 11/20/2022 Refill [facility] ADULT DENTAL 230 [place] [address] Kenny Oliveira DMD 230 [place] [address] Social History Tobacco Use Types Packs/Day Years [...]
--- OUTSIDE RECORDS SUMMARY | 2025-02-02 08:51 | XMS_ITS | Encounter Summary ---
Author Organization [employer] Address [address] [facility] [address] [address] Care Team Providers Care Policy Change Clerk Name Role Phone Unavailable Primary Care Provider Unavailabl e Encounter Details Date Type Department Care Team (Late st Contact Info) Description 03/06/2023 Abstract [facility] ADULT DENTAL 230 [place] [address] Kenny Oliveira, GILDA [address] [place] [address] Social History Tobacco Use Types Packs/Day Years [...]
--- OUTSIDE RECORDS SUMMARY | 2025-02-02 08:51 | XMS_ITS | Encounter Summary ---
Author Organization [employer] [facility] Address [address] [place] [address] [address] [address] Care Team Providers Care Solvent Station Attendant Name Role Phone Unavailable Primary Care Provider Unavailabl e Reason for Visit * Reason Comments Med Refill Encounter Details Date Type Department Care Team (Late st Contact Info) Description 07/30/2023 Refill [facility] ADULT DENTAL 230 [place] [address] Kenny Oliveira DMD [address] [place] [address] Social History Tobacco Use Types Packs/Day Years [...]
--- OUTSIDE RECORDS SUMMARY | 2025-02-02 08:51 | XMS_ITS | Encounter Summary ---
Author Organization [employer] Address [address] [facility] [address] [address] Care Team Providers Care Legislative Director Name Role Phone Unavailable Primary Care Provider Unavailabl e Encounter Details Date Type Department Care Team (Late st Contact Info) Description 12/06/2022 Abstract [facility] ADULT DENTAL [address] [place] [address] Darren Elise, DDS 505 [place] [address] Social History Tobacco Use Types Packs/Day Years [...]
--- OUTSIDE RECORDS SUMMARY | 2025-02-02 08:51 | XMS_ITS | Encounter Summary ---
Author Organization [employer] [facility] Address [address] [facility] 7t [place] [address] Care Team Providers Care Mechanic'S Assistant Name Role Phone Unavailable Primary Care Provider Unavailabl e Encounter Details Date Type Department Care Team (Latest Contact Info) Description 10/15/2021 Abstract [facility]VERSION[facility] Dental, Provider, DDS Social History Tobacco [...]
--- OUTSIDE RECORDS SUMMARY | 2025-02-02 08:51 | XMS_ITS | Encounter Summary ---
Author Organization [facility] [facility] Address [address] [facility] [address] [address] Care Team Providers Care Microbiological Analyst Name Role Phone Unavailable Primary Care Provider Unavailabl e Reason for Visit * Reason Comments Med Refill Encounter Details Date Type Department Care Team (Late st Contact Info) Description 12/23/2023 Refill [facility] ADULT DENTAL [address] [place] [address] Kenny Oliveira DMD [address] [place] [address] Social History Tobacco Use Types Packs/Day Years [...]
--- OUTSIDE RECORDS SUMMARY | 2025-02-02 08:51 | XMS_ITS | Encounter Summary ---
Author Organization [employer] Address [address] [place] [address] [address] [address] Care Team Providers Care Cryolite Recovery Operator Name Role Phone Unavailable Primary Care Provider Unavailabl e Reason for Visit * Reason Comments Med Refill Encounter Details Date Type Department Care Team (Late st Contact Info) Description 12/02/2023 Refill [facility] ADULT DENTAL 230 [place] [address] Kenny Oliveira DMD [address] [place] [address] Social History Tobacco Use Types Packs/Day Years [...]
--- OUTSIDE RECORDS SUMMARY | 2025-02-02 08:51 | XMS_ITS | Patient Health Record ---
Author Organization [facility] Address [address] [place] [address] Care Team Providers Care Stock Order Lister Name Role Phone Davion Sheth Primary Care Provider UnavailCira Evans Unavailable [phone] Allergies No Known Allergies Results Component Value Reference Range Flag Notes Pathology (Not yet reviewed by provider) Interpretation: Performing Lab:[facility], [address] [place] [phone] Notes/Report: Glucose, Whole Blood Reviewed date:07/30/2024 06:24:58 PM Interpretation: Performing Lab:[facility], [address] [place] [phone] Notes/Report: Glucose, Whole Blood 133 60-115 mg/dL H LA TER #: [id number] Reason For Referral No Information Medications Medication SIG (Take, Route, Frequency, Duration) Notes Start Date End Date Status Atorvastatin Calcium 20 MG Tablet 1 tablet Orally Once a day Active Latanoprost 0.005 % Solution INSTILL 1 DROP IN BOTH EYES AT BEDTIME Ophthalmic; Duration: 50 Active metFORMIN HCl ER 750 MG Tablet Extended Release 24 Hour 1 tablet with evening meal Orally bid Active Brimonidine Tartrate 0.2 % Solution INSTILL 1 DROP IN BOTH EYES TWICE DAILY 12 HOURS APART Ophthalmic; Duration: 30 Active Vitamin B 12 Active Vitamin B Complex Ac tive Co Q 10 Active Multi Vitamin for diabetics Ac tive Tylenol Active Trulicity 3 MG/0.5ML Solution Auto-injector ADMINISTER 3 MG UNDER THE SKIN EVERY WEEK Subcutaneous; Duration: 28 Days Active Immunizations Vaccine Route Administration Date Status Comme nts Influenza Unknown 11/24/2019 Administered Influenza Unknown 11/08/2020 Administered Social History Tobacco Use: Social History Observation Description Date Details (start date - stop date) Former Smoker NA - NA Social History Drugs/Alcohol: Social Info Question Answer Notes Alcohol Screen Did you have a drink containing alcohol in the past year? No Points 0 Interpretation Negative Tobacco Use: Social Info Question Answer Notes Tobacco Use/Smoking Patient is a former smoker When did you stop smoking? 1991 How long has it been since you last smoked? > 10 years Additional Details Category Social Info Options Details Miscellaneous: Marital status: Single Occupation: Unemployed Section Notes: Nonbsmoker; no alcohol since 1990 Nonbsmoker; no alcohol since 1990 Nonsmoker; no alcohol since 1990 Problems Problem Type SNOMED Code ICD Code Onset Dates Problem Status W/U Status Risk Notes Problem Screening for malignant neoplasm of colon (517862661) Encounter for screening for malignant neoplasm of colon (Z12.11) Active confirmed Problem Preprocedural examination (685677201396341) Preprocedural examination (Z01.818) Active confirmed Problem Long-term current use of drug therapy (357273794) 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 (Z79.84) Active confirmed Problem Diverticulosis of colon (406274436) Diverticulosis of colon (K57.30) Active confirmed Problem Tubulovillous adenoma of colon (3541305118) 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 Vital Signs Blood pressure diastolic 111 mm Hg 06/01/2024 Height 67 in 06/01/2024 Blood pressure systolic 111 mm Hg 06/01/2024 Weight 228 lbs 06/01/2024 BMI 35.71 kg/m2 06/01/2024 Procedures Procedure Date Ordered Date Performed Result Body Sit e COLONOSCOPY 06/01/2024 N/A Encounters Encounter Location Date Provider Diagnosis [facility] [address] [place], [place] [id number] 07/30/2024 Cira Jenkins Colon cancer screeni ng Z12.11 ; History of adenomatous polyp of colon Z86.0101 ; Colon polyps K63.5 and Diverticulosis of large intestine without perforation or abscess without bleeding K57.30 [facility] [address] [place] [address] 06/01/2024 Cira Jenkins longterm (current) use of oral hypoglycemic drugs Z79.84 ; Preprocedural examination Z01.818 ; Encounter for screening for malignant neoplasm of colon Z12.11 and Tubulovillous adenoma of colon D12.6 [facility] [address] [facility] [address] [address] [place] [address] 06/02/2024 Cira Jenkins Assessments Encounter Date Diagnosis [...] keep you advised of his progress. 06/01/2024 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 (ICD-10 [...] progress. 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 Galilea Potts [place],CVA,Lung disease,renal disease Seasonal allergies Screening colonoscopy in [...]
--- OUTSIDE RECORDS SUMMARY | 2025-02-02 08:51 | XMS_ITS | Encounter Summary ---
Author Organization [facility] Address [address] [place] [address] [address] [address] Care Team Providers Care Pens And Pencils Dipper Name Role Phone Unavailable Primary Care Provider Unavailabl e Reason for Visit * Reason Comments Med Refill Encounter Details Date Type Department Care Team (Late st Contact Info) Description 08/24/2023 Refill [facility] ADULT DENTAL 230 [place] [address] Kenny Oliveira DMD 230 [place] [address] Social History Tobacco Use Types Packs/Day Years [...]
--- OUTSIDE RECORDS SUMMARY | 2025-02-02 08:52 | XMS_ITS | Encounter Summary ---
Author Organization [employer] [facility] Address [address] [place] [address] 7 [place] [address] Care Team Providers Care Professional System Administrator Name Role Phone Unavailable Primary Care Provider Unavailabl e Reason for Visit * Reason Comments Med Change Request Encounter Details Date Type Department Care Team (Late st Contact Info) Description 08/22/2022 Refill [facility] ADULT DENTAL [address] [place] [address] Kenny Oliveira DMD [address] [place] [address] Social History Tobacco Use Types Packs/Day Years [...]
--- OUTSIDE RECORDS SUMMARY | 2025-02-02 08:52 | XMS_ITS | Encounter Summary ---
Author Organization [employer] Address [address] [facility] [address] [address] Care Team Providers Care Cotton Factor Name Role Phone Unavailable Primary Care Provider Unavailabl e Reason for Visit * Reason Comments Med Refill Encounter Details Date Type Department Care Team (Late st Contact Info) Description 10/13/2023 Refill [facility] ADULT DENTAL 230 [place] [address] Mendoza-McclureIssaElizabeth, DDS 230 [place] [address] Social History Tobacco Use Types Packs/Day Years [...]
== END 2025-02-02 09:12 | disposition home or self-care (01) ==
LOC: HO.HMCH 08:27
PROVIDERS: PCP Physician Assistant; Visit Provider Physician Assistant
DX: Z00.00 Encounter for general adult medical examination without abnormal findings (principal); E11.9 Type 2 diabetes mellitus without complications; E03.9 Hypothyroidism, unspecified; E78.5 Hyperlipidemia, unspecified; G47.33 Obstructive sleep apnea (adult) (pediatric); Z99.89 Dependence on other enabling machines and devices; Z23 Encounter for immunization

== ENCOUNTER → 2025-02-02 08:27 | Outpatient (BNVA) | payer OTHER, SELFPAY | PROVIDERS: PCP Physician Assistant; Visit Provider Physician Assistant | DX: Z00.00 Encounter for general adult medical examination without abnormal findings (principal); E11.9 Type 2 diabetes mellitus without complications; E03.9 Hypothyroidism, unspecified; E78.5 Hyperlipidemia, unspecified; G47.33 Obstructive sleep apnea (adult) (pediatric); Z23 Encounter for immunization; Z99.89 Dependence on other enabling machines and devices | CPT/HCPCS: 96127; 99396 ==

== ENCOUNTER 2025-02-21 08:18 | Outpatient (AMB) | payer OTHER, SELFPAY | END 2025-02-21 08:19 | disposition home or self-care (01) | LOC: HO.HMGAL 08:18 | PROVIDERS: PCP Physician Assistant; Visit Provider Registered Nurse Emergency | DX: J30.89 Other allergic rhinitis (principal) | CPT/HCPCS: 95117; 95165 ==

== ENCOUNTER 2025-02-21 08:19 | Outpatient (REF) | payer OTHER, SELFPAY ==
[2025-02-21 09:06] LABS: Hematocrit 45.0 % (42.0-52.0); Hemoglobin 14.7 g/dl (14.0-18.0); Mean Corpuscular HGB Conc 32.7 g/dl (31.0-36.0); Mean Corpuscular Hemoglobin 29.8 pg (27.0-33.0); Mean Corpuscular Volume 91.3 fL (80.0-98.0); NRBC Abs Auto 0.000 X10*3/uL (0.0-0.012); NRBC Pct Auto 0.0 /100WBC (0.0-0.2); Platelet Count 230 X10*3/uL (160-400); Red Blood Count 4.93 X10*6/uL (4.60-5.80); White Blood Count 8.7 X10*3/uL (4.8-10.8)
[2025-02-21 09:52] LABS: Alanine Aminotransferase 22 U/L (0-40); Albumin Level 4.6 g/dL (3.5-5.0); Alkaline Phosphatase 58 U/L (39-117); Anion Gap 11 (12-20); Aspartate Amino Transferase 31 U/L (5-37); Blood Urea Nitrogen 21 mg/dL (9-16); Calcium 9.5 mg/dL (8.4-10.2); Carbon Dioxide 29 mmol/L (22-29); Chloride 105 mmol/L (96-108); Cholesterol 135 mg/dL (<200); Estimated Glomerular Filt Rate > 60; HDL Cholesterol 32 mg/dL (>40); Potassium 4.6 mmol/L (3.3-5.1); Sodium 140 mmol/L (135-145); Total Protein 7.1 g/dL (6.5-8.0); Triglycerides 93 mg/dL (<150)
[2025-02-22 06:49] LABS: Rubeola IgG (Measles) 228.00 AU/mL
== END 2025-02-21 08:20 | disposition home or self-care (01) ==
LOC: HO.LAB 08:19
PROVIDERS: PCP Physician Assistant; Visit Provider Physician Assistant
DX: Z12.5 Encounter for screening for malignant neoplasm of prostate (principal); Z01.84 Encounter for antibody response examination; E11.69 Type 2 diabetes mellitus with other specified complication; N52.1 Erectile dysfunction due to diseases classified elsewhere; E03.9 Hypothyroidism, unspecified; E78.5 Hyperlipidemia, unspecified; Z80.0 Family history of malignant neoplasm of digestive organs
CPT/HCPCS: 36415; 80053; 80061; 82043; 82570; 84153; 84443; 85027; 86301; 86735; 86762; 86765

== ENCOUNTER 2025-03-08 07:49 | Outpatient (REF) | payer OTHER, SELFPAY ==
--- OUTSIDE RECORDS SUMMARY | 2024-07-30 06:30 | XMS_ITS ---
Author Organization [facility] Address [address] [place] [phone] Care Team Providers Care Erp Consultant Name Role Phone Davion Sheth Primary Care Provider Unavailab Cira Gonzalez [phone] REASON FOR VISIT screening, tubulovillous adenoma,colon Encounters Encounter Location Date Provider Diagnosis [facility] Outpatient [address] [place] [phone] 07/30/2024 Cira Jenkins Colon cancer scree bernice [...] * CIRA MERAZ RDOB: (64 yo F)Acc No.[id number]:07/30/2024 COLON WITH MAC Patient: CIRA GREEN Provider: Sabine Jenkins MD :1960 A ge:64 Y S ex:Female Date:07/30/2024 Address:[address] [place] [phone] Pcp:Davion Sheth Subjective: * Chief Complaints: * [...] Modifiers: PT 0529F INTRVL 3+YRS PTS CLNSCP [id number] RCMND FLW-UP 10 YRS DOCD Billing Information: * Procedure Codes: 32574 LESION REMOVAL COLONOSCOPY. Modifiers: PT 0529F INTRVL 3+YRS PTS CLNSCP DOCD. 0528F RCMND FLW-UP 10 YRS DOCD. * The named appointment provid er may or may not be the originator of this progress note, and it is not deemed complete until electronically signed by the appointment provider. Sign off status: Pending * Provider: Sabine Jenkins MD Date: 0 07/30/2024 Generated for Brannon rodriguez/Megan/Renzoitting on: 1 09:15 AM EST
--- OUTSIDE RECORDS SUMMARY | 2025-03-08 09:15 | XMS_ITS | Clinical Summary ---
Author Organization [facility] Address [address] [place] [address] Phone Care Team Providers Care Shipfitters Supervisor Name Role Phone Davion Sheth Primary Care Provider Allergies No known active allergies Medications No known medications Encounters Date Type Department Care Team Description 02/17/2025 1:30 PM EST Consult Orthopedic Surgery [facility] [address] [place] [phone] Alan Arboleda, DPM Corns and callosities (Primary Dx); Diabetic mononeuropathy simplex (CMS/[facility] V24, CMS/[facility] V28); Type II diabetes mellitus with peripheral circulatory disorder (CMS/HCC V24, CMS/[facility] V28) from Last 3 Months Social History Tobacco Use Types Packs/Day Years Used Date Smoking Tobacco: Never Assessed Sex and Gender Information Value Date Recorded Sex Assigned at Not on file Legal Sex Male 7:19 AM EDT Gender Identity Not on file Sexual Orientation Not on file Plan of Treatment Health Maintenance Due Date Last Done Comments Colorectal Cancer Screening: Colonoscopy 1960 Diabetes: Annual GFR (Glomerular Filtration Rate) 1960 Diabetes: Annual Foot Exam 1970 Diabetes: Annual Retina Eye Exam 1970 Hepatitis A Vaccines (1 of 2 - Risk 2-dose series) 06/04/1979 Zoster Vaccines (2 of 2) 01/02/2020 11/07/2019 Hepatitis B Vaccines (1 of 3 - Risk 3-dose series) 2020 Pneumococcal Vaccine: 50+ Years (2 of 2 - PCV) 09/07/2021 09/07/2020 Depression Screening 03/10/2024 Cholesterol Screening (Lipid Panel) 09/22/2024 HIV Screening 09/22/2024 Hepatitis C Screening 09/22/2024 Medicare Annual Wellness Visit 09/22/2024 Social Influencers of Health Screening 09/22/2024 Diabetes: Annual Urine Albumin-Creatinine Ratio (uACR) 02/17/2025 Diabetes: Blood Sugar Control Test (HGBA1C) 02/17/2025 DTaP,Tdap,and Td Vaccines (2 - Td or Tdap) 09/07/2030 09/07/2020 RSV Immunization Adult Patients Completed 02/23/2023 Influenza Vaccine Completed 12/08/2024, , 12/01/2023, Additional history exists COVID-19 Vaccine Completed 12/10/2024, 02/2024, 12/05/2022, Additional history exists HIB Vaccines Aged Out No longer eligi [...] to complete this topic RSV Immunization Patients Under 20 months Aged Out No longer eligible based on patient's age to complete this topic Varicella Vaccines Aged Out No longer eligible based on patient's age to complete this topic [place] [address] [place] [address] MEDICARE Member Subscriber Plan / Payer (Ef fective 2022-Present) Name:CIRA ALFORD Relation to Subscriber:Self Name:Cira Alford Payer ID:[id number] Group ID:[id number] Type:Not on file Address: [place] [address] [address] [phone] Care Teams Shipfitters Supervisor Relationship Specialty Start Date End Date Davion Sheth PA [address] [place] [phone] PCP - General Physician Hearing Therapist 09/22/24
--- OUTSIDE RECORDS SUMMARY | 2025-03-08 09:15 | XMS_ITS | Encounter Summary ---
Author Organization [employer] [facility] Address [address] [facility] [address] [address] Care Team Providers Care Pricing Manager Name Role Phone Unavailable Primary Care Provider Unavailabl e Reason for Visit * Reason Comments Med Refill Encounter Details Date Type Department Care Team (Late st Contact Info) Description 12/16/2022 Refill [facility] ADULT DENTAL [address] [place] [address] Kenny Oliveira DMD [address] [place] [address] Social History Tobacco Use Types Packs/Day Years [...]
--- OUTSIDE RECORDS SUMMARY | 2025-03-08 09:15 | XMS_ITS | Encounter Summary ---
Author Organization [employer] Address [address] [place] [address] 7 [place] [address] Care Team Providers Care Drugless Physician Name Role Phone Unavailable Primary Care Provider Unavailabl e Reason for Visit * Reason Onset Date Comments Appointment 05/10/2022 Encounter Details Date Type Department Care Team ([facility] st Contact Info) Description 05/10/2022 Telephone [facility]ULT [facility] [address] [place] [address] Darren Elise DDS [address] [place] [address] Appointment Social History Tobacco Use Types Packs/Day [...]
--- OUTSIDE RECORDS SUMMARY | 2025-03-08 09:15 | XMS_ITS | Encounter Summary ---
Author Organization [employer] [facility] Address [address] [place] [address] [address] [place] [address] Care Team Providers Care Registered Nurse Midwife Name Role Phone Unavailable Primary Care Provider Unavailabl e Reason for Visit * Reason Comments Med Refill Encounter Details Date Type Department Care Team (Late st Contact Info) Description 09/17/2023 Refill [facility] ADULT DENTAL [address] [place] [address] Kenny Oliveira, GILDA [address] [place] [address] Social History Tobacco Use Types Packs/Day Years [...]
--- OUTSIDE RECORDS SUMMARY | 2025-03-08 09:15 | XMS_ITS | Patient Health Record ---
Author Organization [facility] Address [address] [place] [address] Care Team Providers Care Costume Mistress Name Role Phone Davion Sheth Primary Care Provider Unavailab Cira Gonzalez Unavailable [phone] Allergies No Known Allergies Results Component Value Reference Range Flag Notes Glucose, Whole Blood Reviewed date:07/30/2024 06:24:58 PM Interpretation: Performing Lab:[facility], [address] [place] [id number] Notes/Report: Glucose, Whole Blood 133 60-115 mg/dL H MT TER #: [id number] Pathology (Not yet reviewed by provider) Interpretation: Performing Lab:[facility], [address] [place] [phone] Notes/Report: Reason For Referral No Information Medications Medication SIG (Take, Route, Frequency, Duration) Notes Start Date End Date Status Trulicity 3 MG/0.5ML Solution Auto-injector ADMINISTER 3 MG UNDER THE SKIN EVERY WEEK Subcutaneous; Duration: 28 Days Unknown Tylenol Unknown Multi Vitamin for diabetics Un known Co Q 10 Unknown Vitamin B Complex Un known Vitamin B 12 Unknown Brimonidine Tartrate 0.2 % Solution INSTILL 1 DROP IN BOTH EYES TWICE DAILY 12 HOURS APART Ophthalmic; Duration: 30 Unknown metFORMIN HCl ER 750 MG Tablet Extended Release 24 Hour 1 tablet with evening meal Orally bid Unknown Latanoprost 0.005 % Solution INSTILL 1 DROP IN BOTH EYES AT BEDTIME Ophthalmic; Duration: 50 Unknown Atorvastatin Calcium 20 MG Tablet 1 tablet Orally Once a day Unknown Immunizations Vaccine Route Administration Date Status Comme [...] Problem Screening for malignant neoplasm of colon (107602565) Encounter for screening for malignant neoplasm of colon (Z12.11) Active confirmed Problem Preprocedural examination (980880702843419) Preprocedural examination (Z01.818) Active confirmed Problem Long-term current use of drug therapy (912763141) [facility] (current) use of oral hypoglycemic drugs (Z79.84) Active confirmed Problem Diverticulosis of colon (451782446) Diverticulosis of colon (K57.30) Active confirmed Problem Tubulovillous adenoma of colon (4974099310) 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 Vital Signs Blood pressure diastolic 111 mm Hg 06/01/2024 Height 67 in 06/01/2024 Blood pressure systolic 111 mm Hg 06/01/2024 Weight 228 lbs 06/01/2024 BMI 35.71 kg/m2 06/01/2024 Procedures Procedure Date Ordered Date Performed Result Body Sit e COLONOSCOPY 06/01/2024 N/A Encounters Encounter Location Date Provider Diagnosis [facility] Outpatient [address] [place], [place] [id number] 07/30/2024 Cira Jenkins Colon cancer screeni ng Z12.11 ; History of adenomatous polyp of colon Z86.0101 ; Colon polyps K63.5 and Diverticulosis of large intestine without perforation or abscess without bleeding K57.30 [facility] [address] [place] [address] 06/01/2024 Cira Jenkins manager terminal (current) use of oral hypoglycemic drugs Z79.84 ; Preprocedural examination Z01.818 ; Encounter for screening for malignant neoplasm of colon Z12.11 and Tubulovillous adenoma of colon D12.6 [facility] [address] [place] [address] 06/01/2024 Cira Jenkins [facility] [address] [place] [address] 06/02/2024 Cira Jenkins Assessments Encounter Date Diagnosis [...] keep you advised of his progress. 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 Galilea Potts [place],CVA,Lung disease,renal disease Seasonal allergies Screening colonoscopy in [...]
--- OUTSIDE RECORDS SUMMARY | 2025-03-08 09:15 | XMS_ITS | Encounter Summary ---
Author Organization [employer] [facility] Address [address] [place] [address] [address] [place] [address] Care Team Providers Care Brine Process Operator Name Role Phone Unavailable Primary Care Provider Unavailabl e Reason for Visit * Reason Comments Med Refill Encounter Details Date Type Department Care Team (Late st Contact Info) Description 07/30/2023 Refill [facility] ADULT DENTAL [address] [place] [address] Kenny Oliveira DMD [address] [place] [address] Social History Tobacco Use Types Packs/Day Years [...]
--- OUTSIDE RECORDS SUMMARY | 2025-03-08 09:15 | XMS_ITS | Encounter Summary ---
Author Organization [employer] [facility] Address [address] [place] [address] [address] [place] [address] Care Team Providers Care Emergency Care Tech Name Role Phone Unavailable Primary Care Provider Unavailabl e Reason for Visit * Reason Comments Med Change Request Encounter Details Date Type Department Care Team (Late st Contact Info) Description 09/05/2022 Refill [facility] ADULT DENTAL [address] [place] [address] Kenny Oliveira DMD [address] [place] [address] Social History Tobacco Use Types Packs/Day Years [...]
--- OUTSIDE RECORDS SUMMARY | 2025-03-08 09:15 | XMS_ITS | Encounter Summary ---
Author Organization [employer] Address [address] [facility] [address] [place] [address] Care Team Providers Care Mrb Engineer Name Role Phone Unavailable Primary Care Provider Unavailabl e Encounter Details Date Type Department Care Team (Late st Contact Info) Description 03/31/2023 Abstract [facility] ADULT DENTAL [address] [place] [address] Kenny Oliveira, GILDA [address] [place] [address] Social History Tobacco Use Types Packs/Day Years [...]
--- OUTSIDE RECORDS SUMMARY | 2025-03-08 09:15 | XMS_ITS | Encounter Summary ---
Author Organization [employer] [facility] Address [address] [facility] 7t [place] [address] Care Team Providers Care Feed Mixer Helper Name Role Phone Unavailable Primary Care Provider Unavailabl e Encounter Details Date Type Department Care Team (Latest Contact Info) Description 07/18/2020 Abstract [facility] CONVERSION[facility] Dental, Provider, DDS Social History [...]
--- OUTSIDE RECORDS SUMMARY | 2025-03-08 09:15 | XMS_ITS | Encounter Summary ---
Author Organization [employer] [facility] Address [address] [place] [address] [address] [address] Care Team Providers Care Hr Associate Name Role Phone Unavailable Primary Care Provider Unavailabl e Reason for Visit * Reason Comments Med Refill Encounter Details Date Type Department Care Team (Late st Contact Info) Description 03/04/2023 Refill [facility] ADULT DENTAL [address] [place] [address] Kenny Oliveira, GILDA [address] [place] [address] Social History Tobacco Use Types Packs/Day Years [...]
--- OUTSIDE RECORDS SUMMARY | 2025-03-08 09:15 | XMS_ITS | Encounter Summary ---
Author Organization [employer] [facility] Address [address] [place] [address] [address] [address] Care Team Providers Care Ditch Inspector Name Role Phone Unavailable Primary Care Provider Unavailabl e Reason for Visit * Reason Comments Med Refill Encounter Details Date Type Department Care Team (Late st Contact Info) Description 05/06/2023 Refill [facility] ADULT DENTAL [address] [place] [address] Kenny Oliveira DMD [address] [place] [address] Social History Tobacco Use Types Packs/Day Years [...]
--- OUTSIDE RECORDS SUMMARY | 2025-03-08 09:15 | XMS_ITS | Clinical Summary ---
Author Organization [employer] Address [address] [facility] [address]t [place] [address] Care Team Providers Care Amf Mechanic Name Role Phone Unavailable Primary Care [...] Recently Relevant to Health Maintenance Insurance [facility]AL [facility]
--- OUTSIDE RECORDS SUMMARY | 2025-03-08 09:15 | XMS_ITS | Encounter Summary ---
Author Organization [employer] [facility] Address [address] [facility] 7t [place] [address] Care Team Providers Care Clinical Safety Specialist Name Role Phone Unavailable Primary Care Provider Unavailabl e Encounter Details Date Type Department Care Team (Latest Contact Info) Description 10/15/2021 Abstract [facility] CONVERSIONS Dental, Provider, DDS Social History [...]
--- OUTSIDE RECORDS SUMMARY | 2025-03-08 09:15 | XMS_ITS | Encounter Summary ---
Author Organization [employer] [facility] Address [address] [place] [address] [address] [place] [address] Care Team Providers Care Glass Vial Bending Conveyor Feeder Name Role Phone Unavailable Primary Care Provider Unavailabl e Reason for Visit * Reason Comments Med Change Request Encounter Details Date Type Department Care Team (Late st Contact Info) Description 08/22/2022 Refill [facility] ADULT DENTAL [address] [place] [address] Kenny Oliveira DMD [address] [place] [address] Social History Tobacco Use Types Packs/Day Years [...]
--- OUTSIDE RECORDS SUMMARY | 2025-03-08 09:15 | XMS_ITS | Encounter Summary ---
Author Organization [employer] [facility] Address [address] [place] [address] [address] [place] [address] Care Team Providers Care Facility Sales And Admin Name Role Phone Unavailable Primary Care Provider Unavailabl e Reason for Visit * Reason Comments Med Refill Encounter Details Date Type Department Care Team (Late st Contact Info) Description 06/07/2023 Refill [facility] ADULT DENTAL [address] [place] [address] Kenny Oliveira, GILDA [address] [place] [address] Social History Tobacco Use Types Packs/Day Years [...]
--- OUTSIDE RECORDS SUMMARY | 2025-03-08 09:15 | XMS_ITS | Encounter Summary ---
Author Organization [employer] [facility] Address [address] [place] [address] [address] [place] [address] Care Team Providers Care Drafter Electromechanical Name Role Phone Unavailable Primary Care Provider Unavailabl e Reason for Visit * Reason Comments Med Refill Encounter Details Date Type Department Care Team (Late st Contact Info) Description 01/10/2023 Refill [facility] ADULT DENTAL [address] [place] [address] Kenny Oliveira DMD [address] [place] [address] Social History Tobacco Use Types Packs/Day Years [...]
--- OUTSIDE RECORDS SUMMARY | 2025-03-08 09:15 | XMS_ITS | Encounter Summary ---
Author Organization [employer] Address [address] [facility] [address] [address] Care Team Providers Care Quill Picking Machine Operator Name Role Phone Unavailable Primary Care Provider Unavailabl e Reason for Visit * Reason Comments Med Refill Encounter Details Date Type Department Care Team (Late st Contact Info) Description 12/02/2023 Refill [facility] ADULT DENTAL [address] [place] [address] Kenny Oliveira DMD [address] [place] [address] Social History Tobacco Use Types Packs/Day Years [...]
--- OUTSIDE RECORDS SUMMARY | 2025-03-08 09:15 | XMS_ITS | Encounter Summary ---
Author Organization [employer] [facility] Address [address] [facility] [address] [place] [address] Care Team Providers Care Liquid Hydrogen Plant Operator Name Role Phone Unavailable Primary Care Provider Unavailabl e Reason for Visit * Reason Comments Med Refill Encounter Details Date Type Department Care Team (Late st Contact Info) Description 12/23/2023 Refill [facility] ADULT DENTAL [address] [place] [address] Kenny Oliveira DMD [address] [place] [address] Social History Tobacco Use Types Packs/Day Years [...]
--- OUTSIDE RECORDS SUMMARY | 2025-03-08 09:15 | XMS_ITS | Encounter Summary ---
Author Organization [employer] Address [address] [facility] [address] [place] [address] Care Team Providers Care Travel Pta Name Role Phone Unavailable Primary Care Provider Unavailabl e Encounter Details Date Type Department Care Team (Late st Contact Info) Description 03/06/2023 Abstract [facility] ADULT DENTAL [address] [place] [address] Kenny Oliveira, GILDA [address] [place] [address] Social History Tobacco Use Types Packs/Day Years [...]
--- OUTSIDE RECORDS SUMMARY | 2025-03-08 09:15 | XMS_ITS | Encounter Summary ---
Author Organization [employer] [facility] Address [address] [facility] [address] [address] Care Team Providers Care Senior Graphic Designer Name Role Phone Unavailable Primary Care Provider Unavailabl e Reason for Visit * Reason Comments Med Refill Encounter Details Date Type Department Care Team (Late st Contact Info) Description 07/04/[address] [facility] ADULT DENTAL [address] [place] [address] Mendoza-McclureIssaElizabeth, DDS [address] [place] [address] Social History Tobacco Use Types Packs/Day Years [...]
--- OUTSIDE RECORDS SUMMARY | 2025-03-08 09:15 | XMS_ITS | Encounter Summary ---
Author Organization [employer] Address [address] [facility] [address] [place] [address] Care Team Providers Care Food Service Counter Clerk Name Role Phone Unavailable Primary Care Provider Unavailabl e Reason for Visit * Reason Comments Med Refill Encounter Details Date Type Department Care Team (Late st Contact Info) Description 10/13/2023 Refill [facility] ADULT DENTAL [address] [place] [address] Mendoza-McclureIssa deutschfemia, DDS [address] [place] [address] Social History Tobacco Use Types Packs/Day Years [...]
--- OUTSIDE RECORDS SUMMARY | 2025-03-08 09:15 | XMS_ITS | Encounter Summary ---
Author Organization [employer] [facility] Address [address] [facility] [address] [address] Care Team Providers Care Video Clerk Name Role Phone Unavailable Primary Care Provider Unavailabl e Reason for Visit * Reason Comments Med Refill Encounter Details Date Type Department Care Team (Late st Contact Info) Description 04/05/2023 Refill [facility] ADULT DENTAL [address] [place] [address] Mendoza-McclureIssa deutschfemia, DDS [address] [place] [address] Social History Tobacco Use Types Packs/Day Years [...]
--- OUTSIDE RECORDS SUMMARY | 2025-03-08 09:15 | XMS_ITS | Encounter Summary ---
Author Organization [employer] Address [address] [facility] [address] [address] Care Team Providers Care Falafel Cart Cook Name Role Phone Unavailable Primary Care Provider Unavailabl e Encounter Details Date Type Department Care Team (Late st Contact Info) Description 12/06/2022 Abstract [facility] ADULT DENTAL [address] [place] [address] Darren Elise, DDS [address] [place] [address] Social History Tobacco Use Types Packs/Day Years [...]
--- OUTSIDE RECORDS SUMMARY | 2025-03-08 09:15 | XMS_ITS | Encounter Summary ---
Author Organization [employer] [facility] Address [address] [place] [address] [address] [address] Care Team Providers Care Pilot Instructor Name Role Phone Unavailable Primary Care Provider Unavailabl e Reason for Visit * Reason Comments Med Refill Encounter Details Date Type Department Care Team (Late st Contact Info) Description 08/24/[address] [facility] ADULT DENTAL [address] [place] [address] Kenny Oliveira DMD [address] [place] [address] Social History Tobacco Use Types Packs/Day Years [...]
--- OUTSIDE RECORDS SUMMARY | 2025-03-08 09:15 | XMS_ITS | Encounter Summary ---
Author Organization [employer] [facility] Address [address] [facility] [address] [place] [address] Care Team Providers Care Branding Machine Operator Name Role Phone Unavailable Primary Care Provider Unavailabl e Reason for Visit * Reason Comments Med Refill Encounter Details Date Type Department Care Team (Late st Contact Info) Description 02/05/2023 Refill [facility] ADULT DENTAL [address] [place] [address] Kenny Oliveira DMD [address] [place] [address] Social History Tobacco Use Types Packs/Day Years [...] encounter Miscellaneous Notes * Telephone Encounter - Kneny Oliveira DMD - 02/05/2023 1:56 PM EST Approving, but needs appt for additional refills. documented in this encounter Plan of Treatment Not on file documented as of this encounter Visit Diagnoses Not on filedocumented in this encounter
--- OUTSIDE RECORDS SUMMARY | 2025-03-08 09:15 | XMS_ITS | Encounter Summary ---
Author Organization [employer] [facility] Address [address] [facility] [address] [address] Care Team Providers Care Pig Machine Crane Operator Name Role Phone Unavailable Primary Care Provider Unavailabl e Reason for Visit * Reason Comments Med Refill Encounter Details Date Type Department Care Team (Late st Contact Info) Description 11/20/2022 Refill [facility] ADULT DENTAL [address] [place] [address] Kenny Oliveira DMD [address] [place] [address] Social History Tobacco Use Types Packs/Day Years [...]
--- OUTSIDE RECORDS SUMMARY | 2025-03-08 09:15 | XMS_ITS | Encounter Summary ---
Author Organization [employer] Address [address] [facility] [address] [address] Care Team Providers Care Physician Office Clin Asst Name Role Phone Unavailable Primary Care Provider Unavailabl e Encounter Details Date Type Department Care Team (Late st Contact Info) Description 03/04/2023 Abstract [facility] ADULT DENTAL [address] [place] [address] Kenny Oliveira, GILDA [address] [place] [address] Social History Tobacco Use Types Packs/Day Years [...]
--- OUTSIDE RECORDS SUMMARY | 2025-03-08 09:15 | XMS_ITS | Encounter Summary ---
Author Organization [employer] Address [address] [facility] 7t [place] [address] Care Team Providers Care Carburizing Furnace Operator Name Role Phone Unavailable Primary Care Provider Unavailabl e Reason for Visit * Reason Onset Date Comments appt insurance approval 12/02/2022 Encounter Details Date Type Department Care Team (Late st Contact Info) Description 12/02/2022 Telephone [facility] ADULT DENTAL [address] [place] [address] Darren Elise DDS [address] [place] [address] appt insurance approval Social History Tobacco Use [...]
[2025-03-08 12:17] LABS: PSA,Total (Free>4and<10) 2.77 ng/mL (0.00-4.00)
== END 2025-03-08 07:50 ==
LOC: HO.10HDL 07:49
PROVIDERS: Visit Provider Urology
DX: R97.20 Elevated prostate specific antigen [PSA] (principal); Z12.5 Encounter for screening for malignant neoplasm of prostate
CPT/HCPCS: 36415; 84153